=== PATIENT | female | born 1955 | race Two or more races ===

== ENCOUNTER 2022-09-23 06:45 | Day surgery (SDC) | payer MEDICARE, OTHER, SELFPAY ==
[2022-09-23 07:27] VITALS: BP 141/87; PULSE 72; RESP 14; TEMP 36.5; O2SAT 100
[2022-09-23] MEDS: 0.9 % SODIUM CHLORIDE 500 ML 50 ML IV (07:37)
--- NOTE | 2022-09-23 08:19 | W.PM.PROCNOT ---
Date of procedure: 09/23/22 Procedure: Right Lumbar 2,3 & 4,5 Radiofrequency ablation PreOp diagnosis: pain secondary to include lumbar spondylosis Postop diagnosis same Under fluoroscopic guidance Rhizotomy was created using radio frequency ablation at 80?C for 90 seconds 1 to 2 lesions created at each site. Post lesioning injection of 2 mL each of 0.25% Marcaine and 2% lidocaine with Depo-Medrol 40mg. 0.5 to 1 mL injected at each site IV in place yes If Intravenous fluids: NS at KVO Anesthesia local 2% lidocaine Anesthesia Other: MAC Timeout process compliant After informed consent obtained.Patient brought to the procedure room placed in the prone position skin overlying the area was prepped and draped in a sterile fashion using betadine. 25 gauge needle was used to create a skin wheal over each of the targeted areas utilizing 2% lidocaine. A rhizotomy needle with a 10 mm active tip was inserted over each of the anesthetized areas and directed towards each of the medial branches accomplished under fluoroscopic guidance. after encountering the same we had positive sensory stimulation, negative motor stimulation was noted. lesions were then created. Post lesioning, steroid solution was injected needles removed. Patient was transferred to recovery room in stable condition to be discharged home after meeting criteria. Surgeon: Fletcher Rodríguez Condition: stable
[2022-09-23] MEDS: METHYLPREDNISOLONE ACETATE 40 MG/ML VIAL INJ (08:44)
[2022-09-23] MEDS: BUPIVACAINE HCL 0.25% PF 25 MG/10 ML VIAL INJ (08:45)
[2022-09-23] MEDS: LIDOCAINE HCL 2% 400 MG/20 ML MDV 15 ML INJ (08:45)
[2022-09-23 08:59] VITALS: BP 91/52; PULSE 66; RESP 16; TEMP 36.2; O2SAT 98
[2022-09-23 09:04] VITALS: BP 88/54; PULSE 64; RESP 16; TEMP 36.2; O2SAT 97
[2022-09-23 09:55] VITALS: BP 128/75
[2022-09-23 10:05] VITALS: BMI 28.4
--- NOTE | 2022-09-23 10:07 | PC.NURSE ---
0955 right leg remains weak will continue to monitor
--- NOTE | 2022-09-23 11:16 | PC.NURSE ---
1045 numbness continues in right leg Pt unable to bear full weight 1100 Dr. Linares spoke with pt Strength coming back 1118 Pt standing on right leg without difficulty discharged per w/c
== END 2022-09-23 11:18 | disposition home or self-care (01) ==
PROVIDERS: PCP Family Medicine; Visit Provider Anesthesiology Pain Medicine
DX: M47.816 Spondylosis without myelopathy or radiculopathy, lumbar region (principal)
CPT/HCPCS: 64635; 64636; J1030; J2704

== ENCOUNTER 2022-10-22 09:32 | Outpatient (OUT) | payer MEDICARE, OTHER, SELFPAY ==
[2022-10-22 10:15] LABS: Basophils Percent Auto 0.6 % (0.2-2.0); Eosinophils Absolute Auto 0.2 10^3/uL (0.0-0.7); Eosinophils Percent Auto 4.7 % (0.9-7.0); Hematocrit 31.9 % (36.0-48.0); Hemoglobin 9.3 g/dL (12.0-16.0); Immature Granulocytes Abs Auto 0.01 10^3/uL (0.00-0.03); Immature Granulocytes Pct Auto 0.2 % (0.0-0.5); Lymphocytes Percent Auto 19.6 % (20.5-60.0); Mean Corpuscular HGB Conc 29.2 g/dL (29.9-35.2); Mean Corpuscular Volume 75.6 fL (81.0-99.0); Monocytes Absolute Auto 0.5 10^3/uL (0.3-0.8); Monocytes Percent Auto 10.4 % (1.7-12.0); Neutrophils Absolute Auto 3.3 10^3/uL (1.4-6.5); Neutrophils Percent Auto 64.5 % (43.0-75.0); Platelet Count 277 10^3/uL (150-450); Red Blood Count 4.22 10^6/uL (4.20-5.40); Red Cell Distribution Width 17.6 % (11.0-15.0); White Blood Count 5.1 10^3/uL (4.0-11.0)
[2022-10-22 11:55] LABS: Alanine Aminotransferase 25 U/L (14-59); Albumin Level 3.6 g/dL (3.4-5.0); Alkaline Phosphatase 103 U/L (46-116); Anion Gap 11.7; Aspartate Amino Transferase 19 U/L (15-37); BUN Creatinine Ratio 22.1; Bilirubin Total 0.2 mg/dL (0.2-1.0); Calcium 8.7 mg/dL (8.5-10.1); Carbon Dioxide 27.4 mmol/L (21.0-32.0); Chloride 108 mmol/L (98-107); Estimated GFR (African America >60 (>=60); Estimated GFR (Non-African Ame >60 (>=60); Globulin 3.7 g/dL; Glucose 87 mg/dL (74-106); Potassium 4.1 mmol/L (3.5-5.1); Sodium 143 mmol/L (136-145); Total Protein 7.3 g/dL (6.4-8.2)
[2022-10-22 12:52] LABS: Percent Iron Saturation 4.3 %
[2022-10-22 15:16] LABS: Vitamin B12 <80.0 pg/mL (193.0-986.0)
[2022-10-23 14:12] LABS: PTH, Intact 28 pg/mL (15-65)
[2022-10-24 20:08] LABS: Vitamin B1 (Thiamine), Blood 113.7 nmol/L (66.5-200.0)
[2022-10-26 12:07] LABS: Vitamin A, Serum 37.1 ug/dL (22.0-69.5)
[2022-10-26 21:06] LABS: Zinc Level 57 ug/dL (44-115)
== END 2022-10-22 09:33 | disposition home or self-care (01) ==
LOC: LAB 09:33
PROVIDERS: PCP Family Medicine; Visit Provider Family Medicine
DX: Z98.84 Bariatric surgery status (principal); K90.89 Other intestinal malabsorption
CPT/HCPCS: 36415; 80053; 82306; 82607; 82728; 82746; 83540; 83550; 83970; 84425; 84590; 84630; 85025

== ENCOUNTER 2022-10-30 09:26 | Outpatient (OUT) | payer MEDICARE, OTHER, SELFPAY ==
--- NOTE | 2022-10-30 09:59 | PM.CN ---
Consult Note: HPI Data of Consult Patient: known to practice within the last 3 years Consult date: 10/30/22 Requesting Physician: ANGEL KERR NP Primary Care Provider: Dilcia Ocasio MD Consult Narrative Narrative: Patient is here for f/u of right RFA lumbar L2,3 4,5 done 09/23/22. She received 50% relief of pain after procedure. Today she exhibits pain in bilat hips. We discussed getting hip XR and she is agreeable. No new sensorimotor sx or bowel or bladder issues. No adverse medication SE. Medications assist patient with better ability to perform ADLs. cc:: CC: ANGEL KERR NP Review of Systems ROS Status of ROS 10 or more systems reviewed and unremarkable except as noted in history and below Musculoskeletal Reports: back pain PFSH PFSH Medical History (Updated 10/30/22 @ 10:12 by ANGEL KERR NP) Surgical History Meds Home Medications and Allergies Home Medications Medication Instructions Recorded Confirmed Type baclofen 10 mg tablet 10 mg PO .HS 09/17/22 09/23/22 History calcium carbonate 600 mg-vitamin cap PO .QD 09/17/22 History D3 5 mcg (200 unit) capsule (Calcium 600 + D(3)) copper gluconate 2 mg tablet 2 mg PO DAILY 09/17/22 09/23/22 History diclofenac potassium 50 mg tablet 50 mg PO BID 09/17/22 09/23/22 History levothyroxine 88 mcg tablet 88 mcg PO .QD 09/17/22 09/23/22 History multivitamin 1 tab PO DAILY 09/17/22 09/23/22 History tramadol 50 mg tablet 50 mg PO DAILY PRN pain 09/17/22 09/23/22 History vitamin A .QD 09/17/22 History vitamin B complex (Complex B-100 1 tab PO DAILY 09/17/22 09/23/22 History tablet,extended release) zinc 25 mg tablet 25 mg PO .QD 09/17/22 09/23/22 History Allergies Allergy/AdvReac Type Severity Reaction Status Date / Time morphine AdvReac Mild Hypotension Verified 09/23/22 07:23 Exam Constitutional Documenting provider has reviewed patient's vital signs: yes Common normals: no apparent distress, average body habitus, oriented x3, no limitations, healthy appearing, alert and well nourished General appearance: cooperative, comfortable and well developed Orientation/consciousness: Yes awake, Yes oriented to person, Yes oriented to place and Yes oriented to time HENMT Common normals: normocephalic and moist oral mucous membranes Respiratory Common normals: normal respiratory effort, no retractions and no use of accessory muscles Effort & inspection: able to speak in complete sentences and symmetric chest movement Back & Pelvis Lumbar spine/lower back: normal to inspection, lumbar ROM normal, pain with ROM, paraspinal muscle tenderness and paraspinal muscle spasm Other: positive facet load bilat shane positive bilat in hip area muscle strength 5/5 bilat with intact sensation Assessment and Plan Assessment and Plan (1) Lumbar spondylosis: (2) Hip pain, bilateral: Plan bilat hip XR refills given
== END 2022-10-30 09:27 | disposition home or self-care (01) ==
LOC: PM 09:27
PROVIDERS: PCP Family Medicine; Visit Provider Nurse Practitioner
DX: M25.552 Pain in left hip (principal); M25.551 Pain in right hip; M47.816 Spondylosis without myelopathy or radiculopathy, lumbar region
CPT/HCPCS: 73522; G0463

== ENCOUNTER 2022-10-30 10:18 | Outpatient (OUT) | payer MEDICARE, OTHER, SELFPAY ==
--- NOTE | 2022-10-30 10:27 | XR_ITS ---
The [address] [address] Patient Name: KEVIN PEREA MRN: [id number] date: 1955 Sex: F Assigned Patient Location: [facility] Current Patient Location: [facility] Accession/Order Number: [id number] Exam Date: 10/30/2022 10:40 Report Date: 10/30/2022 11:30 At the request of: ANGEL KERR Procedure: XR hip HÉCTOR EXAMINATION: XR hip HÉCTOR HISTORY: Bilateral hip pain COMPARISON: No relevant comparison available. FINDINGS: RIGHT FINDINGS: BONES: Normal. No significant arthropathy or acute abnormality. SOFT TISSUES: Negative. No visible soft tissue swelling. OTHER: Negative. LEFT FINDINGS: BONES: Normal. No significant arthropathy or acute abnormality. SOFT TISSUES: Negative. No visible soft tissue swelling. OTHER: Negative. XR/XR hip HÉCTOR IMPRESSION: RIGHT CONCLUSION: No acute abnormality LEFT CONCLUSION: No acute abnormality Electronically authenticated by: MAUREEN BLANTON Date: 10/30/2022 11:30
== END 2022-10-30 10:19 | disposition home or self-care (01) ==
LOC: RAD 10:20
PROVIDERS: PCP Family Medicine; Visit Provider Nurse Practitioner
DX: M25.552 Pain in left hip (principal); M25.551 Pain in right hip
CPT/HCPCS: 73522

== ENCOUNTER 2022-12-09 08:14 | Day surgery (SDC) | payer MEDICARE, OTHER, SELFPAY ==
[2022-12-09 08:32] VITALS: BP 137/77; PULSE 71; RESP 14; TEMP 36.4; O2SAT 96
[2022-12-09 09:32] VITALS: BP 149/72; PULSE 63; RESP 18; O2SAT 100
[2022-12-09] MEDS: BUPIVACAINE HCL 0.25% PF 25 MG/10 ML VIAL INJ (09:34)
[2022-12-09] MEDS: METHYLPREDNISOLONE ACETATE 40 MG/ML VIAL IM (09:35)
[2022-12-09 09:37] VITALS: BP 145/75; PULSE 62; RESP 18; O2SAT 99
--- NOTE | 2022-12-09 10:20 | W.PM.PROCNOT ---
Date of procedure: 12/09/22 Pre-op diagnosis: Bilateral sacroiliitis Post-op diagnosis: same as pre-op Procedure: Bilateral sacroiliac joint injection - therapeautic Performed under fluoroscopic guidance Immediate complications none Anesthesia:none Solution used for injection: In each syringe, 2 milliliters 0.25% Marcaine, 20mg Depo 2.5 mL is used for injection for each side Time out process compliant After informed consent obtained patient was brought to the procedure room placed in the prone position skin overlying the area was prepped and draped in a sterile fashion using betadine. 25 gauge spinal needle Insert over each of the target areas identified in fluoroscopy corresponding needles were advanced Under fluoroscopic guidance until the target/targets encountered , no indication of intravascular or Intraneuronal needle tip placement. Solution injected .needles removed post procedurally. patient transferred to recovery room in stable condition to be discharged home after meeting criteria Anesthesia: MAC Surgeon: Fletcher Rodríguez Condition: stable
== END 2022-12-09 09:41 | disposition home or self-care (01) ==
PROVIDERS: PCP Family Medicine; Visit Provider Anesthesiology Pain Medicine
DX: M46.1 Sacroiliitis, not elsewhere classified (principal)
CPT/HCPCS: 27096; J1030

== ENCOUNTER 2022-12-18 10:14 | Outpatient (OUT) | payer MEDICARE, OTHER, SELFPAY ==
--- NOTE | 2022-12-18 10:38 | P.CN_ITS ---
Consult Note: HPI Data of Consult Patient: known to practice within the last 3 years Requesting Physician: Fletcher Rodríguez MD Primary Care Provider: Dilcia Ocasio MD Consult Narrative Reason for consult: f/u Narrative: Sylvia crain pleasant 67 year old female presents to office for evaluation of chronic low back and bilateral hip pain. Recently underwent bilateral therapeutic SIJ injections. today rating pain 0/10, has noticed improvement in functional ability and pain since these injections and thermal RFA. cc:: CC: Fletcher Rodríguez MD Review of Systems ROS Status of ROS 10 or more systems reviewed and unremarkable except as noted in history and below [facility] Medical History (Updated 12/18/22 @ 10:48 by Maria G Toussaint NP) Surgical History Meds Home Medications and Allergies Home Medications Medication Instructions Recorded Confirmed Type baclofen 10 mg tablet 10 mg PO .HS 09/17/22 12/09/22 History calcium carbonate 600 mg-vitamin cap PO .QD 09/17/22 History D3 5 mcg (200 unit) capsule (Calcium 600 + D(3)) copper gluconate 2 mg tablet 2 mg PO DAILY 09/17/22 12/09/22 History diclofenac potassium 50 mg tablet 50 mg PO BID 09/17/22 12/09/22 History levothyroxine 88 mcg tablet 88 mcg PO .QD 09/17/22 12/09/22 History multivitamin 1 tab PO DAILY 09/17/22 12/09/22 History tramadol 50 mg tablet 50 mg PO DAILY PRN pain 09/17/22 12/09/22 History vitamin A .QD 09/17/22 History vitamin B complex (Complex B-100 1 tab PO DAILY 09/17/22 12/09/22 History tablet,extended release) zinc 25 mg tablet 25 mg PO .QD 09/17/22 12/09/22 History Allergies Allergy/AdvReac Type Severity Reaction Status Date / Time morphine AdvReac Mild Hypotension Verified 12/09/22 08:36 Exam Constitutional Documenting provider has reviewed patient's vital signs: yes Common normals: no apparent distress, oriented x3, healthy appearing, alert and well nourished General appearance: cooperative HENMT Common normals: normocephalic, hearing grossly normal bilaterally and moist oral mucous membranes Head and scalp: normocephalic Eye Common normals: PERRL Pupil: PERRL Neck & C-Spine Common normals: full ROM General: normal visual inspection Chest Common normals: inspection of chest normal Respiratory Common normals: normal respiratory effort, no retractions and no use of accessory muscles Back & Pelvis Lumbar spine/lower back: pain with ROM and straight leg raise negative bilaterally Other: bilateral low back pain, improved as a result of RFA. Continues to have >50% pain relief and functional improvement intermittent muscle tightness and spasms Extremity Common normals: normal to inspection and full ROM Neuro Common normals: oriented x3, CN's II-XII intact bilaterally, moves all extremities, no focal motor deficits, no sensory deficits noted and deep tendon reflexes 2+ bilaterally Sensorium/orientation: alert Motor exam: strength 5/5 throughout and no movement abnormalities noted Psych Common normals: mental status grossly normal, thought process normal, cooperative, affect normal, speech normal and activity/motor behavior normal Speech: normal speech Thought process: normal thought process Results Additional Findings Additional findings: As part of providing excellent, safe, comprehensive care, the following was completed at our patient's visit: 1. A medication reconciliation and review to ensure accurate knowledge of current/active medications, including asking our patients to inform us about any [id number] medications or herbal remedies/nutritional supplements/alternative remedies. 2. A review to specifically ensure our patients have had annual screening for: elevated body mass index (BMI), tobacco use, screening for depression, and screening for unhealthy alcohol use. When screening is concerning, patients are provided with education and the specific recommendation to discuss the concerning health issue and treatment options with their primary care provider. Assessment and Plan Assessment and Plan (1) Bilateral sacroiliitis: (2) Muscle spasm: Plan Discussed continued pain relief from bilateral SIJ injections and tolerating current medication regimen well. No additional injections or procedures needed at this time continue current medication regimen f/u 2 months
== END 2022-12-18 10:15 | disposition home or self-care (01) ==
PROVIDERS: PCP Family Medicine; Visit Provider Anesthesiology Pain Medicine
DX: M46.1 Sacroiliitis, not elsewhere classified (principal); M62.838 Other muscle spasm
CPT/HCPCS: G0463

== ENCOUNTER 2023-01-21 13:43 | Outpatient (OUT) | payer MEDICARE, OTHER, SELFPAY ==
--- NOTE | 2023-01-21 14:48 | P.CN_ITS ---
Consult Note: HPI Data of Consult Patient: known to practice within the last 3 years Requesting Physician: Maria G Toussaint NP Primary Care Provider: Dilcia Ocasio MD Consult Narrative Reason for consult: F/u Narrative: Sylvia Aragon a pleasant 67 year old female presents for evaluation and management of chronic pain, in the last few weeks has noticed increase in low back bilateral SIJ and hips. Patient rating pain 7/10 throbbing. SIJ injections have worn off and are no longer beneficial. Patient would like to discuss medication management. cc:: CC: Maria G Toussaint NP Review of Systems ROS Status of ROS 10 or more systems reviewed and unremarkable except as noted in history and below Musculoskeletal Reports: back pain and joint pain PFSH PFS Medical History (Updated 12/18/22 @ 10:48 by Maria G Toussaint NP) Back pain ?M54.9 - Dorsalgia, unspecified (ICD-10) Neck pain ?M54.2 - Cervicalgia (ICD-10) Rheumatoid arthritis ?M06.9 - Rheumatoid arthritis, unspecified (ICD-10) Surgical History H/O abdominoplasty ?Z98.890 - Other specified postprocedural states (ICD-10) H/O bariatric surgery ?Z98.84 - Bariatric surgery status (ICD-10) H/O breast implant ?Z98.82 - Breast implant status (ICD-10) H/O eye surgery ?Z98.890 - Other specified postprocedural states (ICD-10) History of gastric surgery ?Z98.890 - Other specified postprocedural states (ICD-10) Hx of cholecystectomy ?Z90.49 - Acquired absence of other specified parts of digestive tract (ICD- 10) Meds Home Medications and Allergies Home Medications Medication Instructions Recorded Confirmed Type baclofen 10 mg tablet 10 mg PO .HS 09/17/22 12/09/22 History calcium carbonate 600 mg-vitamin cap PO .QD 09/17/22 History D3 5 mcg (200 unit) capsule (Calcium 600 + D(3)) copper gluconate 2 mg tablet 2 mg PO DAILY 09/17/22 12/09/22 History diclofenac potassium 50 mg tablet 50 mg PO BID 09/17/22 12/09/22 History levothyroxine 88 mcg tablet 88 mcg PO .QD 09/17/22 12/09/22 History multivitamin 1 tab PO DAILY 09/17/22 12/09/22 History tramadol 50 mg tablet 50 mg PO DAILY PRN pain 09/17/22 12/09/22 History vitamin A .QD 09/17/22 History vitamin B complex (Complex B-100 1 tab PO DAILY 09/17/22 12/09/22 History tablet,extended release) zinc 25 mg tablet 25 mg PO .QD 09/17/22 12/09/22 History Allergies Allergy/AdvReac Type Severity Reaction Status Date / Time morphine AdvReac Mild Hypotension Verified 12/09/22 08:36 Exam Constitutional Documenting provider has reviewed patient's vital signs: yes Common normals: no apparent distress, oriented x3, healthy appearing, alert and well nourished General appearance: cooperative HENMT Common normals: normocephalic, hearing grossly normal bilaterally and moist oral mucous membranes Head and scalp: normocephalic Eye Common normals: PERRL Pupil: PERRL Neck & C-Spine Common normals: full ROM General: normal visual inspection Chest Common normals: inspection of chest normal Respiratory Common normals: normal respiratory effort, no retractions and no use of accessory muscles Back & Pelvis Lumbar spine/lower back: ROM limited and pain with ROM Sacroiliac joints: SI joint(s) abnormal (bilateral thigh thrust, gaenslens, ASAD) Extremity Common normals: normal to inspection Neuro Common normals: oriented x3, CN's II-XII intact bilaterally, moves all extremities, no focal motor deficits, no sensory deficits noted and deep tendon reflexes 2+ bilaterally Sensorium/orientation: alert Motor exam: strength 5/5 throughout and no movement abnormalities noted Psych Common normals: mental status grossly normal, thought process normal, cooperative, affect normal, speech normal and activity/motor behavior normal Speech: normal speech Thought process: normal thought process Results Additional Findings Additional findings: I have checked an [place]AR[place] report on this patient today and there are no aberrancies noted in the prescribing history.?? A drug screen was completed and reviewed within the last year, and if there has not been a drug screen completed we ordered one today to monitor higher risk, state monitored pain medication use. As part of providing excellent, safe, comprehensive care, the following was completed at our patient's visit: 1. A medication reconciliation and review to ensure accurate knowledge of current/active medications, including asking our patients to inform us about any [id number] medications or herbal remedies/nutritional supplements/alternative remedies. 2. A review to specifically ensure our patients have had annual screening for: elevated body mass index (BMI), tobacco use, screening for depression, and screening for unhealthy alcohol use. When screening is concerning, patients are provided with education and the specific recommendation to discuss the concerning health issue and treatment options with their primary care provider. Assessment and Plan Assessment and Plan (1) Rheumatoid arthritis: (2) Bilateral sacroiliitis: (3) Hip pain, bilateral: (4) Lumbar spondylosis: (5) Muscle spasm: Plan start duloxetine 30mg Q HS for 2 weeks then increase to 60mg HS change diclofenac to 100mg ER continue PRN baclofen 10mg muscle spasms f/u 6 weeks
== END 2023-01-21 13:44 | disposition home or self-care (01) ==
PROVIDERS: PCP Family Medicine; Visit Provider Nurse Practitioner
DX: M06.9 Rheumatoid arthritis, unspecified (principal); M46.1 Sacroiliitis, not elsewhere classified; M25.552 Pain in left hip; M25.551 Pain in right hip; M47.816 Spondylosis without myelopathy or radiculopathy, lumbar region; M62.838 Other muscle spasm
CPT/HCPCS: G0463

== ENCOUNTER 2023-03-05 11:39 | Outpatient (OUT) | payer MEDICARE, SELFPAY ==
--- NOTE | 2023-03-05 11:56 | P.CN_ITS ---
Consult Note: HPI Data of Consult Patient: known to practice within the last 3 years Requesting Physician: Maria G Toussaint NP Primary Care Provider: Dilcia Ocasio MD Consult Narrative Reason for consult: f/u Narrative: Sylvia crain pleasant 67 year old female presents for evaluation and management of chronic low back pain. Today pain 3/10. Patient has not utilized diclofenac, not taking duloxetine. pain today 3/10 in low back without radiculopathy. cc:: CC: Maria G Toussaint NP Review of Systems ROS Status of ROS 10 or more systems reviewed and unremarkable except as noted in history and below Musculoskeletal Reports: back pain PFSH PFSH Medical History (Updated 12/18/22 @ 10:48 by Maria G Toussaint NP) Back pain ?M54.9 - Dorsalgia, unspecified (ICD-10) Neck pain ?M54.2 - Cervicalgia (ICD-10) Rheumatoid arthritis ?M06.9 - Rheumatoid arthritis, unspecified (ICD-10) Surgical History H/O abdominoplasty ?Z98.890 - Other specified postprocedural states (ICD-10) H/O bariatric surgery ?Z98.84 - Bariatric surgery status (ICD-10) H/O breast implant ?Z98.82 - Breast implant status (ICD-10) H/O eye surgery ?Z98.890 - Other specified postprocedural states (ICD-10) History of gastric surgery ?Z98.890 - Other specified postprocedural states (ICD-10) Hx of cholecystectomy ?Z90.49 - Acquired absence of other specified parts of digestive tract (ICD- 10) Meds Home Medications and Allergies Home Medications Medication Instructions Recorded Confirmed Type baclofen 10 mg tablet 10 mg PO .HS 09/17/22 12/09/22 History calcium carbonate 600 mg-vitamin cap PO .QD 09/17/22 History D3 5 mcg (200 unit) capsule (Calcium 600 + D(3)) copper gluconate 2 mg tablet 2 mg PO DAILY 09/17/22 12/09/22 History diclofenac potassium 50 mg tablet 50 mg PO BID 09/17/22 12/09/22 History levothyroxine 88 mcg tablet 88 mcg PO .QD 09/17/22 12/09/22 History multivitamin 1 tab PO DAILY 09/17/22 12/09/22 History tramadol 50 mg tablet 50 mg PO DAILY PRN pain 09/17/22 12/09/22 History vitamin A .QD 09/17/22 History vitamin B complex (Complex B-100 1 tab PO DAILY 09/17/22 12/09/22 History tablet,extended release) zinc 25 mg tablet 25 mg PO .QD 09/17/22 12/09/22 History diclofenac sodium 100 mg 100 mg PO DAILY #30 tabs 01/21/23 Rx tablet,extended release 24 hr duloxetine 30 mg capsule,delayed 60 mg PO DAILY #75 caps 01/21/23 Rx release Allergies Allergy/AdvReac Type Severity Reaction Status Date / Time morphine AdvReac Mild Hypotension Verified 12/09/22 08:36 Exam Constitutional Documenting provider has reviewed patient's vital signs: yes Common normals: no apparent distress, oriented x3, healthy appearing, alert and well nourished General appearance: cooperative HENMT Common normals: normocephalic, hearing grossly normal bilaterally and moist oral mucous membranes Head and scalp: normocephalic Eye Common normals: PERRL Pupil: PERRL Neck & C-Spine Common normals: full ROM General: normal visual inspection Chest Common normals: inspection of chest normal Respiratory Common normals: normal respiratory effort, no retractions and no use of accessory muscles Back & Pelvis Lumbar spine/lower back: ROM limited and pain with ROM Extremity Common normals: normal to inspection Neuro Common normals: oriented x3, CN's II-XII intact bilaterally, moves all extremities, no focal motor deficits, no sensory deficits noted and deep tendon reflexes 2+ bilaterally Sensorium/orientation: alert Motor exam: strength 5/5 throughout and no movement abnormalities noted Psych Common normals: mental status grossly normal, thought process normal, cooperative, affect normal, speech normal and activity/motor behavior normal Speech: normal speech Thought process: normal thought process Results Additional Findings Additional findings: I have checked an [place]AR[place] report on this patient today and there are no aberrancies noted in the prescribing history.?? A drug screen was completed and reviewed within the last year, and if there has not been a drug screen completed we ordered one today to monitor higher risk, state monitored pain medication use. As part of providing excellent, safe, comprehensive care, the following was completed at our patient's visit: 1. A medication reconciliation and review to ensure accurate knowledge of current/active medications, including asking our patients to inform us about any [id number] medications or herbal remedies/nutritional supplements/alternat ke remedies. 2. A review to specifically ensure our patients have had annual screening for: elevated body mass index (BMI), tobacco use, screening for depression, and screening for unhealthy alcohol use. When screening is concerning, patients are provided with education and the specific recommendation to discuss the concerning health issue and treatment options with their primary care provider. Assessment and Plan Assessment and Plan (1) Lumbar spondylosis: (2) Muscle spasm: Plan continue current medications, can start diclofenac and/or duloxetine as previously discussed transdermal therapeutics to low back and affected areas TID-QID f/u 2 months
== END 2023-03-05 11:40 | disposition home or self-care (01) ==
LOC: PM 11:40
PROVIDERS: PCP Family Medicine; Visit Provider Nurse Practitioner
DX: M47.816 Spondylosis without myelopathy or radiculopathy, lumbar region (principal); M62.838 Other muscle spasm
CPT/HCPCS: G0463

== ENCOUNTER 2023-05-28 08:57 | Outpatient (OUT) | payer MEDICARE, OTHER, SELFPAY ==
--- NOTE | 2023-05-28 09:18 | P.CN_ITS ---
Consult Note: HPI Data of Consult Patient: known to practice within the last 3 years Requesting Physician: Maria G Toussaint NP Primary Care Provider: Dilcia Ocasio MD Consult Narrative Reason for consult: f/u Narrative: Sylvia Aragon a pleasant 67 year old female presents for evaluation and management of chronic low back pain. Today pain 3/10, increasing to 8/10. Patient has found benefit to diclofenac, duloxetine, and baclofen without side effects. Patient has noticed an increase in low back pain over the last 3 weeks with increase in sharp shooting pain radiating down right leg, hx of stress incontinence and has noticed this getting worse. Pain increased with activity and when lying flat, finds benefit to lying on her abdomen. cc:: CC: Maria G Toussaint NP Review of Systems ROS Status of ROS 10 or more systems reviewed and unremark able except as noted in history and below Musculoskeletal Reports: back pain PFSH PFSH Medical History Rheumatoid arthritis ?M06.9 - Rheumatoid arthritis, unspecified (ICD-10) Neck pain ?M54.2 - Cervicalgia (ICD-10) Back pain ?M54.9 - Dorsalgia, unspecified (ICD-10) Surgical History History of gastric surgery ?Z98.890 - Other specified postprocedural states (ICD-10) H/O abdominoplasty ?Z98.890 - Other specified postprocedural states (ICD-10) H/O bariatric surgery ?Z98.84 - Bariatric surgery status (ICD-10) H/O eye surgery ?Z98.890 - Other specified postprocedural states (ICD-10) H/O breast implant ?Z98.82 - Breast implant status (ICD-10) Hx of cholecystectomy ?Z90.49 - Acquired absence of other specified parts of digestive tract (ICD- 10) Meds Home Medications and Allergies Home Medications Medication Instructions Recorded Confirmed Type baclofen 10 mg tablet 10 mg PO .HS 09/17/22 12/09/22 History calcium carbonate 600 mg-vitamin cap PO .QD 09/17/22 History D3 5 mcg (200 unit) capsule (Calcium 600 + D(3)) copper gluconate 2 mg tablet 2 mg PO DAILY 09/17/22 12/09/22 History diclofenac potassium 50 mg tablet 50 mg PO BID 09/17/22 12/09/22 History levothyroxine 88 mcg tablet 88 mcg PO .QD 09/17/22 12/09/22 History multivitamin 1 tab PO DAILY 09/17/22 12/09/22 History tramadol 50 mg tablet 50 mg PO DAILY PRN pain 09/17/22 12/09/22 History vitamin A .QD 09/17/22 History vitamin B complex (Complex B-100 1 tab PO DAILY 09/17/22 12/09/22 History tablet,extended release) zinc 25 mg tablet 25 mg PO .QD 09/17/22 12/09/22 History diclofenac sodium 100 mg 100 mg PO DAILY #30 tabs 01/21/23 Rx tablet,extended release 24 hr duloxetine 30 mg capsule,delayed 60 mg (2 x 30 mg) PO DAILY #75 caps 01/21/23 Rx release Allergies Allergy/AdvReac Type Severity Reaction Status Date / Time morphine AdvReac Mild Hypotension Verified 12/09/22 08:36 Exam Constitutional Documenting provider has reviewed patient's vital signs: yes Common normals: no apparent distress, oriented x3, healthy appearing, alert and well nourished General appearance: cooperative HENME Common normals: normocephalic, hearing grossly normal bilaterally and moist oral mucous membranes Head and scalp: normocephalic Eye Common normals: PERRL Pupil: PERRL Neck & C-Spine Common normals: full ROM General: normal visual inspection Chest Common normals: inspection of chest normal Respiratory Common normals: normal respiratory effort, no retractions and no use of accessory muscles Back & Pelvis Lumbar spine/lower back: ROM limited, pain with ROM and straight leg raise positive right Sacroiliac joints: SI joints normal Extremity Common normals: normal to inspection Neuro Common normals: oriented x3, CN's II-XII intact bilaterally, moves all extremities, no focal motor deficits, no sensory deficits noted and deep tendon reflexes 2+ bilaterally Sensorium/orientation: alert Gait (neuro): antalgic Motor exam: strength 5/5 throughout and no movement abnormalities noted Psych Common normals: mental status grossly normal, thought process normal, cooperative, affect normal, speech normal and activity/motor behavior normal Speech: normal speech Thought process: normal thought process Results Additional Findings Additional findings: I have checked an [facility] report on this patient today and there are no aberrancies noted in the prescribing history.?? A drug screen was completed and reviewed within the last year, and if there has not been a drug screen completed we ordered one today to monitor higher risk, state monitored pain medication use. As part of providing excellent, safe, comprehensive care, the following was completed at our patient's visit: 1. A medication reconciliation and review to ensure accurate knowledge of current/active medications, including asking our patients to inform us about any [id number]-czjonhd medications or herbal remedies/nutritional supplements/alternative remedies. 2. A review to specifically ensure our patients have had annual screening for: elevated body mass index (BMI), tobacco use, screening for depression, and screening for unhealthy alcohol use. When screening is concerning, patients are provided with education and the specific recommendation to discuss the concerning health issue and treatment options with their primary care provider. Assessment and Plan Assessment and Plan (1) Lumbar spondylosis: (2) Muscle spasm: (3) Lumbar radiculopathy: (4) Bilateral sacroiliitis: (5) Hip pain, bilateral: Plan lumbar MRI without contrast to evaluate lumbar radiculopathy, chronic low back pain greater than 3 months unresponsive to medications and pt/HEP. Essential to evaluate for injection therapy vs surgical referral continue current medications, tolerating well without side effects transdermal therapeutics to low back and affected areas TID-QID f/u after MRI, likely L5-S1 KEYONA
== END 2023-05-28 08:58 | disposition home or self-care (01) ==
PROVIDERS: PCP Family Medicine; Visit Provider Nurse Practitioner
DX: M47.816 Spondylosis without myelopathy or radiculopathy, lumbar region (principal); M62.838 Other muscle spasm; M54.16 Radiculopathy, lumbar region; M46.1 Sacroiliitis, not elsewhere classified; M25.552 Pain in left hip; M25.551 Pain in right hip
CPT/HCPCS: G0463

== ENCOUNTER 2023-06-04 09:15 | Outpatient (OUT) | payer MEDICARE, OTHER, SELFPAY ==
--- NOTE | 2023-06-04 09:19 | MR_ITS ---
The [address] [address] Patient Name: KEVIN PEREA MRN: [id number] date: 1955 Sex: F Assigned Patient Location: MRI Current Patient Location: MRI Accession/Order Number: [id number] Exam Date: 06/04/2023 09:40 Report Date: 06/04/2023 10:32 At the request of: CHERY DICKINSON Procedure: MR lumbar spine wo con MR lumbar spine wo con, 06/04/2023 9:40 AM EST INDICATION: radiculopathy, chronic low back pain COMPARISON: Prior x-ray of lumbar spine dated 12/13/2018 TECHNIQUE: Multiplanar, multisequential MRI images of lumbar spine were obtained without contrast. FINDINGS: For dictation purposes, the lowest complete disc space in the lumbar spine considered as S1-S2. There is dextroscoliosis centered on L2-L3 with normal physiologic lumbar lordosis. The vertebral height is preserved. There is signal abnormality on T1 and T2-weighted images in the vertebral bodies of visualized spine that may suggest bone marrow reconversion in appropriate clinical setting. The conus medullaris is at the level of L1. No signal abnormality within the visualized spinal cord is noted. A hemangioma within the body of L1 is noted. Level of T12-L1, there is a left lateral disc protrusion with mild bilateral neuroforaminal narrowing. At the level of L1-L2, there are disc bulge with moderate bilateral neuroforaminal narrowing and no canal stenosis. At the level of L2-L3, there are disc bulge with severe left neuroforaminal narrowing and no canal stenosis. At the level of L3-4, there are disc bulge with moderate bilateral neuroforaminal narrowing and mild canal stenosis. At the level of L4-5, there are disc bulge with moderate right and mild left neuroforaminal narrowing and moderate canal stenosis. At the level of L5-S1, there are disc bulge with moderate right neuroforaminal narrowing and mild canal stenosis. Level of S1-S2 is unremarkable. The paraspinal muscles are unremarkable. MR/MR lumbar spine wo con IMPRESSION: Moderate degenerative changes of lumbar spine in particular at L2-L3 and L4-L5. Electronically authenticated by: ROSI STEPHENSON Date: 06/04/2023 10:32
== END 2023-06-04 09:16 | disposition home or self-care (01) ==
LOC: MRI 09:15
PROVIDERS: PCP Family Medicine; Visit Provider Nurse Practitioner
DX: M54.16 Radiculopathy, lumbar region (principal); M54.50 Low back pain, unspecified; M51.36 Other intervertebral disc degeneration, lumbar region
CPT/HCPCS: 72148

== ENCOUNTER 2023-06-10 08:40 | Outpatient (OUT) | payer MEDICARE, OTHER, SELFPAY ==
--- OUTSIDE RECORDS SUMMARY | 2023-06-10 08:49 | XMS_ITS | CCD ---
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 Name Role Phone Amee Mancilla MD Primary Care Provider FESTUS ., DR KELLI Llamas Admitting Unavailable LAURENT, DR AMEE Morales Primary Care Unavailable HENRIQUEZ ., DR KELLI Llamas Attending Unavailable HENRIQUEZ ., DR KELLI Llamas Consulting Unavailable HENRIQUEZ ., DR KELLI Llamas Attending Unavailable LAURENT, DR AMEE Morales Primary Care Unavailable HENRIQUEZ ., DR KELLI Llamas Consulting Unavailable HENRIQUEZ ., DR KELLI Llamas Admitting Unavailable LAURENT, DR AMEE Morales Primary Care Unavailable LAKSHMIPATHY ., MELO Attending Joselin vailable LAKSHMIPATHY ., MELO Admitting Joselin vailable HENRIQUEZ ., DR KELLI Llamas Admitting Unavailable LAURENT, DR AMEE Morales Primary Care Unavailable LAURENT, DR AMEE Morales Consulting Unavailable HENRIQUEZ ., DR KELLI Llamas Attending Unavailable CHRISTIANO .LATRELL Consulting Unavailable LAURENT, DR AMEE Morales Primary Care Unavailable LAKSHMIPATHY ., NARENDDARÍOATH Admitting Joselin vailable LAKSHMIPATHY ., NATALIAATH Attending Joselin vailable LAKSHMIPATHY ., NARENDPANCHITO Consulting Joselin vailable LUIS F HAIR Admitting Unavailable WALESKA .LEWIS Consulting UnavailLUIS F Loyola Attending Unavailable LAURENT, DR AMEE Morales Primary Care Unavailable SATISH MANDUJANO Consulting Unavailable JUAN SALDIVAR Consulting Unavailable LAURENT, DR AMEE Morales Primary Care Unavailable USHA .ANGEL Admitting Unavailable HALCHANTEL ., ANGEL Attending Unavailable USHA .ANGEL Consulting Unavailable HENRIQUEZ ., DR KELLI Llamas Admitting Unavailable HENRIQUEZ ., DR KELLI Llamas Attending Unavailable LAURENT, DR AMEE Morales Primary Care Unavailable CHRISTIANO .LATRELL Consulting Unavailable DOMENICA KNIGHT Consulting Unavailable DOMENICA KNIGHT Attending Unavailable MANCILLA, AMEE Primary Care Unavailable DOMENICA KNIGHT Admitting Unavailable Clay Mancillaia Unavailable AYOUBI, MOHAMED Referring Unavailable MANCILLA, AMEE Primary Care Unavailable MANCILLA, AMEE Primary Care Unavailable AYOUBI, MOHAMED Referring Unavailable MANCILLA, AMEE Primary Care Unavailable AYOUBI, MOHAMED Referring Unavailable MANCILLA, AMEE Primary Care Unavailable AYOUBI, MOHAMED Referring Unavailable MANCILLA, AMEE Primary Care Unavailable AYOUBI, MOHAMED Referring Unavailable AYOUBI, MOHAMED Referring Unavailable MANCILLA, AMEE Primary Care Unavailable AYOUBI, MOHAMED Referring Unavailable MANCILLA, AMEE Primary Care Unavailable AYOUBI, MOHAMED Referring Unavailable MANCILLA, AMEE Primary Care Unavailable AYOUBI, MOHAMED Referring Unavailable MANCILLA, AMEE Primary Care Unavailable AYOUBI, MOHAMED Referring Unavailable MANCILLA, AMEE Primary Care Unavailable AYOUBI, MOHAMED Referring Unavailable MANCILLA, AMEE Primary Care Unavailable AYOUBI, MOHAMED Referring Unavailable MANCILLA, AMEE Primary Care Unavailable Allergies Allergy Classification Reported Allergen(s) Allergy Type Date of Onset Reaction(s) Facility (1 source) Penicillins Propensity to adverse reactions [facility] (1 source) Morphine And Related Propensity to adverse reactions to drug 7 [facility] (2 sources) Morphine Drug Allergy [facility] (1 source) Morphine Drug Allergy 9 Unknown [facility] Other Medications Current Medications Medication Drug Class(es) Dates Sig (Normalized) Sig (Original) acetaminophen 325 mg / oxyCODONE hydrochloride 5 mg oral tablet (3 sources) Opioid Agonist Start: 06-10-2022 oxyCODONE-acetamin ophen (PERCOCET) 5-325 MG per tablet 1 tablet Start: 09-01-2016 End: 06-16-2022 oxyCODONE-acetaminophen (PER COCET) 5-325 MG per tablet Indications: Acute postoperative pain Take 1 tablet by mouth every 6 hours as needed for Pain for up to 3 days. Intended supply: 7 days. Take lowest dose possible to manage pain Max Daily Amount: 4 tablets 12 tablet 0 06/13/2022 06/16/2022 Active albuterol 0.833 mg/ml / ipratropium bromide 0.167 mg/ml inhalation solution (1 source) Anticholinergic, beta2-Adrenergic Agonist Start: 06-12-2022 ipratropium-albuterol (DUONEB) nebulizer solution 1 ampule baclofen 10 mg oral tablet (2 sources) gamma-Aminobutyric Acid-ergic Agonist Start: 04-17-2021 End: 06-13-2022 Baclofen 10MG Baclofen( 10MG Oral ) Active -Hx Entry Oral for 0 *Pick strength-form from [employer] for eRX* 12 Apr, 2021 Active bisacodyl 10 mg rectal suppository (1 source) Stimulant Laxative Start: 06-12-2022 bisacodyl (DULCOLAX) suppository 10 mg cyclobenzaprine hydrochloride 10 mg oral tablet (2 sources) Muscle Relaxant Start: 06-10-2022 End: 06-16-2022 take 1 tablet by mouth three times daily as needed for muscle spasms cyclobenzaprine (FLEXERIL) 10 MG tablet Take 1 tablet by mouth 3 times daily as needed for Muscle spasms 9 tablet 0 06/13/2022 06/16/2022 Active diclofenac potassium 50 mg oral tablet (1 source) Nonsteroidal Anti-inflammatory Drug take 1 tablet by mouth twice daily diclofenac (CATAFLAM) 50 MG tablet Take 50 mg by mouth 2 times daily 0 Active 1 ml diphenhydrAMINE hydrochloride 50 mg/ml cartridge (2 sources) Histamine-1 Receptor Antagonist Start: 06-11-2022 diphenhydrAMINE (BENADRYL) injection 25 mg Start: 06-10-2022 End: 06-10-2022 diphenhydrAMINE (BENADRYL) i njection 25 mg 1 ml heparin sodium, porcine 5000 unt/ml prefilled syringe (1 source) Unfractionated Heparin, Anti-coagulant Start: 06-10-2022 End: 09-20-2023 5,000 Units, SubCUTAneous, EVERY 8 HOURS SCHEDULED (3 times per day), 1400 doses, First dose on Thu06/10/22 at 1400, Last dose on Thu09/19/23 at 2200 1 ml hydrALAZINE hydrochloride 20 mg/ml injection (2 sources) Arteriolar Vasodilator Start: 06-12-2022 hydrALA ZINE (APRESOLINE) injection 10 mg Start: 06-10-2022 End: 06-10-2022 hydrALAZINE (APRESOLINE) inj ection 10 mg levothyroxine (2 sources) l-Thyroxine Start: 02-11-2022 take 1 tablet by mouth once daily Levothyroxine 88mcg levothyroxine 88mcg, 1 (one) Tablet daily # 90, 02/11/2022, Ref. x1. Active oral daily for 0 *Reorder from [facility] for eRx and Interaction Alerts* Feb, Active Levothyroxine So dium 88 MCG CAPS Take by mouth Daily 0 Active magnesium hydroxide 80 mg/ml oral suspension (1 source) Start: 06-12-2022 magnesium hydr oxide (MILK OF MAGNESIA) 400 MG/5ML suspension 30 mL 2 ml metoclopramide 5 mg/ml prefilled syringe (1 source) Dopamine-2 Receptor Antagonist Start: 06-11-2022 metoclopramide (REGL AN) injection 10 mg 2 ml ondansetron 2 mg/ml injection (2 sources) Serotonin-3 Receptor Antagonist Start: 06-10-2022 ondansetron (ZOFRAN) injection 4 mg Start: 09-01-2016 End: 06-13-2022 take 1 tablet by mouth every eight hours as needed for nausea ondansetron (ZOFRAN) 4 MG tablet Take 1 tablet by mouth every 8 hours as needed for Nausea or Vomiting 30 tablet 0 09/01/2016 06/13/2022 Discontinued (Stop Taking at Discharge) pantoprazole (PROTONIX) 40 m g in sodium chloride (PF) 0.9 % 10 mL injection (1 source) Start: 06-10-2022 pantoprazole ( PROTONIX) 40 mg in sodium chloride (PF) 0.9 % 10 mL injection 1000 ml sodium chloride 9 mg /ml injection (4 sources) Start: 06-10-2022 0.9 % sodium c hloride infusion Start: 06-10-2022 IntraVENous, a t 5-250 mL/hr, PRN, if patient receiving piggyback infusions and maintenance fluids are not ordered OR KVO fluids to protect IV site / prevent frequent line interruptions/ long duration, Starting on Thu06/10/22 at 0933 For piggyback infusion, administer at same rate as piggyback for a total of 25 mL. Enter 25 mL into dose field and piggyback rate into rate field of order. If piggyback is infusing at a rate less than 100 mL/hr, enter 25 mL into dose field and 100 mL/hr into rate field of order. For KVO fluids, enter rate of 20 mL/hr or less into rate field of order. Start: 06-10-2022 take 1 dose intraven ously twice daily 5-40 mL, IntraVENous, EVERY 12 HOURS SCHEDULED (2 times per day), First dose on Thu06/10/22 at 1000, Until Discontinued For Line Patency: Peripheral IV = 5 mL; Midline or Central Line = 10 mL/lumen. If following IV push medication, administer flush at same rate as the IV push. Flush volume is determined by type of infusion therapy being given. For non-viscous solutions use: Peripheral IV = 5 mL Midline or Central Line = 10 mL/lumen For viscous solutions (i.e. blood components, parenteral nutrition, contrast media, or after obtaining blood sample) use: Peripheral IV = 10 mL Midline or Central Line = 20 mL/lumen Start: 06-10-2022 take 5-40 mL intrave nously once as needed 5-40 mL, IntraVENous, PRN, Starting on Thu06/10/22 at 0933, Until Discontinued, Line Care, After every IV line use For Line Patency: Peripheral IV = 5 mL; Midline or Central Line = 10 mL/lumen. If following IV push medication, administer flush at same rate as the IV push. Flush volume is determined by type of infusion therapy being given. For non-viscous solutions use: Peripheral IV = 5 mL Midline or Central Line = 10 mL/lumen For viscous solutions (i.e. blood components, parenteral nutrition, contrast media, or after obtaining blood sample) use: Peripheral IV = 10 mL Midline or Central Line = 20 mL/lumen Completed/Discontinued Medications Medication Drug Class(es) Dates Sig (Normalized) Sig (Original) atorvastatin 80 mg oral tablet (2 sources) HMG-CoA Reductase Inhibitor Start: 06-11-2022 take 80 mg by mouth once daily 80 mg, Oral, DAILY, First dose on Thu06/11/22 at 0900, Until Discontinued calcium chloride 0.0014 meq/ml / potassium chloride 0.004 meq/ml / sodium chloride 0.103 meq/ml / sodium lactate 0.028 meq/ml injectable solution (2 sources) Start: 06-10-2022 End: 06-10-2022 IntraVENous, at 125 mL/hr, CONTINUOUS, Starting on Thu06/10/22 at 1000 Start: 06-10-2022 End: 06-10-2022 lactated ringers IV soln inf usion DULoxetine 30 mg delayed release oral capsule (3 sources) Serotonin and Norepinephrine Reuptake Inhibitor Start: 06-12-2022 take 1 capsule by mouth once daily 60 mg, Oral, DAILY, First dose on Thu06/12/22 at 0900, Until Discontinued Do not crush or break. May add contents of capsule to apple juice or apple sauce, but not chocolate. take 1 capsule by mouth once etelvina ly DULoxetine HCl 60 MG take 1 capsule by mouth once daily for 30 Active 2 ml fentaNYL 0.05 mg/ml injection (1 source) Opioid Agonist Start: 06-11-2022 End: 06-12-2022 fentaNYL (SUBLIMAZE) injection 50 mcg gabapentin 300 mg oral capsule (2 sources) Anti-epileptic Agent Start: 06-12-2022 End: 06-13-2022 take 300 mg by mouth three times daily 300 mg, Oral, 3 TIMES DAILY, First dose on Thu06/12/22 at 0900, Until Discontinued 1 ml HYDROmorphone hydrochloride 1 mg/ml cartridge (2 sources) Opioid Agonist Start: 06-10-2022 End: 06-11-2022 take 1 mg by mouth every four hours as needed for pain 1 mg, IntraVENous, EVERY 4 HOURS PRN, Starting on Thu06/10/22 at 0933, Until Thu06/11/22 at 1818, Pain Severe (7-10) If oral and IV narcotics ordered, use oral first and only use IV if oral is ineffective or cannot take oral. Do Not give oral and IV within 1 hour of each other unless specifically ordered. Start: 06-10-2022 End: 06-10-2022 HYDROmorphone (DILAUDID) inj ection 0.5 mg Iohexol (1 source) Radiographic Contrast Agent Start: 06-11-2022 End: 06-11-2022 iohexol (OMNIPAQUE 350) Oral 300 mL 1 ml ketorolac tromethamine 30 mg/ml cartridge (1 source) Nonsteroidal Anti-inflammatory Drug, Cyclooxygenase Inhibitor Start: 06-12-2022 End: 06-12-2022 ketorolac (TORADOL) injection 30 mg 50 ml magnesium sulfate 40 mg/ml injection (1 source) Start: 06-12-2022 End: 06-12-2022 magnesium sulfate 2000 mg in 50 mL IVPB premix magnesium sulfate 3,000 mg in sodium chloride 0.9 % 100 mL IVPB (1 source) Start: 06-10-2022 End: 06-10-2022 magnesium sulfate 3,000 mg in sodium chloride 0.9 % 100 mL IVPB melatonin 1 mg oral tablet (1 source) Start: 06-12-2022 End: 06-12-2022 melatonin tablet 3 mg Start: 06-12-2022 End: 06-12-2022 melatonin tablet 3 mg methocarbamol 500 mg oral tablet (1 source) Muscle Relaxant End: 06-13-2022 take 1 tablet by mouth four times daily methocarbamol (ROBAXIN) 500 MG tablet Take 500 mg by mouth 4 times daily 0 06/13/2022 Discontinued (Stop Taking at Discharge) metoprolol tartrate 25 mg oral tablet (2 sources) beta-Adrenergic Juan Carlos Start: 06-12-2022 take 25 mg by mouth twice daily 25 mg, Oral, 2 TIMES DAILY, First dose on Kathleen 06/12/22 at 0900, Until Discontinued pantoprazole 40 mg delayed release oral tablet (1 source) Proton Pump Inhibitor Start: 09-05-2016 End: 06-13-2022 take 1 tablet by mouth once daily pantoprazole (PROTONIX) 40 MG tablet Take 1 tablet by mouth daily 60 tablet 2 09/05/2016 06/13/2022 Discontinued (Stop Taking at Discharge) microencapsulated potassium chloride 20 meq extended release oral tablet (2 sources) Start: 06-10-2022 End: 06-10-2022 potassium chloride (KLOR-CON M) extended release tablet 20 mEq Start: 06-10-2022 End: 06-10-2022 potassium chloride (KLOR-CON M) extended release tablet 40 mEq tiZANidine 4 mg oral tablet (1 source) Central alpha-2 Adrenergic Agonist End: 06-13-2022 take 1 tablet by mouth every eight hours as needed tiZANidine (ZANAFLEX) 4 MG tablet Take 4 mg by mouth every 8 hours as needed 0 06/13/2022 Discontinued (Stop Taking at Discharge) Problems Active Problems Problem Classification Problem Date Documented Da te Episodic/Chronic Abdominal pain (6 sources) Unspecified abdominal pain; Translations: [Abdominal pain] Onset: 3 Episodic Deficiency and other anemia (1 source) Iron deficiency anemia secondary to blood loss (chronic); Translations: [Iron deficiency anemia secondary to blood loss (chronic)] Onset: 3 Chronic Diseases of mouth; excluding dental (1 source) Disease of tongue, unspecified Episodic Intestinal obstruction without hernia (5 sources) Small bowel obstruction; Translations: [Unspecified intestinal obstruction, unspecified as to partial versus complete obstruction] Onset: 7 Episodic Malaise and fatigue (1 source) Fatigue; Translations: [Other fatigue] Episodic Noninfectious gastroenteritis (1 source) Non-infective enteritis and colitis; Translations: [Noninfective gastroenteritis and colitis, unspecified] Episodic Osteoarthritis (1 source) Osteoarthritis; Translations: [Unspecified osteoarthritis, unspecified site] Onset: 9 Chronic Other gastrointestinal disorders (1 source) Intestinal malabsorption, unspecified; Translations: [Intestinal malabsorption, unspecified] Onset: 3 Chronic Other gastrointestinal disorders (1 source) Gastrointestinal tract problem; Translations: [Other specified symptoms and signs involving the digestive system and abdomen] Episodic Other gastrointestinal disorders (1 source) Flatulence, eructation and gas pain; Translations: [Abdominal distension (gaseous)] Episodic Other gastrointestinal disorders (1 source) History of bariatric surgical procedure; Translations: [Bariatric surgery status] Episodic Other nervous system disorders (1 source) Acute postoperative pain; Translations: [Other acute postprocedural pain] Episodic Spondylosis; intervertebral disc disorders; other back problems (4 sources) Spondylosis without myelopathy or radiculopathy, lumbar region; Translations: [SPONDYLS W/O MYELO-/RADICULOP LUMB] Onset: 3 Chronic Spondylosis; intervertebral disc disorders; other back problems (11 sources) Occipital neuralgia; Translations: [Cervicalgia] Onset: 2 Episodic Thyroid disorders (2 sources) Hypothyroidism; Translations: [Hypothyroidism, unspecified] Chronic Unclassified (1 source) CONTACT W/AND (SUSP) EXPOS COVID-19; Translations: [CONTACT W/AND (SUSP) EXPOS COVID-19] Onset: 3 Past or Other Problems Problem Classification Problem Date Documented Da te Episodic/Chronic Abdominal hernia (4 sources) Intra-abdominal hernia; Translations: [Other specified abdominal hernia without obstruction or gangrene] Onset: 06-10-2022 Episodic Headache; including migraine (1 source) Other headache syndrome; Translations: [OTHER HEADACHE SYNDROME] Onset: 12-22-2021 Episodic Menopausal disorders (1 source) Hormone replacement therapy; Translations: [HORMONE REPLACEMENT THERAPY] Onset: 06-11-2022 Episodic Nutritional deficiencies (1 source) Deficiency of other specified B group vitamins; Translations: [Deficiency of other specified B group vitamins] Onset: 12-18-2022 Episodic Other aftercare (1 source) Other civil preparedness coordinator (current) drug therapy; Translations: [OTH KILN HAND CURRENT DRUG THERAPY] Onset: 06-11-2022 Episodic Other connective tissue disease (5 sources) Other muscle spasm; Translations: [OTHER MUSCLE SPASM] Onset: 09-24-2021 Episodic Other gastrointestinal disorders (1 source) H/O: GIT by-pass; Translations: [Bariatric surgery status] Onset: 08-27-2016 08-27-2016 Episodic Other gastrointestinal disorders (1 source) Bariatric surgery status; Translations: [BARIATRIC SURGERY STATUS] Onset: 06-11-2022 Episodic Other gastrointestinal disorders (1 source) Other specified symptoms and signs involving the digestive system and abdomen; Translations: [Other specified symptoms and signs involving the digestive system and abdomen] Onset: 06-10-2022 Episodic Other nervous system disorders (1 source) Other acute postprocedural pain; Translations: [Other acute postprocedural pain] Onset: 06-10-2022 Episodic Urinary tract infections (1 source) Urinary tract infection, site not specified; Translations: [UTI SITE NOT SPECIFIED] Onset: 06-11-2022 Episodic Results Test Name Value Interpretation Reference Range Facility Basic Metabolic Panelon 06-04 Anion gap [Moles/Vol] 10 mmol/L 9 - 17 mmol/L [facility] Calcium [Mass/Vol] 7.9 mg/dL Low 8.6 - 10. 4 mg/dL [facility] Chloride [Moles/Vol] 103 mmol/L 98 - 10 7 mmol/L [facility] CO2 [Moles/Vol] 22 mmol/L 20 - 31 mmol/L [facility] Creatinine [Mass/Vol] 0.61 mg/dL 0.50 - 0.90 mg/dL [facility] GFR/1.73 sq M.predicted MDRD (S/P/Bld) [Vol rate/Area] - PINF [facility] Comment on above: These results are not intended for use in patients <18 years of age. eGFR results are calculated without a race factor using the 2020 CKD-EPI equation. Careful clinical correlation is recommended, particularly when comparing to results calculated using previous equations. The CKD-EPI equation is less accurate in patients with extremes of muscle mass, extra-renal metabolism of creatine, excessive creatine ingestion, or following therapy that affects renal tubular secretion. Glucose [Mass/Vol] 81 mg/dL 70 - 99 mg/dL [facility] Interpretation and review of laboratory results Abnormal [facility] Potassium [Moles/Vol] 3.6 mmol/L Low 3.7 - 5.3 mmol/L [facility] Sodium [Moles/Vol] 135 mmol/L 135 - 144 mmol/L [facility] Urea nitrogen [Mass/Vol] 12 mg/dL 8 - 23 mg/dL [facility] Basic Metabolic Profon 06-14 Anion gap [Moles/Vol] 10 mmol/L Normal 9-17 [facility] Comment on above: Performed By: #### C MAGGI [facility] #### [employer] [facility] [place] [address] House Coordinator: Mariusz Estrada MD Calcium [Mass/Vol] 7.9 mg/dL Low 8.6-10.4 [facility] Comment on above: Performed By: #### C MAGGI, BMP #### [facility] [employer] [facility] [place] [address] House Coordinator: Mariusz Estrada MD Chloride [Moles/Vol] 103 mmol/L Normal 98-107 [facility] Comment on above: Performed By: #### C DP, BMP #### [address] [address] House Coordinator: Mariusz Estrada MD CO2 [Moles/Vol] 22 mmol/L Normal 20-31 [facility] Comment on above: Performed By: #### C DP, BMP #### [facility] [employer] [address] [place] [address] House Coordinator: Mariusz Estrada MD Creatinine [Mass/Vol] 0.61 mg/dL Normal 0.50-0.90 [facility] Comment on above: Performed By: #### C DP, BMP #### [address] [address] House Coordinator: Mariusz Estrada MD GFR/1.73 sq M.predicted among non-blacks MDRD (S/P/Bld) [Vol rate/Area] mL/min/{1.73_m2} Normal >60 [facility] Comment on above: Result Comment: These results are not intended for use in patients <18 years of age. eGFR results are calculated without a race factor using the 2020 CKD-EPI equation. Careful clinical correlation is recommended, particularly when comparing to results calculated using previous equations. The CKD-EPI equation is less accurate in patients with extremes of muscle mass, extra-renal metabolism of creatine, excessive creatine ingestion, or following therapy that affects renal tubular secretion. Performed By: #### C DP, BMP #### [address] [address] House Coordinator: Mariusz Estrada MD Glucose [Mass/Vol] 81 mg/dL Normal 70-99 [facility] Comment on above: Performed By: #### C DP, BMP #### [facility] [address] [place] [address] House Coordinator: Mariusz Estrada MD Potassium [Moles/Vol] 3.6 mmol/L Low 3.7-5.3 [facility] Comment on above: Performed By: #### C DP, BMP #### [facility] [address] [place] [address] House Coordinator: Mariusz Estrada MD Sodium [Moles/Vol] 135 mmol/L Normal 135-144 [facility] Comment on above: Performed By: #### C DP, BMP #### [employer] [facility] [address] [place] [address] House Coordinator: Mariusz Estrada MD Urea nitrogen [Mass/Vol] 12 mg/dL Normal 8-23 [facility] Comment on above: Performed By: #### C DP, BMP #### [employer] [address] [place] [address] House Coordinator: Mariusz Estrada MD CBC with Auto Differentialon 06-14-2022 Absolute Eos # 0.33 [facility] Absolute Immature Granulocyte [facility] Absolute Lymph # 0.96 Low [facility] Absolute [place] # 0.35 [facility] Basophils Absolute [facility] Basophils/100 WBC (Bld) 1 % 0 - 2 % [facility] Eosinophils/100 WBC (Bld) 9 % High 1 - 4 % [facility] Hematocrit (Bld) [Volume fraction] 28.8 % Low 36.3 - 47.1 % [facility] Hemoglobin (Bld) [Mass/Vol] 8.6 g/dL Low 11.9 - 15.1 g/dL [facility] Immature granulocytes/100 WBC (Bld) 0 % 0 [facility] Interpretation and review of laboratory results Abnormal [facility] Lymphocytes/100 WBC (Bld) 26 % 24 - 43 % [facility] MCH (RBC) [Entitic mass] 24.2 pg Low 25.2 - 33.5 pg [facility] MCHC (RBC) [Mass/Vol] 29.9 g/dL 28.4 - 34.8 g/dL [facility] MCV (RBC) [Entitic vol] 80.9 fL Low 82.6 - 102.9 fL [facility] Monocytes/100 WBC (Bld) 10 % 3 - 12 % [facility] NRBC Automated 0.0 0.0 per 100 WBC [facility] Platelet distribution width (Bld) [Ratio] 18.5 % High 11.8 - 14.4 % [facility] Platelet mean volume (Bld) [Entitic vol] 10.7 fL 8.1 - 13.5 fL [facility] Platelets (Bld) [#/Vol] 239 10*3/uL [facility] RBC (Bld) [#/Vol] 3.56 10*6/uL Low 3.95 - 5.1 1 m/uL [facility] RBC (Bld) [#/Vol] ANISOCYTOSIS PRESENT [facility] Comment on above: MICROCYTOSIS PRESENT Segmented neutrophils/100 WBC (Bld) 54 % 36 - 65 % [facility] Segs Absolute 1.98 [facility] WBC (Bld) [#/Vol] 3.7 10*3/uL [facility] CBC with Diffon 06-14-2022 Abs. Basophil <0.03 Normal 0.00-0.20 [facility] Comment on above: Performed By: #### C DP, BMP #### [facility] [place], [place] [id number] House Coordinator: Mariusz Estrada MD Abs.Imm.Granulocyte <0.03 Normal 0.00-0.30 [facility] Comment on above: Performed By: #### C DP, BMP #### [facility] [place], [place] [id number] House Coordinator: Mariusz Estrada MD Abs.Neutrophil (Seg) 1.98 k/uL Normal 1.50-8.10 [facility] Comment on above: Performed By: #### C DP, BMP #### [address] [address] House Coordinator: Mariusz Estrada MD Basophils/100 WBC (Bld) 1 % Normal 0-2 [facility] Comment on above: Performed By: #### C DP, BMP #### [place] [address] House Coordinator: Mariusz Estrada MD Eosinophils (Bld) [#/Vol] 0.33 10*3/uL Normal 0.00-0.44 [facility] Comment on above: Performed By: #### C DP, BMP #### [place] [address] House Coordinator: Mariusz Estrada MD Eosinophils/100 WBC (Bld) 9 % High 1-4 [facility] Comment on above: Performed By: #### C DP, BMP #### [place] [address] House Coordinator: Mariusz Estrada MD Erythrocyte distribution width (RBC) [Ratio] 18.5 % High 11.8-14.4 [facility] Comment on above: Performed By: #### C DP, BMP #### [place] [address] House Coordinator: Mariusz Estrada MD Hematocrit (Bld) [Volume fraction] 28.8 % Low 36.3-47.1 [facility] Comment on above: Performed By: #### C DP, BMP #### [facility] [employer] [address] [place] [address] House Coordinator: Mariusz Estrada MD Hemoglobin (Bld) [Mass/Vol] 8.6 g/dL Low 11.9-15.1 [facility] Comment on above: Performed By: #### C DP, BMP #### [address] [address] House Coordinator: Mariusz Estrada MD Immature granulocytes/100 WBC (Bld) 0 % Normal 0 [facility] Comment on above: Performed By: #### C DP, BMP #### [address] [address] House Coordinator: Mariusz Estrada MD Lymphocytes (Bld) [#/Vol] 0.96 10*3/uL Low 1.10-3.70 [facility] Comment on above: Performed By: #### C DP, BMP #### [address] [address] House Coordinator: Mariusz Estrada MD Lymphocytes/100 WBC (Bld) 26 % Normal 24-43 [facility] Comment on above: Performed By: #### C DP, BMP #### [address] [address] House Coordinator: Mariusz Estrada MD MCH (RBC) [Entitic mass] 24.2 pg Low 25.2-33.5 [facility] Comment on above: Performed By: #### C DP, BMP #### [address] [address] House Coordinator: Mariusz Estrada MD MCHC (RBC) [Mass/Vol] 29.9 g/dL Normal 28.4-34.8 [facility] Comment on above: Performed By: #### C DP, BMP #### [address] [address] House Coordinator: Mariusz Estraad MD MCV (RBC) [Entitic vol] 80.9 fL Low 82.6-102.9 [facility] Comment on above: Performed By: #### C DP, BMP #### [address] [address] House Coordinator: Mariusz Estrada MD Monocytes (Bld) [#/Vol] 0.35 10*3/uL Normal 0.10-1.20 [facility] Comment on above: Performed By: #### C DP, BMP #### [address] [address] House Coordinator: Mariusz Estrada MD Monocytes/100 WBC (Bld) 10 % Normal 3-12 [facility] Comment on above: Performed By: #### C DP, BMP #### [address] [address] House Coordinator: Mariusz Estrada MD Neutrophil (Seg) 54 % Normal 36-65 [facility] Comment on above: Performed By: #### C DP, BMP #### [address] [address] House Coordinator: Mariusz Estrada MD NRBC Automated 0.0 per 100 WBC Normal 0.0 [facility] Comment on above: Performed By: #### C DP, BMP #### [address] [address] House Coordinator: Mariusz Estrada MD Platelet mean volume (Bld) [Entitic vol] 10.7 fL Normal 8.1-13.5 [facility] Comment on above: Performed By: #### C DP, BMP #### [address] [address] House Coordinator: Mariusz Estrada MD Platelets (Bld) [#/Vol] 239 10*3/uL Normal 138-453 [facility] Comment on above: Performed By: #### C DP, BMP #### [address] [address] House Coordinator: Mariusz Estrada MD RBC (Bld) [#/Vol] 3.56 10*6/uL Low 3.95-5.11 [facility] Comment on above: Performed By: #### C DP, BMP #### [facility] [address] [place] [address] House Coordinator: Mariusz Estrada MD RBC morphology finding Nom (Bld) ANISOCYTOSIS PRESENT Normal [facility] Comment on above: Result Comment: MICR OCYTOSIS PRESENT Performed By: #### C DP, BMP #### [facility] [address] [place] [address] House Coordinator: Mariusz Estrada MD WBC (Bld) [#/Vol] 3.7 10*3/uL Normal 3.5-11.3 [facility] Comment on above: Performed By: #### C DP, BMP #### [facility] [address] [place] [address] House Coordinator: Mariusz Estrada MD Basic Metabolic Panelon - Anion gap [Moles/Vol] 20 mmol/L High 9 - 17 mmol/L [facility] Calcium [Mass/Vol] 7.8 mg/dL Low 8.6 - 10. 4 mg/dL [facility] Chloride [Moles/Vol] 100 mmol/L 98 - 10 7 mmol/L [facility] CO2 [Moles/Vol] 13 mmol/L Low 20 - 31 mmol/L [facility] Creatinine [Mass/Vol] 0.81 mg/dL 0.50 - 0.90 mg/dL [facility] GFR/1.73 sq M.predicted MDRD (S/P/Bld) [Vol rate/Area] - [facility] Comment on above: These results are not intended for use in patients <18 years of age. eGFR results are calculated without a race factor using the 2020 CKD-EPI equation. Careful clinical correlation is recommended, particularly when comparing to results calculated using previous equations. The CKD-EPI equation is less accurate in patients with extremes of muscle mass, extra-renal metabolism of creatine, excessive creatine ingestion, or following therapy that affects renal tubular secretion. Glucose [Mass/Vol] 61 mg/dL Low 70 - 99 mg/dL [facility] Potassium [Moles/Vol] 3.8 mmol/L 3.7 - 5.3 mmol/L [facility] Sodium [Moles/Vol] 133 mmol/L Low 135 - 144 mmol/L [facility] Urea nitrogen [Mass/Vol] 21 mg/dL 8 - 23 mg/dL [facility] Basic Metabolic Profon 06-13 Anion gap [Moles/Vol] 20 mmol/L High 9-17 [facility] Comment on above: Performed By: #### C DP, BMP #### [facility] [address] [place] [address] House Coordinator: Mariusz Estrada MD Calcium [Mass/Vol] 7.8 mg/dL Low 8.6-10.4 [facility] Comment on above: Performed By: #### C DP, BMP #### [facility] [address] [place] [address] House Coordinator: Mariusz Estrada MD Chloride [Moles/Vol] 100 mmol/L Normal 98-107 [facility] Comment on above: Performed By: #### C DP, BMP #### [employer] [address] [place] [address] House Coordinator: Mariusz Estrada MD CO2 [Moles/Vol] 13 mmol/L Low 20-31 [facility] Comment on above: Performed By: #### C DP, BMP #### [facility] [address] [place] [address] House Coordinator: Mariusz Estrada MD Creatinine [Mass/Vol] 0.81 mg/dL Normal 0.50-0.90 [facility] Comment on above: Performed By: #### C DP, BMP #### [employer] [address] [place] [address] House Coordinator: Mariusz Estrada MD GFR/1.73 sq M.predicted among non-blacks MDRD (S/P/Bld) [Vol rate/Area] mL/min/{1.73_m2} Normal >60 [facility] Comment on above: Result Comment: These results are not intended for use in patients <18 years of age. eGFR results are calculated without a race factor using the 2020 CKD-EPI equation. Careful clinical correlation is recommended, particularly when comparing to results calculated using previous equations. The CKD-EPI equation is less accurate in patients with extremes of muscle mass, extra-renal metabolism of creatine, excessive creatine ingestion, or following therapy that affects renal tubular secretion. Performed By: #### C DP, BMP #### [facility] [address] [place] [address] House Coordinator: Mariusz Estrada MD Glucose [Mass/Vol] 61 mg/dL Low 70-99 [facility] Comment on above: Performed By: #### C DP, BMP #### [facility] [address] [place] [address] House Coordinator: Mariusz Estrada MD Potassium [Moles/Vol] 3.8 mmol/L Normal 3.7-5.3 [facility] Comment on above: Performed By: #### C DP, BMP #### [facility] [employer] [address] [place] [address] House Coordinator: Mariusz Estrada MD Sodium [Moles/Vol] 133 mmol/L Low 135-144 [facility] Comment on above: Performed By: #### C DP, BMP #### [facility] [address] [place] [address] House Coordinator: Mariusz Estrada MD Urea nitrogen [Mass/Vol] 21 mg/dL Normal 8-23 [facility] Comment on above: Performed By: #### C DP, BMP #### [facility] [address] [place] [address] House Coordinator: Mariusz Estrada MD CBC with Auto Differentialon 06-13-2022 Absolute Eos # 0.33 [facility] [facility] Immature Granulocyte [facility] Lymph # 1.14 [facility] [place] # 0.39 [facility] Basophils (Bld) [#/Vol] 0.03 10*3/uL [facility] Basophils/100 WBC (Bld) 1 % 0 - 2 % [facility] Eosinophils/100 WBC (Bld) 6 % High 1 - 4 % [facility] Hematocrit (Bld) [Volume fraction] 28.4 % Low 36.3 - 47.1 % [facility] Hemoglobin (Bld) [Mass/Vol] 8.3 g/dL Low 11.9 - 15.1 g/dL [facility] Immature granulocytes/100 WBC (Bld) 0 % 0 [facility] Interpretation and review of laboratory results Abnormal [facility] Lymphocytes/100 WBC (Bld) 20 % Low 24 - 43 % [facility] MCH (RBC) [Entitic mass] 24.1 pg Low 25.2 - 33.5 pg [facility] MCHC (RBC) [Mass/Vol] 29.2 g/dL 28.4 - 34.8 g/dL [facility] MCV (RBC) [Entitic vol] 82.3 fL Low 82.6 - 102.9 fL [facility] Monocytes/100 WBC (Bld) 7 % 3 - 12 % [facility] NRBC Automated 0.0 0.0 per 100 WBC [facility] Platelet distribution width (Bld) [Ratio] 18.0 % High 11.8 - 14.4 % [facility] Platelet mean volume (Bld) [Entitic vol] 11.1 fL 8.1 - 13.5 fL [facility] Platelets (Bld) [#/Vol] 220 10*3/uL [facility] RBC (Bld) [#/Vol] 3.45 10*6/uL Low 3.95 - 5.1 1 m/uL [facility] RBC (Bld) [#/Vol] ANISOCYTOSIS PRESENT [facility] Comment on above: MICROCYTOSIS PRESENT Segmented neutrophils/100 WBC (Bld) 66 % High 36 - 65 % [facility] Segs Absolute 3.83 [facility] WBC (Bld) [#/Vol] 5.7 10*3/uL [facility] CBC with Diffon 06-13-2022 Abs. Basophil 0.03 k/uL Normal 0.00-0.20 [facility] Comment on above: Performed By: #### C DP, BMP #### [address] [address] House Coordinator: Mariusz Estrada MD Abs.Imm.Granulocyte <0.03 Normal 0.00-0.30 [facility] Comment on above: Performed By: #### C DP, BMP #### [address] [address] House Coordinator: Mariusz Estrada MD Abs.Neutrophil (Seg) 3.83 k/uL Normal 1.50-8.10 [facility] Comment on above: Performed By: #### C DP, BMP #### [address] [address] House Coordinator: Mariusz Estrada MD Basophils/100 WBC (Bld) 1 % Normal 0-2 [facility] Comment on above: Performed By: #### C DP, BMP #### [address] [address] House Coordinator: Mariusz Estrada MD Eosinophils (Bld) [#/Vol] 0.33 10*3/uL Normal 0.00-0.44 [facility] Comment on above: Performed By: #### C DP, BMP #### [address] [address] House Coordinator: Mariusz Estrada MD Eosinophils/100 WBC (Bld) 6 % High 1-4 [facility] Comment on above: Performed By: #### C DP, BMP #### [address] [address] House Coordinator: Mariusz Estrada MD Erythrocyte distribution width (RBC) [Ratio] 18.0 % High 11.8-14.4 [facility] Comment on above: Performed By: #### C DP, BMP #### [address] [address] House Coordinator: Mariusz Estrada MD Hematocrit (Bld) [Volume fraction] 28.4 % Low 36.3-47.1 [facility] Comment on above: Performed By: #### C DP, BMP #### [address] [address] House Coordinator: Mariusz Estrada MD Hemoglobin (Bld) [Mass/Vol] 8.3 g/dL Low 11.9-15.1 [facility] Comment on above: Performed By: #### C DP, BMP #### [place] [address] House Coordinator: Mariusz Estrada MD Immature granulocytes/100 WBC (Bld) 0 % Normal 0 [facility] Comment on above: Performed By: #### C DP, BMP #### [place] [address] House Coordinator: Mariusz Estrada MD Lymphocytes (Bld) [#/Vol] 1.14 10*3/uL Normal 1.10-3.70 [facility] Comment on above: Performed By: #### C DP, BMP #### [place] [address] House Coordinator: Mariusz Estrada MD Lymphocytes/100 WBC (Bld) 20 % Low 24-43 [facility] Comment on above: Performed By: #### C DP, BMP #### [place] [address] House Coordinator: Mariusz Estrada MD MCH (RBC) [Entitic mass] 24.1 pg Low 25.2-33.5 [facility] Comment on above: Performed By: #### C DP, BMP #### [address] [address] House Coordinator: Mariusz Estrada MD MCHC (RBC) [Mass/Vol] 29.2 g/dL Normal 28.4-34.8 [facility] Comment on above: Performed By: #### C DP, BMP #### [address] [address] House Coordinator: Mariusz Estrada MD MCV (RBC) [Entitic vol] 82.3 fL Low 82.6-102.9 [facility] Comment on above: Performed By: #### C DP, BMP #### [place] [address] House Coordinator: Mariusz Estrada MD Monocytes (Bld) [#/Vol] 0.39 10*3/uL Normal 0.10-1.20 [facility] Comment on above: Performed By: #### C DP, BMP #### [address] [address] House Coordinator: Mariusz Estrada MD Monocytes/100 WBC (Bld) 7 % Normal 3-12 [facility] Comment on above: Performed By: #### C DP, BMP #### [address] [address] House Coordinator: Mariusz Estrada MD Neutrophil (Seg) 66 % High 36-65 [facility] Comment on above: Performed By: #### C DP, BMP #### [address] [address] House Coordinator: Mariusz Estrada MD NRBC Automated 0.0 per 100 WBC Normal 0.0 [facility] Comment on above: Performed By: #### C DP, BMP #### [address] [address] House Coordinator: Mariusz Estrada MD Platelet mean volume (Bld) [Entitic vol] 11.1 fL Normal 8.1-13.5 [facility] Comment on above: Performed By: #### C DP, BMP #### [address] [address] House Coordinator: Mariusz Estrada MD Platelets (Bld) [#/Vol] 220 10*3/uL Normal 138-453 [facility] Comment on above: Performed By: #### C DP, BMP #### [address] [address] House Coordinator: Mariusz Estrada MD RBC (Bld) [#/Vol] 3.45 10*6/uL Low 3.95-5.11 [facility] Comment on above: Performed By: #### C DP, BMP #### [address] [address] House Coordinator: Mariusz Estrada MD RBC morphology finding Nom (Bld) ANISOCYTOSIS PRESENT Normal [facility] Comment on above: Result Comment: MICR OCYTOSIS PRESENT Performed By: #### C DP, BMP #### [address] [address] House Coordinator: Mariusz Estrada MD WBC (Bld) [#/Vol] 5.7 10*3/uL Normal 3.5-11.3 [facility] Comment on above: Performed By: #### C DP, BMP #### [address] [address] House Coordinator: Mariusz Estrada MD Magnesiumon 06-13-2022 Magnesium [Mass/Vol] 2.8 mg/dL High 1.6-2.6 [facility] Comment on above: Performed By: #### C DP, BMP #### [address] [address] House Coordinator: Mariusz Estrada MD Magnesium [Mass/Vol] 2.8 mg/dL High 1.6 - 2 .6 mg/dL [facility] No Panel Informationon 06-13 Interpretation and review of laboratory results Abnormal [facility] XR ABDOMEN (KUB) (SINGLE AP VIEW)on 06-13-2022 XR ABDOMEN (KUB) (SINGLE AP VIEW) EXAMINATION: ONE SUPINE XRAY VIEW(S) OF THE ABDOMEN 06/13/2022 6:48 am COMPARISON: 06/12/2022 HISTORY: ORDERING SYSTEM PROVIDED HISTORY: pSBO TECHNOLOGIST PROVIDED HISTORY: pSBO FINDINGS: Multiple dilated small bowel loops, ileus versus small-bowel obstruction. Ascending colon is mildly dilated. Contrast is visualized throughout the colon. Bony structures are unremarkable. Lower lung harper are clear. No free air. IMPRESSION: Multiple dilated small bowel loops, ileus versus small-bowel obstruction. Ascending colon is mildly dilated. Contrast is visualized throughout the colon. Interpreted by: Marvin Crowe MD Signed by: Marvin Crowe MD 06/13/22 Final result Normal [facility] Multiple dilated small bowel loops, ileus versus small-bowel obstruction. Ascending colon is mildly dilated. Contrast is visualized throughout the colon. [facility] RIS CONSOLIDATED EXAMINATION: ONE SUPINE XRAY VIEW(S) OF THE ABDOMEN 06/13/2022 6:48 am COMPARISON: 06/12/2022 HISTORY: ORDERING SYSTEM PROVIDED HISTORY: pSBO TECHNOLOGIST PROVIDED HISTORY: pSBO FINDINGS: Multiple dilated small bowel loops, ileus versus small-bowel obstruction. Ascending colon is mildly dilated. Contrast is visualized throughout the colon. Bony structures are unremarkable. Lower lung harper are clear. No free air. [facility] RIS CONSOLIDATED Marvin Crowe MD - 06/13/2022 EXAMINATION: ONE SUPINE XRAY VIEW(S) OF THE ABDOMEN 06/13/2022 6:48 am COMPARISON: 06/12/2022 HISTORY: ORDERING SYSTEM PROVIDED HISTORY: pSBO TECHNOLOGIST PROVIDED HISTORY: pSBO FINDINGS: Multiple dilated small bowel loops, ileus versus small-bowel obstruction. Ascending colon is mildly dilated. Contrast is visualized throughout the colon. Bony structures are unremarkable. Lower lung harper are clear. No free air. IMPRESSION: Multiple dilated small bowel loops, ileus versus small-bowel obstruction. Ascending colon is mildly dilated. Contrast is visualized throughout the colon. [facility] Work Phone: Radiology Study observation (narrative) [facility] Work Phone: XR ABDOMEN (KUB) (SINGLE AP VIEW)Ordered By: Marvin Crowe on 06-13-2022 [facility] Work Phone: Basic Metabolic Panelon - Anion gap [Moles/Vol] 13 mmol/L 9 - 17 mmol/L [facility] Calcium [Mass/Vol] 8.5 mg/dL Low 8.6 - 10. 4 mg/dL [facility] Chloride [Moles/Vol] 96 mmol/L Low 98 - 10 7 mmol/L [facility] CO2 [Moles/Vol] 21 mmol/L 20 - 31 mmol/L [facility] Creatinine [Mass/Vol] 0.55 mg/dL 0.50 - 0.90 mg/dL [facility] GFR/1.73 sq M.predicted MDRD (S/P/Bld) [Vol rate/Area] - [facility] Comment on above: These results are not intended for use in patients <18 years of age. eGFR results are calculated without a race factor using the 2020 CKD-EPI equation. Careful clinical correlation is recommended, particularly when comparing to results calculated using previous equations. The CKD-EPI equation is less accurate in patients with extremes of muscle mass, extra-renal metabolism of creatine, excessive creatine ingestion, or following therapy that affects renal tubular secretion. Glucose [Mass/Vol] 96 mg/dL 70 - 99 mg/dL [facility] Interpretation and review of laboratory results Abnormal [facility] Potassium [Moles/Vol] 3.5 mmol/L Low 3.7 - 5.3 mmol/L [facility] Sodium [Moles/Vol] 130 mmol/L Low 135 - 144 mmol/L [facility] Urea nitrogen [Mass/Vol] 8 mg/dL 8 - 23 mg/dL [facility] Basic Metabolic Profon 06-12 Anion gap [Moles/Vol] 13 mmol/L Normal 9-17 [facility] Comment on above: Performed By: #### MICKY Pimentel, CDP #### [facility] [employer] [address] [place] [address] House Coordinator: Mariusz Estrada MD Calcium [Mass/Vol] 8.5 mg/dL Low 8.6-10.4 [facility] Comment on above: Performed By: #### MICKY Pimentel, CDP #### [facility] [address] [place] [address] House Coordinator: Mariusz Estrada MD Chloride [Moles/Vol] 96 mmol/L Low 98-107 [facility] Comment on above: Performed By: #### MICKY Pimentel, CDP #### [facility] [employer] [address] [place] [address] House Coordinator: Mariusz Estrada MD CO2 [Moles/Vol] 21 mmol/L Normal 20-31 [facility] Comment on above: Performed By: #### MICKY Pimentel, CDP #### [facility] [employer] [address] [place] [address] House Coordinator: Mariusz Estrada MD Creatinine [Mass/Vol] 0.55 mg/dL Normal 0.50-0.90 [facility] Comment on above: Performed By: #### MICKY Pimentel, CDP #### [facility] [employer] [address] [place] [address] House Coordinator: Mariusz Estrada MD GFR/1.73 sq M.predicted among non-blacks MDRD (S/P/Bld) [Vol rate/Area] mL/min/{1.73_m2} Normal >60 [facility] Comment on above: Result Comment: These results are not intended for use in patients <18 years of age. eGFR results are calculated without a race factor using the 2020 CKD-EPI equation. Careful clinical correlation is recommended, particularly when comparing to results calculated using previous equations. The CKD-EPI equation is less accurate in patients with extremes of muscle mass, extra-renal metabolism of creatine, excessive creatine ingestion, or following therapy that affects renal tubular secretion. Performed By: #### MICKY Pimentel, CDP #### [employer] [address] [place] [address] House Coordinator: Mariusz Estrada MD Glucose [Mass/Vol] 96 mg/dL Normal 70-99 [facility] Comment on above: Performed By: #### MICKY Pimentel, CDP #### [employer] [facility] [address] [place] [address] House Coordinator: Mariusz Estrada MD Potassium [Moles/Vol] 3.5 mmol/L Low 3.7-5.3 [facility] Comment on above: Performed By: #### MICKY Pimentel, CDP #### [facility] [address] [place] [address] House Coordinator: Mariusz Estrada MD Sodium [Moles/Vol] 130 mmol/L Low 135-144 [facility] Comment on above: Performed By: #### MICKY Pimentel, CDP #### [employer] [address] [place] [address] House Coordinator: Mairusz Estrada MD Urea nitrogen [Mass/Vol] 8 mg/dL Normal 8-23 [facility] Comment on above: Performed By: #### MICKY Pimentel, CDP #### [employer] [address] [place] [address] House Coordinator: Mariusz Estrada MD CBC with Auto Differentialon 06-12-2022 Absolute Eos # 0.09 [facility] [employer] [facility] Absolute Immature Granulocyte 0.[address] [facility] Absolute Lymph # 0.87 Low [facility] Absolute [place] # 0.66 [facility] Basophils (Bld) [#/Vol] 0.04 10*3/uL [facility]ALTH Basophils/100 WBC (Bld) 1 % 0 - 2 % [facility] Eosinophils/100 WBC (Bld) 1 % 1 - 4 % [facility] Hematocrit (Bld) [Volume fraction] 34.0 % Low 36.3 - 47.1 % [facility] Hemoglobin (Bld) [Mass/Vol] 10.0 g/dL Low 11.9 - 15.1 g/dL [facility] Immature granulocytes/100 WBC (Bld) 0 % 0 [facility] Interpretation and review of laboratory results Abnormal [facility] Lymphocytes/100 WBC (Bld) 11 % Low 24 - 43 % [facility] MCH (RBC) [Entitic mass] 23.8 pg Low 25.2 - 33.5 pg [facility] MCHC (RBC) [Mass/Vol] 29.4 g/dL 28.4 - 34.8 g/dL [facility] MCV (RBC) [Entitic vol] 80.8 fL Low 82.6 - 102.9 fL [facility] Monocytes/100 WBC (Bld) 8 % 3 - 12 % [facility] NRBC Automated 0.0 0.0 per 100 WBC [facility] Platelet distribution width (Bld) [Ratio] 18.0 % High 11.8 - 14.4 % [facility] Platelet mean volume (Bld) [Entitic vol] 11.1 fL 8.1 - 13.5 fL [facility] Platelets (Bld) [#/Vol] 245 10*3/uL [facility] RBC (Bld) [#/Vol] 4.21 10*6/uL 3.95 - 5.1 1 m/uL [facility] RBC (Bld) [#/Vol] ANISOCYTOSIS PRESENT [facility] Comment on above: MICROCYTOSIS PRESENT Segmented neutrophils/100 WBC (Bld) 79 % High 36 - 65 % [facility] Segs Absolute 6.27 [facility] WBC (Bld) [#/Vol] 8.0 10*3/uL [facility] CBC with Diffon 06-12-2022 Abs. Basophil 0.04 k/uL Normal 0.00-0.20 [facility] Comment on above: Performed By: #### M G, BMP, CDP #### [facility] [employer] [address] [place] [address] House Coordinator: Mariusz Estrada MD Abs.Imm.Granulocyte 0.03 k/uL Normal 0.00-0.30 [facility] Comment on above: Performed By: #### MICKY Pimentel, CDP #### [facility] [employer] [address] [place] [address] House Coordinator: Mariusz Estrada MD Abs.Neutrophil (Seg) 6.27 k/uL Normal 1.50-8.10 [facility] Comment on above: Performed By: #### MICKY Pimentel, CDP #### [facility] [employer] [address] [place] [address] House Coordinator: Mariusz Estrada MD Basophils/100 WBC (Bld) 1 % Normal 0-2 [facility] Comment on above: Performed By: #### MICKY Pimentel, CDP #### [facility] [employer] [address] [place] [address] House Coordinator: Mariusz Estrada MD Eosinophils (Bld) [#/Vol] 0.09 10*3/uL Normal 0.00-0.44 [facility] Comment on above: Performed By: #### MICKY Pimentel, CDP #### [facility] [employer] [address] [place] [address] House Coordinator: Mariusz Estrada MD Eosinophils/100 WBC (Bld) 1 % Normal 1-4 [facility] Comment on above: Performed By: #### MICKY Pimentel, CDP #### [facility] [employer] [address] [place] [address] House Coordinator: Mariusz Estrada MD Erythrocyte distribution width (RBC) [Ratio] 18.0 % High 11.8-14.4 [facility] Comment on above: Performed By: #### MICKY Pimentel, CDP #### [facility] [address] [place] [address] House Coordinator: Mariusz Estrada MD Hematocrit (Bld) [Volume fraction] 34.0 % Low 36.3-47.1 [facility] Comment on above: Performed By: #### MICKY Pimentel, CDP #### [facility] [employer] [address] [place] [address] House Coordinator: Mariusz Estrada MD Hemoglobin (Bld) [Mass/Vol] 10.0 g/dL Low 11.9-15.1 [facility] Comment on above: Performed By: #### MICKY Pimentel, CDP #### [facility] [employer] [address] [place] [address] House Coordinator: Mariusz Estrada MD Immature granulocytes/100 WBC (Bld) 0 % Normal 0 [facility] Comment on above: Performed By: #### MICKY Pimentel, CDP #### [facility] [employer] [address] [place] [address] House Coordinator: Mariusz Estrada MD Lymphocytes (Bld) [#/Vol] 0.87 10*3/uL Low 1.10-3.70 [facility] Comment on above: Performed By: #### MICKY Pimentel, CDP #### [facility] [employer] [address] [place] [address] House Coordinator: Mariusz Estrada MD Lymphocytes/100 WBC (Bld) 11 % Low 24-43 [facility] Comment on above: Performed By: #### MICKY Pimentel, CDP #### [facility] [employer] [address] [place] [address] House Coordinator: Mariusz Estrada MD MCH (RBC) [Entitic mass] 23.8 pg Low 25.2-33.5 [facility] Comment on above: Performed By: #### MICKY Pimentel, CDP #### [facility] [employer] [address] [place] [address] House Coordinator: Mariusz Estrada MD MCHC (RBC) [Mass/Vol] 29.4 g/dL Normal 28.4-34.8 [facility] Comment on above: Performed By: #### MICKY Pimentel, CDP #### [address] [address] House Coordinator: Mariusz Estrada MD MCV (RBC) [Entitic vol] 80.8 fL Low 82.6-102.9 [facility] Comment on above: Performed By: #### MICKY Pimentel, CDP #### [address] [address] House Coordinator: Mariusz Estrada MD Monocytes (Bld) [#/Vol] 0.66 10*3/uL Normal 0.10-1.20 [facility] Comment on above: Performed By: #### MICKY Pimentel, CDP #### [address] [address] House Coordinator: Mariusz Estrada MD Monocytes/100 WBC (Bld) 8 % Normal 3-12 [facility] Comment on above: Performed By: #### MICKY Pimentel, CDP #### [address] [address] House Coordinator: Mariusz Estrada MD Neutrophil (Seg) 79 % High 36-65 [facility] Comment on above: Performed By: #### MICKY Pimentel, CDP #### [address] [address] House Coordinator: Mariusz Estrada MD NRBC Automated 0.0 per 100 WBC Normal 0.0 [facility] Comment on above: Performed By: #### MICKY Pimentel, CDP #### [address] [address] House Coordinator: Mariusz Estrada MD Platelet mean volume (Bld) [Entitic vol] 11.1 fL Normal 8.1-13.5 [facility] Comment on above: Performed By: #### MICKY Pimentel, CDP #### [facility] [employer] [address] [place] [address] House Coordinator: Mariusz Estrada MD Platelets (Bld) [#/Vol] 245 10*3/uL Normal 138-453 [facility] Comment on above: Performed By: #### MICKY Pimentel, CDP #### [facility] [employer] [address] [place] [address] House Coordinator: Mariusz Estrada MD RBC (Bld) [#/Vol] 4.21 10*6/uL Normal 3.95-5.11 [facility] Comment on above: Performed By: #### MICKY Pimentel, CDP #### [facility] [employer] [address] [place] [address] House Coordinator: Mariusz Estrada MD RBC morphology finding Nom (Bld) ANISOCYTOSIS PRESENT Normal [facility] Comment on above: Result Comment: MICR OCYTOSIS PRESENT Performed By: #### MICKY Pimentel, CDP #### [facility] [employer] [address] [place] [address] House Coordinator: Mariusz Estrada MD WBC (Bld) [#/Vol] 8.0 10*3/uL Normal 3.5-11.3 [facility] Comment on above: Performed By: #### MICKY Pimentel, CDP #### [facility] [employer] [address] [place] [address] House Coordinator: Mariusz Estrada MD Lactate, Sepsison 06-12-2022 Lactic Acid,Sep Wbld 1.0 mmol/L Normal 0.5-1.9 [facility] Comment on above: Performed By: #### MICKY Pimentel, CDP #### [facility] [employer] [address] [place] [address] House Coordinator: Mariusz Estrada MD Lactic Acid,Sep Wbld 1.2 mmol/L Normal 0.5-1.9 [facility] Comment on above: Performed By: #### MICKY Pimentel, CDP #### [facility] [address] [place] [address] House Coordinator: Mariusz Estrada MD Lactic Acid, Sepsis, Whole Blood 1.0 mmol/L 0.5 - 1.9 mmol/L [facility] Lactic Acid, Sepsis, Whole Blood 1.2 mmol/L 0.5 - 1.9 mmol/L [facility] Magnesiumon 06-12-2022 Magnesium [Mass/Vol] 1.9 mg/dL Normal 1.6-2.6 [facility] Comment on above: Performed By: #### MICKY Pimentel, CDP #### [facility] [address] [place] [address] House Coordinator: Mariusz Estrada MD Magnesium [Mass/Vol] 1.9 mg/dL 1.6 - 2 .6 mg/dL [facility] No Panel Informationon 06-12 [facility] POC Glucose Fingerstickon Glucose [Mass/Vol] 118 mg/dL High 65 - 105 mg/dL [facility] Interpretation and review of laboratory results Abnormal [facility] XR ABDOMEN (KUB) (SINGLE AP VIEW)on 06-12-2022 XR ABDOMEN (KUB) (SINGLE AP VIEW) EXAMINATION: ONE SUPINE XRAY VIEW(S) OF THE ABDOMEN 06/12/2022 6:43 am COMPARISON: 06/11/2022 HISTORY: ORDERING SYSTEM PROVIDED HISTORY: monitoring progression of contrast from SBFT TECHNOLOGIST PROVIDED HISTORY: monitoring progression of contrast from SBFT FINDINGS: Compared to the 6 hour image from the previous exam, similar distribution of contrast within multiple dilated small bowel loops with residual contrast in decompressed distal small bowel loops. There are skin maxx over the lower abdomen. Gas is shown in the colon. Again findings are suggestive of probably distal high-grade partial small bowel obstruction. IMPRESSION: Similar appearance of a high-grade distal partial small-bowel obstruction. Interpreted by: Jax Carbajal MD Signed by: Jax Carbajal MD 06/12/22 Final result Normal [facility] XR ABDOMEN (KUB) (SINGLE AP VIEW) EXAMINATION: ONE SUPINE XRAY VIEW(S) OF THE ABDOMEN 06/12/2022 3:10 pm COMPARISON: Radiograph performed earlier the same day HISTORY: ORDERING SYSTEM PROVIDED HISTORY: confirmation of ngt placement. Monitor progression of contrast TECHNOLOGIST PROVIDED HISTORY: confirmation of ngt placement. Monitor progression of contrast FINDINGS: There is contrast throughout multiple dilated small bowel loops. There is some increased contrast opacification within the right colon. No definite radiopaque nephrolithiasis. Prior cholecystectomy. Surgical maxx are noted in the abdominal wall. Enteric tube is coiled in the distal thoracic esophagus. IMPRESSION: 1. Enteric tube coiled in the distal thoracic esophagus. Recommend repositioning prior to use. 2. Dilated loops of small bowel are again noted, suggestive with high-grade partial obstruction. There is some increased opacification of the colon. Interpreted by: Seun Serna MD Signed by: Seun Serna MD 06/12/22 Final result Normal [facility] Similar appearance o f a high-grade distal partial small-bowel obstruction. [facility] EXAMINATION: ONE SUPINE XRAY VIEW(S) OF THE ABDOMEN 06/12/2022 6:43 am COMPARISON: 06/11/2022 HISTORY: ORDERING SYSTEM PROVIDED HISTORY: monitoring progression of contrast from SBFT TECHNOLOGIST PROVIDED HISTORY: monitoring progression of contrast from SBFT FINDINGS: Compared to the 6 hour image from the previous exam, similar distribution of contrast within multiple dilated small bowel loops with residual contrast in decompressed distal small bowel loops. There are skin maxx over the lower abdomen. Gas is shown in the colon. Again findings are suggestive of probably distal high-grade partial small bowel obstruction. [facility] Jax Carbajal MD - 06/12/2022 EXAMINATION: ONE SUPINE XRAY VIEW(S) OF THE ABDOMEN 06/12/2022 6:43 am COMPARISON: 06/11/2022 HISTORY: ORDERING SYSTEM PROVIDED HISTORY: monitoring progression of contrast from SBFT TECHNOLOGIST PROVIDED HISTORY: monitoring progression of contrast from SBFT FINDINGS: Compared to the 6 hour image from the previous exam, similar distribution of contrast within multiple dilated small bowel loops with residual contrast in decompressed distal small bowel loops. There are skin maxx over the lower abdomen. Gas is shown in the colon. Again findings are suggestive of probably distal high-grade partial small bowel obstruction. IMPRESSION: Similar appearance of a high-grade distal partial small-bowel obstruction. [employer]: 1. Enteric tube coiled in the distal thoracic esophagus. Recommend repositioning prior to use. 2. Dilated loops of small bowel are again noted, suggestive with high-grade partial obstruction. There is some increased opacification of the colon. [facility] EXAMINATION: ONE SUPINE XRAY VIEW(S) OF THE ABDOMEN 06/12/2022 3:10 pm COMPARISON: Radiograph performed earlier the same day HISTORY: ORDERING SYSTEM PROVIDED HISTORY: confirmation of ngt placement. Monitor progression of contrast TECHNOLOGIST PROVIDED HISTORY: confirmation of ngt placement. Monitor progression of contrast FINDINGS: There is contrast throughout multiple dilated small bowel loops. There is some increased contrast opacification within the right colon. No definite radiopaque nephrolithiasis. Prior cholecystectomy. Surgical maxx are noted in the abdominal wall. Enteric tube is coiled in the distal thoracic esophagus. [facility] Seun Serna MD - 06/12/2022 EXAMINATION: ONE SUPINE XRAY VIEW(S) OF THE ABDOMEN 06/12/2022 3:10 pm COMPARISON: Radiograph performed earlier the same day HISTORY: ORDERING SYSTEM PROVIDED HISTORY: confirmation of ngt placement. Monitor progression of contrast TECHNOLOGIST PROVIDED HISTORY: confirmation of ngt placement. Monitor progression of contrast FINDINGS: There is contrast throughout multiple dilated small bowel loops. There is some increased contrast opacification within the right colon. No definite radiopaque nephrolithiasis. Prior cholecystectomy. Surgical maxx are noted in the abdominal wall. Enteric tube is coiled in the distal thoracic esophagus. IMPRESSION: 1. Enteric tube coiled in the distal thoracic esophagus. Recommend repositioning prior to use. 2. Dilated loops of small bowel are again noted, suggestive with high-grade partial obstruction. There is some increased opacification of the colon. [employer]: Radiology Study observation (narrative) [employer] Phone: Radiology Study observation (narrative) [employer] Phone: XR ABDOMEN (KUB) (SINGLE AP VIEW)Ordered By: Jax Carbajal on 06-12-2022 [employer] Work Phone: XR ABDOMEN (KUB) (SINGLE AP VIEW)Ordered By: Seun Serna on 06-12-2022 [employer] Work Phone: Basic Metabolic Panelon Anion gap [Moles/Vol] 9 mmol/L 9 - 17 mmol/L [facility] Calcium [Mass/Vol] 8.6 mg/dL 8.6 - 10. 4 mg/dL [facility] Chloride [Moles/Vol] 102 mmol/L 98 - 10 7 mmol/L [facility] CO2 [Moles/Vol] 22 mmol/L 20 - 31 mmol/L [facility] Creatinine [Mass/Vol] 0.64 mg/dL 0.50 - 0.90 mg/dL [facility] GFR/1.73 sq M.predicted MDRD (S/P/Bld) [Vol rate/Area] - PINF [facility] Comment on above: These results are not intended for use in patients <18 years of age. eGFR results are calculated without a race factor using the 2020 CKD-EPI equation. Careful clinical correlation is recommended, particularly when comparing to results calculated using previous equations. The CKD-EPI equation is less accurate in patients with extremes of muscle mass, extra-renal metabolism of creatine, excessive creatine ingestion, or following therapy that affects renal tubular secretion. Glucose [Mass/Vol] 119 mg/dL High 70 - 99 mg/dL [facility] Interpretation and review of laboratory results Abnormal [facility] Potassium [Moles/Vol] 4.8 mmol/L 3.7 - 5.3 mmol/L [facility] Sodium [Moles/Vol] 133 mmol/L Low 135 - 144 mmol/L [facility] Urea nitrogen [Mass/Vol] 8 mg/dL 8 - 23 mg/dL [facility] Basic Metabolic Profon 06-11 Anion gap [Moles/Vol] 9 mmol/L Normal 9-17 [facility] Comment on above: Performed By: #### C DP, BMP #### [address] [address] House Coordinator: Mariusz Estrada MD Calcium [Mass/Vol] 8.6 mg/dL Normal 8.6-10.4 [facility] Comment on above: Performed By: #### C DP, BMP #### [address] [address] House Coordinator: Mariusz Estrada MD Chloride [Moles/Vol] 102 mmol/L Normal 98-107 [facility] Comment on above: Performed By: #### C DP, BMP #### [facility] [employer] [address] [place] [address] House Coordinator: Mariusz Estrada MD CO2 [Moles/Vol] 22 mmol/L Normal 20-31 [facility] Comment on above: Performed By: #### C DP, BMP #### [facility] [employer] [address] [place] [address] House Coordinator: aMriusz Estrada MD Creatinine [Mass/Vol] 0.64 mg/dL Normal 0.50-0.90 [facility] Comment on above: Performed By: #### C DP, BMP #### [address] [address] House Coordinator: Mariusz Estrada MD GFR/1.73 sq M.predicted among non-blacks MDRD (S/P/Bld) [Vol rate/Area] mL/min/{1.73_m2} Normal >60 [facility] Comment on above: Result Comment: These results are not intended for use in patients <18 years of age. eGFR results are calculated without a race factor using the 2020 CKD-EPI equation. Careful clinical correlation is recommended, particularly when comparing to results calculated using previous equations. The CKD-EPI equation is less accurate in patients with extremes of muscle mass, extra-renal metabolism of creatine, excessive creatine ingestion, or following therapy that affects renal tubular secretion. Performed By: #### C DP, BMP #### [facility] [place] [address] House Coordinator: Mariusz Estrada MD Glucose [Mass/Vol] 119 mg/dL High 70-99 [facility] Comment on above: Performed By: #### C DP, BMP #### [facility] [employer] [address] [place] [address] House Coordinator: Mariusz Estrada MD Potassium [Moles/Vol] 4.8 mmol/L Normal 3.7-5.3 [facility] Comment on above: Performed By: #### C DP, BMP #### [facility] [employer] [address] [place] [address] House Coordinator: Mariusz Estrada MD Sodium [Moles/Vol] 133 mmol/L Low 135-144 [facility] Comment on above: Performed By: #### C DP, BMP #### [facility] [address] [place] [address] House Coordinator: Mariusz Estrada MD Urea nitrogen [Mass/Vol] 8 mg/dL Normal 8-23 [facility] Comment on above: Performed By: #### C DP, BMP #### [facility] [employer] [address] [place] [address] House Coordinator: Mariusz Estrada MD CBC with Auto Differentialon 06-11-2022 Absolute Eos # 0.[address] [facility] Absolute Immature Granulocyte 0.00 [facility] Absolute Lymph # 0.45 Low [facility] Absolute [place] # 0.71 [facility] Basophils (Bld) [#/Vol] 0.00 10*3/uL [facility] Basophils/100 WBC (Bld) 0 % 0 - 2 % [facility] Eosinophils/100 WBC (Bld) 0 % Low 1 - 4 % [facility] Hematocrit (Bld) [Volume fraction] 30.5 % Low 36.3 - 47.1 % [facility] Hemoglobin (Bld) [Mass/Vol] 9.5 g/dL Low 11.9 - 15.1 g/dL [facility] Immature granulocytes/100 WBC (Bld) 0 % 0 [facility] Interpretation and review of laboratory results Abnormal [facility] Lymphocytes/100 WBC (Bld) 5 % Low 24 - 43 % [facility] MCH (RBC) [Entitic mass] 23.9 pg Low 25.2 - 33.5 pg [facility] MCHC (RBC) [Mass/Vol] 31.1 g/dL 28.4 - 34.8 g/dL [facility] MCV (RBC) [Entitic vol] 76.8 fL Low 82.6 - 102.9 fL [facility] Monocytes/100 WBC (Bld) 8 % 3 - 12 % [facility] Morphology Jamie (Bld) [Interp] ANISOCYTOSIS PRESENT [facility] Morphology Jamie (Bld) [Interp] MICROCYTOSIS PRESENT [facility] NRBC Automated 0.0 0.0 per 100 WBC [facility] Platelet distribution width (Bld) [Ratio] 17.3 % High 11.8 - 14.4 % [facility] Platelet mean volume (Bld) [Entitic vol] 11.0 fL 8.1 - 13.5 fL [facility] Platelets (Bld) [#/Vol] 237 10*3/uL [facility] RBC (Bld) [#/Vol] 3.97 10*6/uL 3.95 - 5.1 1 m/uL [facility] Segmented neutrophils/100 WBC (Bld) 87 % High 36 - 65 % [facility] Segs Absolute 7.74 [facility] WBC (Bld) [#/Vol] 8.9 10*3/uL [facility] CBC with Diffon 06-11-2022 Abs. Basophil 0.00 k/uL Normal 0.00-0.20 [facility] Comment on above: Performed By: #### C DP, BMP #### [address] [address] House Coordinator: Mariusz Estrada MD Abs.Imm.Granulocyte 0.00 k/uL Normal 0.00-0.30 [facility] Comment on above: Performed By: #### C DP, BMP #### [address] [address] House Coordinator: Mariusz Estrada MD Abs.Neutrophil (Seg) 7.74 k/uL Normal 1.50-8.10 [facility] Comment on above: Performed By: #### C DP, BMP #### [address] [address] House Coordinator: Mariusz Estrada MD Basophils/100 WBC (Bld) 0 % Normal 0-2 [facility] Comment on above: Performed By: #### C DP, BMP #### [address] [address] House Coordinator: Mariusz Estrada MD Eosinophils (Bld) [#/Vol] 0.00 10*3/uL Normal 0.00-0.44 [facility] Comment on above: Performed By: #### C DP, BMP #### [address] [address] House Coordinator: Mariusz Estrada MD Eosinophils/100 WBC (Bld) 0 % Low 1-4 [facility] Comment on above: Performed By: #### C DP, BMP #### [address] [address] House Coordinator: Mariusz Estrada MD Immature granulocytes/100 WBC (Bld) 0 % Normal 0 [facility] Comment on above: Performed By: #### C DP, BMP #### [address] [address] House Coordinator: Mariusz Estrada MD Lymphocytes (Bld) [#/Vol] 0.45 10*3/uL Low 1.10-3.70 [facility] Comment on above: Performed By: #### C DP, BMP #### [place] [address] House Coordinator: Mariusz Estrada MD Lymphocytes/100 WBC (Bld) 5 % Low 24-43 [facility] Comment on above: Performed By: #### C DP, BMP #### [place] [address] House Coordinator: Mariusz Estrada MD Monocytes (Bld) [#/Vol] 0.71 10*3/uL Normal 0.10-1.20 [facility] Comment on above: Performed By: #### C DP, BMP #### [place] [address] House Coordinator: Mariusz Estrada MD Monocytes/100 WBC (Bld) 8 % Normal 3-12 [facility] Comment on above: Performed By: #### C DP, BMP #### [place] [address] House Coordinator: Mariusz Estrada MD Morphology Jamie (Bld) [Interp] ANISOCYTOSIS PRESENT Normal [facility] Comment on above: Result Comment: MICR OCYTOSIS PRESENT Performed By: #### C DP, BMP #### [place] [address] House Coordinator: Mariusz Estrada MD Neutrophil (Seg) 87 % High 36-65 [facility] Comment on above: Performed By: #### C DP, BMP #### [place] [address] House Coordinator: Mariusz Estrada MD Erythrocyte distribution width (RBC) [Ratio] 17.3 % High 11.8-14.4 [facility] Comment on above: Performed By: #### C DP, BMP #### [address] [address] House Coordinator: Mariusz Estrada MD Hematocrit (Bld) [Volume fraction] 30.5 % Low 36.3-47.1 [facility] Comment on above: Performed By: #### C DP, BMP #### [address] [address] House Coordinator: Mariusz Estrada MD Hemoglobin (Bld) [Mass/Vol] 9.5 g/dL Low 11.9-15.1 [facility] Comment on above: Performed By: #### C DP, BMP #### [address] [address] House Coordinator: Mariusz Estrada MD MCH (RBC) [Entitic mass] 23.9 pg Low 25.2-33.5 [facility] Comment on above: Performed By: #### C DP, BMP #### [address] [address] House Coordinator: Mariusz Estrada MD MCHC (RBC) [Mass/Vol] 31.1 g/dL Normal 28.4-34.8 [facility] Comment on above: Performed By: #### C DP, BMP #### [address] [address] House Coordinator: Mariusz Estrada MD MCV (RBC) [Entitic vol] 76.8 fL Low 82.6-102.9 [facility] Comment on above: Performed By: #### C DP, BMP #### [address] [address] House Coordinator: Mariusz Estrada MD NRBC Automated 0.0 per 100 WBC Normal 0.0 [facility] Comment on above: Performed By: #### C DP, BMP #### [address] [address] House Coordinator: Mariusz Estrada MD Platelet mean volume (Bld) [Entitic vol] 11.0 fL Normal 8.1-13.5 [facility] Comment on above: Performed By: #### C DP, BMP #### [facility] [address] [place] [address] House Coordinator: Mariusz Estrada MD Platelets (Bld) [#/Vol] 237 10*3/uL Normal 138-453 [facility] Comment on above: Performed By: #### C DP, BMP #### [facility] [employer] [address] [place] [address] House Coordinator: Mariusz Estrada MD RBC (Bld) [#/Vol] 3.97 10*6/uL Normal 3.95-5.11 [facility] Comment on above: Performed By: #### C DP, BMP #### [facility] [employer] [address] [place] [address] House Coordinator: Mariusz Estrada MD WBC (Bld) [#/Vol] 8.9 10*3/uL Normal 3.5-11.3 [facility] Comment on above: Performed By: #### C DP, BMP #### [facility] [employer] [address] [place] [address] House Coordinator: Mariusz Estrada MD Cult,Urineon 06-11-2022 Cult,Urine Specimen Description .CATHETER NEWLY INSERTED Culture NO GROWTH Report Status FINAL 06/11/2022 Normal [facility] Comment on above: Performed By: #### M G, BMP, CDP #### [facility] [employer] [address] [place] [address] House Coordinator: Mariusz Estrada MD Culture, Urineon 06-11-2022 Microorganism identified Cx Nom (Unsp spec) NO GROWTH [facility] [employer] [facility] Specimen Description .CATHETER NEWLY INSERTED [facility] SMALL BOWEL FOLLOW THROUG H ONLYon 03-08-2023 FL SMALL BOWEL FOLLOW THROUGH ONLY EXAMINATION: SMALL BOWEL FOLLOW THROUGH SERIES 06/11/2022 TECHNIQUE: Small bowel follow through series was performed with overhead images. No spot images were acquired as the last few images where acquired in patient's room and not in the fluoroscopy suite.. FLUOROSCOPY DOSE AND TYPE: Radiation Exposure Index: None, COMPARISON: Outside CT abdomen pelvis from [facility] 06/09/2022 HISTORY: ORDERING SYSTEM PROVIDED HISTORY: Gatrograffin contrast only. Small bowel obstruction s/p release of adhesions TECHNOLOGIST PROVIDED HISTORY: Gatrograffin contrast only. Small bowel obstruction s/p release of adhesions FINDINGS: Multiple dilated gas-filled mid abdominal small bowel loops. Residual contrast from prior CT noted in nondilated terminal ileum and a few distal ileal loops and also in cecum/proximal ascending colon. Laparotomy skin maxx. Bladder catheter. Following administration of oral contrast images were acquired at 0, 15, 60 and 90 minute post contrast administration. There is slow gradual progression of contrast throughout multiple mildly dilated small bowel loops. After the 90 minute image additional images are acquired at 2.5 hours, 4 hours and 6 hours from time of original contrast administration. Between the 90 minute and 6 hour image only a minimal amount of contrast progression through the small bowel is noted. This is manifested by small amount of new contrast noted in the cecum on the 4 hour image which did not change between 4 hours and 6 hours. Findings consistent with distal partial small bowel obstruction. IMPRESSION: Findings consistent with partial distal small bowel obstruction probably of a moderate to high-grade severity in noting that between 2.5 hours and 6 hours after administration of contrast only minimal contrast progression is noted as seen in the cecum. Interpreted by: Alexander Baird MD Signed by: Alexander Baird MD 06/11/22 Final result Normal [facility] Findings consistent with partial distal small bowel obstruction probably of a moderate to high-grade severity in noting that between 2.5 hours and 6 hours after administration of contrast only minimal contrast progression is noted as seen in the cecum. [facility] RIS CONSOLIDATED EXAMINATION: SMALL BOWEL FOLLOW THROUGH SERIES 06/11/2022 TECHNIQUE: Small bowel follow through series was performed with overhead images. No spot images were acquired as the last few images where acquired in patient's room and not in the fluoroscopy suite.. FLUOROSCOPY DOSE AND TYPE: Radiation Exposure Index: None, COMPARISON: Outside CT abdomen pelvis from [facility] 06/09/2022 HISTORY: ORDERING SYSTEM PROVIDED HISTORY: Gatrograffin contrast only. Small bowel obstruction s/p release of adhesions TECHNOLOGIST PROVIDED HISTORY: Gatrograffin contrast only. Small bowel obstruction s/p release of adhesions FINDINGS: Multiple dilated gas-filled mid abdominal small bowel loops. Residual contrast from prior CT noted in nondilated terminal ileum and a few distal ileal loops and also in cecum/proximal ascending colon. Laparotomy skin maxx. Bladder catheter. Following administration of oral contrast images were acquired at 0, 15, 60 and 90 minute post contrast administration. There is slow gradual progression of contrast throughout multiple mildly dilated small bowel loops. After the 90 minute image additional images are acquired at 2.5 hours, 4 hours and 6 hours from time of original contrast administration. Between the 90 minute and 6 hour image only a minimal amount of contrast progression through the small bowel is noted. This is manifested by small amount of new contrast noted in the cecum on the 4 hour image which did not change between 4 hours and 6 hours. Findings consistent with distal partial small bowel obstruction. [facility] Alexander Wallis MD - 06/11/2022 EXAMINATION: SMALL BOWEL FOLLOW THROUGH SERIES 06/11/2022 TECHNIQUE: Small bowel follow through series was performed with overhead images. No spot images were acquired as the last few images where acquired in patient's room and not in the fluoroscopy suite.. FLUOROSCOPY DOSE AND TYPE: Radiation Exposure Index: None, COMPARISON: Outside CT abdomen pelvis from [facility] 06/09/2022 HISTORY: ORDERING SYSTEM PROVIDED HISTORY: Gatrograffin contrast only. Small bowel obstruction s/p release of adhesions TECHNOLOGIST PROVIDED HISTORY: Gatrograffin contrast only. Small bowel obstruction s/p release of adhesions FINDINGS: Multiple dilated gas-filled mid abdominal small bowel loops. Residual contrast from prior CT noted in nondilated terminal ileum and a few distal ileal loops and also in cecum/proximal ascending colon. Laparotomy skin maxx. Bladder catheter. Following administration of oral contrast images were acquired at 0, 15, 60 and 90 minute post contrast administration. There is slow gradual progression of contrast throughout multiple mildly dilated small bowel loops. After the 90 minute image additional images are acquired at 2.5 hours, 4 hours and 6 hours from time of original contrast administration. Between the 90 minute and 6 hour image only a minimal amount of contrast progression through the small bowel is noted. This is manifested by small amount of new contrast noted in the cecum on the 4 hour image which did not change between 4 hours and 6 hours. Findings consistent with distal partial small bowel obstruction. IMPRESSION: Findings consistent with partial distal small bowel obstruction probably of a moderate to high-grade severity in noting that between 2.5 hours and 6 hours after administration of contrast only minimal contrast progression is noted as seen in the cecum. [facility] Work Phone: Radiology Study observation (narrative) [facility] [employer] Phone: Laboratory - Blood bankon Blood product type Nom (BPU) Leukocyte Reduced Red Cell [facility] Magnesiumon 06-11-2022 Magnesium [Mass/Vol] 2.4 mg/dL Normal 1.6-2.6 [facility] Comment on above: Performed By: #### C DP, BMP #### [facility] [employer] [address] [place] [address] House Coordinator: Mariusz Estrada MD Magnesium [Mass/Vol] 2.4 mg/dL 1.6 - 2 .6 mg/dL [facility] No Panel InformationOrdered By: Etienne Rivers on 06-11-2022 [facility] Work Phone: No Panel Informationon 06-11 Crossmatch Result [facility] Dispense Status [facility] Transfusion Status OK TO TRANSFUSE B ON [facility] Unit Divison 0 [facility] SURGICAL PATHOLOGY REPORTon 06-11-2022 Surgical Pathology Report -- Diagnosis -- APPENDIX, LAPAROSCOPIC APPENDECTOMY:-BENIGN APPENDIX WITH SEROSAL CONGESTION, CONSISTENT WITH ADHESIONS. Kandice Ni Electronically Signed Out /06/11/2022 Clinical Information Pre-op Diagnosis: GASTROINTESTINAL PROBLEM Operative Findings: APPENDIX Operation Performed: LAPAROSCOPIC APPENDECTOMY tm Source of Specimen A: APPENDIX Gross Description KEVIN PEREA, APPENDIX 8.2 cm long x 0.6 cm in diameter vermiform appendix with a small amount of attached mesoappendix. The serosa is pink-anne. Sectioning reveals a grossly unremarkable lumen with no fecalith or transmural defect. Tip and cross sections with margin inked black 1cs. cd Microscopic Description Microscopic examination performed. SURGICAL PATHOLOGY CONSULTATION Patient Name: KEVIN PEREA [facility] Rec: [id number] Path Number: [id number] [facility] [employer] [facility] ANATOMIC PATHOLOGY [address] [place] [id number] [facility] TYPE AND SCREENon 06-11-2022 ABO/Rh Positive [facility] Arm Band Number BE [id number] [facility] Blood product unit ID (Dose) [#] [id number] [facility] Blood product unit ID (Dose) [#] [id number] [facility] Cuil Expiration Date 06/13/2022,2359 [facility] Kiddy [facility] Kiddy XR CHEST (SINGLE VIEW FRONTA L)on 06-11-2022 XR CHEST (SINGLE VIEW FRONTAL) EXAMINATION: ONE XRAY VIEW OF THE CHEST 06/11/2022 3:31 pm COMPARISON: 08/26/2016 HISTORY: ORDERING SYSTEM PROVIDED HISTORY: SOB TECHNOLOGIST PROVIDED HISTORY: SOB Reason for Exam: SOB port upr at 335pm FINDINGS: Cardiomediastinal silhouette stable. Right basilar opacity. No pneumothorax. No pleural effusion. No pulmonary vascular congestion or edema. IMPRESSION: Right basilar bandlike opacity could represent subsegmental atelectasis or infection Interpreted by: Etienne Rivers MD Signed by: Etienne Rivers MD 06/11/22 Final result Normal [facility] Right basilar bandlike opacity could represent subsegmental atelectasis or infection [facility] RIS CONSOLIDATED EXAMINATION: ONE XRAY VIEW OF THE CHEST 06/11/2022 3:31 pm COMPARISON: 08/26/2016 HISTORY: ORDERING SYSTEM PROVIDED HISTORY: SOB TECHNOLOGIST PROVIDED HISTORY: SOB Reason for Exam: SOB port upr at 335pm FINDINGS: Cardiomediastinal silhouette stable. Right basilar opacity. No pneumothorax. No pleural effusion. No pulmonary vascular congestion or edema. [facility] RIS CONSOLIDATED Etienne Rivers MD - 06/11/2022 EXAMINATION: ONE XRAY VIEW OF THE CHEST 06/11/2022 3:31 pm COMPARISON: 08/26/2016 HISTORY: ORDERING SYSTEM PROVIDED HISTORY: SOB TECHNOLOGIST PROVIDED HISTORY: SOB Reason for Exam: SOB port upr at 335pm FINDINGS: Cardiomediastinal silhouette stable. Right basilar opacity. No pneumothorax. No pleural effusion. No pulmonary vascular congestion or edema. IMPRESSION: Right basilar bandlike opacity could represent subsegmental atelectasis or infection [employer] Phone: Radiology Study observation (narrative) [employer] Phone: APTTon 06-10-2022 aPTT Coag (Bld) [Time] 24.0 s Normal 20.5-30.5 [facility] Comment on above: Result Comment: IV Heparin Therapy Range: 48.6-77.8 Performed By: #### M MICKY Herrera, CDP #### [employer] [address] [place] [address] House Coordinator: Mariusz Estrada MD aPTT Coag (Bld) [Time] 24.0 s [facility] Comment on above: IV Heparin Therapy Range: 48.6-77.8 Basic Metab w/rfx MGon 06-10 Anion gap [Moles/Vol] 11 mmol/L Normal 9-17 [facility] Comment on above: Performed By: #### B MPX, CDP #### [employer] [address] [place] [address] House Coordinator: Mariusz Estrada MD Calcium [Mass/Vol] 8.6 mg/dL Normal 8.6-10.4 [facility] Comment on above: Performed By: #### B MPX, CDP #### [employer] [address] [place] [phone] House Coordinator: Mariusz Estrada MD Chloride [Moles/Vol] 99 mmol/L Normal 98-107 [facility] Comment on above: Performed By: #### B MPX, CDP #### [facility] [address] [place] [address] House Coordinator: Mariusz Estrada MD CO2 [Moles/Vol] 22 mmol/L Normal 20-31 [facility] Comment on above: Performed By: #### B MPX, CDP #### [facility] [address] [place] [address] House Coordinator: Mariusz Estrada MD Creatinine [Mass/Vol] 0.64 mg/dL Normal 0.50-0.90 [facility] Comment on above: Performed By: #### B MPX, CDP #### [address] [address] House Coordinator: Mariusz Estrada MD GFR/1.73 sq M.predicted among non-blacks MDRD (S/P/Bld) [Vol rate/Area] mL/min/{1.73_m2} Normal >60 [facility] Comment on above: Result Comment: These results are not intended for use in patients <18 years of age. eGFR results are calculated without a race factor using the 2020 CKD-EPI equation. Careful clinical correlation is recommended, particularly when comparing to results calculated using previous equations. The CKD-EPI equation is less accurate in patients with extremes of muscle mass, extra-renal metabolism of creatine, excessive creatine ingestion, or following therapy that affects renal tubular secretion. Performed By: #### B MPX, CDP #### [facility] [address] [place] [address] House Coordinator: Mariusz Estrada MD Glucose [Mass/Vol] 94 mg/dL Normal 70-99 [facility] Comment on above: Performed By: #### B MPX, CDP #### [facility] [address] [place] [address] House Coordinator: Mariusz Estrada MD Potassium [Moles/Vol] 3.8 mmol/L Normal 3.7-5.3 [facility] Comment on above: Performed By: #### B MPX, CDP #### [facility] [address] [place], [place] [phone] House Coordinator: Mariusz Estrada MD Sodium [Moles/Vol] 132 mmol/L Low 135-144 [facility] Comment on above: Performed By: #### B MPX, CDP #### [facility] [address] [place], [place] [phone] House Coordinator: Mariusz Estrada MD Urea nitrogen [Mass/Vol] 12 mg/dL Normal 8-23 [facility] Comment on above: Performed By: #### B MPX, CDP #### [facility] [address] [place], [place] [phone] House Coordinator: Mariusz Estrada MD Basic Metabolic Panelon 03-0 Anion gap [Moles/Vol] 15 mmol/L 9 - 17 mmol/L [facility] Calcium [Mass/Vol] 8.1 mg/dL Low 8.6 - 10. 4 mg/dL [facility] Chloride [Moles/Vol] 95 mmol/L Low 98 - 10 7 mmol/L [facility] CO2 [Moles/Vol] 20 mmol/L 20 - 31 mmol/L [facility] Creatinine [Mass/Vol] 0.5 mg/dL 0.50 - 0.90 mg/dL [facility] GFR/1.73 sq M.predicted MDRD (S/P/Bld) [Vol rate/Area] - PINF [facility] Comment on above: These results are not intended for use in patients <18 years of age. eGFR results are calculated without a race factor using the 2020 CKD-EPI equation. Careful clinical correlation is recommended, particularly when comparing to results calculated using previous equations. The CKD-EPI equation is less accurate in patients with extremes of muscle mass, extra-renal metabolism of creatine, excessive creatine ingestion, or following therapy that affects renal tubular secretion. Glucose [Mass/Vol] 159 mg/dL High 70 - 99 mg/dL [facility] [employer] Potassium [Moles/Vol] 3.3 mmol/L Low 3.7 - 5.3 mmol/L [facility] Sodium [Moles/Vol] 130 mmol/L Low 135 - 144 mmol/L [facility] Urea nitrogen [Mass/Vol] 10 mg/dL 8 - 23 mg/dL [facility] Basic Metabolic Panel w/ Ref isaías to MGon 06-10-2022 Anion gap [Moles/Vol] 11 mmol/L 9 - 17 mmol/L [facility] Calcium [Mass/Vol] 8.6 mg/dL 8.6 - 10. 4 mg/dL [facility] Chloride [Moles/Vol] 99 mmol/L 98 - 10 7 mmol/L [facility] CO2 [Moles/Vol] 22 mmol/L 20 - 31 mmol/L [facility] Creatinine [Mass/Vol] 0.64 mg/dL 0.50 - 0.90 mg/dL [facility] GFR/1.73 sq M.predicted MDRD (S/P/Bld) [Vol rate/Area] - PINF [facility] Comment on above: These results are not intended for use in patients <18 years of age. eGFR results are calculated without a race factor using the 2020 CKD-EPI equation. Careful clinical correlation is recommended, particularly when comparing to results calculated using previous equations. The CKD-EPI equation is less accurate in patients with extremes of muscle mass, extra-renal metabolism of creatine, excessive creatine ingestion, or following therapy that affects renal tubular secretion. Glucose [Mass/Vol] 94 mg/dL 70 - 99 mg/dL [facility] Interpretation and review of laboratory results Abnormal [facility] Potassium [Moles/Vol] 3.8 mmol/L 3.7 - 5.3 mmol/L [facility] Sodium [Moles/Vol] 132 mmol/L Low 135 - 144 mmol/L [facility] Urea nitrogen [Mass/Vol] 12 mg/dL 8 - 23 mg/dL [facility] Basic Metabolic Profon 06-10 Anion gap [Moles/Vol] 15 mmol/L Normal 9-17 [facility] Comment on above: Performed By: #### M G, CDP, BMP #### [employer] [address] [place] [address] House Coordinator: Mariusz Estrada MD Calcium [Mass/Vol] 8.1 mg/dL Low 8.6-10.4 [facility] Comment on above: Performed By: #### JULEE Pimentel, BMP #### [facility] [employer] [address] [place] [address] House Coordinator: Mariusz Estrada MD Chloride [Moles/Vol] 95 mmol/L Low 98-107 [facility] Comment on above: Performed By: #### JULEE Pimentel, BMP #### [facility] [employer] [address] [place] [address] House Coordinator: Mariusz Estrada MD CO2 [Moles/Vol] 20 mmol/L Normal 20-31 [facility] Comment on above: Performed By: #### JULEE Pimentel, BMP #### [facility] [employer] [address] [place] [address] House Coordinator: Mariusz Estrada MD Creatinine [Mass/Vol] 0.50 mg/dL Normal 0.50-0.90 [facility] Comment on above: Performed By: #### JULEE Pimentel, BMP #### [facility] [employer] [address] [place] [address] House Coordinator: Mariusz Estrada MD GFR/1.73 sq M.predicted among non-blacks MDRD (S/P/Bld) [Vol rate/Area] mL/min/{1.73_m2} Normal >60 [facility] Comment on above: Result Comment: These results are not intended for use in patients <18 years of age. eGFR results are calculated without a race factor using the 2020 CKD-EPI equation. Careful clinical correlation is recommended, particularly when comparing to results calculated using previous equations. The CKD-EPI equation is less accurate in patients with extremes of muscle mass, extra-renal metabolism of creatine, excessive creatine ingestion, or following therapy that affects renal tubular secretion. Performed By: #### JULEE Pimentel, BMP #### [facility] [address] [place] [address] House Coordinator: Mariusz Estrada MD Glucose [Mass/Vol] 159 mg/dL High 70-99 [facility] Comment on above: Performed By: #### JULEE Pimentel, BMP #### [facility] [address] [place] [address] House Coordinator: Mariusz Estrada MD Potassium [Moles/Vol] 3.3 mmol/L Low 3.7-5.3 [facility] Comment on above: Performed By: #### JULEE Pimentel, BMP #### [facility] [address] [place] [address] House Coordinator: Mariusz Estrada MD Sodium [Moles/Vol] 130 mmol/L Low 135-144 [facility] Comment on above: Performed By: #### JULEE Pimentel, BMP #### [facility] [address] [place] [address] House Coordinator: Mariusz Estrada MD Urea nitrogen [Mass/Vol] 10 mg/dL Normal 8-23 [facility] Comment on above: Performed By: #### JULEE Pimentel, BMP #### [facility] [address] [place] [address] House Coordinator: Mariusz Estrada MD CBC with Auto Differentialon 06-10-2022 Absolute Eos # 0.00 [facility] Absolute Immature Granulocyte 0.00 [facility] Absolute Lymph # 0.29 Low [facility] Absolute [place] # 0.37 [facility] Basophils (Bld) [#/Vol] 0.00 10*3/uL [facility] Basophils/100 WBC (Bld) 0 % 0 - 2 % [facility] Eosinophils/100 WBC (Bld) 0 % Low 1 - 4 % [facility] Hematocrit (Bld) [Volume fraction] 34.0 % Low 36.3 - 47.1 % [facility] Hemoglobin (Bld) [Mass/Vol] 10.3 g/dL Low 11.9 - 15.1 g/dL [facility] Immature granulocytes/100 WBC (Bld) 0 % 0 [facility] Interpretation and review of laboratory results Abnormal [facility] Lymphocytes/100 WBC (Bld) 4 % Low 24 - 44 % [facility] MCH (RBC) [Entitic mass] 24.1 pg Low 25.2 - 33.5 pg [facility] MCHC (RBC) [Mass/Vol] 30.3 g/dL 28.4 - 34.8 g/dL [facility] MCV (RBC) [Entitic vol] 79.4 fL Low 82.6 - 102.9 fL [facility] Monocytes/100 WBC (Bld) 5 % 1 - 7 % [facility] Morphology Jamie (Bld) [Interp] ANISOCYTOSIS PRESENT [facility] Morphology Jamie (Bld) [Interp] MICROCYTOSIS PRESENT [facility] NRBC Automated 0.0 0.0 per 100 WBC [facility] Platelet distribution width (Bld) [Ratio] 17.3 % High 11.8 - 14.4 % [facility] Platelet mean volume (Bld) [Entitic vol] 11.1 fL 8.1 - 13.5 fL [facility] Platelets (Bld) [#/Vol] 200 10*3/uL [facility] RBC (Bld) [#/Vol] 4.28 10*6/uL 3.95 - 5.1 1 m/uL [facility] Segmented neutrophils/100 WBC (Bld) 91 % High 36 - 66 % [facility] Segs Absolute 6.64 [facility] WBC (Bld) [#/Vol] 7.3 10*3/uL [facility] Absolute Eos # 0.08 [facility] Absolute Immature Granulocyte [facility] Absolute Lymph # 1.38 [facility] Absolute [place] # 0.58 [facility] Basophils (Bld) [#/Vol] 0.04 10*3/uL [facility] Basophils/100 WBC (Bld) 1 % 0 - 2 % [facility] Eosinophils/100 WBC (Bld) 1 % 1 - 4 % [facility] Hematocrit (Bld) [Volume fraction] 34.3 % Low 36.3 - 47.1 % [facility] Hemoglobin (Bld) [Mass/Vol] 10.5 g/dL Low 11.9 - 15.1 g/dL [facility] Immature granulocytes/100 WBC (Bld) 0 % 0 [facility] Interpretation and review of laboratory results Abnormal [facility] Lymphocytes/100 WBC (Bld) 24 % 24 - 43 % [facility] MCH (RBC) [Entitic mass] 24.0 pg Low 25.2 - 33.5 pg [facility] MCHC (RBC) [Mass/Vol] 30.6 g/dL 28.4 - 34.8 g/dL [facility] MCV (RBC) [Entitic vol] 78.3 fL Low 82.6 - 102.9 fL [facility] Monocytes/100 WBC (Bld) 10 % 3 - 12 % [facility] NRBC Automated 0.0 0.0 per 100 WBC [facility] Platelet distribution width (Bld) [Ratio] 17.4 % High 11.8 - 14.4 % [facility] Platelet mean volume (Bld) [Entitic vol] 11.4 fL 8.1 - 13.5 fL [facility] Platelets (Bld) [#/Vol] 245 10*3/uL [facility] RBC (Bld) [#/Vol] 4.38 10*6/uL 3.95 - 5.1 1 m/uL [facility] RBC (Bld) [#/Vol] ANISOCYTOSIS PRESENT [facility] Comment on above: MICROCYTOSIS PRESENT Segmented neutrophils/100 WBC (Bld) 64 % 36 - 65 % [facility] Segs Absolute 3.55 [facility] WBC (Bld) [#/Vol] 5.7 10*3/uL [facility] CBC with Diffon 06-10-2022 Abs. Basophil 0.00 k/uL Normal 0.0-0.2 [facility] Comment on above: Performed By: #### C DP, BMP #### [address] [address] House Coordinator: Mariusz Estrada MD Abs.Imm.Granulocyte 0.00 k/uL Normal 0.00-0.30 [facility] Comment on above: Performed By: #### C DP, BMP #### [place] [address] House Coordinator: Mariusz Estrada MD Abs.Neutrophil (Seg) 6.64 k/uL Normal 1.8-7.7 [facility] Comment on above: Performed By: #### C DP, BMP #### [place] [address] House Coordinator: Mariusz Estrada MD Basophils/100 WBC (Bld) 0 % Normal 0-2 [facility] Comment on above: Performed By: #### C DP, BMP #### [place] [address] House Coordinator: Mariusz Estrada MD Eosinophils (Bld) [#/Vol] 0.00 10*3/uL Normal 0.0-0.4 [facility] Comment on above: Performed By: #### C DP, BMP #### [place] [address] House Coordinator: Mariusz Estrada MD Eosinophils/100 WBC (Bld) 0 % Low 1-4 [facility] Comment on above: Performed By: #### C DP, BMP #### [facility] [employer] [address] [place] [address] House Coordinator: Marisuz Estrada MD Immature granulocytes/100 WBC (Bld) 0 % Normal 0 [facility] Comment on above: Performed By: #### C DP, BMP #### [facility] [employer] [address] [place] [address] House Coordinator: Mariusz Estrada MD Lymphocytes (Bld) [#/Vol] 0.29 10*3/uL Low 1.0-4.8 [facility] Comment on above: Performed By: #### C DP, BMP #### [address] [address] House Coordinator: Mariusz Estrada MD Lymphocytes/100 WBC (Bld) 4 % Low 24-44 [facility] Comment on above: Performed By: #### C DP, BMP #### [address] [address] House Coordinator: Mariusz Estrada MD Monocytes (Bld) [#/Vol] 0.37 10*3/uL Normal 0.1-0.8 [facility] Comment on above: Performed By: #### C DP, BMP #### [address] [address] House Coordinator: Mariusz Estrada MD Monocytes/100 WBC (Bld) 5 % Normal 1-7 [facility] Comment on above: Performed By: #### C DP, BMP #### [address] [address] House Coordinator: Mariusz Estrada MD Morphology Jamie (Bld) [Interp] ANISOCYTOSIS PRESENT Normal [facility] Comment on above: Result Comment: MICR OCYTOSIS PRESENT Performed By: #### C DP, BMP #### [address] [address] House Coordinator: Mariusz Estrada MD Neutrophil (Seg) 91 % High 36-66 [facility] Comment on above: Performed By: #### C DP, BMP #### [facility] [employer] [address] [place] [address] House Coordinator: Mariusz Estrada MD Erythrocyte distribution width (RBC) [Ratio] 17.3 % High 11.8-14.4 [facility] Comment on above: Performed By: #### C DP, BMP #### [address] [address] House Coordinator: Mariusz Estrada MD Hematocrit (Bld) [Volume fraction] 34.0 % Low 36.3-47.1 [facility] Comment on above: Performed By: #### C DP, BMP #### [address] [address] House Coordinator: Mariusz Estrada MD Hemoglobin (Bld) [Mass/Vol] 10.3 g/dL Low 11.9-15.1 [facility] Comment on above: Performed By: #### C DP, BMP #### [address] [address] House Coordinator: Mariusz Estrada MD MCH (RBC) [Entitic mass] 24.1 pg Low 25.2-33.5 [facility] Comment on above: Performed By: #### C DP, BMP #### [address] [address] House Coordinator: Mariusz Estrada MD MCHC (RBC) [Mass/Vol] 30.3 g/dL Normal 28.4-34.8 [facility] Comment on above: Performed By: #### C DP, BMP #### [address] [address] House Coordinator: Mariusz Estrada MD MCV (RBC) [Entitic vol] 79.4 fL Low 82.6-102.9 [facility] Comment on above: Performed By: #### C DP, BMP #### [address] [address] House Coordinator: Mariusz Estrada MD NRBC Automated 0.0 per 100 WBC Normal 0.0 [facility] Comment on above: Performed By: #### C DP, BMP #### [address] [address] House Coordinator: Mariusz Estrada MD Platelet mean volume (Bld) [Entitic vol] 11.1 fL Normal 8.1-13.5 [facility] Comment on above: Performed By: #### C DP, BMP #### [place] [address] House Coordinator: Mariusz Estrada MD Platelets (Bld) [#/Vol] 200 10*3/uL Normal 138-453 [facility] Comment on above: Performed By: #### C DP, BMP #### [place] [address] House Coordinator: Mariusz Estrada MD RBC (Bld) [#/Vol] 4.28 10*6/uL Normal 3.95-5.11 [facility] Comment on above: Performed By: #### C DP, BMP #### [place] [address] House Coordinator: Mariusz Estrada MD WBC (Bld) [#/Vol] 7.3 10*3/uL Normal 3.5-11.3 [facility] Comment on above: Performed By: #### C DP, BMP #### [place] [address] House Coordinator: Mariusz Estrada MD Abs. Basophil 0.04 k/uL Normal 0.00-0.20 [facility] Comment on above: Performed By: #### B MPX, CDP #### [place] [address] House Coordinator: Mariusz Estrada MD Abs.Imm.Granulocyte <0.03 Normal 0.00-0.30 [facility] Comment on above: Performed By: #### B MPX, CDP #### [address] [address] House Coordinator: Mariusz Estrada MD Abs.Neutrophil (Seg) 3.55 k/uL Normal 1.50-8.10 [facility] Comment on above: Performed By: #### B MPX, CDP #### [facility] [employer] [address] [place] [address] House Coordinator: Mariusz Estrada MD Basophils/100 WBC (Bld) 1 % Normal 0-2 [facility] Comment on above: Performed By: #### B MPX, CDP #### [address] [address] House Coordinator: Mariusz Estrada MD Eosinophils (Bld) [#/Vol] 0.08 10*3/uL Normal 0.00-0.44 [facility] Comment on above: Performed By: #### B MPX, CDP #### [address] [address] House Coordinator: Mariusz Estrada MD Eosinophils/100 WBC (Bld) 1 % Normal 1-4 [facility] Comment on above: Performed By: #### B MPX, CDP #### [address] [address] House Coordinator: Mariusz Estrada MD Erythrocyte distribution width (RBC) [Ratio] 17.4 % High 11.8-14.4 [facility] Comment on above: Performed By: #### B MPX, CDP #### [facility] [employer] [address] [place] [address] House Coordinator: Mariusz Estrada MD Hematocrit (Bld) [Volume fraction] 34.3 % Low 36.3-47.1 [facility] Comment on above: Performed By: #### B MPX, CDP #### [facility] [employer] [address] [place] [address] House Coordinator: Mariuzs Estrada MD Hemoglobin (Bld) [Mass/Vol] 10.5 g/dL Low 11.9-15.1 [facility] Comment on above: Performed By: #### B MPX, CDP #### [address] [address] House Coordinator: Mariusz Estrada MD Immature granulocytes/100 WBC (Bld) 0 % Normal 0 [facility] Comment on above: Performed By: #### B MPX, CDP #### [address] [address] House Coordinator: Mariusz Estrada MD Lymphocytes (Bld) [#/Vol] 1.38 10*3/uL Normal 1.10-3.70 [facility] Comment on above: Performed By: #### B MPX, CDP #### [address] [address] House Coordinator: Mariusz Estrada MD Lymphocytes/100 WBC (Bld) 24 % Normal 24-43 [facility] Comment on above: Performed By: #### B MPX, CDP #### [facility] [address] [place] [address] House Coordinator: Mariusz Estrada MD MCH (RBC) [Entitic mass] 24.0 pg Low 25.2-33.5 [facility] Comment on above: Performed By: #### B MPX, CDP #### [facility] [address] [place] [address] House Coordinator: Mariusz Estrada MD MCHC (RBC) [Mass/Vol] 30.6 g/dL Normal 28.4-34.8 [facility] Comment on above: Performed By: #### B MPX, CDP #### [facility] [address] [place] [address] House Coordinator: Mariusz Estrada MD MCV (RBC) [Entitic vol] 78.3 fL Low 82.6-102.9 [facility] Comment on above: Performed By: #### B MPX, CDP #### [address] [address] House Coordinator: Mariusz Estrada MD Monocytes (Bld) [#/Vol] 0.58 10*3/uL Normal 0.10-1.20 [facility] Comment on above: Performed By: #### B MPX, CDP #### [address] [address] House Coordinator: Mariusz Estrada MD Monocytes/100 WBC (Bld) 10 % Normal 3-12 [facility] Comment on above: Performed By: #### B MPX, CDP #### [address] [address] House Coordinator: Mariusz Estrada MD Neutrophil (Seg) 64 % Normal 36-65 [facility] Comment on above: Performed By: #### B MPX, CDP #### [address] [address] House Coordinator: Mariusz Estrada MD NRBC Automated 0.0 per 100 WBC Normal 0.0 [facility] Comment on above: Performed By: #### B MPX, CDP #### [place] [address] House Coordinator: Mariusz Estrada MD Platelet mean volume (Bld) [Entitic vol] 11.4 fL Normal 8.1-13.5 [facility] Comment on above: Performed By: #### B MPX, CDP #### [address] [address] House Coordinator: Mariusz Estrada MD Platelets (Bld) [#/Vol] 245 10*3/uL Normal 138-453 [facility] Comment on above: Performed By: #### B MPX, CDP #### [facility] [address] [place] [address] House Coordinator: Mariusz Estrada MD RBC (Bld) [#/Vol] 4.38 10*6/uL Normal 3.95-5.11 [facility] Comment on above: Performed By: #### B MPX, CDP #### [facility] [address] [place] [address] House Coordinator: Mariusz Estrada MD RBC morphology finding Nom (Bld) ANISOCYTOSIS PRESENT Normal [facility] Comment on above: Result Comment: MICR OCYTOSIS PRESENT Performed By: #### B MPX, CDP #### [facility] [address] [place] [address] House Coordinator: Mariusz Estrada MD WBC (Bld) [#/Vol] 5.7 10*3/uL Normal 3.5-11.3 [facility] Comment on above: Performed By: #### B MPX, CDP #### [facility] [address] [place] [address] House Coordinator: Mariusz Estrada MD CT ABD/PELV W CONon 06-11-[address] ABD/PELV W CON CT ABD/PELV W CON: 06/09/2022 6:53 PM EST CLINICAL HISTORY: 66 years old Female with GENERALIZED ABDOMINAL PAIN. Vomiting TECHNIQUE: Axial CT images through the abdomen and pelvis are obtained after the intravenous administration of contrast. Coronal and sagittal reformations are also obtained. Dose reduction techniques were achieved by using automated exposure control and/or adjustment of mA and/or kV according to patient size and/or use of iterative reconstruction technique. COMPARISON: CT abdomen pelvis 04/12/2021. FINDINGS: The lung bases are clear with no dependent infiltrate or effusion. Nonspecific interstitial thickenings likely atelectasis. The spleen, pancreas and bilateral adrenal glands are unremarkable. Subcentimeter simple hepatic cysts are present. Cholecystectomy clips are present with the gallbladder surgically absent. No intrahepatic or extrahepatic biliary ductal dilatation. The bilateral kidneys demonstrate normal enhancement without hydronephrosis. The bilateral ureters demonstrate no gross abnormality or obstruction. Gastric bypass postsurgical changes present with nondistention of the proximal loops of small bowel. There is interval swirling of the upper central mesentery with malpositioning of loops of jejunum to the right new from the prior study with abnormal central mesenteric edema. Multiple small bowel anastomosis at the left abdomen are present with multiple tapering suggesting transition points of the small bowel at the upper abdomen. Additionally there is abrupt tapering of the superior mesenteric vein (series 3 image 53) with apparent thrombus seen more distally within the anterior mesentery (series 3 image 59 and 62) this may be secondary to slow flow from stricture secondary to internal herniation is volvulus. Abnormal central mesenteric edema is present as well as small free fluid within the pelvis. No free air or pneumatosis. Abnormally dilated loops of small bowel are present with air-fluid leveling measuring up to 2.7 cm at the right lower abdomen as well as intraluminal fecal content within loops of small bowel at the right abdomen. Additional nondistended loops of small bowel are present. Appendix is visualized without inflammatory change. The colon is unremarkable. The bladder appears unremarkable. There is no evidence of aortic aneurysm present. No enlarged lymph nodes are seen. The uterus and adnexa are within normal limits. Dextroscoliosis of the lumbar spine with multilevel discogenic degenerative change with vacuum disc phenomena. Transitional lumbosacral vertebral body segment is present with pseudoarticulation of the transverse processes. Sacroiliac sclerosis greater on the left is present. No acute compression fracture deformity or suspicious osseous abnormality identified. Bilateral saline breast implants are incidental note. IMPRESSION: Interval development of proximal small bowel volvulus or internal hernia with swirling of the mesentery with central mesenteric edema, free fluid within the pelvis as well as abnormally dilated loops of small bowel with intraluminal fecal content with at least partial obstruction. Additional abrupt tapering of the superior mesenteric vein is present with concern for internal thrombus distally versus slow flow. Surgical consultation is recommended. No free air. Electronically authenticated by: JUAN SALDIVAR Date: 2022-06-09 22:39 Normal [facility] Covid-19 PCR (CVDTB)on SARS-CoV-2 (COVID-19) RNA AMPARO+probe Ql (Unsp spec) Not detected Normal NOT DETECTED [facility] Comment on above: Result Comment: When diagnostic testing is negative, the possibility of a false negative should be considered in the context of a patient's recent exposures and the presence of clinical signs and symptoms consistent with SARS-CoV-2. This test is not yet approved or cleared by the [place] FDA. When there are no FDA-approved or cleared tests available, and other criteria are met, FDA can make tests available under an emergency access mechanism called an Emergency Use Authorization (EUA). The EUA for this test is supported by the Computer Operations Specialist of Health and Human Service's declaration that circumstances exist to justify the emergency use of in vitro diagnostics for the detection and/or diagnosis of the virus that causes COVID-19. This EUA will remain in effect for the duration of the COVID-19 declaration justifying emergency of IVDs, unless it is terminated or revoked by the FDA (after which the test may no longer be used). Performed By: #### C BC #### [facility] [address] [address] [address] Joann Atkins Lactate, Sepsison 06-10-2022 Lactic Acid,Sep Wbld 1.1 mmol/L Normal 0.5-1.9 [facility] Comment on above: Performed By: #### MICKY Pimentel CDP #### [employer] [address] [place] [address] House Coordinator: Mariusz Estrada MD Lactic Acid, Sepsis, Whole Blood 1.1 mmol/L 0.5 - 1.9 mmol/L [facility] Magnesiumon 06-10-2022 Magnesium [Mass/Vol] 1.5 mg/dL Low 1.6-2.6 [facility] Comment on above: Performed By: #### JULEE Pimentel, BMP #### [employer] [address] [place] [address] House Coordinator: Mariusz Estrada MD Magnesium [Mass/Vol] 1.5 mg/dL Low 1.6 - 2 .6 mg/dL [facility] No Panel Informationon 06-10 Interpretation and review of laboratory results Abnormal [facility] PTon 06-10-2022 INR Coag (PPP) [Relative time] 0.9 {INR} Normal [facility] Comment on above: Result Comment: Therapeutic Range: Moderate Anticoagulant Intensity: INR = 2.0-3.0 High Anticoagulant Intensity: INR = 2.5-3.5 Performed By: #### MICKY Pimentel, CDP #### [employer] [address] [place] [address] House Coordinator: Mariusz Estrada MD PT Coag (PPP) [Time] 9.7 s Normal 9.1-12.3 [facility] Comment on above: Performed By: #### MICKY Pimentel, CDP #### [employer] [address] [place] [address] House Coordinator: Mariusz Estrada MD Protime-INRon 06-10-2022 INR Coag (PPP) [Relative time] 0.9 {INR} [facility] Comment on above: Therapeutic Range: Moderate Anticoagulant Intensity: INR = 2.0-3.0 High Anticoagulant Intensity: INR = 2.5-3.5 PT Coag (PPP) [Time] 9.7 s [facility] Surgical Pathologyon 023 Surgical Pathology (NOTE) -- Diagnosis -- APPENDIX, LAPAROSCOPIC APPENDECTOMY:-BENIGN APPENDIX WITH SEROSAL CONGESTION, CONSISTENT WITH ADHESIONS. Kandice Ni Electronically Signed Out /06/11/2022 Clinical Information Pre-op Diagnosis: GASTROINTESTINAL PROBLEM Operative Findings: APPENDIX Operation Performed: LAPAROSCOPIC APPENDECTOMY tm Source of Specimen A: APPENDIX Gross Description KEVIN PEREA, APPENDIX 8.2 cm long x 0.6 cm in diameter vermiform appendix with a small amount of attached mesoappendix. The serosa is pink-anne. Sectioning reveals a grossly unremarkable lumen with no fecalith or transmural defect. Tip and cross sections with margin inked black 1cs. cd Microscopic Description Microscopic examination performed. SURGICAL PATHOLOGY CONSULTATION Patient Name: KEVIN PEREA [facility] Rec: [id number] Path Number: [id number] [place] [address] [place] [phone] Normal [facility] Comment on above: Performed By: #### C DP, BMP #### [address] [id number] House Coordinator: Mariusz Estrada MD Type + Screenon 06-10-2022 Type + Screen Sample Expiration 06/13/2022,2359 Arm Band Number [id number] ABO/Rh(D) O POSITIVE Antibody Screen NEGATIVE Unit Number [id number] Blood Component Type Leukocyte Reduced Red Cell Unit Division 00 Status of Unit REL FROM ALLOC Transfusion Status OK TO TRANSFUSE Crossmatch Result COMPATIBLE Unit Number [id number] Blood Component Type Leukocyte Reduced Red Cell Unit Division 00 Status of Unit REL FROM ALLOC Transfusion Status OK TO TRANSFUSE Crossmatch Result COMPATIBLE Normal [facility] Comment on above: Performed By: #### T YS #### [address] [id number] House Coordinator: Mariusz Estrada MD CBC AUTO DIFFon 06-09-2022 BASO # 0.0 103/ul Normal 0.0-0.[address] [facility] Comment on above: Performed By: #### C BC #### [facility] [address] [place] [address] Dr. Joann Atkins Basophils/100 WBC (Bld) 0.6 % Normal 0.2-2.[address] [facility] Comment on above: Performed By: #### C BC #### [facility] [address] [place] [address] Dr. Joann Atkins EO # 0.2 103/ul Normal 0.0-0.7 [facility] Comment on above: Performed By: #### C BC #### [facility] [address] [place] [address] Dr. Joann Atkins Eosinophils/100 WBC (Bld) 3.7 % Normal 0.9-7.[address] [facility] Comment on above: Performed By: #### C BC #### [facility] [address] [place] [address] Dr. Joann Atkins Erythrocyte distribution width (RBC) [Ratio] 17.6 % Critically high 11.0-15.[address] [facility] Comment on above: Performed By: #### C BC #### [facility] [address] [place] [address] Dr. Joann Atkins Hematocrit (Bld) [Volume fraction] 36.8 % Normal 36.0-48.[address] [facility] Comment on above: Performed By: #### C BC #### [facility] [address] [place] [address] Dr. Joann Atkins Hemoglobin (Bld) [Mass/Vol] 11.5 g/dL Critically low 12.0-16.[address] [facility] Comment on above: Performed By: #### C BC #### [facility] [address] [place] [address] Dr. Joann Atkins IG # 0.01 10e3/ul Normal 0.00-0.[address] [facility] Comment on above: Performed By: #### C BC #### [facility] [address] [place] [address] Dr. Joann Atkins IG % 0.2 % Normal 0.0-0.[address] [facility] Comment on above: Performed By: #### C BC #### [facility] [address] [place] [address] Dr. Joann Atkins LYMPH # 1.9 103/ul Normal 1.2-3.[address] [facility] Comment on above: Performed By: #### C BC #### [facility] [address] [place] [address] Dr. Joann Atkins Lymphocytes/100 WBC (Bld) 39.2 % Normal 20.5-60.0 [facility] Comment on above: Performed By: #### C BC #### [facility] [address] [place] [address] Dr. Joann Atkins MANUAL DIFF REQ NO Normal [facility] Comment on above: Performed By: #### C BC #### [facility] [address] [place] [address] Dr. Joann Atkins MCH (RBC) [Entitic mass] 24.2 pg Critically low 26.7-34.[address] [facility] Comment on above: Performed By: #### C BC #### [facility] [address] [place] [address] Dr. Joann Atkins MCHC (RBC) [Mass/Vol] 31.3 g/dL Normal 29.9-35.[address] [facility] Comment on above: Performed By: #### C BC #### [facility] [address] [place] [address] Dr. Joann Atkins MCV (RBC) [Entitic vol] 77.5 fL Critically low 81.0-99.[address] [facility] Comment on above: Performed By: #### C BC #### [facility] [address] [place] [address] Dr. Joann Atkins MONO # 0.5 103/ul Normal 0.3-0.[address] [facility] Comment on above: Performed By: #### C BC #### [facility] [address] [place] [address] Dr. Joann Atkins Monocytes/100 WBC (Bld) 9.9 % Normal 1.7-12.[address] [facility] Comment on above: Performed By: #### C BC #### [facility] [address] [place] [address] Dr. Joann Atkins NEUT # 2.3 103/ul Normal 1.4-6.[address] [facility] Comment on above: Performed By: #### C BC #### [facility] [address] [place] [address] Dr. Joann Atkins Neutrophils/100 WBC (Bld) 46.4 % Normal 43.0-75.0 [facility] Comment on above: Performed By: #### C BC #### [facility] [address] [place] [address] Dr. Joann Atkins Platelet mean volume (Bld) [Entitic vol] 10.6 fL Normal 9.5-13.[address] [facility] Comment on above: Performed By: #### C BC #### [facility] [address] [place] [address] Dr. Joann Atkins PLT 269 103/ul Normal 150-[address] [facility] Comment on above: Performed By: #### C BC #### [facility] [address] [place] [address] Dr. Joann Atkins RBC 4.75 106/ul Normal 4.20-5.[address] [facility] Comment on above: Performed By: #### C BC #### [facility] [address] [place] [address] Dr. Joann Atkins WBC 4.9 103/ul Normal 4.0-11.[address] [facility] Comment on above: Performed By: #### C BC #### [facility] [address] [place] [address] Dr. Joann Atkins CULTURE URINEon 06-09-2022 CULTURE URINE Culture Observations : MODERATE GROWTH OF MIXED GENITAL RONNI. NO POTENTIAL PATHOGENS SEEN. Normal [facility] Comment on above: Performed By: #### U RCX #### [facility] [address] [place] [address] Dr. Joann Atkins ER URINE PROFILEon 3 Bilirubin Ql (U) Negative Normal NEGATIVE [facility] Comment on above: Performed By: #### Carmen MOLINA UMICRO #### [facility] [address] [place] [address] Dr. Joann Atkins Clarity (U) CLEAR Normal CLEAR [facility] Comment on above: Performed By: #### Carmen MOLINA UMICRO #### [facility] [address] [place] [address] Dr. Joann Atkins Color (U) LT. YELLOW Normal YELLOW [facility] Comment on above: Performed By: #### Carmen MOLINA UMICRO #### [facility] [address] [place] [address] Dr. Joann LARSON A micrscopic examination will be performed if indicated. Normal [facility] Comment on above: Performed By: #### Carmen MOLINA UMICRO #### [facility] [address] [place] [address] Dr. Joann Atkins Glucose Ql (U) Negative Normal NEGATIVE [facility] Comment on above: Performed By: #### E RUR, UMICRO #### [facility] [address] [place] [address] Dr. Joann Atkins Hemoglobin Ql (U) TRACE-INTACT Abnormal NEGATIVE [facility] Comment on above: Performed By: #### Carmen MOLINA UMICRO #### [facility] [address] [place] [address] Dr. Joann Atkins Ketones Ql (U) Negative Normal NEGATIVE [facility] Comment on above: Performed By: #### Carmen MOLINA UMICRO #### [facility] [address] [place] [address] Dr. Joann Atkins LEUKOCYTES SMALL Abnormal NEGATIVE [facility] Comment on above: Performed By: #### Carmen MOLINA UMICRO #### [facility] [address] [place] [address] Dr. Joann Atkins Nitrite Ql (U) Negative Normal NEGATIVE [facility] Comment on above: Performed By: #### CHRISTOPH CAMPOSRO #### [facility] [address] [place] [address] Dr. Joann Atkins pH (U) 5.5 [pH] Normal 5-[address] [facility] Comment on above: Performed By: #### AJ CAMPOSICRO #### [facility] [address] [place] [address] Dr. Joann Atkins SPEC GRAVITY >=1.030 Abnormal 1.005-<=1.[address] [facility] Comment on above: Performed By: #### AJ CAMPOSICRO #### [facility] [address] [place] [address] Dr. Joann Atkins UA PROTEIN Negative Normal NEGATIVE/ TRACE [facility] Comment on above: Performed By: #### AJ CAMPOSICRO #### [facility] [address] [place] [address] Dr. Joann Atkins UR MICRO IND INDICATED Normal [facility] Comment on above: Performed By: #### Carmen MOLINA UMICRO #### [facility] [address] [place] [address] Dr. Joann Atkins Urobilinogen Qn (U) 0.2 {Abilio'U}/dL Normal 0.2 - 1. [address] [facility] Comment on above: Performed By: #### E CHRIS MOLINA #### [facility] [address] [place] [address] Dr. Joann Atkins LACTATE/LACTIC ACIDon 2022 Lactate [Moles/Vol] 1.3 mmol/L Normal 0.4-1.9 [facility] Comment on above: Performed By: #### L ACT #### [facility] [address] [place] [address] Dr. Joann Atkins LIPASEon 06-09-2022 Lipase [Catalytic activity/Vol] 235.0 U/L Normal 73.0-393.[address] [facility] Comment on above: Performed By: #### C MP, HSTROPN, LIPA #### [facility] [address] [place] [address] Dr. Joann Atkins PROF 14(COMP METB)on 023 Albumin [Mass/Vol] 4.1 g/dL Normal 3.4-5.0 [facility] Comment on above: Performed By: #### C MP, HSTROPN, LIPA #### [facility] [address] [place] [address] Dr. Joann Atkins Albumin/Globulin [Mass ratio] 1.0 {ratio} Normal [facility] Comment on above: Performed By: #### C MP, HSTROPN, LIPA #### [facility] [address] [place] [address] Dr. Joann Atkins ALP [Catalytic activity/Vol] 124 U/L Critically high 46-116 [facility] Comment on above: Performed By: #### C MP, HSTROPN, LIPA #### [facility] [address] [place] [address] Dr. Joann Atkins ALT [Catalytic activity/Vol] 15 U/L Normal 14-59 [facility] Comment on above: Performed By: #### C MP, HSTROPN, LIPA #### [facility] [address] [address] [address] Joann Atkins Anion gap [Moles/Vol] 14.0 mmol/L Normal [facility] Comment on above: Performed By: #### C MP, HSTROPN, LIPA #### [facility] [address] [place] [address] Dr. Joann Atkins AST [Catalytic activity/Vol] 14 U/L Critically low 15-[address] [facility] Comment on above: Performed By: #### C MP, HSTROPN, LIPA #### [facility] [address] [place] [address] Dr. Joann Atkins Bilirubin [Mass/Vol] 0.2 mg/dL Normal 0.2-1.[address] [facility] Comment on above: Performed By: #### C MP, HSTROPN, LIPA #### [facility] [address] [place] [address] Dr. Joann Atkins Calcium [Mass/Vol] 8.8 mg/dL Normal 8.5-10.1 [facility] Comment on above: Performed By: #### C MP, HSTROPN, LIPA #### [facility] [address] [place] [address] Dr. Joann Atkins Chloride [Moles/Vol] 103 mmol/L Normal 98-[address] [facility] Comment on above: Performed By: #### C MP, HSTROPN, LIPA #### [facility] [address] [place] [address] Dr. Joann Atkins CO2 [Moles/Vol] 25.6 mmol/L Normal 21.0-32.0 [facility] Comment on above: Performed By: #### C MP, HSTROPN, LIPA #### [facility] [address] [place] [address] Dr. Joann Atkins Creatinine [Mass/Vol] 0.89 mg/dL Normal 0.55-1.[address] [facility] Comment on above: Performed By: #### C MP, HSTROPN, LIPA #### [facility] [address] [place] [address] Dr. Joann Atkins EGFR-AF INDONESIAN >60 Normal >=60 [facility] Comment on above: Performed By: #### C MP, HSTROPN, LIPA #### [facility] [address] [place] [address] Dr. Joann Atkins EGFR-NON AF INDONESIAN >60 Normal >=[address] [facility] Comment on above: Performed By: #### C MP, HSTROPN, LIPA #### [facility] [address] [place] [address] Dr. Joann Atkins Globulin (S) [Mass/Vol] 4.0 g/dL Normal [facility] Comment on above: Performed By: #### C MP, HSTROPN, LIPA #### [facility] [address] [place] [address] Dr. Joann Atkins Glucose [Mass/Vol] 115 mg/dL Critically high 74-106 [facility] Comment on above: Performed By: #### C MP, HSTROPN, LIPA #### [facility] [address] [place] [address] Dr. Joann Atkins Potassium [Moles/Vol] 3.6 mmol/L Normal 3.5-5.[address] [facility] Comment on above: Performed By: #### C MP, HSTROPN, LIPA #### [facility] [address] [place] [address] Dr. Joann Atkins Protein [Mass/Vol] 8.1 g/dL Normal 6.4-8.2 [facility] Comment on above: Performed By: #### C MP, HSTROPN, LIPA #### [facility] [address] [place] [address] Dr. Joann Atkins Sodium [Moles/Vol] 139 mmol/L Normal 136-145 [facility] Comment on above: Performed By: #### C MP, HSTROPN, LIPA #### [facility] [address] [place] [address] Dr. Joann Atkins Urea nitrogen [Mass/Vol] 17.0 mg/dL Normal 7.0-18.[address] [facility] Comment on above: Performed By: #### C MP, HSTROPN, LIPA #### [facility] [address] [place] [address] Dr. Joann Atkins Urea nitrogen/Creatinine [Mass ratio] 19.1 mg/mg Normal [facility] Comment on above: Performed By: #### C MP, HSTROPN, LIPA #### [facility] [address] [place] [address] Dr. Joann Atkins TROPONIN, HIGH SENSITIVITYon 06-09-2022 HSTROP 20.5 pg/mL Normal 4.0-51.3 [facility] Comment on above: Result Comment: CUT- OFF POINTS HAVE BEEN ESTABLISHED BASED ON THE FOURTH UNIVERSAL DEFINITIONS OF MYOCARDIAL INFARCTION. THE UPPER REFERENCE LIMIT (URL) OF TROPONIN, DEFINED THE 99TH PERCENTILE OF cTnI DISTRIBUTION IN A REFERENCE POPULATION, HAS BEEN CONFIRMED THE DECISION THRESHOLD FOR MS DIAGNOSIS. Performed By: #### C MP, HSTROPN, LIPA #### [facility] [address] [place] [address] Dr. Joann Atkins URINE MICROSCOPIC ONLYon BACTERIA NONE SEEN Normal NONE SEEN [facility] Comment on above: Performed By: #### C BC #### [facility] [address] [place] [address] Dr. Joann Atkins Bacteria identified Cx Nom (U) INDICATED Normal [facility] Comment on above: Performed By: #### C BC #### [facility] [address] [place] [address] Dr. Joann Atkins CAST NONE SEEN Normal NONE SEEN [facility] Comment on above: Performed By: #### C BC #### [facility] [address] [place] [address] Dr. Joann Atkins Crystals LM Nom (Urine sed) NONE SEEN Normal NONE SEEN [facility] Comment on above: Performed By: #### C BC #### [facility] [address] [place] [address] Dr. Joann Atkins Epithelial cells LM Ql (Urine sed) RARE Normal NONE SEEN /RARE [facility] Comment on above: Performed By: #### C BC #### [facility] [address] [address] [address] Joann Atkins MUCOUS NONE SEEN Normal NONE SEEN [facility] Comment on above: Performed By: #### C BC #### [facility] [address] [place] [address] Dr. Joann Atkins RBC 0-2 Normal 0-2 [facility] Comment on above: Performed By: #### C BC #### [facility] [address] [place] [address] Dr. Joann Atkins WBC 10-20 Abnormal NONE SEEN [facility] Comment on above: Performed By: #### C BC #### [facility] [address] [place] [address] Dr. Joann Atkins Vital Signs Date Time Vital Sign Value Performing Clinician Facility 11-18-2022 15:30-0400 Body height 144.78 cm Amee Mancilla Other [facility] Other 11-18-2022 15:30-0400 Body mass index (BMI) [Ratio] 26.83 kg/m2 Amee Mancilla Other [facility] Other 11-18-2022 15:30-0400 Body weight 56.25 kg Amee Mancilla Other [facility] Other 11-18-2022 15:30-0400 Diastolic blood pressure 77 mm[Hg] Amee Mancilla Other [facility] Other 11-18-2022 15:30-0400 Systolic blood pressure 118 mm[Hg] Amee Mancilla Other [facility] Other 06-15-2022 09:19-0400 Body temperature 98.01 [degF] Roxana Lopez MD Work Phone: [facility] 06-15-2022 09:19-0400 Diastolic blood pressure 70 mm[Hg] Roxana Lopez MD Work Phone: [facility] 06-15-2022 09:19-0400 Heart rate 61 /min Roxana Lopez MD Work Phone: [facility] 06-15-2022 09:19-0400 Respiratory rate 16 /min Roxana Lopez MD Work Phone: [facility] 06-15-2022 09:19-0400 SaO2% (BldA) [Mass fraction] 91 % Roxana Lopez MD Work Phone: [facility] 06-15-2022 09:19-0400 Systolic blood pressure 136 mm[Hg] Roxana Lopez MD Work Phone: [facility] 06-14-2022 06:00-0500 Body mass index (BMI) [Ratio] 28.23 kg/m2 Roxana Lopez MD Work Phone: [facility] 06-14-2022 06:00-0500 Body weight 63.4 kg Roxana Lopez MD Work Phone: [facility] 06-10-2022 12:45-0500 Body height 149.9 cm Roxana Lopez MD Work Phone: [facility] Encounters Encounter Date Encounter Type Care Provider Facility Start: 05-12-2023 End: 05-13-2023 ambulatory ASTRID Moralesy [facility] Start: 04-14-2023 End: 04-15-2023 ambulatory ASTRID Moralesy [facility] Start: 03-03-2023 End: 03-04-2023 ambulatory MOHAMED ANITA [facility] Start: 02-03-2023 End: 02-04-2023 ambulatory MOHAMED ANITA [facility] Start: 01-27-2023 End: 01-28-2023 ambulatory [facility]AMED ANITA [facility] Start: 01-20-2023 End: 01-21-2023 ambulatory MOHAMED ANITA [facility] Start: 01-13-2023 End: 01-14-2023 ambulatory MOHAMED ANITA [facility] Start: 01-07-2023 End: 01-08-2023 [facility] Start: 01-06-2023 End: 01-07-2023 ambulatory AMEE LAURENT [facility] Start: 01-01-2023 End: 01-02-2023 [facility] Start: 12-31-2022 End: 01-01-2023 ambulatory AMEE LAURENT [facility] Start: 12-30-2022 End: 12-31-2022 ambulatory AMEE MANCILLA [facility] Start: 11-18-2022 End: 11-18-2022 ambulatory Amee Mancilla Other [facility] Other Start: 11-18-2022 Patient encounter procedure Amee Mancilla [facility] Start: 09-03-2022 Encounter for preprocedural cardiovascular examination MELO BELLA . [facility] Start: 09-02-2022 End: 09-03-[address] AMEE MANCILLA Facility:[facility] Start: 09-02-2022 End: 09-03-2022 Encounter for preprocedural cardiovascular examination DR AMEE MANCILLA Facility:[facility] Start: 08-21-2022 End: 08-22-[address] AMEE MANCILLA Facility:[facility] Start: 06-10-[address] AMEE MANCILLA [facility] ity:[facility] Start: 06-10-2022 End: 06-15-2022 Evaluation and management of inpatient DOMENICA Alex [facility] Start: 06-10-2022 End: 06-15-2022 Evaluation and management of inpatient Roxana Lopez MD Work Phone: [address] Ortho/Med Surg Comment on above: Internal hernia (Rebeca seun Dx); Gastrointestinal problem; Acute postoperative pain Start: 06-09-2022 End: 06-10-2022 ambulatory LUIS F HAIR Facility:[facility] Start: 02-06-[address] KELLI HENRIQUEZ . Faci lity:[facility] Start: 12-17-2021 End: 12-18-[address] KELLI HENRIQUEZ . Facility:[facility] Start: 12-05-2021 End: 12-06-[address] KELLI HENRIQUEZ . Facility: Start: 09-24-2021 End: 09-25-[address] KELLI HENRIQUEZ . Facility: Procedures Date Procedure Procedure Detail Performing Clinician Start: 06-14-2022 Basic metabolic pane l calcium total Ernestina Bond DO Work Phone: Start: 06-13-2022 Radiologic exam abdo men 1 view Ernestina Bond DO Work Phone: Start: 06-13-2022 Basic metabolic pane l calcium total Ernestina Bond DO Work Phone: Start: 06-12-2022 LACTATE, SEPSIS Domenica Knight DO Work Phone: Start: 06-12-2022 LACTATE, SEPSIS Domenica Knight DO Work Phone: Start: 06-12-2022 Radiologic exam abdo men 1 view Ernestina Deonte DO Work Phone: Start: 06-12-2022 Glucose blood reagen t strip Domenica Knight DO Work Phone: Start: 06-12-2022 Radiologic exam abdo men 1 view Ernestina Deonte DO Work Phone: Start: 06-12-2022 Basic metabolic pane l calcium total Ernestina Bond DO Work Phone: Start: 06-11-2022 Radiologic exam ches t single view Ernestina Bond DO Work Phone: Start: 06-11-2022 Radiologic exam smal l int single contrast study Ernestina Bond DO Work Phone: Start: 06-11-2022 Antibody screen Heather Lopez MD Work Phone: Start: 06-11-2022 Basic metabolic pane l calcium total Ernestina Bond DO Work Phone: Start: 06-10-2022 SURGICAL PATHOLOGY REPORT Domenica Knight DO Work Phone: Start: 06-10-2022 Basic metabolic pane l calcium total Ernestina Bond DO Work Phone: Start: 06-10-2022 Culture bacterial quanttative colony count urine Domenica Knight DO Work Phone: Start: 06-10-2022 End: 06-10-2022 LAPAROTOMY EXPLORATORY Domenica Garciaselin n DO Work Phone: Start: 06-10-2022 BASIC METABOLIC PANE L W/ REFLEX TO MG FOR LOW K Ernestina Deonte DO Work Phone: Start: 06-10-2022 Blood count complete auto&auto difrntl wbc Ernestina Bond DO Work Phone: Start: 06-10-2022 Speech and language therapy regime Ka Hin Baeza DO Work Phone: Start: 06-10-2022 Blood typing serologic abo Leighann Saleem DO Work Phone: Start: 06-10-2022 LACTATE, SEPSIS Leighann Llamas Fujita DO Work Phone: Start: 06-10-2022 Prothrombin time Leighann Saleem DO Work Phone: Plan of Treatment Date Care Activity Detail Author Start: 2021 Pneumococcal 65+ yea rs Vaccine (1 - PCV) Pneumococcal 65+ years Vaccine (1 - PCV) [facility] Start: 11-16-2020 COVID-19 Vaccine (3 - Booster for Pfizer series) COVID-19 Vaccine (3 - Booster for Pfizer series) [facility] Start: 11-13-2011 Screening for osteoporosis DEXA (modify frequency per FRAX score) [facility] Start: 2006 Screening for malign ant neoplasm of breast Breast cancer screen [facility] Start: 2006 Shingles vaccine (1 of 2) Shingles vaccine (1 of 2) [facility] Start: 2001 Screening for malign ant neoplasm of colon [facility] Start: 1986 Screening for malign ant neoplasm of cervix [facility] Start: 1977 Screening for malign ant neoplasm of cervix Pap smear [facility] Start: 11-13-1975 DTaP/Tdap/Td vaccine (1 - Tdap) DTaP/Tdap/Td vaccine (1 - Tdap) [facility] Start: 1974 Hepatitis C screening Hepatitis C sc reen [facility] Start: 11-13-1971 HIV screening HIV screen [facility] Start: 1968 Depression Screen Depression Screen [facility] Start: 1966 Lipid panel Lipids [facility] Oxygen therapy [[facility] mum Data Set] Initiate Oxygen Therapy Protocol Respiratory Care Routine As Needed until discontinued starting 06/10/2022 [facility] Phone: Comment on above: As Needed until disc ontinued starting 06/10/2022 Oxygen therapy [[facility] Data Set] Initiate Oxygen Therapy Protocol Respiratory Care Routine As Needed until discontinued starting 06/10/2022 [facility] Phone: Comment on above: As Needed until disc ontinued starting 06/10/2022 End: 06-10-2022 PREPARE RBC (CROSSMATCH), 2 Units PREPARE RBC (CROSSMATCH), 2 Units Blood Bank Routine Once for 1 Occurrences starting 06/10/2022 until 06/10/2022 [facility] Phone: Comment on above: Once for 1 Occurrenc es starting 06/10/2022 until 06/10/2022 Surgical Pathology Surgical Path ology Lab Routine Gastrointestinal problem Release Upon Ordering for 1 Occurrences starting 06/10/2022 [facility] Phone: Comment on above: Release Upon Orderin g for 1 Occurrences starting 06/10/2022 Immunizations Immunization Date Immunization Notes Care Provider Shari naik 09-21-2020 COVID-19 Vaccine Pfi zer - Documentation Purposes Only Amee Mancilla Other [facility] Other 12-21-2019 influenza virus vaccine, split virus (incl. purified surface antigen) Amee Mancilla Other [place] [facility] Other Payers Date Payer Category Payer [employer] ( and others) [id number] 1959 [employer] ( and others) [id number] 1958 Medicare [id number] 1959 Medicare [id number] 1955 Unknown [id number] [id number] 1956 Unknown [id number] 2.16.840.1.769222.3.579.2.593 1956 Unknown [id number] 2.16.840.1.991170.3.579.2.593 1956 Unknown [id number] 2.16.840.1.297268.3.579.2.593 1956 Unknown [id number] 2.16.840.1.447323.3.579.2.593 1956 Unknown [id number] 2.16.840.1.203757.3.579.2.593 1956 Unknown [id number] 2.16.840.1.682368.3.579.2.593 1956 Unknown [id number] 2.16.840.1.045861.3.579.2.593 1956 Unknown [id number] 2.16.840.1.469127.3.579.2.175 1956 Unknown [id number] 2.16.840.1.924920.3.579.2.173 1956 Unknown [id number] 2.16.840.1.423527.3.579.2.173 1956 Unknown [id number] 2.16.840.1.613155.3.579.2.173 1956 Unknown [id number] 2.16.840.1.038081.3.579.2.173 1956 Unknown [id number] 2.16.840.1.481019.3.579.2.173 1956 Unknown [id number] 2.16.840.1.908748.3.579.2.173 1956 Unknown [id number] 2.16.840.1.588548.3.579.2.173 1956 Unknown [id number] 2.16.840.1.474015.3.579.2.173 1956 Unknown [id number] 2.16.840.1.751500.3.579.2.173 1956 Unknown [id number] 2.16.840.1.100255.3.579.2.173 1956 Unknown [id number] 2.16.840.1.339412.3.579.2.173 1956 Unknown [id number] [id number]3 Social History Date Type Detail Facility Start: 05-23-2021 Tobacco smoking status MNIS Never smoked tobacco [facility] Start: 05-23-2021 Tobacco use and exposure Smokeless tobacco non-user [facility] Phone: Start: 06-11-2022 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 intake 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) [facility] Phone: Start: 1955 Sex Assigned At Not on file B ON [employer] Phone: Start: 05-31-2022 End: 06-10-2022 Exposure to SARS-CoV-2 (event) Not sure [facility] Sex Assigned At Sex Assigned At Bir th [facility] Other Medical Equipment Procedure Code Equipment Code Equipment Origin al Text Equipment Identifier Dates Barrier Adh Sht 6x5 In Sodium Hyaluronate [facility] - [id number] Start: 06-10-2022 Evaluation note 11-18-2022 Note Date & Type Note Facility 11-18-2022 Evaluation note Encounter Date Diagnosis Assessment Notes Nov, Medicare annual wellness visit, subsequent (ICD-10 - Z00.00) Personalized health advice was given to the beneficiary including a written plan for screenings discussed and provided. Advanced care planning reviewed and/or information given as requested. Additional counseling was provided here today in regards to, [ ]. The above visit was performed by [ ], under direct supervision of [ ]. Document reviewed and amended by provider signed below. Nov, Hypothyroidism , unspecified (ICD-10 - E03.9) Due for labs for chronic problem. 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 Copies printed and given to pt. She will call their office and followup on those indications. [facility] Other History of Present illness Narrative 06-15-2022 Jennifer Lake, PT - 06/15/2022 10:37 AM EDTAustkeely Morocho, DO - 06/15/2022 9:42 AM [facility]in Samreen Morocho, DO - 06/14/2022 12:48 PM ESTErnestina Clemons, DO - 06/13/2022 9:05 AM EST Note Date & Type Note Facility 06-15-2022 History of Present illness Narrative Physical Therapy Facility/Department: [address] ORTHO/MED SURG Physical Therapy Initial Assessment Name: Kevin Perea : 1955 Date of Service: 06/15/2022 Discharge Recommendations: No therapy recommended at discharge. Chief Complaint Patient presents with GI Problem SBO, transfer from [place] 66 y.o. F s/p ex lap with lysis of adhesion, release of SBO History of Long en Y gastric bypass PT Equipment Recommendations Equipment Needed: No Patient Diagnosis(es): The primary encounter diagnosis was Internal hernia. Diagnoses of Gastrointestinal problem and Acute postoperative pain were also pertinent to this visit. Past Medical History: has a past medical history of Arthritis, Headache, Hypertension, and Spasm of back muscles. Past Surgical History: has a past surgical history that includes Refractive surgery; Gastric bypass surgery; Cholecystectomy; LAPAROTOMY EXPLORATORY (N/A, 08/27/2016); laparotomy (06/10/2022); and laparotomy (N/A, 06/10/2022). Assessment Assessment: Pt ambulates 300 ft with no AD independently. pt should be safe to return to prior living situation with intermittent support as needed. pt educated on d/c PT, agreeable. Therapy Prognosis: Good Decision Making: Low Complexity Barriers to Learning: [place] Requires PT Follow-Up: No Activity Tolerance Activity Tolerance: Patient tolerated treatment well Plan Physcial Therapy Plan General Plan: (d/c PT) Safety Devices Type of Devices: All fall risk precautions in place, Call light within reach, Gait belt, Nurse notified, Left in chair Restrictions Restrictions/Precautions Restrictions/Precautions: Up as Tolerated Required Braces or Orthoses?: No Position Activity Restriction Other position/activity restrictions: amb pt, ex lap 06/10 Subjective General Patient assessed for rehabilitation services?: Yes Response To Previous Treatment: Not applicable Family / Caregiver Present: No Follows Commands: Within Functional Limits Subjective Subjective: RN and pt agreeable to PT. pt agreeable and pleasant. pt supine in bed at start of session, c/o no pain. Social/Functional History Social/Functional History Lives With: Spouse, Son Type of Home: House Home Layout: One level Home Access: Stairs to enter with rails Entrance Stairs - Number of Steps: 4 Entrance Stairs - Rails: Both Bathroom Shower/Tub: Walk-in shower Bathroom Toilet: Standard Home Equipment: (no DME at baseline) Receives Help From: Family ADL Assistance: Independent Homemaking Assistance: Independent Homemaking Responsibilities: Yes Ambulation Assistance: Independent Transfer Assistance: Independent Active Director Of Physical Security: No Patient's Director Of Physical Security Info: drives Occupation: On disability Leisure & Hobbies: watch kids sporting events Additional Comments: Pt reports she lives with her , and two sons. She reports that she has 24 hr A available at d/c. Vision/Hearing Vision Vision: Within Functional Limits Hearing Hearing: Exceptions to WFL Hearing Exceptions: Hard of hearing/hearing concerns;No hearing aid Cognition Orientation Overall Orientation Status: Within Functional Limits Cognition Overall Cognitive Status: Exceptions Cognition Comment: Pt with some [place]. Requires repeated cues for tasks. Pt does impulsively walk to bathroom when PT left room. Gross Assessment Sensation: Intact (pt denies n/t) AROM RLE (degrees) RLE AROM: WFL AROM LLE (degrees) LLE AROM : WFL AROM RUE (degrees) RUE AROM : WFL AROM LUE (degrees) LUE AROM : WFL Strength RLE Strength RLE: WFL Strength LLE Strength LLE: WFL Strength RUE Strength RUE: WFL Strength LUE Strength LUE: WFL Bed mobility Supine to Sit: Modified independent Sit to Supine: (pt retires to bedside chair) Scooting: Independent Bed Mobility Comments: HOB elevated Transfers Sit to Stand: Independent Stand to Sit: Independent Comment: no AD used Ambulation Surface: Level tile Device: No Device Assistance: Independent Gait Deviations: Slow Chasity Distance: 300 ft Comments: Pt reports ambulation feels to be about normal. No LOB noted. More Ambulation?: No Stairs/Curb Stairs?: No Balance Posture: Good Sitting - Static: Good Sitting - Dynamic: Good Standing - Static: Good Standing - Dynamic: Good Comments: no AD used AM-PAC Score AM-PAC Inpatient Mobility Raw Score : 24 (06/15/221035) AM-PAC Inpatient T-Scale Score : 61.14 (06/15/221035) Mobility Inpatient CMS 0-100% Score: 0 (06/15/221035) Mobility Inpatient CMS G-Code Modifier : CH (06/15/221035) Goals Short Term Goals Time Frame for Short Term Goals: d/c PT Education Patient Education Education Given To: Patient Education Provided: Role of Therapy;Plan of Care Education Method: Demonstration;Verbal Barriers to Learning: None Education Outcome: Verbalized understanding;Demonstrated understanding Therapy Time Individual Concurrent Group Co-treatment Time In 804 Time Out 08 Minutes 17 Timed Code Treatment Minutes: 13 Minutes Jennifer Lake PT Bariatric Surgery Progress Note PATIENT NAME: Kevin Perea TODAY'S DATE: 06/15/2022 SUBJECTIVE: Pt seen and examined at bedside. Afebrile, vitals within normal limits. Abdominal pain resolved. Denies nausea, vomiting. Tolerating full liquid diet. Having bowel function. Advancing to regular diet. Possible discharge afternoon OBJECTIVE: VITALS: BP 136/70 Pulse 61 Temp 98 F (36.7 C) (Oral) Resp 16 Ht 4' 11 (1.499 m) Wt 139 lb 12.4 oz (63.4 kg) SpO2 91% BMI 28.23 kg/m INTAKE/OUTPUT: Intake/Output Summary (Last 24 hours) at 06/15/2022 0942 Last data filed at 06/15/2022 0619 Gross per 24 hour Intake 100 ml Output -- Net 100 ml CONSTITUTIONAL: NAD, A&O x 3 HEENT: EOMI, moist mucous membranes LUNGS: normal effort with symmetric rise and fall of chest wall CARDIOVASCULAR: regular rate and rhythm ABDOMEN: Soft, nondistended, nontender, prevena wound vac in place with adequate seal EXTREMITIES: no rashes, lesions, edema. Data: CBC: Lab Results Component Value Date/Time WBC 3.7 06/14/2022 06:57 AM RBC 3.56 06/14/2022 06:57 AM HGB 8.6 06/14/2022 06:57 AM HCT 28.8 06/14/2022 06:57 AM MCV 80.9 06/14/2022 06:57 AM MCH 24.2 06/14/2022 06:57 AM MCHC 29.9 06/14/2022 06:57 AM RDW 18.5 06/14/2022 06:57 AM PLT 239 06/14/2022 06:57 AM MPV 10.7 06/14/2022 06:57 AM BMP: Lab Results Component Value Date/Time NA 135 06/14/2022 06:57 AM K 3.6 06/14/2022 06:57 AM CL 103 06/14/2022 06:57 AM CO2 22 06/14/2022 06:57 AM BUN 12 06/14/2022 06:57 AM LABALBU 3.3 08/27/2016 12:11 AM CREATININE 0.61 06/14/2022 06:57 AM CALCIUM 7.9 06/14/2022 06:57 AM GFRAA >60 09/02/2016 05:52 AM LABGLOM >60 06/14/2022 06:57 AM GLUCOSE 81 06/14/2022 06:57 AM ASSESSMENT Patient Active Problem List Diagnosis Small bowel obstruction (HCC) History of Long-en-Y gastric bypass Internal hernia SBO (small bowel obstruction) (HCC) 66 y.o. F POD#3 s/p ex lap with lysis of adhesion, release of SBO History of Long en Y gastric bypass Plan Advance to regular diet. IVF at 50 ml/hr with NS Pain control. Limit opioids as able Nausea control with Zofran Encourage ambulation and IS usages. Ambulate and OOB and onto chair DVT prophylaxis with Heparin TID. GI prophylaxis with Protonix Possible discharge later this afternoon vs Thursday after toleration of diet. Burt Morocho D.O. General Surgery Resident, PGY-1 06/15/22 9:42 AM Associated attestation - Deanna Suero MD - 06/15/2022 11:17 AM EDT I personally evaluated the patient and directed the medical decision making with Resident/JEFFREY after the physical/radiologic exam and laboratory values were reviewed and confirmed. Regular diet today. Possible dc today. Deanna Suero MD Bariatric Surgery Progress Note PATIENT NAME: Kevin Perea TODAY'S DATE: 06/14/2022 SUBJECTIVE: Pt seen and examined at bedside. Afebrile, vitals within normal limits. Reports mild abdominal pain, denies nausea or vomiting. Tolerating clear liquid diet. Having bowel function. Advancing diet as tolerated. OBJECTIVE: VITALS: BP 131/74 Pulse 68 Temp 98.3 F (36.8 C) (Oral) Resp 16 Ht 4' 11 (1.499 m) Wt 139 lb 12.4 oz (63.4 kg) SpO2 96% BMI 28.23 kg/m INTAKE/OUTPUT: Intake/Output Summary (Last 24 hours) at 06/14/2022 1248 Last data filed at 06/13/2022 2245 Gross per 24 hour Intake 100 ml Output -- Net 100 ml CONSTITUTIONAL: NAD, A&O x 3 HEENT: EOMI, moist mucous membranes LUNGS: normal effort with symmetric rise and fall of chest wall CARDIOVASCULAR: regular rate and rhythm ABDOMEN: Soft, nondistended, appropriate minimalTTP, prevena wound vac in place with adequate seal EXTREMITIES: no rashes, lesions, edema. Data: CBC: Lab Results Component Value Date/Time WBC 3.7 06/14/2022 06:57 AM RBC 3.56 06/14/2022 06:57 AM HGB 8.6 06/14/2022 06:57 AM HCT 28.8 06/14/2022 06:57 AM MCV 80.9 06/14/2022 06:57 AM MCH 24.2 06/14/2022 06:57 AM MCHC 29.9 06/14/2022 06:57 AM RDW 18.5 06/14/2022 06:57 AM PLT 239 06/14/2022 06:57 AM MPV 10.7 06/14/2022 06:57 AM BMP: Lab Results Component Value Date/Time NA 135 06/14/2022 06:57 AM K 3.6 06/14/2022 06:57 AM CL 103 06/14/2022 06:57 AM CO2 22 06/14/2022 06:57 AM BUN 12 06/14/2022 06:57 AM LABALBU 3.3 08/27/2016 12:11 AM CREATININE 0.61 06/14/2022 06:57 AM CALCIUM 7.9 06/14/2022 06:57 AM GFRAA >60 09/02/2016 05:52 AM LABGLOM >60 06/14/2022 06:57 AM GLUCOSE 81 06/14/2022 06:57 AM ASSESSMENT Patient Active Problem List Diagnosis Small bowel obstruction (HCC) History of Long-en-Y gastric bypass Internal hernia SBO (small bowel obstruction) (HCC) 66 y.o. F POD#3 s/p ex lap with lysis of adhesion, release of SBO History of Long en Y gastric bypass Plan Advance to CLD. Will plan to advance diet as tolerated IVF at 50 ml/hr with NS Pain control. Limit opioids as able Nausea control with Zofran Encourage ambulation and IS usages. Ambulate and OOB and onto chair DVT prophylaxis with Heparin TID. GI prophylaxis with Protonix Burt Morocho, D.O. General Surgery Resident, PGY-1 06/14/22 12:50 PM Associated attestation - Deanna Suero MD - 06/14/2022 4:34 PM EST I personally evaluated the patient and directed the medical decision making with Resident/JEFFREY after the physical/radiologic exam and laboratory values were reviewed and confirmed. Deanna Suero MD Bariatric Surgery Progress Note PATIENT NAME: Kevin Perea TODAY'S DATE: 06/13/2022 SUBJECTIVE: Pt seen and examined at bedside. Afebrile, vitals within normal. Feeling better today. Abdominal pain is controlled. No nausea or emesis. +Bm last night. OBJECTIVE: VITALS: BP 115/75 Pulse 74 Temp 97.8 F (36.6 C) (Temporal) Resp 16 Ht 4' 11 (1.499 m) Wt 142 lb 6.7 oz (64.6 kg) SpO2 96% BMI 28.76 kg/m INTAKE/OUTPUT: Intake/Output Summary (Last 24 hours) at 06/13/2022 09 Last data filed at 06/12/2022 1457 Gross per 24 hour Intake -- Output 400 ml Net -400 ml CONSTITUTIONAL: NAD, A&O x 3 HEENT: EOMI, moist mucous membranes LUNGS: normal effort with symmetric rise and fall of chest wall CARDIOVASCULAR: regular rate and rhythm ABDOMEN: Soft, nondistended, appropriate minimalTTP, prevena wound vac in place with adequate seal EXTREMITIES: no rashes, lesions, edema. Data: CBC: Lab Results Component Value Date/Time WBC 5.7 06/13/2022 06:35 AM RBC 3.45 06/13/2022 06:35 AM HGB 8.3 06/13/2022 06:35 AM HCT 28.4 06/13/2022 06:35 AM MCV 82.3 06/13/2022 06:35 AM MCH 24.1 06/13/2022 06:35 AM MCHC 29.2 06/13/2022 06:35 AM RDW 18.0 06/13/2022 06:35 AM PLT 220 06/13/2022 06:35 AM MPV 11.1 06/13/2022 06:35 AM BMP: Lab Results Component Value Date/Time NA 133 06/13/2022 06:35 AM K 3.8 06/13/2022 06:35 AM CL 100 06/13/2022 06:35 AM CO2 13 06/13/2022 06:35 AM BUN 21 06/13/2022 06:35 AM LABALBU 3.3 08/27/2016 12:11 AM CREATININE 0.81 06/13/2022 06:35 AM CALCIUM 7.8 06/13/2022 06:35 AM GFRAA >60 09/02/2016 05:52 AM LABGLOM >60 06/13/2022 06:35 AM GLUCOSE 61 06/13/2022 06:35 AM ASSESSMENT Patient Active Problem List Diagnosis Small bowel obstruction (HCC) History of Long-en-Y gastric bypass Internal hernia SBO (small bowel obstruction) (HCC) 66 y.o. F POD#3 s/p ex lap with lysis of adhesion, release of SBO History of Long en Y gastric bypass KUB with contrast now in the colon from SBFT, +Bowel movement Plan Advance to CLD. Will plan to advance diet as tolerated IVF at 50 ml/hr with NS Morning labs reviewed KUB with contrast now filling the colon Pain control. Limit opioids as able Nausea control with Zofran Encourage ambulation and IS usages. Ambulate and OOB and onto chair DVT prophylaxis with Heparin TID. GI prophylaxis with Protonix Ernestina Clemons DO General Surgery PGY-4 Associated attestation - Domenica Knight DO - 06/13/2022 9:39 AM EST I have discussed the care of the patient, including pertinent history and exam findings, with the resident. I have seen and examined the patient and the saul elements of all parts of the encounter have been performed by me. I agree with the assessment, plan and orders as documented by the resident. KUB with contrast in colon Trial clears Hopeful for DC by brenda Bariatric Surgery Progress Note PATIENT NAME: Kevin Perea TODAY'S DATE: 06/12/2022 SUBJECTIVE: Pt seen and examined at bedside. HR 80's overnight, htn. Endorses some abdominal discomfort but improves with pain medicine. No nausea or emesis. Denies any SOB. UOP adequate, urinating spontaneously. +flatus yesterday but none today, no BM. OBJECTIVE: VITALS: BP (!) 170/96 Pulse 88 Temp 98.6 F (37 C) (Oral) Resp 16 Ht 4' 11 (1.499 m) Wt 129 lb 6.6 oz (58.7 kg) SpO2 99% BMI 26.14 kg/m INTAKE/OUTPUT: Intake/Output Summary (Last 24 hours) at 06/12/2022 0706 Last data filed at 06/12/2022 0300 Gross per 24 hour Intake -- Output 1900 ml Net -1900 ml CONSTITUTIONAL: NAD, A&O x 3 HEENT: EOMI, moist mucous membranes LUNGS: normal effort with symmetric rise and fall of chest wall CARDIOVASCULAR: regular rate and rhythm ABDOMEN: Soft, nondistended, appropriately TTP, prevena wound vac in place with adequate seal EXTREMITIES: no rashes, lesions, edema. Data: CBC: Lab Results Component Value Date/Time WBC 8.9 06/11/2022 05:04 AM RBC 3.97 06/11/2022 05:04 AM HGB 9.5 06/11/2022 05:04 AM HCT 30.5 06/11/2022 05:04 AM MCV 76.8 06/11/2022 05:04 AM MCH 23.9 06/11/2022 05:04 AM MCHC 31.1 06/11/2022 05:04 AM RDW 17.3 06/11/2022 05:04 AM PLT 237 06/11/2022 05:04 AM MPV 11.0 06/11/2022 05:04 AM BMP: Lab Results Component Value Date/Time NA 133 06/11/2022 05:04 AM K 4.8 06/11/2022 05:04 AM CL 102 06/11/2022 05:04 AM CO2 22 06/11/2022 05:04 AM BUN 8 06/11/2022 05:04 AM LABALBU 3.3 08/27/2016 12:11 AM CREATININE 0.64 06/11/2022 05:04 AM CALCIUM 8.6 06/11/2022 05:04 AM GFRAA >60 09/02/2016 05:52 AM LABGLOM >60 06/11/2022 05:04 AM GLUCOSE 119 06/11/2022 05:04 AM ASSESSMENT Patient Active Problem List Diagnosis Small bowel obstruction (HCC) History of Long-en-Y gastric bypass Internal hernia SBO (small bowel obstruction) (HCC) 66 y.o. F POD#2 s/p ex lap with lysis of adhesion, release of SBO History of Long en Y gastric bypass Plan NPO, sips with meds IVF at 75 ml/hr with NS Follow up morning labs KUB this morning to monitor progression of contrast from SBFT started yesterday Resume home anti hypertensive + PRN hydralazine for HTN Pain control Nausea control with Zofran Encourage ambulation and IS usages. Ambulate and OOB and onto chair DVT prophylaxis with Heparin TID. GI prophylaxis with Protonix Associated attestation - Domenica Knight, - 06/13/2022 9:38 AM EST I have discussed the care of the patient, including pertinent history and exam findings, with the resident. I have seen and examined the patient and the saul elements of all parts of the encounter have been performed by me. I agree with the assessment, plan and orders as documented by the resident. KUB late today looks like some contrast in colon Feels improved Clears tomorrow if KUB shows further progression Bariatric Surgery Progress Note PATIENT NAME: Kevin Perea TODAY'S DATE: 06/11/2022 SUBJECTIVE: Pt seen and examined at bedside. Endorses some abdominal discomfort but improves with pain medicine. No nausea or emesis. Endorses sore throat. UOP adequate, urinating spontaneously. +flatus. OBJECTIVE: VITALS: BP (!) 140/86 Pulse 74 Temp 98.1 F (36.7 C) (Oral) Resp 16 Ht 4' 11 (1.499 m) Wt 130 lb (59 kg) SpO2 98% BMI 26.26 kg/m INTAKE/OUTPUT: Intake/Output Summary (Last 24 hours) at 06/11/2022 0648 Last data filed at 06/11/2022 0346 Gross per 24 hour Intake 2000 ml Output 2925 ml Net -925 ml CONSTITUTIONAL: NAD, A&O x 3 HEENT: EOMI, moist mucous membranes LUNGS: normal effort with symmetric rise and fall of chest wall CARDIOVASCULAR: regular rate and rhythm ABDOMEN: Soft, nondistended, appropriately TTP, prevena wound vac in place with adequate seal EXTREMITIES: no rashes, lesions, edema. Data: CBC: Lab Results Component Value Date/Time WBC 8.9 06/11/2022 05:04 AM RBC 3.97 06/11/2022 05:04 AM HGB 9.5 06/11/2022 05:04 AM HCT 30.5 06/11/2022 05:04 AM MCV 76.8 06/11/2022 05:04 AM MCH 23.9 06/11/2022 05:04 AM MCHC 31.1 06/11/2022 05:04 AM RDW 17.3 06/11/2022 05:04 AM PLT 237 06/11/2022 05:04 AM MPV 11.0 06/11/2022 05:04 AM BMP: Lab Results Component Value Date/Time NA 133 06/11/2022 05:04 AM K 4.8 06/11/2022 05:04 AM CL 102 06/11/2022 05:04 AM CO2 22 06/11/2022 05:04 AM BUN 8 06/11/2022 05:04 AM LABALBU 3.3 08/27/2016 12:11 AM CREATININE 0.64 06/11/2022 05:04 AM CALCIUM 8.6 06/11/2022 05:04 AM GFRAA >60 09/02/2016 05:52 AM LABGLOM >60 06/11/2022 05:04 AM GLUCOSE 119 06/11/2022 05:04 AM ASSESSMENT Patient Active Problem List Diagnosis Small bowel obstruction (HCC) History of Long-en-Y gastric bypass Internal hernia SBO (small bowel obstruction) (HCC) 66 y.o. F POD#1 s/p ex lap with lysis of adhesion, release of SBO History of Long en Y gastric bypass Plan NPO, sips with meds IVF at 125 ml/hr with NS Obtain SBFT today to monitor progression of contrast. Possible advancement of diet pending results AM labs reviewed Pain control Nausea control with Zofran Encourage ambulation and IS usages. Ambulate and OOB and onto chair DVT prophylaxis with Heparin TID. GI prophylaxis with Protonix Speech Language Pathology [facility] Speech Language Pathology SPEECH/COGNITIVE ASSESSMENT NO LOC,[facility]I OR CVA/TIA - ST TO DEFER AT THIS TIME Date: 06/10/2022 Patient Name: Kevin Perea Date of : 1955 AGE: 66 y.o. PT NOT SEEN FOR SPEECH OR COGNITIVE ASSESSMENT AT THIS TIME NO LOC, [facility]I OR CVA/TIA IS DOCUMENTED. ST TO DEFER AT THIS TIME. PLEASE RE-COSULT NEEDED. TANIA Arias 06/10/2022 7:05 AM documented in this encounter [facility] Work Phone: Hospital Discharge instructions 06-13-2022 Discharge Instructions Note Date & Type Note Facility 06-13-2022 Hospital Discharg e instructions Alecia Correa RN - 06/13/2022 10:05 PM EST Follow up with Dr. Knight in approximately 1 week. Please call the office at [phone]. Surgery Patient Discharge Instructions WOUND CARE: Do not remove top sponge dressing . This will be removed at your follow up visit. IF MACHINE IS BEEPING AND THE SPONGE IS NO LONGER SUCTIONING, ok to remove purple sponge over incision Leave maxx in place until office visit. BATHING: Ok to shower. Try to keep your sponge dressing dry. DRIVING: No driving for while on pain medication LIFTING: Avoid lifting objects heavier than 10 lbs for 4 weeks. Keep abdominal binder in place. DIET: Ok to resume regular diet as tolerated. SPECIAL INSTRUCTIONS: After you leave the hospital, call your doctor if any of the following occurs: Pain or symptoms that worsen Other new symptoms Signs of infection, including fever and chills Nausea and/or vomiting that you can't control with the medications you were given Pain that you can't control with the medications you've been given Excessive tenderness or swelling Changes in bowel or sexual function Dizziness or lightheadedness Rash or hives Watch for signs of infection: Excessive warmth or bright redness around your incisions Leakage of bloody or cloudy fluid from you incisions Fever over 100.5 documented in this encounter [facility] [employer] Phone: Consultation note 12-17-2021 Note Date & Type Note Facility 12-17-2021 Note CONSULTATION PROCEDURE DATE: 12/17/2021 PREOPERATIVE DIAGNOSIS: Occipital neuralgia with occipital headaches. POSTOPERATIVE DIAGNOSIS: Occipital neuralgia with occipital headaches. PROCEDURE: Left occipital nerve block. Subsequent to obtaining informed consent, the patient was placed in the sitting position. Alcohol prep was used to sterilize the site. A 25 gauge needle was advanced and it comes to rest along the occiput. Negative aspiration. Marcaine 0.125% along with Kenalog 10 mg are placed for the occipital nerve. Next, the greater occipital nerve block is performed and Marcaine 0.125% along with Kenalog 10 mg are injected. Negative heme. The patient tolerates the procedure well, without any overt complication. Will be followed up in the office. [facility] Consultation note 12-05-2021 Note Date & Type Note Facility 12-05-2021 Note CONSULTATION CONSULTATION DATE: 12/05/2021 HISTORY OF PRESENT ILLNESS: This is a 66-year-old female returning to the clinic for a two month follow up for cervical neck pain. She had cervical RFAs in July of this year to C3, C4 and C5, C6. She was last seen on 09/24/2021. During her last office visit, she received left cervical trigger point injections x4. Patient reports that since those trigger point injections, her pain in her neck has worsened. She reports the pain as 7-8/10 today, which she describes as needle pokes, sharp and stabbing. She has pain to her left ear that radiates down her left jaw as well as left lateral neck. She complains of muscle tightness and spasms. Her pain is aggravated by standing, transitioning, lifting, housework, stairs and bending. She reports that heat and/or ice have been of no help. Medications include baclofen 10 mg q.h.s, diclofenac 50 mg b.i.d., tramadol 50 mg daily p.r.n. She does use Voltaren gel occasionally which she reports as helpful. Patient's REVIEW OF SYSTEMS / PAST MEDICAL HISTORY / ALLERGIES and IMAGES have been reviewed and they are noted on the chart. PHYSICAL EXAM: VITAL SIGNS: Blood pressure 153/83, heart rate is 63. Temperature is 97.7. She is 4'8 and weighs 60 kg. GENERAL APPEARANCE: Pleasant, appropriate, appears uncomfortable in the chair. FOCUSED EXAM - NECK: Range of motion is guarded in left lateral rotation. Flexion and extension are intact. No reproduction of spinal axial pain to direct compression along the posterior elements of the cervical facets. Left splenius capitis and trapezius muscle are taut with two trigger points identified. Palpation reproduces the patient's pain pattern. Compression to the left ear radiates pain down the left lateral neck and left jaw consistent with left occipital neuralgia. MUSCULOSKELETAL: Bilateral upper extremity motor is 4/5 with slight muscle atrophy noted. NEUROLOGICAL: Patchy hypoesthesia noted along the left lateral C2, C3 that does not radiate below the shoulder. +1 bilateral brachioradialis and triceps reflexes. DIAGNOSIS: Left occipital neuralgia, cervicalgia, cervical neuritis and cervical spasms. PLAN: A refill for her Voltaren gel will be given to the patient today. We will preauthorize for a left occipital nerve block, and patient will return to the clinic to have an injection by Dr. Henriquez. Patient agrees to this plan and all questions answered. [facility] Consultation note 09-24-2021 Note Date & Type Note Facility 09-24-2021 Note CONSULTATION PROCEDURE DATE: 09/24/2021 PROCEDURE NOTE PREOPERATIVE DIAGNOSIS: Cervical spasm. POSTOPERATIVE DIAGNOSIS: Cervical spasm. PROCEDURE: Cervical trigger point injection on the left hand along the splenius capitis, splenius cervicis and trapezius muscle. Subsequent to obtaining informed consent, the patient was placed in the sitting position. Alcohol prep was used to sterilize the site. A 25 gauge needle was advanced and it comes to rest along the cervical splenius capitis, splenius cervicis and trapezius muscle on the left hand side. Negative aspiration. Marcaine 0.125% along with Kenalog 10 mg are injected to four separate sites. Negative heme. The patient tolerates the procedure well, without any overt complication and will be followed up in the office. [facility] Signed and Approved by: DR KELLI HENRIQUEZ . 10/01/2021 09:22:00 [facility] Evaluation note Note Date & Type Note Facility Evaluation note Diagnosis Internal hernia- Primary Hernia of other specified sites of abdominal cavity without mention of obstruction or gangrene Gastrointestinal problem Other symptoms involving digestive system Internal hernia Hernia of other specified sites of abdominal cavity without mention of obstruction or gangrene Acute postoperative pain Other acute postoperative pain SBO (small bowel obstruction) (HCC) Unspecified intestinal obstruction documented in this encounter [employer] Work Phone: History general Narrative - Reported Note Date & Type Note Facility History general Narrative - Reported Type Medical History Lumbar back pain Medical History Other fatigue Medical History Bariatric surgery status Surgical History BARIATRIC SURGERY 2014 Surgical History SKIN REMOVAL 2016 Surgical History GASTRIC ULCER REPAIR Surgical History Bowel surgery 07/2022 Hospitalization History SEE SURGICAL HX [employer] Other Advance Directives No Advanced Directives Records FoundDocuments on File Type Date 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 ACP-Advance Directive 09/03/2016 12:47 PM Latest Code Status on File Code Status Date Activated Date Inactivated Comments Full Code 06/10/2022 4:19 AM Full Code 08/27/2016 5:36 AM 09/02/2016 4:51 PM Summary Purpose Family History No Family History Records FoundNo Family History Records FoundNo Family History Records Found Additional Source Comments Reason for Visit (unrecogniz ed section and content) Reason Comments GI Problem SBO, transfer from [facility] Specialty Diagnoses / Procedures Referred By Armen t Referred To Contact Diagnoses SBO (small bowel obstruction) (HCC) Gastrointestinal [place] [id number] [place] [address] Referral ID Status Reason Start Date Expiration Date Visits Re quested Visits Authorized [id number] 1 1 Ordered Prescriptions (unrec ognized section and content) Prescription Sig Dispensed Refills Start Date End Da te oxyCODONE-acetaminophen (PERCOCET) 5-325 MG per tabletIndications:Acute postoperative pain Take 1 tablet by mouth every 6 hours as needed for Pain for up to 3 days. Intended supply: 7 days. Take lowest dose possible to manage pain Max Daily Amount: 4 tablets 12 tablet 0 06/13/2022 06/16/2022 cyclobenzaprine (FLEXERIL) 10 MG tablet Take 1 tablet by mouth 3 times daily as needed for Muscle spasms 9 tablet 0 06/13/2022 06/16/2022 Scheduled Active and Recently Administ ered Medications (unrecognized section and content) Medication Order 06/13/2022 06/14/2022 06/15/2022 atorvastatin (LIPITOR) tablet 80 mg 80 mg, Oral, DAILY, First dose on Thu06/11/22 at 0900, Until Discontinued 0853 (Given - Provider: Vj Schmidt RN) 1145 (Given - Provider: Alecia Correa, NICHO) 1001 (Given - Provider: Alecia Correa, NICHO) bisacodyl (DULCOLAX) suppository 10 mg 10 mg, Rectal, DAILY, First dose on Thu06/12/22 at 0900, Until Discontinued 0715 (Not Given - Provider: Vj Schmidt RN - Reason: Other - Comment: pt had loose stool for previous RN per report.) 1009 (Not Given - Provider: Alecia Correa RN - Reason: Contraindicated) 0745 (Not Given - Provider: Alecia Correa, NICHO - Reason: Patient/family refused) DULoxetine (CYMBALTA) extended release capsule 60 mg 60 mg, Oral, DAILY, First dose on Thu06/12/22 at 0900, Until Discontinued, Do not crush or break. May add contents of capsule to apple juice or apple sauce, but not chocolate. 0853 (Given - Provider: Vj Schmidt RN) 1143 (Given - Provider: Alecia Correa RN) 1001 (Given - Provider: Alecia Correa RN) gabapentin (NEURONTIN) capsule 300 mg 300 mg, Oral, 3 TIMES DAILY, First dose on Thu06/12/22 at 0900, Until Discontinued 0853 (Given - Provider: Vj Schmidt RN)1408 (Given - Provider: Vj Schmidt RN)2146 (Given - Provider: Kayleen Lantigua RN) 1145 (Given - Provider: Alecia Correa RN)1441 (Not Given - Provider: Alecia Correa RN - Reason: Contraindicated)202 (Given - Provider: Kayleen Lantigua RN) 1001 (Given - Provider: Alecia Correa RN)1400 (Due)2100 (Due) heparin (porcine) injection 5,000 Units 5,000 Units, SubCUTAneous, EVERY 8 HOURS SCHEDULED (3 times per day), 1400 doses, First dose on Thu06/10/22 at 1400, Last dose on Thu09/19/23 at 2200 0529 (Given - Provider: Burt Gant RN)1409 (Not Given - Provider: Vj Schmidt RN - Reason: Other - Comment: belly pain)2147 (Given - Provider: Kayleen Lantigua RN) 0531 (Given - Provider: Kayleen Lantigua RN)1723 (Not Given - Provider: Alecia Correa RN - Reason: Patient/family refused)2136 (Given - Provider: Kayleen Lantigua RN) 0537 (Given - Provider: Kayleen Lantigua RN)1400 (Due)2200 (Due) magnesium hydroxide (MILK OF MAGNESIA) 400 MG/5ML suspension 30 mL 30 mL, Oral, DAILY, First dose on Thu06/12/22 at 0900, Until Discontinued 0852 (Given - Provider: Vj Schmidt RN) 1009 (Not Given - Provider: Alecia Correa RN - Reason: Contraindicated) 0746 (Not Given - Provider: Alecia Correa RN - Reason: Patient/family refused) metoclopramide (REGLAN) injection 10 mg 10 mg, IntraVENous, EVERY 6 HOURS, First dose on Thu06/11/22 at 1830, Until Discontinued, IV Push: Max 10 mg over 1-2 minutes. 0529 (Given - Provider: Burt Gant RN)1155 (Given - Provider: Vj Schmidt RN)1812 (Given - Provider: Vj Schmidt RN)2332 (Given - Provider: Kayleen Lantigua RN) 0531 (Given - Provider: Kayleen Lantigua RN)1145 (Given - Provider: Alecia Correa RN)1830 (Due)2329 (Given - Provider: Kayleen Lantigua RN) 0537 (Given - Provider: Kayleen Lantigua RN)1230 (Due)1830 (Due) metoprolol tartrate (LOPRESSOR) tablet 25 mg 25 mg, Oral, 2 TIMES DAILY, First dose on Thu06/12/22 at 0900, Until Discontinued 0853 (Given - Provider: Vj Schmidt RN)2008 (Given - Provider: Kayleen Lantigua RN) 1144 (Given - Provider: Alecia Correa RN)2005 (Given - Provider: Kayleen Lantigua RN) 1001 (Given - Provider: Alecia Correa RN)2100 (Due) pantoprazole (PROTONIX) 40 mg in sodium chloride (PF) 0.9 % 10 mL injection 40 mg, IntraVENous, DAILY, First dose on Thu06/10/22 at 1515, Reconstitute with 10 mL 0.9 % sodium chloride and administer over at least 2 minutes. 0852 (Given - Provider: Vj Schmidt RN) 1145 (Given - Provider: Alecia Correa RN) 1002 (Given - Provider: Alecia Correa RN) sodium chloride flush 0.9 % injection 5-40 mL 5-40 mL, IntraVENous, EVERY 12 HOURS SCHEDULED (2 times per day), First dose on Thu06/10/22 at 1000, Until Discontinued, For Line Patency: Peripheral IV = 5 mL; Midline or Central Line = 10 mL/lumen. If following IV push medication, administer flush at same rate as the IV push. Flush volume is determined by type of infusion therapy being given. For non-viscous solutions use: Peripheral IV = 5 mL Midline or Central Line = 10 mL/lumen For viscous solutions (i.e. blood components, parenteral nutrition, contrast media, or after obtaining blood sample) use: Peripheral IV = 10 mL Midline or Central Line = 20 mL/lumen 0853 (Given - Provider: Vj Schmidt RN)2006 (Not Given - Provider: Kayleen Lantigua RN - Reason: IV Fluid Infusing) 1145 (Not Given - Provider: Alecia Correa RN - Reason: IV Fluid Infusing)2000 (Not Given - Provider: Kayleen Lantigua RN - Reason: IV Fluid Infusing) 1002 (Not Given - Provider: Alecia Correa RN - Reason: IV Fluid Infusing)2100 (Due) Continuous Medication Order 06/13/2022 06/14/2022 06/15/2022 0.9 % sodium chloride infusion IntraVENous, at 50 mL/hr, CONTINUOUS, Starting on Thu06/10/22 at 1215 0927 (Rate/Dose Change - Provider: Vj Schmidt RN) 0523 (New Bag - Provider: Kayleen Lantigua RN) 0538 (New Bag - Provider: Kayleen Lantigua RN) PRN Medication Order 06/13/2022 06/14/2022 06/15/2022 0.9 % sodium chloride infusion IntraVENous, at 5-250 mL/hr, PRN, if patient receiving piggyback infusions and maintenance fluids are not ordered OR KVO fluids to protect IV site / prevent frequent line interruptions/ long duration, Starting on Thu06/10/22 at 0933, For piggyback infusion, administer at same rate as piggyback for a total of 25 mL. Enter 25 mL into dose field and piggyback rate into rate field of order. If piggyback is infusing at a rate less than 100 mL/hr, enter 25 mL into dose field and 100 mL/hr into rate field of order. For KVO fluids, enter rate of 20 mL/hr or less into rate field of order. cyclobenzaprine (FLEXERIL) tablet 10 mg 10 mg, Oral, 3 TIMES DAILY PRN, Starting on Thu06/10/22 at 0933, Until Discontinued, Muscle spasms diphenhydrAMINE (BENADRYL) injection 25 mg 25 mg, IntraVENous, EVERY 6 HOURS PRN, Starting on Thu06/11/22 at 1818, Until Discontinued, Itching, IV Push at rate not to exceed 25 mg/min. hydrALAZINE (APRESOLINE) injection 10 mg 10 mg, IntraVENous, EVERY 6 HOURS PRN, Starting on Thu06/12/22 at 0604, Until Discontinued, High Blood Pressure, For systolic BP >160 ipratropium-albuterol (DUONEB) nebulizer solution 1 ampule 1 ampule, Inhalation, EVERY 4 HOURS PRN, Starting on Thu06/12/22 at 0930, Until Discontinued, Shortness of Breath, Initiate RT Bronchodilator Protocol: Yes - Inpatient Protocol ondansetron (ZOFRAN) injection 4 mg 4 mg, IntraVENous, EVERY 6 HOURS PRN, Starting on Thu06/10/22 at 1452, Until Discontinued, Nausea, Vomiting oxyCODONE-acetaminophen (PERCOCET) 5-325 MG per tablet 1 tablet(Linked Group 1) 1 tablet, Oral, EVERY 4 HOURS PRN, Starting on Thu06/10/22 at 0933, Until Discontinued, Pain Moderate (4-6), Maximum dose of acetaminophen is 4000 mg from all sources in 24 hours. oxyCODONE-acetaminophen (PERCOCET) 5-325 MG per tablet 2 tablet(Linked Group 1) 2 tablet, Oral, EVERY 4 HOURS PRN, Starting on Thu06/10/22 at 0933, Until Discontinued, Pain Severe (7-10), Maximum dose of acetaminophen is 4000 mg from all sources in 24 hours. sodium chloride flush 0.9 % injection 5-40 mL 5-40 mL, IntraVENous, PRN, Starting on Thu06/10/22 at 0933, Until Discontinued, Line Care, After every IV line use, For Line Patency: Peripheral IV = 5 mL; Midline or Central Line = 10 mL/lumen. If following IV push medication, administer flush at same rate as the IV push. Flush volume is determined by type of infusion therapy being given. For non-viscous solutions use: Peripheral IV = 5 mL Midline or Central Line = 10 mL/lumen For viscous solutions (i.e. blood components, parenteral nutrition, contrast media, or after obtaining blood sample) use: Peripheral IV = 10 mL Midline or Central Line = 20 mL/lumen Linked Groups Order Group 1: oxyCODONE-acetaminophen (PERCOCET) 5-325 MG per tablet 1 tabletJump to med 1 tablet, Oral, EVERY 4 HOURS PRN, Starting on Thu06/10/22 at 0933, Until Discontinued, Pain Moderate (4-6)
Maximum dose of acetaminophen is 4000 mg from all sources in 24 hours.
Or oxyCODONE-acetaminophen (PERCOCET) 5-325 MG per tablet 2 tabletJump to med 2 tablet, Oral, EVERY 4 HOURS PRN, Starting on Thu06/10/22 at 0933, Until Discontinued, Pain Severe (7-10)
Maximum dose of acetaminophen is 4000 mg from all sources in 24 hours.
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 FOR RECORDS PERTAINING TO PATIENTS WHO ARE OR HAVE BEEN ENROLLED IN A CHEMICAL DEPENDENCY/SUBSTANCEABUSE PROGRAM, SOME INFORMATION MAY BE OMITTED. This clinical summary was aggregated from multiple sources. Caution should be exercised in using it in the provision of clinical care. This summary normalizes information from multiple sources, and as a consequence, information in this document may materially change the coding, format and clinical context of patient data. In addition, data may be omitted in some cases. CLINICAL DECISIONS SHOULD BE BASED ON THE PRIMARY CLINICAL RECORDS. [employer] provides no warranty or guarantee of the accuracy or completeness of information in this document.
--- NOTE | 2023-06-10 09:04 | PM.CN ---
Consult Note: HPI Data of Consult Patient: known to practice within the last 3 years Requesting Physician: Maria G Toussaint NP Primary Care Provider: Dilcia Ocasio MD Consult Narrative Reason for consult: f/u Narrative: Sylvia Aragon a pleasant 67 year old female presents for evaluation and management of chronic low back pain. Today pain 3/10, increasing to 8/10. Patient has found benefit to diclofenac, duloxetine, and baclofen without side effects. Patient has noticed an increase in low back pain over the last 3 weeks with increase in sharp shooting pain radiating down right leg, hx of stress incontinence and has noticed this getting worse. Pain increased with activity and when lying flat, finds benefit to lying on her abdomen and with forward flexion. Denies loss of bowel or bladder. MRI reviewed, consistent with lumbar stenosis with NC and lx radiculopathy, as well as fact arthropathy. cc:: CC: Maria G Toussaint NP Review of Systems ROS Status of ROS 10 or more systems reviewed and unremarkable except as noted in history and below Musculoskeletal Reports: back pain PFSH PFSH Medical History Rheumatoid arthritis ?M06.9 - Rheumatoid arthritis, unspecified (ICD-10) Neck pain ?M54.2 - Cervicalgia (ICD-10) Back pain ?M54.9 - Dorsalgia, unspecified (ICD-10) Surgical History History of gastric surgery ?Z98.890 - Other specified postprocedural states (ICD-10) H/O abdominoplasty ?Z98.890 - Other specified postprocedural states (ICD-10) H/O bariatric surgery ?Z98.84 - Bariatric surgery status (ICD-10) H/O eye surgery ?Z98.890 - Other specified postprocedural states (ICD-10) H/O breast implant ?Z98.82 - Breast implant status (ICD-10) Hx of cholecystectomy ?Z90.49 - Acquired absence of other specified parts of digestive tract (ICD-10) Meds Home Medications and Allergies Home Medications Medication Instructions Recorded Confirmed Type baclofen 10 mg tablet 10 mg PO .HS 09/17/22 12/09/22 History calcium carbonate 600 mg-vitamin cap PO .QD 09/17/22 History D3 5 mcg (200 unit) capsule (Calcium 600 + D(3)) copper gluconate 2 mg tablet 2 mg PO DAILY 09/17/22 12/09/22 History diclofenac potassium 50 mg tablet 50 mg PO BID 09/17/22 12/09/22 History levothyroxine 88 mcg tablet 88 mcg PO .QD 09/17/22 12/09/22 History multivitamin 1 tab PO DAILY 09/17/22 12/09/22 History tramadol 50 mg tablet 50 mg PO DAILY PRN pain 09/17/22 12/09/22 History vitamin A .QD 09/17/22 History vitamin B complex (Complex B-100 1 tab PO DAILY 09/17/22 12/09/22 History tablet,extended release) zinc 25 mg tablet 25 mg PO .QD 09/17/22 12/09/22 History diclofenac sodium 100 mg 100 mg PO DAILY #30 tabs 01/21/23 Rx tablet,extended release 24 hr duloxetine 30 mg capsule,delayed 60 mg (2 x 30 mg) PO DAILY #75 caps 01/21/23 Rx release Allergies Allergy/AdvReac Type Severity Reaction Status Date / Time morphine AdvReac Mild Hypotension Verified 12/09/22 08:36 Exam Constitutional Documenting provider has reviewed patient's vital signs: yes Common normals: no apparent distress, oriented x3, healthy appearing, alert and well nourished General appearance: cooperative [facility] Common normals: normocephalic, hearing grossly normal bilaterally and moist oral mucous membranes Head and scalp: normocephalic Eye Common normals: PERRL Pupil: PERRL Neck & C-Spine Common normals: full ROM General: normal visual inspection Chest Common normals: inspection of chest normal Respiratory Common normals: normal respiratory effort, no retractions and no use of accessory muscles Back & Pelvis Lumbar spine/lower back: ROM limited, pain with ROM and straight leg raise positive right Sacroiliac joints: SI joints normal Other: sensation intact BLE Extremity Common normals: normal to inspection Neuro Common normals: oriented x3, CN's II-XII intact bilaterally, moves all extremities, no focal motor deficits, no sensory deficits noted, deep tendon reflexes 2+ bilaterally and gait normal Sensorium/orientation: alert Motor exam: strength 5/5 throughout and no movement abnormalities noted Psych Common normals: mental status grossly normal, thought process normal, cooperative, affect normal, speech normal and activity/motor behavior normal Speech: normal speech Thought process: normal thought process Results Additional Findings Additional findings: I have checked an [place] report on this patient today and there are no aberrancies noted in the prescribing history.?? A drug screen was completed and reviewed within the last year, and if there has not been a drug screen completed we ordered one today to monitor higher risk, state monitored pain medication use. As part of providing excellent, safe, comprehensive care, the following was completed at our patient's visit: 1. A medication reconciliation and review to ensure accurate knowledge of current/active medications, including asking our patients to inform us about any [id number]-vnywwel medications or herbal remedies/nutritional supplements/alternative remedies. 2. A review to specifically ensure our patients have had annual screening for: elevated body mass index (BMI), tobacco use, screening for depression, and screening for unhealthy alcohol use. When screening is concerning, patients are provided with education and the specific recommendation to discuss the concerning health issue and treatment options with their primary care provider. Assessment and Plan Assessment and Plan (1) Lumbar stenosis with neurogenic claudication: (2) Lumbar radiculopathy: (3) Muscle spasm: (4) Lumbar spondylosis: (5) Chronic pain syndrome: Plan right L4-5 L5-S1 TFESI with Dr Gillis under fluoroscopy continue HEP as tolerated continue current medications, tolerating well without side effect f/u 2 weeks after injcection not a vertiflex candidate based on osteoporosis hx
== END 2023-06-10 08:41 | disposition home or self-care (01) ==
LOC: PM 08:40
PROVIDERS: PCP Family Medicine; Visit Provider Nurse Practitioner
DX: M48.062 Spinal stenosis, lumbar region with neurogenic claudication (principal); M54.16 Radiculopathy, lumbar region; M62.838 Other muscle spasm; M47.816 Spondylosis without myelopathy or radiculopathy, lumbar region; G89.4 Chronic pain syndrome
CPT/HCPCS: G0463

== ENCOUNTER 2023-06-22 11:27 | Day surgery (SDC) | payer MEDICARE, OTHER, SELFPAY ==
[2023-06-22 11:39] VITALS: BP 163/97; PULSE 68; RESP 16; TEMP 36.4; O2SAT 100
--- OUTSIDE RECORDS SUMMARY | 2023-06-22 11:45 | XMS_ITS | CCD ---
Author Name Unknown Address [address] [place] [address] Organization [facility] Care Team Providers Care [employer] Name Role Phone Amee Mancilla MD Primary [...] Primary Care Unavailable DOMENICA KNIGHT Admitting Unavailable Amee Mancilla Unavailable AYOUBI, MOHAMED Referring Unavailable MANCILLA, AMEE [...] Primary Care Unavailable AYOUBI, MOHAMED Referring Unavailable MACNILLA, AMEE Primary Care Unavailable AYOUBI, MOHAMED Referring [...] Propensity to adverse reactions to drug 7 Hives [facility] (1 source) Morphine And Related Propensity to adverse reactions to drug 7 [facility] (2 sources) Morphine Drug Allergy [facility] Repository (1 source) Morphine Drug Allergy 9 Unknown [facility] Other Medications Current Medications Medication Drug Class(es) [...] Entry Oral for 0 *Pick strength-form from [facility] for eRX* 12 Apr, 2021 Active bisacodyl [...] Active oral daily for 0 *Reorder from [facility] for eRx and Interaction Alerts* Feb, Active [...] 12-18-2022 Episodic Other aftercare (1 source) Other fci (current) drug therapy; Translations: [OTH LONG-TERM CURRENT DRUG THERAPY] Onset: 06-11-2022 Episodic Other [...] [Moles/Vol] 10 mmol/L 9 - 17 mmol/L [facility] Calcium [Mass/Vol] 7.9 mg/dL Low 8.6 - 10. 4 mg/dL [facility] Chloride [Moles/Vol] 103 mmol/L 98 - 10 7 mmol/L [facility] CO2 [Moles/Vol] 22 mmol/L 20 - 31 mmol/L [facility] Creatinine [Mass/Vol] 0.61 mg/dL 0.50 - 0.90 mg/dL [facility] GFR/1.73 sq M.predicted MDRD (S/P/Bld) [Vol rate/Area] - PINF [facility] Comment on above: These results are not [...] [Mass/Vol] 81 mg/dL 70 - 99 mg/dL [facility] Interpretation and review of laboratory results Abnormal [facility] Potassium [Moles/Vol] 3.6 mmol/L Low 3.7 - 5.3 mmol/L [facility] Sodium [Moles/Vol] 135 mmol/L 135 - 144 mmol/L [facility] Urea nitrogen [Mass/Vol] 12 mg/dL 8 - 23 mg/dL [facility] Basic Metabolic Profon 06-14 Anion gap [Moles/Vol] 10 mmol/L Normal 9-17 [facility] Comment on above: Performed By: #### C DP, BMP #### [facility] [address] [place] [address] Roof Bolter Operator: Mariusz Estrada MD Calcium [Mass/Vol] 7.9 mg/dL Low 8.6-10.4 [facility] Comment on above: Performed By: #### C DP, BMP #### [address] [address] Roof Bolter Operator: Mariusz Estrada MD Chloride [Moles/Vol] 103 mmol/L Normal 98-[address] [facility] Comment on above: Performed By: #### C DP, BMP #### [address] [address] Roof Bolter Operator: Mariusz Estrada MD CO2 [Moles/Vol] 22 mmol/L Normal 20-31 [facility] Comment on above: Performed By: #### C DP, BMP #### [address] [address] Roof Bolter Operator: Mariusz Estrada MD Creatinine [Mass/Vol] 0.61 mg/dL Normal 0.50-0.90 [facility] Comment on above: Performed By: #### C DP, BMP #### [address] [address] Roof Bolter Operator: Mariusz Estrada MD GFR/1.73 sq M.predicted among non-blacks MDRD (S/P/Bld) [Vol rate/Area] mL/min/{1.73_m2} Normal >60 [facility] Comment on above: Result Comment: These [...] Performed By: #### C DP, BMP #### [address] [address] Roof Bolter Operator: Mariusz Estrada MD Glucose [Mass/Vol] 81 mg/dL Normal 70-99 [facility] Comment on above: Performed By: #### C DP, BMP #### [facility] [address] [place] [address] Roof Bolter Operator: Mariusz Estrada MD Potassium [Moles/Vol] 3.6 mmol/L Low 3.7-5.3 [facility] Comment on above: Performed By: #### C DP, BMP #### [facility] [address] [place] [address] Roof Bolter Operator: Mariusz Estrada MD Sodium [Moles/Vol] 135 mmol/L Normal 135-144 [facility] Comment on above: Performed By: #### C DP, BMP #### [facility] [address] [place] [address] Roof Bolter Operator: Mariusz Estrada MD Urea nitrogen [Mass/Vol] 12 mg/dL Normal 8-23 [facility] Comment on above: Performed By: #### C DP, BMP #### [facility] [address] [place] [address] Roof Bolter Operator: Mariusz Estrada MD CBC with Auto Differentialon 06-14-2022 Absolute Eos # 0.33 [facility] Absolute Immature Granulocyte [facility] Absolute Lymph # 0.96 Low [facility] Absolute Boyd # 0.35 [facility] Basophils Absolute [facility] Basophils/100 WBC (Bld) 1 % 0 - 2 % [facility] Eosinophils/100 WBC (Bld) 9 % High 1 - 4 % [facility] Hematocrit (Bld) [Volume fraction] 28.8 % Low 36.3 - 47.1 % [facility] Hemoglobin (Bld) [Mass/Vol] 8.6 g/dL Low 11.9 - 15.1 g/dL [facility] Immature granulocytes/100 WBC (Bld) 0 % 0 [facility] Interpretation and review of laboratory results Abnormal [facility] Lymphocytes/100 WBC (Bld) 26 % 24 - 43 % [facility] MCH (RBC) [Entitic mass] 24.2 pg Low 25.2 - 33.5 pg [facility] MCHC (RBC) [Mass/Vol] 29.9 g/dL 28.4 - 34.8 g/dL [facility] MCV (RBC) [Entitic vol] 80.9 fL Low 82.6 - 102.9 fL [facility] Monocytes/100 WBC (Bld) 10 % 3 - 12 % [facility] NRBC Automated 0.0 0.0 per 100 WBC [facility] Platelet distribution width (Bld) [Ratio] 18.5 % High 11.8 - 14.4 % [facility] Platelet mean volume (Bld) [Entitic vol] 10.7 fL 8.1 - 13.5 fL [facility] Platelets (Bld) [#/Vol] 239 10*3/uL [facility] RBC (Bld) [#/Vol] 3.56 10*6/uL Low 3.95 - 5.1 1 m/uL [facility] RBC (Bld) [#/Vol] ANISOCYTOSIS PRESENT [facility] Comment on above: MICROCYTOSIS PRESENT Segmented neutrophils/100 WBC (Bld) 54 % 36 - 65 % [facility] Segs Absolute 1.98 [facility] WBC (Bld) [#/Vol] 3.7 10*3/uL [facility] CBC with Diffon 06-14-2022 Abs. Basophil <0.03 Normal 0.00-0.20 [facility] Comment on above: Performed By: #### C DP, BMP #### [facility] [address] [place] [id number] Roof Bolter Operator: Mariusz Estrada MD Abs.Imm.Granulocyte <0.03 Normal 0.00-0.30 [facility] Comment on above: Performed By: #### C DP, BMP #### [facility] [place], [place] [id number] Roof Bolter Operator: Mariusz Estrada MD Abs.Neutrophil (Seg) 1.98 k/uL Normal 1.50-8.[address] [facility] Comment on above: Performed By: #### C DP, BMP #### [place] [address] Roof Bolter Operator: Mariusz Estrada MD Basophils/100 WBC (Bld) 1 % Normal 0-2 [facility] Comment on above: Performed By: #### C DP, BMP #### [place] [address] Roof Bolter Operator: Mariusz Estrada MD Eosinophils (Bld) [#/Vol] 0.33 10*3/uL Normal 0.00-0.44 [facility] Comment on above: Performed By: #### C DP, BMP #### [place] [address] Roof Bolter Operator: Marisuz Estrada MD Eosinophils/100 WBC (Bld) 9 % High 1-4 [facility] Comment on above: Performed By: #### C DP, BMP #### [place] [address] Roof Bolter Operator: Mariusz Estrada MD Erythrocyte distribution width (RBC) [Ratio] 18.5 % High 11.8-14.4 [facility] Comment on above: Performed By: #### C DP, BMP #### [place] [address] Roof Bolter Operator: Mariusz Estrada MD Hematocrit (Bld) [Volume fraction] 28.8 % Low 36.3-47.1 [facility] Comment on above: Performed By: #### C DP, BMP #### [place] [address] Roof Bolter Operator: Mariusz Estrada MD Hemoglobin (Bld) [Mass/Vol] 8.6 g/dL Low 11.9-15.1 [facility] Comment on above: Performed By: #### C DP, BMP #### [address] [address] Roof Bolter Operator: Mariusz Estrada MD Immature granulocytes/100 WBC (Bld) 0 % Normal 0 [facility] Comment on above: Performed By: #### C DP, BMP #### [address] [address] Roof Bolter Operator: Mariusz Estrada MD Lymphocytes (Bld) [#/Vol] 0.96 10*3/uL Low 1.10-3.70 [facility] Comment on above: Performed By: #### C DP, BMP #### [address] [address] Roof Bolter Operator: Mariusz Estrada MD Lymphocytes/100 WBC (Bld) 26 % Normal 24-43 [facility] Comment on above: Performed By: #### C DP, BMP #### [address] [address] Roof Bolter Operator: Mariusz Estrada MD MCH (RBC) [Entitic mass] 24.2 pg Low 25.2-33.5 [facility] Comment on above: Performed By: #### C DP, BMP #### [address] [address] Roof Bolter Operator: Mariusz Estrada MD MCHC (RBC) [Mass/Vol] 29.9 g/dL Normal 28.4-34.8 [facility] Comment on above: Performed By: #### C DP, BMP #### [address] [address] Roof Bolter Operator: Mariusz Estrada MD MCV (RBC) [Entitic vol] 80.9 fL Low 82.6-102.9 [facility] Comment on above: Performed By: #### C DP, BMP #### [address] [address] Roof Bolter Operator: Mariusz Estrada MD Monocytes (Bld) [#/Vol] 0.35 10*3/uL Normal 0.10-1.20 [facility] Comment on above: Performed By: #### C DP, BMP #### [address] [address] Roof Bolter Operator: Mariusz Estrada MD Monocytes/100 WBC (Bld) 10 % Normal 3-12 [facility] Comment on above: Performed By: #### C DP, BMP #### [address] [address] Roof Bolter Operator: Mariusz Estrada MD Neutrophil (Seg) 54 % Normal 36-65 [facility] Comment on above: Performed By: #### C DP, BMP #### [address] [address] Roof Bolter Operator: Mariusz Estrada MD NRBC Automated 0.0 per 100 WBC Normal 0.0 [facility] Comment on above: Performed By: #### C DP, BMP #### [address] [address] Roof Bolter Operator: Mariusz Estrada MD Platelet mean volume (Bld) [Entitic vol] 10.7 fL Normal 8.1-13.5 [facility] Comment on above: Performed By: #### C DP, BMP #### [address] [address] Roof Bolter Operator: Mariusz Estrada MD Platelets (Bld) [#/Vol] 239 10*3/uL Normal 138-453 [facility] Comment on above: Performed By: #### C DP, BMP #### [address] [address] Roof Bolter Operator: Mariusz Estrada MD RBC (Bld) [#/Vol] 3.56 10*6/uL Low 3.95-5.11 [facility] Comment on above: Performed By: #### C DP, BMP #### [facility] [address] [place] [address] Roof Bolter Operator: Mariusz Estrada MD RBC morphology finding Nom (Bld) ANISOCYTOSIS PRESENT Normal [facility] Comment on above: Result Comment: MICR OCYTOSIS PRESENT Performed By: #### C DP, BMP #### [facility] [address] [place] [address] Roof Bolter Operator: Mariusz Estrada MD WBC (Bld) [#/Vol] 3.7 10*3/uL Normal 3.5-11.3 [facility] Comment on above: Performed By: #### C DP, BMP #### [facility] [address] [place] [address] Roof Bolter Operator: Mariusz Estrada MD Basic Metabolic Panelon - Anion gap [Moles/Vol] 20 mmol/L High 9 - 17 mmol/L [facility] Calcium [Mass/Vol] 7.8 mg/dL Low 8.6 - 10. 4 mg/dL [facility] [employer] Chloride [Moles/Vol] 100 mmol/L 98 - 10 7 mmol/L [facility] [employer] CO2 [Moles/Vol] 13 mmol/L Low 20 - 31 mmol/L [facility] Creatinine [Mass/Vol] 0.81 mg/dL 0.50 - 0.90 mg/dL [facility] [employer] GFR/1.73 sq M.predicted MDRD (S/P/Bld) [Vol rate/Area] - [facility] Comment on above: These results are not [...] 61 mg/dL Low 70 - 99 mg/dL [facility] Potassium [Moles/Vol] 3.8 mmol/L 3.7 - 5.3 mmol/L [facility] Sodium [Moles/Vol] 133 mmol/L Low 135 - 144 mmol/L [facility] Urea nitrogen [Mass/Vol] 21 mg/dL 8 - 23 mg/dL [facility] Basic Metabolic Profon 06-13 Anion gap [Moles/Vol] 20 mmol/L High 9-17 [facility] Comment on above: Performed By: #### C DP, BMP #### [address] [address] Roof Bolter Operator: Mariusz Estrada MD Calcium [Mass/Vol] 7.8 mg/dL Low 8.6-10.4 [facility] Comment on above: Performed By: #### C DP, BMP #### [facility] [address] [place] [address] Roof Bolter Operator: Mariusz Estrada MD Chloride [Moles/Vol] 100 mmol/L Normal 98-[address] [facility] Comment on above: Performed By: #### C DP, BMP #### [facility] [address] [place] [address] Roof Bolter Operator: Mariusz Estrada MD CO2 [Moles/Vol] 13 mmol/L Low 20-31 [facility] Comment on above: Performed By: #### C DP, BMP #### [facility] [address] [place] [address] Roof Bolter Operator: Mariusz Estrada MD Creatinine [Mass/Vol] 0.81 mg/dL Normal 0.50-0.90 [facility] Comment on above: Performed By: #### C DP, BMP #### [facility] [address] [place] [address] Roof Bolter Operator: Mariusz Estrada MD GFR/1.73 sq M.predicted among non-blacks MDRD (S/P/Bld) [Vol rate/Area] mL/min/{1.73_m2} Normal >60 [facility] Comment on above: Result Comment: These [...] Performed By: #### C DP, BMP #### [facility] [address] [place] [address] Roof Bolter Operator: Mariusz Estrada MD Glucose [Mass/Vol] 61 mg/dL Low 70-99 [facility] Comment on above: Performed By: #### C DP, BMP #### [facility] [address] [place] [address] Roof Bolter Operator: Mariusz Estrada MD Potassium [Moles/Vol] 3.8 mmol/L Normal 3.7-5.3 [facility] Comment on above: Performed By: #### C DP, BMP #### [facility] [address] [place] [address] Roof Bolter Operator: Mariusz Estrada MD Sodium [Moles/Vol] 133 mmol/L Low 135-144 [facility] Comment on above: Performed By: #### C DP, BMP #### [facility] [address] [place] [address] Roof Bolter Operator: Mariusz Estrada MD Urea nitrogen [Mass/Vol] 21 mg/dL Normal 8-23 [facility] Comment on above: Performed By: #### C DP, BMP #### [facility] [address] [place] [address] Roof Bolter Operator: Mariusz Estrada MD CBC with Auto Differentialon 06-13-2022 Absolute Eos # 0.33 [facility] Absolute Immature Granulocyte [facility] Absolute Lymph # 1.14 [facility] Absolute Boyd # 0.39 [facility] Basophils (Bld) [#/Vol] 0.03 10*3/uL [facility] Basophils/100 WBC (Bld) 1 % 0 - 2 % [facility] Eosinophils/100 WBC (Bld) 6 % High 1 - 4 % [facility] Hematocrit (Bld) [Volume fraction] 28.4 % Low 36.3 - 47.1 % [facility] Hemoglobin (Bld) [Mass/Vol] 8.3 g/dL Low 11.9 - 15.1 g/dL [facility] Immature granulocytes/100 WBC (Bld) 0 % 0 [facility] Interpretation and review of laboratory results Abnormal [facility] Lymphocytes/100 WBC (Bld) 20 % Low 24 - 43 % [facility] MCH (RBC) [Entitic mass] 24.1 pg Low 25.2 - 33.5 pg [facility] MCHC (RBC) [Mass/Vol] 29.2 g/dL 28.4 - 34.8 g/dL [facility] MCV (RBC) [Entitic vol] 82.3 fL Low 82.6 - 102.9 fL [facility] Monocytes/100 WBC (Bld) 7 % 3 - 12 % [facility] NRBC Automated 0.0 0.0 per 100 WBC [facility] Platelet distribution width (Bld) [Ratio] 18.0 % High 11.8 - 14.4 % [facility] Platelet mean volume (Bld) [Entitic vol] 11.1 fL 8.1 - 13.5 fL [facility] Platelets (Bld) [#/Vol] 220 10*3/uL [facility] RBC (Bld) [#/Vol] 3.45 10*6/uL Low 3.95 - 5.1 1 m/uL [facility] RBC (Bld) [#/Vol] ANISOCYTOSIS PRESENT [facility] Comment on above: MICROCYTOSIS PRESENT Segmented neutrophils/100 WBC (Bld) 66 % High 36 - 65 % [facility] Segs Absolute 3.83 [facility] WBC (Bld) [#/Vol] 5.7 10*3/uL [facility] CBC with Diffon 06-13-2022 Abs. Basophil 0.03 k/uL Normal 0.00-0.20 [facility] Comment on above: Performed By: #### C DP, BMP #### [facility] [address] [place] [address] Roof Bolter Operator: Mariusz Estrada MD Abs.Imm.Granulocyte <0.03 Normal 0.00-0.30 [facility] Comment on above: Performed By: #### C DP, BMP #### [facility] [address] [place] [address] Roof Bolter Operator: Mariusz Estrada MD Abs.Neutrophil (Seg) 3.83 k/uL Normal 1.50-8.[address] [facility] Comment on above: Performed By: #### C DP, BMP #### [facility] [address] [place] [address] Roof Bolter Operator: Mariusz Estrada MD Basophils/100 WBC (Bld) 1 % Normal 0-2 [facility] Comment on above: Performed By: #### C DP, BMP #### [facility] [address] [place] [address] Roof Bolter Operator: Mariusz Estrada MD Eosinophils (Bld) [#/Vol] 0.33 10*3/uL Normal 0.00-0.44 [facility] Comment on above: Performed By: #### C DP, BMP #### [facility] [address] [place] [address] Roof Bolter Operator: Mariusz Estrada MD Eosinophils/100 WBC (Bld) 6 % High 1-4 [facility] Comment on above: Performed By: #### C DP, BMP #### [facility] [address] [place] [address] Roof Bolter Operator: Mariusz Estrada MD Erythrocyte distribution width (RBC) [Ratio] 18.0 % High 11.8-14.4 [facility] Comment on above: Performed By: #### C DP, BMP #### [address] [address] Roof Bolter Operator: Mariusz Estrada MD Hematocrit (Bld) [Volume fraction] 28.4 % Low 36.3-47.1 [facility] Comment on above: Performed By: #### C DP, BMP #### [address] [address] Roof Bolter Operator: Mariusz Estrada MD Hemoglobin (Bld) [Mass/Vol] 8.3 g/dL Low 11.9-15.1 [facility] Comment on above: Performed By: #### C DP, BMP #### [address] [address] Roof Bolter Operator: Mariusz Estrada MD Immature granulocytes/100 WBC (Bld) 0 % Normal 0 [facility] Comment on above: Performed By: #### C DP, BMP #### [address] [address] Roof Bolter Operator: Mariusz Estrada MD Lymphocytes (Bld) [#/Vol] 1.14 10*3/uL Normal 1.10-3.70 [facility] Comment on above: Performed By: #### C DP, BMP #### [address] [address] Roof Bolter Operator: Mariusz Estrada MD Lymphocytes/100 WBC (Bld) 20 % Low 24-43 [facility] Comment on above: Performed By: #### C DP, BMP #### [address] [address] Roof Bolter Operator: Mariusz Estrada MD MCH (RBC) [Entitic mass] 24.1 pg Low 25.2-33.5 [facility] Comment on above: Performed By: #### C DP, BMP #### [place] [address] Roof Bolter Operator: Mariusz Estrada MD MCHC (RBC) [Mass/Vol] 29.2 g/dL Normal 28.4-34.8 [facility] Comment on above: Performed By: #### C DP, BMP #### [place] [address] Roof Bolter Operator: Mariusz Estraad MD MCV (RBC) [Entitic vol] 82.3 fL Low 82.6-102.9 [facility] Comment on above: Performed By: #### C DP, BMP #### [place] [address] Roof Bolter Operator: Mariusz Estrada MD Monocytes (Bld) [#/Vol] 0.39 10*3/uL Normal 0.10-1.20 [facility] Comment on above: Performed By: #### C DP, BMP #### [place] [address] Roof Bolter Operator: Mariusz Estrada MD Monocytes/100 WBC (Bld) 7 % Normal 3-12 [facility] Comment on above: Performed By: #### C DP, BMP #### [place] [address] Roof Bolter Operator: Mariusz Estrada MD Neutrophil (Seg) 66 % High 36-65 [facility] Comment on above: Performed By: #### C DP, BMP #### [place] [address] Roof Bolter Operator: Mariusz Estrada MD NRBC Automated 0.0 per 100 WBC Normal 0.0 [facility] Comment on above: Performed By: #### C DP, BMP #### [address] [address] Roof Bolter Operator: Mariusz Estrada MD Platelet mean volume (Bld) [Entitic vol] 11.1 fL Normal 8.1-13.5 [facility] Comment on above: Performed By: #### C DP, BMP #### [address] [address] Roof Bolter Operator: Mariusz Estrada MD Platelets (Bld) [#/Vol] 220 10*3/uL Normal 138-453 [facility] Comment on above: Performed By: #### C DP, BMP #### [address] [address] Roof Bolter Operator: Mariusz Estrada MD RBC (Bld) [#/Vol] 3.45 10*6/uL Low 3.95-5.11 [facility] Comment on above: Performed By: #### C DP, BMP #### [address] [address] Roof Bolter Operator: Mariusz Estrada MD RBC morphology finding Nom (Bld) ANISOCYTOSIS PRESENT Normal [facility] Comment on above: Result Comment: MICR OCYTOSIS PRESENT Performed By: #### C DP, BMP #### [address] [address] Roof Bolter Operator: Mariusz Estrada MD WBC (Bld) [#/Vol] 5.7 10*3/uL Normal 3.5-11.3 [facility] Comment on above: Performed By: #### C DP, BMP #### [address] [address] Roof Bolter Operator: Mariusz Estrada MD Magnesiumon 06-13-2022 Magnesium [Mass/Vol] 2.8 mg/dL High 1.6-2.[address] [facility] Comment on above: Performed By: #### C DP, BMP #### [address] [place] [address] Roof Bolter Operator: Mariusz Estrada MD Magnesium [Mass/Vol] 2.8 mg/dL High 1.6 - 2 .6 mg/dL [facility] No Panel Informationon 06-13 Interpretation and review of laboratory results Abnormal [facility] XR ABDOMEN (KUB) (SINGLE AP VIEW)on 06-13-2022 [...] Marvin Crowe MD 06/13/22 Final result Normal [facility] Multiple dilated small bowel loops, ileus versus small-bowel obstruction. Ascending colon is mildly dilated. Contrast is visualized throughout the colon. RUST RIS CONSOLIDATED EXAMINATION: ONE SUPINE XRAY VIEW(S) OF THE ABDOMEN 06/13/2022 6:48 am COMPARISON: 06/12/2022 HISTORY: ORDERING SYSTEM PROVIDED HISTORY: pSBO TECHNOLOGIST PROVIDED HISTORY: pSBO FINDINGS: Multiple dilated small bowel loops, ileus versus small-bowel obstruction. Ascending colon is mildly dilated. Contrast is visualized throughout the colon. Bony structures are unremarkable. Lower lung harper are clear. No free air. RUST RIS CONSOLIDATED Marvin Crowe MD - 06/13/2022 [...] dilated. Contrast is visualized throughout the colon. [facility] Work Phone: Radiology Study observation (narrative) [facility] Work Phone: XR ABDOMEN (KUB) (SINGLE AP VIEW)Ordered By: Marvin Crowe on 06-13-2022 [facility] Work Phone: Basic Metabolic Panelon Anion gap [Moles/Vol] 13 mmol/L 9 - 17 mmol/L [facility] Calcium [Mass/Vol] 8.5 mg/dL Low 8.6 - 10. 4 mg/dL [facility] Chloride [Moles/Vol] 96 mmol/L Low 98 - 10 7 mmol/L [facility] CO2 [Moles/Vol] 21 mmol/L 20 - 31 mmol/L [facility] Creatinine [Mass/Vol] 0.55 mg/dL 0.50 - 0.90 mg/dL [facility] GFR/1.73 sq M.predicted MDRD (S/P/Bld) [Vol rate/Area] - PINF [facility] Comment on above: These results are not [...] [Mass/Vol] 96 mg/dL 70 - 99 mg/dL [facility] Interpretation and review of laboratory results Abnormal [facility] Potassium [Moles/Vol] 3.5 mmol/L Low 3.7 - 5.3 mmol/L [facility] Sodium [Moles/Vol] 130 mmol/L Low 135 - 144 mmol/L [facility] Urea nitrogen [Mass/Vol] 8 mg/dL 8 - 23 mg/dL [facility] Basic Metabolic Profon 06-12 Anion gap [Moles/Vol] 13 mmol/L Normal 9-17 [facility] Comment on above: Performed By: #### MICKY Pimentel, CDP #### [address] [address] Roof Bolter Operator: Mariusz Estrada MD Calcium [Mass/Vol] 8.5 mg/dL Low 8.6-10.4 [facility] Comment on above: Performed By: #### MICKY Pimentel, CDP #### [facility] [address] [place] [address] Roof Bolter Operator: Mariusz Estrada MD Chloride [Moles/Vol] 96 mmol/L Low 98-[address] [facility] Comment on above: Performed By: #### MICKY Pimentel, CDP #### [facility] [address] [place] [address] Roof Bolter Operator: Mariusz Estrada MD CO2 [Moles/Vol] 21 mmol/L Normal 20-31 [facility] Comment on above: Performed By: #### MICKY Pimentel, CDP #### [facility] [address] [place] [address] Roof Bolter Operator: Mariusz Estrada MD Creatinine [Mass/Vol] 0.55 mg/dL Normal 0.50-0.90 [facility] Comment on above: Performed By: #### MICKY Pimentel, CDP #### [facility] [address] [place] [address] Roof Bolter Operator: Mariusz Estrada MD GFR/1.73 sq M.predicted among non-blacks MDRD (S/P/Bld) [Vol rate/Area] mL/min/{1.73_m2} Normal >60 [facility] Comment on above: Result Comment: These [...] Performed By: #### MICKY Pimentel, CDP #### [facility] [address] [place] [address] Roof Bolter Operator: Mariusz Estrada MD Glucose [Mass/Vol] 96 mg/dL Normal 70-99 [facility] Comment on above: Performed By: #### MICKY Pimentel, CDP #### [facility] [address] [place] [address] Roof Bolter Operator: Mariusz Estrada MD Potassium [Moles/Vol] 3.5 mmol/L Low 3.7-5.3 [facility] Comment on above: Performed By: #### MICKY Pimentel, CDP #### [facility] [address] [place] [address] Roof Bolter Operator: Mariusz Estrada MD Sodium [Moles/Vol] 130 mmol/L Low 135-144 [facility] Comment on above: Performed By: #### MICKY Pimentel, CDP #### [facility] [address] [place] [address] Roof Bolter Operator: Mariusz Estrada MD Urea nitrogen [Mass/Vol] 8 mg/dL Normal 8-23 [facility] Comment on above: Performed By: #### MICKY Pimentel, CDP #### [facility] [address] [place] [address] Roof Bolter Operator: Mariusz Estrada MD CBC with Auto Differentialon 06-12-2022 Absolute Eos # 0.09 [facility] Immature Granulocyte 0.03 [facility] Lymph # 0.87 Low [facility] Boyd # 0.66 [facility] Basophils (Bld) [#/Vol] 0.04 10*3/uL [facility] Basophils/100 WBC (Bld) 1 % 0 - 2 % [facility] Eosinophils/100 WBC (Bld) 1 % 1 - 4 % [facility] Hematocrit (Bld) [Volume fraction] 34.0 % Low 36.3 - 47.1 % [facility] Hemoglobin (Bld) [Mass/Vol] 10.0 g/dL Low 11.9 - 15.1 g/dL [facility] Immature granulocytes/100 WBC (Bld) 0 % 0 [facility] Interpretation and review of laboratory results Abnormal [facility] Lymphocytes/100 WBC (Bld) 11 % Low 24 - 43 % [facility] MCH (RBC) [Entitic mass] 23.8 pg Low 25.2 - 33.5 pg [facility] MCHC (RBC) [Mass/Vol] 29.4 g/dL 28.4 - 34.8 g/dL [facility] MCV (RBC) [Entitic vol] 80.8 fL Low 82.6 - 102.9 fL [facility] Monocytes/100 WBC (Bld) 8 % 3 - 12 % [facility] NRBC Automated 0.0 0.0 per 100 WBC [facility] Platelet distribution width (Bld) [Ratio] 18.0 % High 11.8 - 14.4 % [facility] Platelet mean volume (Bld) [Entitic vol] 11.1 fL 8.1 - 13.5 fL [facility] Platelets (Bld) [#/Vol] 245 10*3/uL [facility] RBC (Bld) [#/Vol] 4.21 10*6/uL 3.95 - 5.1 1 m/uL [facility] RBC (Bld) [#/Vol] ANISOCYTOSIS PRESENT [facility] Comment on above: MICROCYTOSIS PRESENT Segmented neutrophils/100 WBC (Bld) 79 % High 36 - 65 % [facility] Segs Absolute 6.27 [facility] WBC (Bld) [#/Vol] 8.0 10*3/uL [facility] CBC with Diffon 06-12-2022 Abs. Basophil 0.04 k/uL Normal 0.00-0.20 [facility] Comment on above: Performed By: #### MICKY Pimentel, CDP #### [address] [address] Roof Bolter Operator: Mariusz Estrada MD Abs.Imm.Granulocyte 0.03 k/uL Normal 0.00-0.30 [facility] Comment on above: Performed By: #### MICKY Pimentel, CDP #### [place] [address] Roof Bolter Operator: Mariusz Estrada MD Abs.Neutrophil (Seg) 6.27 k/uL Normal 1.50-8.[address] [facility] Comment on above: Performed By: #### MICKY Pimentel, CDP #### [facility] [address] [place] [address] Roof Bolter Operator: Mariusz Estrada MD Basophils/100 WBC (Bld) 1 % Normal 0-2 [facility] Comment on above: Performed By: #### MICKY Pimentel, CDP #### [place] [address] Roof Bolter Operator: Mariusz Estrada MD Eosinophils (Bld) [#/Vol] 0.09 10*3/uL Normal 0.00-0.44 [facility] Comment on above: Performed By: #### MICKY Pimentel, CDP #### [address] [address] Roof Bolter Operator: Mariusz Estrada MD Eosinophils/100 WBC (Bld) 1 % Normal 1-4 [facility] Comment on above: Performed By: #### MICKY Pimentel, CDP #### [facility] [address] [place] [address] Roof Bolter Operator: Mariusz Estrada MD Erythrocyte distribution width (RBC) [Ratio] 18.0 % High 11.8-14.4 [facility] Comment on above: Performed By: #### MICKY Pimentel, CDP #### [facility] [address] [place] [address] Roof Bolter Operator: Mariusz Estrada MD Hematocrit (Bld) [Volume fraction] 34.0 % Low 36.3-47.1 [facility] Comment on above: Performed By: #### MICKY Pimentel, CDP #### [facility] [address] [place] [address] Roof Bolter Operator: Mariusz Estrada MD Hemoglobin (Bld) [Mass/Vol] 10.0 g/dL Low 11.9-15.1 [facility] Comment on above: Performed By: #### MICKY Pimentel, CDP #### [facility] [address] [place] [address] Roof Bolter Operator: Mariusz Estrada MD Immature granulocytes/100 WBC (Bld) 0 % Normal 0 [facility] Comment on above: Performed By: #### MICKY Pimentel, CDP #### [facility] [address] [place] [address] Roof Bolter Operator: Mariusz Estrada MD Lymphocytes (Bld) [#/Vol] 0.87 10*3/uL Low 1.10-3.70 [facility] Comment on above: Performed By: #### MICKY Pimentel, CDP #### [facility] [address] [place] [address] Roof Bolter Operator: Mariusz Estrada MD Lymphocytes/100 WBC (Bld) 11 % Low 24-43 [facility] Comment on above: Performed By: #### MICKY Pimentel, CDP #### [facility] [address] [place] [address] Roof Bolter Operator: Mariusz Estrada MD MCH (RBC) [Entitic mass] 23.8 pg Low 25.2-33.5 [facility] Comment on above: Performed By: #### MICKY Pimentel, CDP #### [facility] [address] [place] [address] Roof Bolter Operator: Mariusz Estrada MD MCHC (RBC) [Mass/Vol] 29.4 g/dL Normal 28.4-34.8 [facility] Comment on above: Performed By: #### MICKY Pimentel, CDP #### [facility] [address] [place] [address] Roof Bolter Operator: Mariusz Estrada MD MCV (RBC) [Entitic vol] 80.8 fL Low 82.6-102.9 [facility] Comment on above: Performed By: #### MICKY Pimentel, CDP #### [address] [address] Roof Bolter Operator: Mariusz Estrada MD Monocytes (Bld) [#/Vol] 0.66 10*3/uL Normal 0.10-1.20 [facility] Comment on above: Performed By: #### MICKY Pimentel, CDP #### [facility] [address] [place] [address] Roof Bolter Operator: Mariusz Estrada MD Monocytes/100 WBC (Bld) 8 % Normal 3-12 [facility] Comment on above: Performed By: #### MICKY Pimentel, CDP #### [facility] [address] [place] [address] Roof Bolter Operator: Mariusz Estrada MD Neutrophil (Seg) 79 % High 36-65 [facility] Comment on above: Performed By: #### MICKY Pimentel, CDP #### [address] [address] Roof Bolter Operator: Mariusz Estrada MD NRBC Automated 0.0 per 100 WBC Normal 0.0 [facility] Comment on above: Performed By: #### MICKY Pimentel, CDP #### [facility] [address] [place] [address] Roof Bolter Operator: Mariusz Estrada MD Platelet mean volume (Bld) [Entitic vol] 11.1 fL Normal 8.1-13.5 [facility] Comment on above: Performed By: #### MICKY Pimentel, CDP #### [address] [address] Roof Bolter Operator: Mariusz Estrada MD Platelets (Bld) [#/Vol] 245 10*3/uL Normal 138-453 [facility] Comment on above: Performed By: #### MICKY Pimentel, CDP #### [facility] [address] [place] [address] Roof Bolter Operator: Mariusz Estrada MD RBC (Bld) [#/Vol] 4.21 10*6/uL Normal 3.95-5.11 [facility] Comment on above: Performed By: #### MICKY Pimentel, CDP #### [address] [address] Roof Bolter Operator: Mariusz Estrada MD RBC morphology finding Nom (Bld) ANISOCYTOSIS PRESENT Normal [facility] Comment on above: Result Comment: MICR OCYTOSIS PRESENT Performed By: #### MICKY Pimentel, CDP #### [address] [address] Roof Bolter Operator: Mariusz Estrada MD WBC (Bld) [#/Vol] 8.0 10*3/uL Normal 3.5-11.3 [facility] Comment on above: Performed By: #### MICKY Pimentel, CDP #### [facility] [address] [place] [address] Roof Bolter Operator: Mariusz Estrada MD Lactate, Sepsison 06-12-2022 Lactic Acid,Sep Wbld 1.0 mmol/L Normal 0.5-1.[address] [facility] Comment on above: Performed By: #### MICKY Pimentel, CDP #### [facility] [address] [place] [address] Roof Bolter Operator: Mariusz Estrada MD Lactic Acid,Sep Wbld 1.2 mmol/L Normal 0.5-1.[address] [facility] Comment on above: Performed By: #### MICKY Pimentel, CDP #### [facility] [address] [place] [address] Roof Bolter Operator: Mariusz Estrada MD Lactic Acid, Sepsis, Whole Blood 1.0 mmol/L 0.5 - 1.9 mmol/L [facility] Lactic Acid, Sepsis, Whole Blood 1.2 mmol/L 0.5 - 1.9 mmol/L [facility] Magnesiumon 06-12-2022 Magnesium [Mass/Vol] 1.9 mg/dL Normal 1.6-2.[address] [facility] Comment on above: Performed By: #### MICKY Pimentel, CDP #### [facility] [address] [place] [address] Roof Bolter Operator: Mariusz Estrada MD Magnesium [Mass/Vol] 1.9 mg/dL 1.6 - 2 .6 mg/dL [facility] No Panel Informationon 06-12 [facility] POC Glucose Fingerstickon Glucose [Mass/Vol] 118 mg/dL High 65 - 105 mg/dL [facility] Interpretation and review of laboratory results Abnormal [facility] XR ABDOMEN (KUB) (SINGLE AP VIEW)on 06-12-2022 [...] Jax Carbajal MD 06/12/22 Final result Normal [facility] XR ABDOMEN (KUB) (SINGLE AP VIEW) [...] Seun Serna MD 06/12/22 Final result Normal [facility] Similar appearance o f a high-grade distal partial small-bowel obstruction. [facility] EXAMINATION: ONE SUPINE XRAY [...] probably distal high-grade partial small bowel obstruction. [facility] Jax Carbajal MD - [...] of a high-grade distal partial small-bowel obstruction. [facility] Phone: 1. Enteric tube coiled in the distal thoracic esophagus. Recommend repositioning prior to use. 2. Dilated loops of small bowel are again noted, suggestive with high-grade partial obstruction. There is some increased opacification of the colon. [facility] EXAMINATION: ONE SUPINE XRAY [...] is coiled in the distal thoracic esophagus. [facility] Seun Serna MD - [...] is some increased opacification of the colon. [facility] Phone: Radiology Study observation (narrative) [facility] Phone: Radiology Study observation (narrative) [facility] Work Phone: XR ABDOMEN (KUB) (SINGLE AP VIEW)Ordered By: Jax Carbajal on 06-12-2022 [facility] Work Phone: XR ABDOMEN (KUB) (SINGLE AP VIEW)Ordered By: Seun Serna on 06-12-2022 [facility] Work Phone: Basic Metabolic Panelon Anion gap [Moles/Vol] 9 mmol/L 9 - 17 mmol/L [facility] Calcium [Mass/Vol] 8.6 mg/dL 8.6 - 10. 4 mg/dL [facility] Chloride [Moles/Vol] 102 mmol/L 98 - 10 7 mmol/L [facility] CO2 [Moles/Vol] 22 mmol/L 20 - 31 mmol/L [facility] Creatinine [Mass/Vol] 0.64 mg/dL 0.50 - 0.90 mg/dL [facility] GFR/1.73 sq M.predicted MDRD (S/P/Bld) [Vol rate/Area] - PINF [facility] Comment on above: These results are not [...] 119 mg/dL High 70 - 99 mg/dL [facility] Interpretation and review of laboratory results Abnormal [facility] Potassium [Moles/Vol] 4.8 mmol/L 3.7 - 5.3 mmol/L [facility] Sodium [Moles/Vol] 133 mmol/L Low 135 - 144 mmol/L [facility] Urea nitrogen [Mass/Vol] 8 mg/dL 8 - 23 mg/dL [facility] Basic Metabolic Profon 06-11 Anion gap [Moles/Vol] 9 mmol/L Normal 9-17 [facility] Comment on above: Performed By: #### C DP, BMP #### [address] [address] Roof Bolter Operator: Mariusz Estrada MD Calcium [Mass/Vol] 8.6 mg/dL Normal 8.6-10.4 [facility] Comment on above: Performed By: #### C DP, BMP #### [address] [address] Roof Bolter Operator: Mariusz Estrada MD Chloride [Moles/Vol] 102 mmol/L Normal 98-[address] [facility] Comment on above: Performed By: #### C DP, BMP #### [address] [address] Roof Bolter Operator: Mariusz Estrada MD CO2 [Moles/Vol] 22 mmol/L Normal 20-31 [facility] Comment on above: Performed By: #### C DP, BMP #### [facility] [address] [place] [address] Roof Bolter Operator: Mariusz Estrada MD Creatinine [Mass/Vol] 0.64 mg/dL Normal 0.50-0.90 [facility] Comment on above: Performed By: #### C DP, BMP #### [address] [address] Roof Bolter Operator: Mariusz Estrada MD GFR/1.73 sq M.predicted among non-blacks MDRD (S/P/Bld) [Vol rate/Area] mL/min/{1.73_m2} Normal >60 [facility] Comment on above: Result Comment: These [...] Performed By: #### C DP, BMP #### [facility] [address] [place] [address] Roof Bolter Operator: Mariusz Estrada MD Glucose [Mass/Vol] 119 mg/dL High 70-99 [facility] Comment on above: Performed By: #### C DP, BMP #### [facility] [address] [place] [address] Roof Bolter Operator: Mariusz Estrada MD Potassium [Moles/Vol] 4.8 mmol/L Normal 3.7-5.3 [facility] Comment on above: Performed By: #### C DP, BMP #### [facility] [address] [place] [address] Roof Bolter Operator: Mariusz Estrada MD Sodium [Moles/Vol] 133 mmol/L Low 135-144 [facility] Comment on above: Performed By: #### C DP, BMP #### [facility] [address] [place] [address] Roof Bolter Operator: Mariusz Estrada MD Urea nitrogen [Mass/Vol] 8 mg/dL Normal 8-23 [facility] Comment on above: Performed By: #### C DP, BMP #### [facility] [address] [place] [address] Roof Bolter Operator: Mariusz Estrada MD CBC with Auto Differentialon 06-11-2022 Absolute Eos # 0.00 [facility] Immature Granulocyte 0.00 [facility] Absolute Lymph # 0.45 Low [facility] Absolute Boyd # 0.71 [facility] Basophils (Bld) [#/Vol] 0.00 10*3/uL [facility] Basophils/100 WBC (Bld) 0 % 0 - 2 % [facility] Eosinophils/100 WBC (Bld) 0 % Low 1 - 4 % [facility] Hematocrit (Bld) [Volume fraction] 30.5 % Low 36.3 - 47.1 % [facility] Hemoglobin (Bld) [Mass/Vol] 9.5 g/dL Low 11.9 - 15.1 g/dL [facility] Immature granulocytes/100 WBC (Bld) 0 % 0 [facility] Interpretation and review of laboratory results Abnormal [facility] Lymphocytes/100 WBC (Bld) 5 % Low 24 - 43 % [facility] MCH (RBC) [Entitic mass] 23.9 pg Low 25.2 - 33.5 pg [facility] MCHC (RBC) [Mass/Vol] 31.1 g/dL 28.4 - 34.8 g/dL [facility] MCV (RBC) [Entitic vol] 76.8 fL Low 82.6 - 102.9 fL [facility] Monocytes/100 WBC (Bld) 8 % 3 - 12 % [facility] Morphology Jamie (Bld) [Interp] ANISOCYTOSIS PRESENT [facility] Morphology Jamie (Bld) [Interp] MICROCYTOSIS PRESENT [facility] NRBC Automated 0.0 0.0 per 100 WBC [facility] Platelet distribution width (Bld) [Ratio] 17.3 % High 11.8 - 14.4 % [facility] Platelet mean volume (Bld) [Entitic vol] 11.0 fL 8.1 - 13.5 fL [facility] Platelets (Bld) [#/Vol] 237 10*3/uL [facility] RBC (Bld) [#/Vol] 3.97 10*6/uL 3.95 - 5.1 1 m/uL [facility] Segmented neutrophils/100 WBC (Bld) 87 % High 36 - 65 % [facility] Segs Absolute 7.74 [facility] WBC (Bld) [#/Vol] 8.9 10*3/uL [facility] CBC with Diffon 06-11-2022 Abs. Basophil 0.00 k/uL Normal 0.00-0.20 [facility] Comment on above: Performed By: #### C DP, BMP #### [address] [address] Roof Bolter Operator: Mariusz Estrada MD Abs.Imm.Granulocyte 0.00 k/uL Normal 0.00-0.30 [facility] Comment on above: Performed By: #### C DP, BMP #### [address] [address] Roof Bolter Operator: Mariusz Estrada MD Abs.Neutrophil (Seg) 7.74 k/uL Normal 1.50-8.[address] [facility] Comment on above: Performed By: #### C DP, BMP #### [address] [address] Roof Bolter Operator: Mariusz Estrada MD Basophils/100 WBC (Bld) 0 % Normal 0-2 [facility] Comment on above: Performed By: #### C DP, BMP #### [address] [address] Roof Bolter Operator: Mariusz Estrada MD Eosinophils (Bld) [#/Vol] 0.00 10*3/uL Normal 0.00-0.44 [facility] Comment on above: Performed By: #### C DP, BMP #### [address] [address] Roof Bolter Operator: Mariusz Estrada MD Eosinophils/100 WBC (Bld) 0 % Low 1-4 [facility] Comment on above: Performed By: #### C DP, BMP #### [address] [address] Roof Bolter Operator: Mariusz Estrada MD Immature granulocytes/100 WBC (Bld) 0 % Normal 0 [facility] Comment on above: Performed By: #### C DP, BMP #### [address] [address] Roof Bolter Operator: Mariusz Estrada MD Lymphocytes (Bld) [#/Vol] 0.45 10*3/uL Low 1.10-3.70 [facility] Comment on above: Performed By: #### C DP, BMP #### [address] [address] Roof Bolter Operator: Mariusz Estrada MD Lymphocytes/100 WBC (Bld) 5 % Low 24-43 [facility] Comment on above: Performed By: #### C DP, BMP #### [address] [address] Roof Bolter Operator: Mariusz Estrada MD Monocytes (Bld) [#/Vol] 0.71 10*3/uL Normal 0.10-1.20 [facility] Comment on above: Performed By: #### C DP, BMP #### [address] [address] Roof Bolter Operator: Mariusz Estrada MD Monocytes/100 WBC (Bld) 8 % Normal 3-12 [facility] Comment on above: Performed By: #### C DP, BMP #### [address] [address] Roof Bolter Operator: Mariusz Estrada MD Morphology Jamie (Bld) [Interp] ANISOCYTOSIS PRESENT Normal [facility] Comment on above: Result Comment: MICR OCYTOSIS PRESENT Performed By: #### C DP, BMP #### [address] [address] Roof Bolter Operator: Mariusz Estrada MD Neutrophil (Seg) 87 % High 36-65 [facility] Comment on above: Performed By: #### C DP, BMP #### [address] [address] Roof Bolter Operator: Mariusz Estrada MD Erythrocyte distribution width (RBC) [Ratio] 17.3 % High 11.8-14.4 [facility] Comment on above: Performed By: #### C DP, BMP #### [address] [address] Roof Bolter Operator: Mariusz Estrada MD Hematocrit (Bld) [Volume fraction] 30.5 % Low 36.3-47.1 [facility] Comment on above: Performed By: #### C DP, BMP #### [place] [address] Roof Bolter Operator: Mariusz Estrada MD Hemoglobin (Bld) [Mass/Vol] 9.5 g/dL Low 11.9-15.1 [facility] Comment on above: Performed By: #### C DP, BMP #### [address] [address] Roof [employer]ter Operator: Mariusz Estrada MD MCH (RBC) [Entitic mass] 23.9 pg Low 25.2-33.5 [facility] Comment on above: Performed By: #### C DP, BMP #### [address] [address] Roof Bolter Operator: Mariusz Estrada MD MCHC (RBC) [Mass/Vol] 31.1 g/dL Normal 28.4-34.8 [facility] Comment on above: Performed By: #### C DP, BMP #### [place] [address] Roof Bolter Operator: Mariusz Estrada MD MCV (RBC) [Entitic vol] 76.8 fL Low 82.6-102.9 [facility] Comment on above: Performed By: #### C DP, BMP #### [address] [address] Roof Bolter Operator: Mariusz Estrada MD NRBC Automated 0.0 per 100 WBC Normal 0.0 [facility] Comment on above: Performed By: #### C DP, BMP #### [address] [place] [address] Roof Bolter Operator: Mariusz Estrada MD Platelet mean volume (Bld) [Entitic vol] 11.0 fL Normal 8.1-13.5 [facility] Comment on above: Performed By: #### C DP, BMP #### [facility] [address] [place] [address] Roof Bolter Operator: Mariusz Estrada MD Platelets (Bld) [#/Vol] 237 10*3/uL Normal 138-453 [facility] Comment on above: Performed By: #### C DP, BMP #### [facility] [address] [place] [address] Roof Bolter Operator: Mariusz Estrada MD RBC (Bld) [#/Vol] 3.97 10*6/uL Normal 3.95-5.11 [facility] Comment on above: Performed By: #### C DP, BMP #### [facility] [address] [place] [address] Roof Bolter Operator: Mariusz Estrada MD WBC (Bld) [#/Vol] 8.9 10*3/uL Normal 3.5-11.3 [facility] Comment on above: Performed By: #### C DP, BMP #### [facility] [address] [place] [address] Roof Bolter Operator: Mariusz Estrada MD Cult,Urineon 06-11-2022 Cult,Urine Specimen Description .CATHETER NEWLY INSERTED Culture NO GROWTH Report Status FINAL 06/11/2022 Normal [facility] Comment on above: Performed By: #### M MICKY Herrera, CDP #### [facility] [address] [place] [address] Roof Bolter Operator: Mariusz Estrada MD Culture, Urineon 06-11-2022 Microorganism identified Cx Nom (Unsp spec) NO GROWTH [facility] [place] [facility] Specimen Description .CATHETER NEWLY INSERTED [facility]Verified Identity Pass [facility] [place] SMALL BOWEL FOLLOW THROUG H ONLYon 06-11-2022 [place] SMALL BOWEL FOLLOW THROUGH ONLY EXAMINATION: SMALL BOWEL FOLLOW THROUGH SERIES 06/11/2022 TECHNIQUE: Small bowel follow through series was performed with overhead images. No spot images were acquired as the last few images where acquired in patient's room and not in the fluoroscopy suite.. FLUOROSCOPY DOSE AND TYPE: Radiation Exposure Index: None, COMPARISON: Outside CT abdomen pelvis from [facility] 06/09/2022 HISTORY: ORDERING SYSTEM PROVIDED HISTORY: [...] Alexander Baird MD 06/11/22 Final result Normal [facility] Findings consistent with partial distal small [...] None, COMPARISON: Outside CT abdomen pelvis from [facility] 06/09/2022 HISTORY: ORDERING SYSTEM PROVIDED HISTORY: [...] consistent with distal partial small bowel obstruction. RUST RIS Alexander Nevarez MD - 06/11/2022 EXAMINATION: SMALL BOWEL FOLLOW THROUGH SERIES 06/11/2022 TECHNIQUE: Small bowel follow through series was performed with overhead images. No spot images were acquired as the last few images where acquired in patient's room and not in the fluoroscopy suite.. FLUOROSCOPY DOSE AND TYPE: Radiation Exposure Index: None, COMPARISON: Outside CT abdomen pelvis from [facility] 06/09/2022 HISTORY: ORDERING SYSTEM PROVIDED HISTORY: [...] is noted as seen in the cecum. [facility] [employer] Work Phone: Radiology Study observation (narrative) [facility] [employer] Phone: Laboratory - Blood bankon Blood product type Nom (BPU) Leukocyte Reduced Red Cell [facility] Magnesiumon 06-11-2022 Magnesium [Mass/Vol] 2.4 mg/dL Normal 1.6-2.[address] [facility] Comment on above: Performed By: #### C DP, BMP #### [facility] [address] [place] [address] Roof Bolter Operator: Mariusz Estrada MD Magnesium [Mass/Vol] 2.4 mg/dL 1.6 - 2 .6 mg/dL [facility] [employer] No Panel InformationOrdered By: Etienne Rivers on 06-11-2022 [facility] [employer] Work Phone: No Panel Informationon 06-11 Crossmatch Result COMPATIBLE [facility] Dispense Status REL FROM [facility] Transfusion Status OK TO TRANSFUSE B ON [facility] Unit Divison [address] [facility] SURGICAL PATHOLOGY REPORTon 06-11-2022 Surgical Pathology Report [...] SURGICAL PATHOLOGY CONSULTATION Patient Name: KEVIN PEREA [facility] Rec: [id number] Path Number: [id number] [facility] [employer] [facility] [facility] ANATOMIC PATHOLOGY [address] [place] [id number] [facility] TYPE AND SCREENon 06-11-2022 ABO/Rh Positive [facility] MiRTLE Medical Arm Band Number BE [id number] [facility] Blood product unit ID (Dose) [#] [id number] [facility] Blood product unit ID (Dose) [#] [id number] [facility] [employer] Expiration Date 06/13/2022,2359 [facility] XR CHEST (SINGLE VIEW FRONTA L)on 06-11-2022 [...] Etienne Rivers MD 06/11/22 Final result Normal [facility] Right basilar bandlike opacity could represent [...] opacity could represent subsegmental atelectasis or infection [employer] Phone: Radiology Study observation (narrative) [employer] Phone: APTTon 06-10-2022 aPTT Coag (Bld) [Time] 24.0 s Normal 20.5-30.5 [facility] Comment on above: Result Comment: IV Heparin Therapy Range: 48.6-77.8 Performed By: #### M G, BMP, CDP #### [employer] [address] [place] [address] Roof Bolter Operator: Mariusz Estrada MD aPTT Coag (Bld) [Time] 24.0 s [facility] Comment on above: IV Heparin Therapy Range: 48.6-77.8 Basic Metab w/rfx MGon 06-10 Anion gap [Moles/Vol] 11 mmol/L Normal 9-17 [facility] Comment on above: Performed By: #### B MPX, CDP #### [employer] [address] [place] [address] [phone] Roof Bolter Operator: Mariusz Estrada MD Calcium [Mass/Vol] 8.6 mg/dL Normal 8.6-10.4 [facility] Comment on above: Performed By: #### B MPX, CDP #### [employer] [address] [place] [address] [phone] Roof Bolter Operator: Mariusz Estrada MD Chloride [Moles/Vol] 99 mmol/L Normal 98-[address] [facility] Comment on above: Performed By: #### B MPX, CDP #### [facility] [address] [place] [address] Roof Bolter Operator: Mariusz Estrada MD CO2 [Moles/Vol] 22 mmol/L Normal 20-31 [facility] Comment on above: Performed By: #### B MPX, CDP #### [facility] [address] [place] [address] Roof Bolter Operator: Mariusz Estrada MD Creatinine [Mass/Vol] 0.64 mg/dL Normal 0.50-0.90 [facility] Comment on above: Performed By: #### B MPX, CDP #### [address] [address] Roof Bolter Operator: Mariusz Estrada MD GFR/1.73 sq M.predicted among non-blacks MDRD (S/P/Bld) [Vol rate/Area] mL/min/{1.73_m2} Normal >60 [facility] Comment on above: Result Comment: These [...] Performed By: #### B MPX, CDP #### [address] [address] Roof Bolter Operator: Mariusz Estrada MD Glucose [Mass/Vol] 94 mg/dL Normal 70-99 [facility] Comment on above: Performed By: #### B MPX, CDP #### [facility] [address] [place] [address] Roof Bolter Operator: Mariusz Estrada MD Potassium [Moles/Vol] 3.8 mmol/L Normal 3.7-5.3 [facility] Comment on above: Performed By: #### B MPX, CDP #### [facility] [address] [place] [address] Roof Bolter Operator: Mariusz Estrada MD Sodium [Moles/Vol] 132 mmol/L Low 135-144 [facility] Comment on above: Performed By: #### B MPX, CDP #### [facility] [address] [place], [place] [phone] Roof Bolter Operator: Mariusz Estrada MD Urea nitrogen [Mass/Vol] 12 mg/dL Normal 8-23 [facility] Comment on above: Performed By: #### B MPX, CDP #### [facility] [address] [place] [address] [phone] Roof Bolter Operator: Mariusz Estrada MD Basic Metabolic Panelon 03-0 Anion gap [Moles/Vol] 15 mmol/L 9 - 17 mmol/L [facility] Calcium [Mass/Vol] 8.1 mg/dL Low 8.6 - 10. 4 mg/dL [facility] Chloride [Moles/Vol] 95 mmol/L Low 98 - 10 7 mmol/L [facility] CO2 [Moles/Vol] 20 mmol/L 20 - 31 mmol/L [facility] Creatinine [Mass/Vol] 0.5 mg/dL 0.50 - 0.90 mg/dL [facility] GFR/1.73 sq M.predicted MDRD (S/P/Bld) [Vol rate/Area] - PINF [facility] [employer] Comment on above: These results are not [...] 159 mg/dL High 70 - 99 mg/dL [facility] Potassium [Moles/Vol] 3.3 mmol/L Low 3.7 - 5.3 mmol/L [facility] Sodium [Moles/Vol] 130 mmol/L Low 135 - 144 mmol/L [facility] Urea nitrogen [Mass/Vol] 10 mg/dL 8 - 23 mg/dL [facility] Basic Metabolic Panel w/ Ref isaías to MGon 06-10-2022 Anion gap [Moles/Vol] 11 mmol/L 9 - 17 mmol/L [facility] Calcium [Mass/Vol] 8.6 mg/dL 8.6 - 10. 4 mg/dL [facility] Chloride [Moles/Vol] 99 mmol/L 98 - 10 7 mmol/L [facility] CO2 [Moles/Vol] 22 mmol/L 20 - 31 mmol/L [facility] Creatinine [Mass/Vol] 0.64 mg/dL 0.50 - 0.90 mg/dL [facility] GFR/1.73 sq M.predicted MDRD (S/P/Bld) [Vol rate/Area] - PINF [facility] Comment on above: These results are not [...] [Mass/Vol] 94 mg/dL 70 - 99 mg/dL [facility] Interpretation and review of laboratory results Abnormal [facility] Potassium [Moles/Vol] 3.8 mmol/L 3.7 - 5.3 mmol/L [facility] Sodium [Moles/Vol] 132 mmol/L Low 135 - 144 mmol/L [facility] Urea nitrogen [Mass/Vol] 12 mg/dL 8 - 23 mg/dL [facility] Basic Metabolic Profon 06-10 Anion gap [Moles/Vol] 15 mmol/L Normal 9-17 [facility] Comment on above: Performed By: #### JULEE Pimentel, BMP #### [facility] [address] [place] [address] Roof Bolter Operator: Mariusz Estrada MD Calcium [Mass/Vol] 8.1 mg/dL Low 8.6-10.4 [facility] Comment on above: Performed By: #### JULEE Pimentel, BMP #### [address] [address] Roof Bolter Operator: Mariusz Estrada MD Chloride [Moles/Vol] 95 mmol/L Low 98-[address] [facility] Comment on above: Performed By: #### JULEE Pimentel, BMP #### [facility] [address] [place] [address] Roof Bolter Operator: Mariusz Estrada MD CO2 [Moles/Vol] 20 mmol/L Normal 20-31 [facility] Comment on above: Performed By: #### JULEE Pimentel, BMP #### [facility] [address] [place] [address] Roof Bolter Operator: Mariusz Estrada MD Creatinine [Mass/Vol] 0.50 mg/dL Normal 0.50-0.90 [facility] Comment on above: Performed By: #### JULEE Pimentel, BMP #### [address] [address] Roof Bolter Operator: Mariusz Estrada MD GFR/1.73 sq M.predicted among non-blacks MDRD (S/P/Bld) [Vol rate/Area] mL/min/{1.73_m2} Normal >60 [facility] Comment on above: Result Comment: These [...] affects renal tubular secretion. Performed By: #### M JULEE Herrera, BMP #### [facility] [address] [place] [address] Roof Bolter Operator: Mariusz Estrada MD Glucose [Mass/Vol] 159 mg/dL High 70-99 [facility] Comment on above: Performed By: #### JULEE Pimentel, BMP #### [facility] [address] [place] [address] Roof Bolter Operator: Mariusz Estrada MD Potassium [Moles/Vol] 3.3 mmol/L Low 3.7-5.3 [facility] Comment on above: Performed By: #### JULEE Pimentel, BMP #### [facility] [address] [place] [address] Roof Bolter Operator: Mariusz Estrada MD Sodium [Moles/Vol] 130 mmol/L Low 135-144 [facility] Comment on above: Performed By: #### JULEE Pimentel, BMP #### [facility] [address] [place] [address] Roof Bolter Operator: Mariusz Estrada MD Urea nitrogen [Mass/Vol] 10 mg/dL Normal 8-23 [facility] Comment on above: Performed By: #### JULEE Pimentel, BMP #### [facility] [address] [place] [address] Roof Bolter Operator: Mariusz Estrada MD CBC with Auto Differentialon 06-10-2022 Absolute Eos # 0.00 [facility] Absolute Immature Granulocyte 0.00 [facility] Absolute Lymph # 0.29 Low [facility] Absolute Boyd # 0.37 [facility] Basophils (Bld) [#/Vol] 0.00 10*3/uL [facility] Basophils/100 WBC (Bld) 0 % 0 - 2 % [facility] Eosinophils/100 WBC (Bld) 0 % Low 1 - 4 % [facility] Hematocrit (Bld) [Volume fraction] 34.0 % Low 36.3 - 47.1 % [facility] Hemoglobin (Bld) [Mass/Vol] 10.3 g/dL Low 11.9 - 15.1 g/dL [facility] Immature granulocytes/100 WBC (Bld) 0 % 0 [facility] Interpretation and review of laboratory results Abnormal [facility] Lymphocytes/100 WBC (Bld) 4 % Low 24 - 44 % [facility] MCH (RBC) [Entitic mass] 24.1 pg Low 25.2 - 33.5 pg [facility] MCHC (RBC) [Mass/Vol] 30.3 g/dL 28.4 - 34.8 g/dL [facility] MCV (RBC) [Entitic vol] 79.4 fL Low 82.6 - 102.9 fL [facility] Monocytes/100 WBC (Bld) 5 % 1 - 7 % [facility] Morphology Jamie (Bld) [Interp] ANISOCYTOSIS PRESENT [facility] Morphology Jamie (Bld) [Interp] MICROCYTOSIS PRESENT [facility] NRBC Automated 0.0 0.0 per 100 WBC [facility] Platelet distribution width (Bld) [Ratio] 17.3 % High 11.8 - 14.4 % [facility] Platelet mean volume (Bld) [Entitic vol] 11.1 fL 8.1 - 13.5 fL [facility] Platelets (Bld) [#/Vol] 200 10*3/uL [facility] RBC (Bld) [#/Vol] 4.28 10*6/uL 3.95 - 5.1 1 m/uL [facility] Segmented neutrophils/100 WBC (Bld) 91 % High 36 - 66 % [facility] Segs Absolute 6.64 [facility] WBC (Bld) [#/Vol] 7.3 10*3/uL [facility] Absolute Eos # 0.08 [facility] Absolute Immature Granulocyte [facility] Absolute Lymph # 1.38 [facility] Absolute Boyd # 0.58 [facility] Basophils (Bld) [#/Vol] 0.04 10*3/uL [facility] Basophils/100 WBC (Bld) 1 % 0 - 2 % [facility] Eosinophils/100 WBC (Bld) 1 % 1 - 4 % [facility] Hematocrit (Bld) [Volume fraction] 34.3 % Low 36.3 - 47.1 % [facility] Hemoglobin (Bld) [Mass/Vol] 10.5 g/dL Low 11.9 - 15.1 g/dL [facility] Immature granulocytes/100 WBC (Bld) 0 % 0 [facility] Interpretation and review of laboratory results Abnormal [facility] Lymphocytes/100 WBC (Bld) 24 % 24 - 43 % [facility] MCH (RBC) [Entitic mass] 24.0 pg Low 25.2 - 33.5 pg [facility] MCHC (RBC) [Mass/Vol] 30.6 g/dL 28.4 - 34.8 g/dL [facility] MCV (RBC) [Entitic vol] 78.3 fL Low 82.6 - 102.9 fL [facility] Monocytes/100 WBC (Bld) 10 % 3 - 12 % [facility] NRBC Automated 0.0 0.0 per 100 WBC [facility] Platelet distribution width (Bld) [Ratio] 17.4 % High 11.8 - 14.4 % [facility] Platelet mean volume (Bld) [Entitic vol] 11.4 fL 8.1 - 13.5 fL [facility] Platelets (Bld) [#/Vol] 245 10*3/uL [facility] RBC (Bld) [#/Vol] 4.38 10*6/uL 3.95 - 5.1 1 m/uL [facility] RBC (Bld) [#/Vol] ANISOCYTOSIS PRESENT [facility] Comment on above: MICROCYTOSIS PRESENT Segmented neutrophils/100 WBC (Bld) 64 % 36 - 65 % [facility] Segs Absolute 3.55 [facility] WBC (Bld) [#/Vol] 5.7 10*3/uL [facility] CBC with Diffon 06-10-2022 Abs. Basophil 0.00 k/uL Normal 0.0-0.2 [facility] Comment on above: Performed By: #### C DP, BMP #### [address] [address] Roof Bolter Operator: Mariusz Estrada MD Abs.Imm.Granulocyte 0.00 k/uL Normal 0.00-0.30 [facility] Comment on above: Performed By: #### C DP, BMP #### [address] [address] Roof Bolter Operator: Mariusz Estrada MD Abs.Neutrophil (Seg) 6.64 k/uL Normal 1.8-7.[address] [facility] Comment on above: Performed By: #### C DP, BMP #### [address] [address] Roof Bolter Operator: Mariusz Estrada MD Basophils/100 WBC (Bld) 0 % Normal 0-2 [facility] Comment on above: Performed By: #### C DP, BMP #### [address] [address] Roof [employer]ter Operator: Mariusz Estrada MD Eosinophils (Bld) [#/Vol] 0.00 10*3/uL Normal 0.0-0.4 [facility] Comment on above: Performed By: #### C DP, BMP #### [address] [address] Roof [employer]ter Operator: Mariusz Estrada MD Eosinophils/100 WBC (Bld) 0 % Low 1-4 [facility] Comment on above: Performed By: #### C DP, BMP #### [address] [address] Roof [employer]ter Operator: Mariusz Estrada MD Immature granulocytes/100 WBC (Bld) 0 % Normal 0 [facility] Comment on above: Performed By: #### C DP, BMP #### [address] [address] Roof [employer]ter Operator: Mariusz Estrada MD Lymphocytes (Bld) [#/Vol] 0.29 10*3/uL Low 1.0-4.8 [facility] Comment on above: Performed By: #### C DP, BMP #### [address] [address] Roof Bolter Operator: Mariusz Estrada MD Lymphocytes/100 WBC (Bld) 4 % Low 24-44 [facility] Comment on above: Performed By: #### C DP, BMP #### [address] [address] Roof Bolter Operator: Mariusz Estrada MD Monocytes (Bld) [#/Vol] 0.37 10*3/uL Normal 0.1-0.8 [facility] Comment on above: Performed By: #### C DP, BMP #### [address] [address] Roof Bolter Operator: Mariusz Estrada MD Monocytes/100 WBC (Bld) 5 % Normal 1-7 [facility] Comment on above: Performed By: #### C DP, BMP #### [address] [address] Roof [employer]ter Operator: Mariusz Estrada MD Morphology Jamie (Bld) [Interp] ANISOCYTOSIS PRESENT Normal [facility] Comment on above: Result Comment: MICR OCYTOSIS PRESENT Performed By: #### C DP, BMP #### [address] [address] Roof [employer]ter Operator: Mariusz Estrada MD Neutrophil (Seg) 91 % High 36-66 [facility] Comment on above: Performed By: #### C DP, BMP #### [facility] [address] [place] [address] Roof Bolter Operator: Mariusz Estrada MD Erythrocyte distribution width (RBC) [Ratio] 17.3 % High 11.8-14.4 [facility] Comment on above: Performed By: #### C DP, BMP #### [address] [address] Roof [employer]ter Operator: Mariusz Estrada MD Hematocrit (Bld) [Volume fraction] 34.0 % Low 36.3-47.1 [facility] Comment on above: Performed By: #### C DP, BMP #### [address] [address] [employer] Operator: Mariusz Estrada MD Hemoglobin (Bld) [Mass/Vol] 10.3 g/dL Low 11.9-15.1 [facility] Comment on above: Performed By: #### C DP, BMP #### [address] [address] [employer] Operator: Mariusz Estrada MD MCH (RBC) [Entitic mass] 24.1 pg Low 25.2-33.5 [facility] Comment on above: Performed By: #### C DP, BMP #### [address] [address] Ro[employer]ter Operator: Mariusz Estrada MD MCHC (RBC) [Mass/Vol] 30.3 g/dL Normal 28.4-34.8 [facility] Comment on above: Performed By: #### C DP, BMP #### [facility] [address] [place] [address] Roof [employer]ter Operator: Mariusz Estrada MD MCV (RBC) [Entitic vol] 79.4 fL Low 82.6-102.9 [facility] Comment on above: Performed By: #### C DP, BMP #### [address] [address] [employer] Operator: Mariusz Estrada MD NRBC Automated 0.0 per 100 WBC Normal 0.0 [facility] Comment on above: Performed By: #### C DP, BMP #### [address] [address] Roof [employer]ter Operator: Mariusz Estrada MD Platelet mean volume (Bld) [Entitic vol] 11.1 fL Normal 8.1-13.5 [facility] Comment on above: Performed By: #### C DP, BMP #### [address] [address] [employer] Operator: Mariusz Estrada MD Platelets (Bld) [#/Vol] 200 10*3/uL Normal 138-453 [facility] Comment on above: Performed By: #### C DP, BMP #### [address] [address] [employer] Operator: Mariusz Estrada MD RBC (Bld) [#/Vol] 4.28 10*6/uL Normal 3.95-5.11 [facility] Comment on above: Performed By: #### C DP, BMP #### [address] [address] [employer]ter Operator: Mariusz Estrada MD WBC (Bld) [#/Vol] 7.3 10*3/uL Normal 3.5-11.3 [facility] Comment on above: Performed By: #### C DP, BMP #### [address] [address] [employer] Operator: Mariusz Estrada MD Abs. Basophil 0.04 k/uL Normal 0.00-0.20 [facility] Comment on above: Performed By: #### B MPX, CDP #### [address] [address] [employer]ter Operator: Mariusz Estrada MD Abs.Imm.Granulocyte <0.03 Normal 0.00-0.30 [facility] Comment on above: Performed By: #### B MPX, CDP #### [place] [address] [employer]ter Operator: Mariusz Estrada MD Abs.Neutrophil (Seg) 3.55 k/uL Normal 1.50-8.[address] [facility] Comment on above: Performed By: #### B MPX, CDP #### [place] [address] Roof Bolter Operator: Mariusz Estrada MD Basophils/100 WBC (Bld) 1 % Normal 0-2 [facility] Comment on above: Performed By: #### B MPX, CDP #### [place] [address] [employer]ter Operator: Mariusz Estrada MD Eosinophils (Bld) [#/Vol] 0.08 10*3/uL Normal 0.00-0.44 [facility] Comment on above: Performed By: #### B MPX, CDP #### [place] [address] [employer]ter Operator: Mariusz Estrada MD Eosinophils/100 WBC (Bld) 1 % Normal 1-4 [facility] Comment on above: Performed By: #### B MPX, CDP #### [place] [address] [employer]ter Operator: Mariusz Estrada MD Erythrocyte distribution width (RBC) [Ratio] 17.4 % High 11.8-14.4 [facility] Comment on above: Performed By: #### B MPX, CDP #### [facility] [address] [place] [address] Roof Bolter Operator: Mariusz Estrada MD Hematocrit (Bld) [Volume fraction] 34.3 % Low 36.3-47.1 [facility] Comment on above: Performed By: #### B MPX, CDP #### [facility] [address] [place] [address] Roof Bolter Operator: Mariusz Estrada MD Hemoglobin (Bld) [Mass/Vol] 10.5 g/dL Low 11.9-15.1 [facility] Comment on above: Performed By: #### B MPX, CDP #### [facility] [address] [place] [address] Roof Bolter Operator: Mariusz Estrada MD Immature granulocytes/100 WBC (Bld) 0 % Normal 0 [facility] Comment on above: Performed By: #### B MPX, CDP #### [facility] [address] [place] [address] Roof Bolter Operator: Mariusz Estrada MD Lymphocytes (Bld) [#/Vol] 1.38 10*3/uL Normal 1.10-3.70 [facility] Comment on above: Performed By: #### B MPX, CDP #### [address] [address] Roof Bolter Operator: Mariusz Esrtada MD Lymphocytes/100 WBC (Bld) 24 % Normal 24-43 [facility] Comment on above: Performed By: #### B MPX, CDP #### [facility] [address] [place] [address] Roof Bolter Operator: Mariusz Estrada MD MCH (RBC) [Entitic mass] 24.0 pg Low 25.2-33.5 [facility] Comment on above: Performed By: #### B MPX, CDP #### [facility] [address] [place] [address] Roof Bolter Operator: Mariusz Estrada MD MCHC (RBC) [Mass/Vol] 30.6 g/dL Normal 28.4-34.8 [facility] Comment on above: Performed By: #### B MPX, CDP #### [facility] [address] [place] [address] Roof Bolter Operator: Mariusz Estrada MD MCV (RBC) [Entitic vol] 78.3 fL Low 82.6-102.9 [facility] Comment on above: Performed By: #### B MPX, CDP #### [address] [address] Roof Bolter Operator: Mariusz Estrada MD Monocytes (Bld) [#/Vol] 0.58 10*3/uL Normal 0.10-1.20 [facility] Comment on above: Performed By: #### B MPX, CDP #### [address] [address] Roof Bolter Operator: Mariusz Estrada MD Monocytes/100 WBC (Bld) 10 % Normal 3-12 [facility] Comment on above: Performed By: #### B MPX, CDP #### [address] [address] Roof Bolter Operator: Mariusz Estrada MD Neutrophil (Seg) 64 % Normal 36-65 [facility] Comment on above: Performed By: #### B MPX, CDP #### [address] [address] Roof Bolter Operator: Mariusz Estrada MD NRBC Automated 0.0 per 100 WBC Normal 0.0 [facility] Comment on above: Performed By: #### B MPX, CDP #### [address] [address] Roof Bolter Operator: Mariusz Estrada MD Platelet mean volume (Bld) [Entitic vol] 11.4 fL Normal 8.1-13.5 [facility] Comment on above: Performed By: #### B MPX, CDP #### [address] [address] Roof Bolter Operator: Mariusz Estrada MD Platelets (Bld) [#/Vol] 245 10*3/uL Normal 138-453 [facility] Comment on above: Performed By: #### B MPX, CDP #### [facility] [place] [address] Roof Bolter Operator: Mariusz Estrada MD RBC (Bld) [#/Vol] 4.38 10*6/uL Normal 3.95-5.11 [facility] Comment on above: Performed By: #### B MPX, CDP #### [facility] [place] [address] Roof Bolter Operator: Mariusz Estrada MD RBC morphology finding Nom (Bld) ANISOCYTOSIS PRESENT Normal [facility] Comment on above: Result Comment: MICR OCYTOSIS PRESENT Performed By: #### B MPX, CDP #### [facility] [address] [place] [address] Roof Bolter Operator: Mariusz Estrada MD WBC (Bld) [#/Vol] 5.7 10*3/uL Normal 3.5-11.3 [facility] Comment on above: Performed By: #### B MPX, CDP #### [facility] [address] [place] [address] Roof Bolter Operator: Mariusz Estrada MD CT ABD/PELV W CONon [...] JUAN SALDIVAR Date: 2022-06-09 22:39 Normal [facility] Covid-19 PCR (CVDTB)on SARS-CoV-2 (COVID-19) RNA AMPARO+probe Ql (Unsp spec) Not detected Normal NOT DETECTED [facility] Comment on above: Result Comment: When diagnostic [...] for this test is supported by the [place] of Health and Human Service's declaration that [...] used). Performed By: #### C BC #### [facility] [address] [place] [address] Dr. Joann Atkins Lactate, Sepsison 06-10-2022 Lactic Acid,Sep Wbld 1.1 mmol/L Normal 0.5-1.[address] [facility] Comment on above: Performed By: #### MICKY Pimentel CDP #### [facility] [address] [place] [address] Roof Bolter Operator: Mariusz Estrada MD Lactic Acid, Sepsis, Whole Blood 1.1 mmol/L 0.5 - 1.9 mmol/L [facility] Magnesiumon 06-10-2022 Magnesium [Mass/Vol] 1.5 mg/dL Low 1.6-2.[address] [facility] Comment on above: Performed By: #### JULEE Pimentel, BMP #### [facility] [address] [place] [address] Roof Bolter Operator: Mariusz Estrada MD Magnesium [Mass/Vol] 1.5 mg/dL Low 1.6 - 2 .6 mg/dL [facility] No Panel Informationon 06-10 Interpretation and review of laboratory results Abnormal [facility] PTon 06-10-2022 INR Coag (PPP) [Relative time] 0.9 {INR} Normal [facility] Comment on above: Result Comment: Therapeutic Range: Moderate Anticoagulant Intensity: INR = 2.0-3.0 High Anticoagulant Intensity: INR = 2.5-3.5 Performed By: #### MICKY Pimentel, CDP #### [facility] [address] [place], [place] [id number] Roof Bolter Operator: Mariusz Estrada MD PT Coag (PPP) [Time] 9.7 s Normal 9.1-12.[address] [facility] Comment on above: Performed By: #### MICKY Pimentel, CDP #### [facility] [address] [place] [address] Roof Bolter Operator: Mariusz Estrada MD Protime-INRon 06-10-2022 INR Coag (PPP) [Relative time] 0.9 {INR} [facility] Comment on above: Therapeutic Range: Moderate Anticoagulant Intensity: INR = 2.0-3.0 High Anticoagulant Intensity: INR = 2.5-3.5 PT Coag (PPP) [Time] 9.7 s [facility] Surgical Pathologyon 023 Surgical Pathology (NOTE) -- Diagnosis -- APPENDIX, LAPAROSCOPIC APPENDECTOMY:-BENIGN APPENDIX WITH SEROSAL CONGESTION, CONSISTENT WITH ADHESIONS. Kandice Ni Electronically Signed Out ag/06/11/2022 Clinical Information Pre-op Diagnosis: GASTROINTESTINAL PROBLEM Operative [...] SURGICAL PATHOLOGY CONSULTATION Patient Name: KEVIN PEREA [facility] Rec: [id number] Path Number: [id number] [facility] [address] [place] [phone] Normal [facility] Comment on above: Performed By: #### C DP, BMP #### [address] [id number] Roof Bolter Operator: Mariusz Estrada MD Type + Screenon 06-10-2022 Type + Screen Sample Expiration 06/13/2022,2359 Arm Band Number [id number] ABO/Rh(D) O POSITIVE Antibody Screen NEGATIVE Unit Number [id number] Blood Component Type Leukocyte Reduced Red Cell Unit Division 00 Status of Unit REL FROM ALLOC Transfusion Status OK TO TRANSFUSE Crossmatch Result COMPATIBLE Unit Number [id number] Blood Component Type Leukocyte Reduced Red Cell Unit Division 00 Status of Unit REL FROM ALLOC Transfusion Status OK TO TRANSFUSE Crossmatch Result COMPATIBLE Normal [facility] Comment on above: Performed By: #### T YS #### [address] [id number] Roof Bolter Operator: Mariusz Estrada MD CBC AUTO DIFFon 06-09-2022 BASO # 0.0 103/ul Normal 0.0-0.1 [facility] Comment on above: Performed By: #### C BC #### [facility] [address] [address] [address] Joann Atkins Basophils/100 WBC (Bld) 0.6 % Normal 0.2-2.0 [facility] Comment on above: Performed By: #### C BC #### [facility] [address] [address] [address] Joann Atkins EO # 0.2 103/ul Normal 0.0-0.7 [facility] Comment on above: Performed By: #### C BC #### [facility] [address] [place] [address] Dr. Joann Atkins Eosinophils/100 WBC (Bld) 3.7 % Normal 0.9-7.0 [facility] Comment on above: Performed By: #### C BC #### [facility] [address] [place] [address] Dr. Joann Atkins Erythrocyte distribution width (RBC) [Ratio] 17.6 % Critically high 11.0-15.0 [facility] Comment on above: Performed By: #### C BC #### [facility] [address] [place] [address] Dr. Joann Atkins Hematocrit (Bld) [Volume fraction] 36.8 % Normal 36.0-48.0 [facility] Comment on above: Performed By: #### C BC #### [facility] [address] [place] [address] Dr. Joann Atkins Hemoglobin (Bld) [Mass/Vol] 11.5 g/dL Critically low 12.0-16.0 [facility] Comment on above: Performed By: #### C BC #### [facility] [address] [place] [address] Dr. Joann Atkins IG # 0.01 10e3/ul Normal 0.00-0.03 [facility] Comment on above: Performed By: #### C BC #### [facility] [address] [place] [address] Dr. Joann Atkins IG % 0.2 % Normal 0.0-0.5 [facility] Comment on above: Performed By: #### C BC #### [facility] [address] [place] [address] Dr. Joann Atkins LYMPH # 1.9 103/ul Normal 1.2-3.8 [facility] Comment on above: Performed By: #### C BC #### [facility] [address] [place] [address] Dr. Joann Atkins Lymphocytes/100 WBC (Bld) 39.2 % Normal 20.5-60.0 [facility] Comment on above: Performed By: #### C BC #### [facility] [address] [place] [address] Dr. Joann Atkins MANUAL DIFF REQ NO Normal [facility] Comment on above: Performed By: #### C BC #### [facility] [address] [place] [address] Dr. Joann Atkins MCH (RBC) [Entitic mass] 24.2 pg Critically low 26.7-34.0 [facility] Comment on above: Performed By: #### C BC #### [facility] [address] [place] [address] Dr. Joann Atkins MCHC (RBC) [Mass/Vol] 31.3 g/dL Normal 29.9-35.2 [facility] Comment on above: Performed By: #### C BC #### [facility] [address] [place] [address] Dr. Joann Atkins MCV (RBC) [Entitic vol] 77.5 fL Critically low 81.0-99.0 [facility] Comment on above: Performed By: #### C BC #### [facility] [address] [place] [address] Dr. Joann Atkins MONO # 0.5 103/ul Normal 0.3-0.8 [facility] Comment on above: Performed By: #### C BC #### [facility] [address] [place] [address] Dr. Joann Atkins Monocytes/100 WBC (Bld) 9.9 % Normal 1.7-12.0 [facility] Comment on above: Performed By: #### C BC #### [facility] [address] [place] [address] Dr. Joann Atkins NEUT # 2.3 103/ul Normal 1.4-6.5 [facility] Comment on above: Performed By: #### C BC #### [facility] [address] [place] [address] Dr. Joann Atkins Neutrophils/100 WBC (Bld) 46.4 % Normal 43.0-75.0 [facility] Comment on above: Performed By: #### C BC #### [facility] [address] [place] [address] Dr. Joann Atkins Platelet mean volume (Bld) [Entitic vol] 10.6 fL Normal 9.5-13.5 [facility] Comment on above: Performed By: #### C BC #### [facility] [address] [place] [address] Dr. Joann Atkins PLT 269 103/ul Normal 150-450 [facility] Comment on above: Performed By: #### C BC #### [facility] [address] [place] [address] Dr. Joann Atkins RBC 4.75 106/ul Normal 4.20-5.40 [facility] Comment on above: Performed By: #### C BC #### [facility] [address] [place] [address] Dr. Joann Atkins WBC 4.9 103/ul Normal 4.0-11.0 [facility] Comment on above: Performed By: #### C BC #### [facility] [address] [place] [address] Dr. Joann Atkins CULTURE URINEon 06-09-2022 CULTURE URINE Culture Observations : MODERATE GROWTH OF MIXED GENITAL RONNI. NO POTENTIAL PATHOGENS SEEN. Normal [facility] Comment on above: Performed By: #### U RCX #### [facility] [address] [place] [address] Dr. Joann Atkins ER URINE PROFILEon 3 Bilirubin Ql (U) Negative Normal NEGATIVE [facility] Comment on above: Performed By: #### CHRISTOPH CAMPOSRO #### [facility] [address] [place] [address] Dr. Joann Atkins Clarity (U) CLEAR Normal CLEAR [facility] Comment on above: Performed By: #### CHRISTOPH CAMPOSRO #### [facility] [address] [place] [address] Dr. Joann Atkins Color (U) LT. YELLOW Normal YELLOW [facility] Comment on above: Performed By: #### CHRISTOPH CAMPOSRO #### [facility] [address] [place] [address] Dr. Joann LARSON A micrscopic examination will be performed if indicated. Normal [facility] Comment on above: Performed By: #### Carmen MOLINA UMICRO #### [facility] [address] [place] [address] Dr. Joann Atkins Glucose Ql (U) Negative Normal NEGATIVE [facility] Comment on above: Performed By: #### Carmen MOLINA, UMICRO #### [facility] [address] [place] [address] Dr. Joann Atkins Hemoglobin Ql (U) TRACE-INTACT Abnormal NEGATIVE [facility] Comment on above: Performed By: #### E TRACY, UMICRO #### [facility] [address] [place] [address] Dr. Joann Atkins Ketones Ql (U) Negative Normal NEGATIVE [facility] Comment on above: Performed By: #### Carmen MOLINA, UMICRO #### [facility] [address] [place] [address] Dr. Joann Atkins LEUKOCYTES SMALL Abnormal NEGATIVE [facility] Comment on above: Performed By: #### Carmen MOLINA UMICRO #### [facility] [address] [place] [address] Dr. Joann Atkins Nitrite Ql (U) Negative Normal NEGATIVE [facility] Comment on above: Performed By: #### Carmen MOLINA UMICRO #### [facility] [address] [place] [address] Dr. Joann Atkins pH (U) 5.5 [pH] Normal 5-9 [facility] Comment on above: Performed By: #### Carmen MOLINA UMICRO #### [facility] [address] [place] [address] Dr. Joann Atkins SPEC GRAVITY >=1.030 Abnormal 1.005-<=1.02 5 [facility] Comment on above: Performed By: #### Carmen MOLINA UMICRO #### [facility] [address] [place] [address] Dr. Joann Atkins UA PROTEIN Negative Normal NEGATIVE/ TRACE [facility] Comment on above: Performed By: #### Carmen MOLINA UMICRO #### [facility] [address] [place] [address] Dr. Joann Atkins UR MICRO IND INDICATED Normal [facility] Comment on above: Performed By: #### Carmen MOLINA UMICRO #### [facility] [address] [place] [address] Dr. Joann Atkins Urobilinogen Qn (U) 0.2 {Abilio'U}/dL Normal 0.2 - 1. 0 [facility] Comment on above: Performed By: #### E CHRIS MOLINA #### [facility] [address] [place] [address] Dr. Joann Atkins LACTATE/LACTIC ACIDon 2022 Lactate [Moles/Vol] 1.3 mmol/L Normal 0.4-1.9 [facility] Comment on above: Performed By: #### L ACT #### [facility] [address] [place] [address] Dr. Joann Atkins LIPASEon 06-09-2022 Lipase [Catalytic activity/Vol] 235.0 U/L Normal 73.0-393.0 [facility] Comment on above: Performed By: #### C MP, HSTROPN, LIPA #### [facility] [address] [place] [address] Dr. Joann Atkins PROF 14(COMP METB)on 023 Albumin [Mass/Vol] 4.1 g/dL Normal 3.4-5.0 [facility] Comment on above: Performed By: #### C MP, HSTROPN, LIPA #### [facility] [address] [place] [address] Dr. Joann Atkins Albumin/Globulin [Mass ratio] 1.0 {ratio} Normal [facility] Comment on above: Performed By: #### C MP, HSTROPN, LIPA #### [facility] [address] [place] [address] Dr. Joann Atkins ALP [Catalytic activity/Vol] 124 U/L Critically high 46-116 [facility] Comment on above: Performed By: #### C MP, HSTROPN, LIPA #### [facility] [address] [place] [address] Dr. Joann Atkins ALT [Catalytic activity/Vol] 15 U/L Normal 14-59 [facility] Comment on above: Performed By: #### C MP, HSTROPN, LIPA #### [facility] [address] [address] [address] Joann Atkins Anion gap [Moles/Vol] 14.0 mmol/L Normal [facility] Comment on above: Performed By: #### C MP, HSTROPN, LIPA #### [facility] [address] [place] [address] Dr. Joann Atkins AST [Catalytic activity/Vol] 14 U/L Critically low 15-37 [facility] Comment on above: Performed By: #### C MP, HSTROPN, LIPA #### [facility] [address] [place] [address] Dr. Joann Atkins Bilirubin [Mass/Vol] 0.2 mg/dL Normal 0.2-1.0 [facility] Comment on above: Performed By: #### C MP, HSTROPN, LIPA #### [facility] [address] [place] [address] Dr. Joann Atkins Calcium [Mass/Vol] 8.8 mg/dL Normal 8.5-10.1 [facility] Comment on above: Performed By: #### C MP, HSTROPN, LIPA #### [facility] [address] [place] [address] Dr. Joann Atkins Chloride [Moles/Vol] 103 mmol/L Normal 98-107 [facility] Comment on above: Performed By: #### C MP, HSTROPN, LIPA #### [facility] [address] [address] [address] Joann Atkins CO2 [Moles/Vol] 25.6 mmol/L Normal 21.0-32.0 [facility] Comment on above: Performed By: #### C MP, HSTROPN, LIPA #### [facility] [address] [place] [address] Dr. Joann Atkins Creatinine [Mass/Vol] 0.89 mg/dL Normal 0.55-1.02 [facility] Comment on above: Performed By: #### C MP, HSTROPN, LIPA #### [facility] [address] [address] [address] Joann Atkins EGFR-AF SWAZI >60 Normal >=60 [facility] Comment on above: Performed By: #### C MP, HSTROPN, LIPA #### [facility] [address] [address] [address] Joann Atkins EGFR-NON AF SWAZI >60 Normal >=60 [facility] Comment on above: Performed By: #### C MP, HSTROPN, LIPA #### [facility] [address] [address] [address] Joann Atkins Globulin (S) [Mass/Vol] 4.0 g/dL Normal [facility] Comment on above: Performed By: #### C MP, HSTROPN, LIPA #### [facility] [address] [place] [address] Dr. Joann Atkins Glucose [Mass/Vol] 115 mg/dL Critically high 74-106 [facility] Comment on above: Performed By: #### C MP, HSTROPN, LIPA #### [facility] [address] [address] [address] Joann Atkins Potassium [Moles/Vol] 3.6 mmol/L Normal 3.5-5.1 [facility] Comment on above: Performed By: #### C MP, HSTROPN, LIPA #### [facility] [address] [place] [address] Dr. Joann Atkins Protein [Mass/Vol] 8.1 g/dL Normal 6.4-8.2 [facility] Comment on above: Performed By: #### C MP, HSTROPN, LIPA #### [facility] [address] [address] [address] Joann Atkins Sodium [Moles/Vol] 139 mmol/L Normal 136-145 [facility] Comment on above: Performed By: #### C MP, HSTROPN, LIPA #### [facility] [address] [address] [address] Joann Atkins Urea nitrogen [Mass/Vol] 17.0 mg/dL Normal 7.0-18.0 [facility] Comment on above: Performed By: #### C MP, HSTROPN, LIPA #### [facility] [address] [place] [address] Dr. Joann Atkins Urea nitrogen/Creatinine [Mass ratio] 19.1 mg/mg Normal [facility] Comment on above: Performed By: #### C MP, HSTROPN, LIPA #### [facility] [address] [place] [address] Dr. Joann Atkins TROPONIN, HIGH SENSITIVITYon 06-09-2022 HSTROP 20.5 pg/mL Normal 4.0-51.3 [facility] Comment on above: Result Comment: CUT- OFF POINTS HAVE BEEN ESTABLISHED BASED ON THE FOURTH UNIVERSAL DEFINITIONS OF MYOCARDIAL INFARCTION. THE UPPER REFERENCE LIMIT (URL) OF TROPONIN, DEFINED THE 99TH PERCENTILE OF cTnI DISTRIBUTION IN A REFERENCE POPULATION, HAS BEEN CONFIRMED THE DECISION THRESHOLD FOR DC DIAGNOSIS. Performed By: #### C CLIFFORD HSTROPN, LIPA #### [facility] [address] [place] [address] Dr. Joann Atkins URINE MICROSCOPIC ONLYon BACTERIA NONE SEEN Normal NONE SEEN [facility] Comment on above: Performed By: #### C BC #### [facility] [address] [place] [address] Dr. Joann Atkins Bacteria identified Cx Nom (U) INDICATED Normal [facility] Comment on above: Performed By: #### C BC #### [facility] [address] [place] [address] Dr. Joann Atkins CAST NONE SEEN Normal NONE SEEN [facility] Comment on above: Performed By: #### C BC #### [facility] [address] [place] [address] Dr. Joann Atkins Crystals LM Nom (Urine sed) NONE SEEN Normal NONE SEEN [facility] Comment on above: Performed By: #### C BC #### [facility] [address] [place] [address] Dr. Joann Atkins Epithelial cells LM Ql (Urine sed) RARE Normal NONE SEEN /RARE [facility] Comment on above: Performed By: #### C BC #### [facility] [address] [address] [address] Joann Atkins MUCOUS NONE SEEN Normal NONE SEEN [facility] Comment on above: Performed By: #### C BC #### [facility] [address] [address] [address] Joann Atkins RBC 0-2 Normal 0-2 [facility] Comment on above: Performed By: #### C BC #### [facility] [address] [address] [address] Joann Atkins WBC 10-20 Abnormal NONE SEEN [facility] Comment on above: Performed By: #### C BC #### [facility] [address] [place] [address] Dr. Joann Atkins Vital Signs Date Time Vital Sign Value Performing Clinician Facility 11-18-2022 15:30-0400 Body height 144.78 cm Amee Mancilla Other [facility] Other 11-18-2022 15:30-0400 Body mass index (BMI) [Ratio] 26.83 kg/m2 Amee Mancilla Other [facility] Other 11-18-2022 15:30-0400 Body weight 56.25 kg Amee Mancilla Other [facility] Other 11-18-2022 15:30-0400 Diastolic blood pressure 77 mm[Hg] Amee Mancilla Other [facility] Other 11-18-2022 15:30-0400 Systolic blood pressure 118 mm[Hg] Amee Mancilla Other [facility] Other 06-15-2022 09:19-0400 Body temperature 98.01 [degF] Roxana Lopez MD Work Phone: [facility] 06-15-2022 09:19-0400 Diastolic blood pressure 70 mm[Hg] Roxana Lopez MD Work Phone: [facility] [employer] 06-15-2022 09:19-0400 Heart rate 61 /min Roxana Lopez MD Work Phone: [facility] [employer] 06-15-2022 09:19-0400 Respiratory rate 16 /min Roxana Lopez MD Work Phone: [facility] [employer] 06-15-2022 09:19-0400 SaO2% (BldA) [Mass fraction] 91 % Roxana Lopez MD Work Phone: [facility] [employer] [facility] 06-15-2022 09:19-0400 Systolic blood pressure 136 mm[Hg] Roxana Lopez MD Work Phone: [facility] 06-14-2022 06:00-0500 Body mass index (BMI) [Ratio] 28.23 kg/m2 Rxoana Lopez MD Work Phone: [facility] [employer] 06-14-2022 06:00-0500 Body weight 63.4 kg Roxana Lopez MD Work Phone: [facility] [employer] [facility] 06-10-2022 12:45-0500 Body height 149.9 cm Roxana Lopez MD Work Phone: [facility] [employer] Encounters Encounter Date Encounter Type Care Provider Facility Start: 06-09-2023 End: 06-10-2023 ambulatory AMEE LAURENT [facility] Start: 05-12-2023 End: 05-13-2023 ambulatory ASTRID Moralesy [facility] Start: 04-14-2023 End: 04-15-2023 ambulatory ASTRID Moralesy [facility] Start: 03-03-2023 End: 03-04-2023 ambulatory ASTRID Moralesy [facility] Start: 02-03-2023 End: 02-04-2023 ambulatory ASTRID Moralesy [facility] Start: 01-27-2023 End: 01-28-2023 ambulatory ASTRID Moralesy [facility] Start: 01-20-2023 End: 01-21-2023 ambulatory ASTRID Cabrera [facility] Start: 01-13-2023 End: 01-14-2023 ambulatory ASTRID Cabrera [facility] Start: 01-07-2023 End: 01-08-2023 ambulatory ASTRID Cabrera [facility] Start: 01-06-2023 End: 01-07-2023 ambulatory ASTRID Cabrera [facility] Start: 01-01-2023 End: 01-02-2023 ambulatory ASTRID Cabrera [facility] Start: 12-31-2022 End: 01-01-2023 ambulatory AMEE MANCILLA [facility] Start: 12-30-2022 End: 12-31-2022 ambulatory AMEE MANCILLA [facility] Start: 11-18-2022 End: 11-18-2022 ambulatory Amee Mancilla Other [employer] Other Start: 11-18-2022 Patient encounter procedure Amee Mancilla [facility] Start: 09-03-2022 Encounter for preprocedural cardiovascular examination MELO ZAVALAMILUIS MIGUEL . [facility] Start: 09-02-2022 End: 09-03-[address] AMEE MANCILLA Facility:[facility] Start: 09-02-2022 End: 09-03-2022 Encounter for preprocedural cardiovascular examination DR AMEE MANCILLA Facility:[facility] Start: 08-21-2022 End: 08-22-[address] AMEE MANCILLA Facility:[facility] Start: 06-10-[address] AMEE MANCILLA Facil ity:[facility] Start: 06-10-2022 End: 06-15-2022 Evaluation and management of inpatient DOMENICA Johnson [facility] Start: 06-10-2022 End: 06-15-2022 Evaluation and management of inpatient Roxana Lopez MD Work Phone: [address] Ortho/Med Surg Comment on above: Internal [...] Basic metabolic pane l calcium total Ernestina Chadwick DO Work Phone: Start: 06-13-2022 Radiologic exam abdo men 1 view Ernestina Chadwick DO Work Phone: Start: 06-13-2022 Basic metabolic pane l calcium total Ernestina Chadwick DO Work Phone: Start: 06-12-2022 LACTATE, SEPSIS Domenica R wali DO Work Phone: Start: 06-12-2022 LACTATE, SEPSIS Domenica R wali DO Work Phone: Start: 06-12-2022 Radiologic exam abdo men 1 view Ernestina Deonte DO Work Phone: Start: 06-12-2022 Glucose blood reagen t strip [employer] DO Work Phone: Start: 06-12-2022 Radiologic exam abdo men 1 view Ernestina Deonte DO Work Phone: Start: 06-12-2022 Basic metabolic pane l calcium total Ernestina Deonte DO Work Phone: Start: 06-11-2022 Radiologic exam ches t single view Ernestina Deonte DO Work Phone: Start: 06-11-2022 Radiologic exam smal l int single contrast study Ernestina Deonte DO Work Phone: Start: 06-11-2022 Antibody screen Heather Lopez MD Work Phone: Start: 06-11-2022 Basic metabolic pane l calcium total Ernestina Deonte DO Work Phone: Start: 06-10-2022 SURGICAL PATHOLOGY REPORT Domenica Knight DO Work Phone: Start: 06-10-2022 Basic metabolic pane l calcium total Ernestina Chadwick DO Work Phone: Start: 06-10-2022 Culture bacterial quanttative colony count urine Domenica Knight DO Work Phone: Start: 06-10-2022 End: 06-10-2022 LAPAROTOMY EXPLORATORY Domenica Johnson Sharron johnson DO Work Phone: Start: 06-10-2022 BASIC METABOLIC PANE L W/ REFLEX TO MG FOR LOW K Ernestina Chadwick DO Work Phone: Start: 06-10-2022 Blood count complete auto&auto difrntl wbc Ernestina Chadwick DO Work Phone: Start: 06-10-2022 Speech and language therapy regime Ka Jenni Baeza DO Work Phone: Start: 06-10-2022 Blood typing serologic abo Leighann S Fujita DO Work Phone: Start: 06-10-2022 LACTATE, SEPSIS Leighann S Fujita DO Work Phone: Start: 06-10-2022 Prothrombin time Leighann S Fujita DO Work Phone: Plan of Treatment Date Care Activity Detail Author Start: 2021 Pneumococcal 65+ yea rs Vaccine (1 - PCV) Pneumococcal 65+ years Vaccine (1 - PCV) [facility] Start: 11-16-2020 COVID-19 Vaccine (3 - Booster for Pfizer series) COVID-19 Vaccine (3 - Booster for Pfizer series) [facility] Start: 11-13-2011 Screening for osteoporosis DEXA (modify frequency per FRAX score) [facility] Start: 2006 Screening for malign ant neoplasm of breast Breast cancer screen [facility] Start: 2006 Shingles vaccine (1 of 2) Shingles vaccine (1 of 2) [facility] Start: 2001 Screening for malign ant neoplasm of colon [facility] [employer] Start: 1986 Screening for malign ant neoplasm of cervix [facility] Start: 1977 Screening for malign ant neoplasm of cervix Pap smear [facility] Start: 11-13-1975 DTaP/Tdap/Td vaccine (1 - Tdap) DTaP/Tdap/Td vaccine (1 - Tdap) [facility] Start: 1974 Hepatitis C screening Hepatitis C sc reen [facility] Start: 11-13-1971 HIV screening HIV screen [facility] [employer] Start: 1968 Depression Screen Depression Screen [facility] Start: 1966 Lipid panel Lipids [facility] Oxygen therapy [[facility] Data Set] Initiate Oxygen Therapy Protocol Respiratory Care Routine As Needed until discontinued starting 06/10/2022 [facility] [employer] Phone: Comment on above: As Needed until disc ontinued starting 06/10/2022 Oxygen therapy [[facility] Data Set] Initiate Oxygen Therapy Protocol Respiratory Care Routine As Needed until discontinued starting 06/10/2022 [facility] [employer] Phone: Comment on above: As Needed until disc ontinued starting 06/10/2022 End: 06-10-2022 PREPARE RBC (CROSSMATCH), 2 Units PREPARE RBC (CROSSMATCH), 2 Units Blood Bank Routine Once for 1 Occurrences starting 06/10/2022 until 06/10/2022 [facility] [employer] Phone: Comment on above: Once for 1 Occurrenc es starting 06/10/2022 until 06/10/2022 Surgical Pathology Surgical Path ology Lab Routine Gastrointestinal problem Release Upon Ordering for 1 Occurrences starting 06/10/2022 [facility] [employer] Phone: Comment on above: Release Upon Orderin g for 1 Occurrences starting 06/10/2022 Immunizations Immunization Date Immunization Notes Care Provider Shari naik 09-21-2020 COVID-19 Vaccine Pfi zer - Documentation Purposes Only Amee Mancilla Other [employer] Other 12-21-2019 influenza virus vaccine, split virus (incl. purified surface antigen) Amee Laurent Other [employer] Other Payers Date Payer Category Payer [facility] ( and others) [id number] 1959 [facility] e ( and others) [id number] 1958 Medicare [id number] 1959 Medicare [id number] 1955 Unknown [id number] 2.16.840.1.125036.3.579.2.593 1956 Unknown [id number] 2.16.840.1.847144.3.579.2.593 1956 Unknown [id number] 2.16.840.1.600086.3.579.2.593 1956 Unknown [id number] 2.16.840.1.743315.3.579.2.593 1956 Unknown [id number] 2.16.840.1.090343.3.579.2.593 1956 Unknown [id number] 2.16.840.1.975485.3.579.2.593 1956 Unknown [id number] 2.16.840.1.853857.3.579.2.593 1956 Unknown [id number] 2.16.840.1.226551.3.579.2.593 1956 Unknown [id number] 2.16.840.1.560026.3.579.2.175 1956 Unknown [id number] 2.16.840.1.371769.3.579.2.173 1956 Unknown [id number] 2.16.840.1.491938.3.579.2.173 1956 Unknown [id number] 2.16.840.1.331094.3.579.2.173 1956 Unknown [id number] 2.16.840.1.650997.3.579.2.173 1956 Unknown [id number] 2.16.840.1.734845.3.579.2.173 1956 Unknown [id number] 2.16.840.1.212997.3.579.2.173 1956 Unknown [id number] 2.16.840.1.130786.3.579.2.173 1956 Unknown [id number] 2.16.840.1.118862.3.579.2.173 1956 Unknown [id number] 2.16.840.1.724750.3.579.2.173 1956 Unknown [id number] 2.16.840.1.599817.3.579.2.173 1956 Unknown [id number] 2.16.840.1.838972.3.579.2.173 1956 Unknown [id number] 2.16.840.1.354803.3.579.2.173 1956 Unknown [id number] 2.16.840.1.285262.3.579.2.173 Social History Date Type Detail Facility Start: 05-23-2021 Tobacco smoking status WVIS Never smoked tobacco [facility] Start: 05-23-2021 Tobacco use and exposure Smokeless tobacco non-user [employer] Phone: Start: 06-11-2022 Alcohol intake 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 [employer] Other History of Present illness Narrative 06-15-2022 Jennifer Lake, PT - 06/15/2022 10:37 AM EDTAustin Samreen Morocho, DO - 06/15/2022 9:42 AM EDTAustin Samreen Morocho, DO - 06/14/2022 12:48 PM Traci Clemons, DO - 06/13/2022 9:05 AM EST Note Date & Type Note Facility 06-15-2022 History of Present illness Narrative Physical Therapy Facility/Department: [address] ORTHO/MED SURG Physical Therapy Initial Assessment Name: Kevin Perea : 1955 Date of Service: 06/15/2022 Discharge Recommendations: No therapy recommended at discharge. Chief Complaint Patient presents with GI Problem SBO, transfer from [place] 66 y.o. F s/p ex lap with [...] Decision Making: Low Complexity Barriers to Learning: [place] Requires PT Follow-Up: No Activity Tolerance Activity [...] Ambulation Assistance: Independent Transfer Assistance: Independent Active Vaccine Customer Representative: No Patient's Vaccine Customer Representative Info: drives Occupation: On disability Leisure & [...] Status: Exceptions Cognition Comment: Pt with some [place]. Requires repeated cues for tasks. Pt does [...] Group Co-treatment Time In 804 Time Out 0822 Minutes 17 Timed Code Treatment Minutes: 13 [...] Heparin TID. GI prophylaxis with Protonix Burt Morocho D.O. General Surgery Resident, PGY-1 06/14/22 12:50 [...] Intake/Output Summary (Last 24 hours) at 06/13/2022 0905 Last data filed at 06/12/2022 1457 Gross [...] colon Trial clears Hopeful for DC by thursday Bariatric Surgery Progress Note PATIENT NAME: Kevin [...] prophylaxis with Protonix Associated attestation - Domenica Knight DO - 06/13/2022 9:38 AM EST I have [...] GI prophylaxis with Protonix Speech Language Pathology [facility] Speech Language Pathology SPEECH/COGNITIVE ASSESSMENT NO LOC,CHI [...] 7:05 AM documented in this encounter [facility] [employer] Work Phone: Hospital Discharge instructions 06-13-2022 Discharge Instructions Note Date & Type Note Facility 06-13-2022 Hospital Discharg e instructions Alecia Correa RN - 06/13/2022 10:05 PM EST Follow up with Dr. Knight in approximately 1 week. Please call the office at [phone]. Surgery Patient Discharge Instructions WOUND CARE: Do [...] over 100.5 documented in this encounter [facility] [employer] Phone: Consultation note 12-17-2021 Note Date & [...] be followed up in the office. [facility] Consultation note 12-05-2021 Note Date & Type Note Facility 12-05-2021 Note CONSULTATION CONSULTATION DATE: 12/05/2021 HISTORY OF PRESENT ILLNESS: This is a 66-year-old female returning to the clinic for a two month follow up for cervical neck pain. She had cervical RFAs in Brandy of this year to C3, C4 and [...] this plan and all questions answered. [facility] Consultation note 09-24-2021 Note Date & Type [...] will be followed up in the office. [facility] Signed and Approved by: DR KELLI HENRIQUEZ . 10/01/2021 09:22:00 [facility] Evaluation note Note Date & Type Note [...] Unspecified intestinal obstruction documented in this encounter [employer] Phone: History general Narrative - Reported Note Date & Type Note Facility History general Narrative - Reported Type Medical History Lumbar back pain Medical History Other fatigue Medical History Bariatric surgery status Surgical History BARIATRIC SURGERY 2014 Surgical History SKIN REMOVAL 2016 Surgical History GASTRIC ULCER REPAIR Surgical History Bowel surgery 07/2022 Hospitalization History SEE SURGICAL HX [facility] Other Advance Directives No Advanced Directives Records FoundDocuments on File Type Date Recorded 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 ACP-Advance Directive 09/03/2016 12:47 PM [...] Reason Comments GI Problem SBO, transfer from [facility] Specialty Diagnoses / Procedures Referred By Armen t Referred To Contact Diagnoses SBO (small bowel obstruction) ([facility]) Gastrointestinal problem Internal hernia Domenica Knight, [address] [place] [address] [facility] [address] [place] [address] Referral ID Status Reason Start Date Expiration Date Visits Re quested Visits Authorized [id number] 1 1 Ordered Prescriptions (unrec ognized section [...] 1145 (Given - Provider: Alecia Correa RN) 1001 (Given - Provider: Alecia Correa, NICHO) bisacodyl (DULCOLAX) suppository 10 mg 10 mg, Rectal, DAILY, First dose on Thu06/12/22 at 0900, Until Discontinued 0715 (Not Given - Provider: Vj Schmidt RN - Reason: Other - Comment: pt had loose stool for previous RN per report.) 1009 (Not Given - Provider: Alecia Correa, NICHO - Reason: Contraindicated) 0745 (Not Given - Provider: Alecia Correa, NIHCO - Reason: Patient/family refused) DULoxetine (CYMBALTA) extended release capsule 60 mg 60 mg, Oral, DAILY, First dose on Kathleen 06/12/22 at 0900, Until Discontinued, Do not crush or break. May add contents of capsule to apple juice or apple sauce, but not chocolate. 0853 (Given - Provider: Vj Schmidt RN) 1143 (Given - Provider: Alecia Correa RN) 1001 (Given - Provider: Alecia Correa, NICHO) gabapentin (NEURONTIN) capsule 300 mg 300 mg, Oral, 3 TIMES DAILY, First dose on Thu06/12/22 at 0900, Until Discontinued 0853 (Given - Provider: Vj Schmidt RN)1408 (Given - Provider: Vj Schmidt RN)2146 (Given - Provider: Kayleen Lantigua RN) 1145 (Given - Provider: Alecia Correa RN)1441 (Not Given - Provider: Alecia Correa RN - Reason: Contraindicated)2021 (Given - Provider: Kayleen Lantigua RN) 1001 [...] RN - Reason: Other - Comment: belly pain)214 (Given - Provider: Kayleen Lantigua RN) 0531 [...] Lantigua RN) 1144 (Given - Provider: Alecia Correa, NICHO)2005 (Given - Provider: Kayleen Lantigua RN) 1001 [...] 1145 (Given - Provider: Alecia Correa, NICHO) 1002 (Given - Provider: Alecia Correa RN) [...]
Care Teams (unrecognized sec tion and content) [employer] Relationship Specialty Start Date End Date Amee Mancilla MD [address] [place] [address] PCP - General Family Medicine 06/11/22 INFORMATION SOURCE (unrecogn ized section and content) DATE CREATED AUTHOR 09/12/2022 [facility] DATE CREATED AUTHOR AUTHOR'S ORGANIZ ATION 10/03/2022 [facility] DATE CREATED AUTHOR AUTHOR'S ORGANIZ ATION 06/10/2023 [facility] FOR RECORDS PERTAINING TO PATIENTS WHO ARE [...] BE BASED ON THE PRIMARY CLINICAL RECORDS. [employer]. provides no warranty or guarantee of the accuracy or completeness of information in this document.
[2023-06-22 11:49] VITALS: BP 159/86; PULSE 66; RESP 18; O2SAT 96
[2023-06-22 11:51] VITALS: BP 169/85; PULSE 65; RESP 18; O2SAT 91
--- NOTE | 2023-06-22 11:52 | P.ON_ITS ---
Date of procedure: 06/22/23 Pre-op diagnosis: Lumbar stenosis with neurogenic claudication Post-op diagnosis: same as pre-op Procedure: Procedure: Right L4-5, L5-S1 transforaminal epidural steroid injection Medications: Bupivacaine 0.25% 2cc, lidocaine 2% 1cc, kenalog 80mg The patient was seen and examined in the preoperative holding area.? Informed consent was obtained and placed on the chart.? Patient was brought to the medical procedure unit and placed in the prone position where a timeout was completed verifying the correct patient, procedure site, position, and planned special equipment using sterile aseptic technique.? Under direct fluoroscopic visualization a 25-gauge Quincke tipped spinal needle was advanced to the designated neural foramen where contrast dye was injected to show adequate spread.? The needle was inserted at level right L4-5. There was no evidence of vascular or adverse uptake.? Epidural spread was appreciated.? The above- mentioned injectate was then placed in a 1.5 mL aliquot preceded by negative aspiration.? The needle was removed. The needle was inserted and the procedure repeated at level right L5-S1.? The surgery site was covered.? Patient was taken to the postprocedural recovery area and monitored for an appropriate length of time before found suitable for discharge in the accompaniment of a responsible adult. Anesthesia: Local Surgeon: Gladis Gillis Pathology: none sent Condition: stable Disposition: no change
[2023-06-22] MEDS: 0.9 % SODIUM CHLORIDE 10 ML INJ (11:54)
[2023-06-22] MEDS: BUPIVACAINE HCL 0.25% PF 25 MG/10 ML VIAL INJ (11:55)
[2023-06-22] MEDS: IOHEXOL 240 MG/ML - 10 ML VIAL 12 MG INJ (11:55)
[2023-06-22] MEDS: LIDOCAINE HCL 2% PF 100 MG/5 ML VIAL 3 ML INJ (11:55)
[2023-06-22] MEDS: TRIAMCINOLONE ACETONIDE 40 MG/ML VIAL 80 MG INJ (11:55)
== END 2023-06-22 11:57 | disposition home or self-care (01) ==
PROVIDERS: PCP Family Medicine; Visit Provider Anesthesiology
DX: M48.062 Spinal stenosis, lumbar region with neurogenic claudication (principal)
CPT/HCPCS: 64483; 64484; Q9966

== ENCOUNTER 2023-07-16 12:45 | Outpatient (OUT) | payer MEDICARE, OTHER, SELFPAY ==
--- NOTE | 2023-07-16 13:12 | PM.CN ---
Consult Note: HPI Data of Consult Patient: known to practice within the last 3 years Requesting Physician: Maria G Toussaint NP Primary Care Provider: Dilcia Ocasio MD Consult Narrative Reason for consult: f/u Narrative: Sylvia Aragon a pleasant 67 year old female presents for evaluation and management of chronic low back pain. Today pain 3/10, increasing to 8/10. Patient has found benefit to diclofenac, duloxetine, and baclofen without side effects. Pain increased with activity and when lying flat, finds benefit to lying on her abdomen and with forward flexion. Denies loss of bowel or bladder. MRI reviewed, consistent with lumbar stenosis with NC and lx radiculopathy, as well as facet arthropathy. continues to engage in HEP greater than 6 weeks without significant benefit. Patient most recently underwent right L4-5 L5-S1 TFESI with 50% improvement ongoing. cc:: CC: Maria G Toussaint NP [facility] PFS Medical History Rheumatoid arthritis ?M06.9 - Rheumatoid arthritis, unspecified (ICD-10) Neck pain ?M54.2 - Cervicalgia (ICD-10) Back pain ?M54.9 - Dorsalgia, unspecified (ICD-10) Surgical History History of gastric surgery ?Z98.890 - Other specified postprocedural states (ICD-10) H/O abdominoplasty ?Z98.890 - Other specified postprocedural states (ICD-10) H/O bariatric surgery ?Z98.84 - Bariatric surgery status (ICD-10) H/O eye surgery ?Z98.890 - Other specified postprocedural states (ICD-10) H/O breast implant ?Z98.82 - Breast implant status (ICD-10) Hx of cholecystectomy ?Z90.49 - Acquired absence of other specified parts of digestive tract (ICD-10) Meds Home Medications and Allergies Home Medications ?Medication ?Instructions ?Recorded ?Confirmed ?Type baclofen 10 mg tablet 10 mg PO .HS 09/17/22 06/22/23 History calcium carbonate 600 mg-vitamin cap PO .QD 09/17/22 History D3 5 mcg (200 unit) capsule (Calcium 600 + D(3)) copper gluconate 2 mg tablet 2 mg PO DAILY 09/17/22 06/22/23 History diclofenac potassium 50 mg tablet 50 mg PO BID 09/17/22 06/22/23 History levothyroxine 88 mcg tablet 88 mcg PO .QD 09/17/22 06/22/23 History multivitamin 1 tab PO DAILY 09/17/22 06/22/23 History tramadol 50 mg tablet 50 mg PO DAILY PRN pain 09/17/22 06/22/23 History vitamin A .QD 09/17/22 History vitamin B complex (Complex B-100 1 tab PO DAILY 09/17/22 06/22/23 History tablet,extended release) zinc 25 mg tablet 25 mg PO .QD 09/17/22 06/22/23 History diclofenac sodium 100 mg 100 mg PO DAILY #30 tabs 01/21/23 06/22/23 Rx tablet,extended release 24 hr duloxetine 30 mg capsule,delayed 60 mg (2 x 30 mg) PO DAILY #75 caps 01/21/23 06/22/23 Rx release Allergies Allergy/AdvReac Type Severity Reaction Status Date / Time morphine AdvReac Mild Hypotension Verified 06/22/23 11:38 Exam Constitutional Documenting provider has reviewed patient's vital signs: yes Common normals: no apparent distress, oriented x3, healthy appearing, alert and well nourished General appearance: cooperative HENMT Common normals: normocephalic, hearing grossly normal bilaterally and moist oral mucous membranes Head and scalp: normocephalic Eye Common normals: PERRL Pupil: PERRL Neck & C-Spine Common normals: full ROM General: normal visual inspection Chest Common normals: inspection of chest normal Respiratory Common normals: normal respiratory effort, no retractions and no use of accessory muscles Back & Pelvis Lumbar spine/lower back: ROM limited, pain with ROM and straight leg raise negative bilaterally Sacroiliac joints: SI joint(s) abnormal Other: sensation intact BLE strength 5/5 in BLE positive bilateral shane fadir thigh thrust and gaenlsens, tenderness over bilateral PSIS Extremity Common normals: normal to inspection Neuro Common normals: oriented x3, CN's II-XII intact bilaterally, moves all extremities, no focal motor deficits, no sensory deficits noted, deep tendon reflexes 2+ bilaterally and gait normal Sensorium/orientation: alert Motor exam: strength 5/5 throughout and no movement abnormalities noted Psych Common normals: mental status grossly normal, thought process normal, cooperative, affect normal, speech normal and activity/motor behavior normal Speech: normal speech Thought process: normal thought process Assessment and Plan Assessment and Plan (1) Lumbar stenosis with neurogenic claudication: (2) Sacroiliitis: (3) Lumbar radiculopathy: (4) Muscle spasm: (5) Lumbar spondylosis: (6) Chronic pain syndrome: Plan right L4-5 L5-S1 TFESI providing 50% improvement ongoing bilateral nerve block of SIJ under fluoroscopy with Dr Gillis, prior bilateral nerve block of SIJ provided >70% improvement greater than 3 months continue HEP as tolerated continue current medications, tolerating well without side effect f/u 2 weeks after injcection not a vertiflex candidate based on osteoporosis hx
== END 2023-07-16 12:46 | disposition home or self-care (01) ==
LOC: PM 12:45
PROVIDERS: PCP Family Medicine; Visit Provider Nurse Practitioner
DX: M48.062 Spinal stenosis, lumbar region with neurogenic claudication (principal); M46.1 Sacroiliitis, not elsewhere classified; M54.16 Radiculopathy, lumbar region; M62.838 Other muscle spasm; M47.816 Spondylosis without myelopathy or radiculopathy, lumbar region; G89.4 Chronic pain syndrome
CPT/HCPCS: G0463

== ENCOUNTER 2023-07-29 11:53 | Outpatient (OUT) | payer MEDICARE, OTHER, SELFPAY ==
[2023-07-29 09:52] LABS: Basophils Percent Auto 0.6 % (0.2-2.0); Eosinophils Absolute Auto 0.1 10^3/uL (0.0-0.7); Eosinophils Percent Auto 2.4 % (0.9-7.0); Hematocrit 42.1 % (36.0-48.0); Hemoglobin 13.6 g/dL (12.0-16.0); Immature Granulocytes Abs Auto 0.03 10^3/uL (0.00-0.03); Immature Granulocytes Pct Auto 0.6 % (0.0-0.5); Lymphocytes Absolute Auto 0.8 10^3/uL (1.2-3.8); Lymphocytes Percent Auto 17.1 % (20.5-60.0); Mean Corpuscular HGB Conc 32.3 g/dL (29.9-35.2); Mean Corpuscular Hemoglobin 32.1 pg (26.7-34.0); Mean Corpuscular Volume 99.3 fL (81.0-99.0); Mean Platelet Volume 10.8 fL (9.5-13.5); Monocytes Absolute Auto 0.5 10^3/uL (0.3-0.8); Monocytes Percent Auto 10.9 % (1.7-12.0); Neutrophils Absolute Auto 3.2 10^3/uL (1.4-6.5); Neutrophils Percent Auto 68.4 % (43.0-75.0); Platelet Count 214 10^3/uL (150-450); Red Blood Count 4.24 10^6/uL (4.20-5.40); Red Cell Distribution Width 13.2 % (11.0-15.0); White Blood Count 4.7 10^3/uL (4.0-11.0)
--- OUTSIDE RECORDS SUMMARY | 2023-07-31 12:09 | XMS_ITS | CCD ---
Author Organization [facility] Care Team Providers Care Electrochemist Name Role Phone Dilcia Mancilla MD Primary Care Provider FESTUS ., DR KELLI Llamsa Admitting Unavailable LAURENT, DR DILCIA Morales Primary Care Unavailable HENRIQUEZ ., DR KELLI Llamas Attending Unavailable HENRIQUEZ ., DR KELLI Llamas Consulting Unavailable HENRIQUEZ ., DR KELLI Llamas Attending Unavailable LAURENT, DR DILCIA Morales Primary Care Unavailable HENRIQUEZ ., DR KELLI Llamas Consulting Unavailable HENRIQUEZ ., DR KELLI Llamas Admitting Unavailable LAURENT, DR DILCIA Morales Primary Care Unavailable LAKSHMIPATHY ., MELO Attending Joselin vailable LAKSHMIPATHY ., MELO Admitting Joselin vailable HENRIQUEZ ., DR KELLI Llamas Admitting Unavailable LAURENT, DR DILCIA Morales Primary Care Unavailable LAURENT, DR DILCIA Morales Consulting Unavailable HENRIQUEZ ., DR KELLI Llamas Attending Unavailable ALVARADO ., LATRELL Consulting Unavailable LAURENT, DR DILCIA Morales Primary Care Unavailable LAKSHMIPATHY ., NARJIMY Admitting Joselin vailable LAKSHMIPATHY ., NARENDDARÍOATH Attending Joseiln vailable LAKSHMIPATHY ., NARENDRANATH Consulting Joselin vailable LUIS F HAIR Admitting Unavailable LEWIS CERDA Consulting UnavailLUIS F Loyola Attending Unavailable LAURENT, DR DILCIA Morales Primary Care Unavailable SATISH MANDUJANO Consulting Unavailable JUAN SALDIVAR Consulting Unavailable LAURENT, DR DILCIA Morales Primary Care Unavailable USHA .ANGEL Admitting Unavailable USHA .ANGEL Attending Unavailable USHA .ANGEL Consulting Unavailable HENRIQUEZ ., DR KELLI Llamas Admitting Unavailable HENRIQUEZ ., DR KELLI Lalmas Attending Unavailable DR DILCIA MANCILLA Primary Care Unavailable ALVARADO ., LATRELL Consulting Unavailable MARCELO KNIGHT Consulting Unavailable MARCELO KNIGHT Attending Unavailable DILCIA MANCILLA Primary Care Unavailable MARCELO KNIGHT Admitting Unavailable Dilcia Mancilla Unavailable Elis COOK, Gladis Isbell Attending Unavailable Elis COOK, Gladis Isbell Attending Unavailable AYOUBI, MOHAMED Referring Unavailable MANCILLA, DILCIA Primary Care Unavailable AYOUBI, MOHAMED Referring Unavailable MANCILLA, DILCIA Primary Care Unavailable AYOUBI, MOHAMED Referring Unavailable MANCILLA, DILCIA Primary Care Unavailable AYOUBI, MOHAMED Referring Unavailable MANCILLA, DILCIA Primary Care Unavailable AYOUBI, MOHAMED Referring Unavailable MANCILLA, DILCIA Primary Care Unavailable AYOUBI, MOHAMED Referring Unavailable MANCILLA, DILCIA Primary Care Unavailable AYOUBI, MOHAMED Referring Unavailable MANCILLA, DILCIA Primary Care Unavailable AYOUBI, MOHAMED Referring Unavailable MANCILLA, DILCIA Primary Care Unavailable AYOUBI, MOHAMED Referring Unavailable MANCILLA, DILCIA Primary Care Unavailable MANCILLA, DILCIA Primary Care Unavailable AYOUBI, MOHAMED Referring Unavailable MANCILLA, DILCIA Primary Care Unavailable AYOUBI, MOHAMED Referring Unavailable MANCILLA, DILCIA Primary Care Unavailable AYOUBI, MOHAMED Referring Unavailable AYOUBI, MOHAMED Referring Unavailable MANCILLA, DILCIA Primary Care Unavailable AYOUBI, MOHAMED Referring Unavailable MANCILLA, DILCIA Primary Care Unavailable Allergies Allergy Classification Reported Allergen(s) Allergy Type Date of Onset Reaction(s) Facility (1 source) Penicillins Propensity to adverse reactions to drug 7 Hives [facility] (1 source) Morphine And Related Propensity to adverse reactions to drug 7 [facility] (2 sources) Morphine Drug Allergy [facility] (1 source) Morphine Drug Allergy 9 Unknown [id number] Other Medications Current Medications Medication Drug Class(es) [...] Entry Oral for 0 *Pick strength-form from [employer] for eRX* 12 Apr, 2021 Active bisacodyl [...] Active oral daily for 0 *Reorder from [employer] for eRx and Interaction Alerts* Feb, Active [...] Oral, 2 TIMES DAILY, First dose on [facility] 06/12/22 at 0900, Until Discontinued pantoprazole 40 [...] 12-18-2022 Episodic Other aftercare (1 source) 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 4 mg/dL [facility] Chloride [Moles/Vol] 103 mmol/L 98 - 10 7 mmol/L [facility] CO2 [Moles/Vol] 22 mmol/L 20 - 31 mmol/L [facility] Creatinine [Mass/Vol] 0.61 mg/dL 0.50 - 0.90 mg/dL [facility] G[facility]/1.73 sq M.predicted MDRD (S/P/Bld) [Vol rate/Area] - PINF [facility] Comment on above: These results are [...] [Mass/Vol] 81 mg/dL 70 - 99 mg/dL [facility] Interpretation and review of laboratory results Abnormal [facility] Potassium [Moles/Vol] 3.6 mmol/L Low 3.7 - 5.3 mmol/L [facility] Sodium [Moles/Vol] 135 mmol/L 135 - 144 mmol/L [facility] Urea nitrogen [Mass/Vol] 12 mg/dL 8 - 23 mg/dL [facility] Basic Metabolic Profon 06-14 Anion gap [Moles/Vol] 10 mmol/L Normal 9-17 [facility] Comment on above: Performed By: #### C DP, BMP #### [facility] [place] [address] Combination Welder Apprentice: Mariusz Estrada MD Calcium [Mass/Vol] 7.9 mg/dL Low 8.6-10.4 [facility] Comment on above: Performed By: #### C DP, BMP #### [address] [address] Combination Welder Apprentice: Mariusz Estrada MD Chloride [Moles/Vol] 103 mmol/L Normal 98-107 [facility] Comment on above: Performed By: #### C DP, BMP #### [address] [address] [employer] Apprentice: Mariusz Estrada MD CO2 [Moles/Vol] 22 mmol/L Normal 20-31 [facility] Comment on above: Performed By: #### C DP, BMP #### [address] [address] [employer] Apprentice: Mariusz Estrada MD Creatinine [Mass/Vol] 0.61 mg/dL Normal 0.50-0.90 [facility] Comment on above: Performed By: #### C DP, BMP #### [address] [address] [employer]ination Wel[employer] Apprentice: Mariusz Estrada MD GFR/1.73 sq M.predicted among non-blacks MDRD (S/P/Bld) [Vol rate/Area] mL/min/{1.73_m2} Normal >60 [facility] Comment on above: Result Comment: These [...] Performed By: #### C DP, BMP #### [address] [address] Combination Welder Apprentice: Mariusz Estrada MD Glucose [Mass/Vol] 81 mg/dL Normal 70-99 [facility] Comment on above: Performed By: #### C DP, BMP #### [facility] [address] [place] [address] Combination Welder Apprentice: Mariusz Estrada MD Potassium [Moles/Vol] 3.6 mmol/L Low 3.7-5.3 [facility] Comment on above: Performed By: #### C DP, BMP #### [facility] [address] [place] [address] Combination Welder Apprentice: Mariusz Estrada MD Sodium [Moles/Vol] 135 mmol/L Normal 135-144 [facility] Comment on above: Performed By: #### C DP, BMP #### [facility] [address] [place] [address] Combination [employer]der Apprentice: Mariusz Estrada MD Urea nitrogen [Mass/Vol] 12 mg/dL Normal 8-23 [facility] Comment on above: Performed By: #### C DP, BMP #### [facility] [address] [place] [address] [employer]ination Welder Apprentice: Mariusz Estrada MD CBC with Auto Differentialon 06-14-2022 Absolute Eos # 0.33 [facility] Absolute Immature Granulocyte [facility] Absolute Lymph # 0.96 Low [facility] Absolute Garvin # 0.35 [facility] Basophils Absolute [facility] Basophils/100 WBC (Bld) 1 % 0 - 2 % [facility] Eosinophils/100 WBC (Bld) 9 % High 1 - 4 % [facility] Hematocrit (Bld) [Volume fraction] 28.8 % Low 36.3 - 47.1 % [facility] Hemoglobin (Bld) [Mass/Vol] 8.6 g/dL Low 11.9 - 15.1 g/dL [facility] Immature granulocytes/100 WBC (Bld) 0 % 0 [facility] Interpretation and review of laboratory results Abnormal [facility] Lymphocytes/100 WBC (Bld) 26 % 24 - 43 % [facility] MCH (RBC) [Entitic mass] 24.2 pg Low 25.2 - 33.5 pg [facility] MCHC (RBC) [Mass/Vol] 29.9 g/dL 28.4 - 34.8 g/dL [facility] MCV (RBC) [Entitic vol] 80.9 fL Low 82.6 - 102.9 fL [facility] Monocytes/100 WBC (Bld) 10 % 3 - 12 % [facility] NRBC Automated 0.0 0.0 per 100 WBC [facility] Platelet distribution width (Bld) [Ratio] 18.5 % High 11.8 - 14.4 % [facility] Platelet mean volume (Bld) [Entitic vol] 10.7 fL 8.1 - 13.5 fL [facility] Platelets (Bld) [#/Vol] 239 10*3/uL [facility] RBC (Bld) [#/Vol] 3.56 10*6/uL Low 3.95 - 5.1 1 m/uL [facility] RBC (Bld) [#/Vol] ANISOCYTOSIS PRESENT [facility] Comment on above: MICROCYTOSIS PRESENT Segmented neutrophils/100 WBC (Bld) 54 % 36 - 65 % [facility] Segs Absolute 1.98 [facility] WBC (Bld) [#/Vol] 3.7 10*3/uL [facility] CBC with Diffon 06-14-2022 Abs. Basophil <0.03 Normal 0.00-0.20 [facility] Comment on above: Performed By: #### C DP, BMP #### [facility] [address] [place] [address] Combination Welder Apprentice: Mariusz Estrada MD Abs.Imm.Granulocyte <0.03 Normal 0.00-0.30 [facility] Comment on above: Performed By: #### C DP, BMP #### [facility] [address] [place] [address] Combination Welder Apprentice: Mariusz Estrada MD Abs.Neutrophil (Seg) 1.98 k/uL Normal 1.50-8.10 [facility] Comment on above: Performed By: #### C DP, BMP #### [address] [address] Combination Welder Apprentice: Mariusz Estrada MD Basophils/100 WBC (Bld) 1 % Normal 0-2 [facility] Comment on above: Performed By: #### C DP, BMP #### [address] [address] Combination Welder Apprentice: Mariusz Estrada MD Eosinophils (Bld) [#/Vol] 0.33 10*3/uL Normal 0.00-0.44 [facility] Comment on above: Performed By: #### C DP, BMP #### [place] [address] Combination Welder Apprentice: Mariusz Estrada MD Eosinophils/100 WBC (Bld) 9 % High 1-4 [facility] Comment on above: Performed By: #### C DP, BMP #### [address] [address] Combination Welder Apprentice: Mariusz Estrada MD Erythrocyte distribution width (RBC) [Ratio] 18.5 % High 11.8-14.4 [facility] Comment on above: Performed By: #### C DP, BMP #### [address] [address] Combination Welder Apprentice: Mariusz Estrada MD Hematocrit (Bld) [Volume fraction] 28.8 % Low 36.3-47.1 [facility] Comment on above: Performed By: #### C DP, BMP #### [address] [address] Combination Welder Apprentice: Mariusz Estrada MD Hemoglobin (Bld) [Mass/Vol] 8.6 g/dL Low 11.9-15.1 [facility] Comment on above: Performed By: #### C DP, BMP #### [address] [address] Combination Welder Apprentice: Mariusz Estrada MD Immature granulocytes/100 WBC (Bld) 0 % Normal 0 [facility] Comment on above: Performed By: #### C DP, BMP #### [place] [address] Combination Welder Apprentice: Mariusz Estrada MD Lymphocytes (Bld) [#/Vol] 0.96 10*3/uL Low 1.10-3.70 [facility] Comment on above: Performed By: #### C DP, BMP #### [place] [address] Combination Welder Apprentice: Mariusz Estrada MD Lymphocytes/100 WBC (Bld) 26 % Normal 24-43 [facility] Comment on above: Performed By: #### C DP, BMP #### [address] [address] Combination Welder Apprentice: Mariusz Estrada MD MCH (RBC) [Entitic mass] 24.2 pg Low 25.2-33.5 [facility] Comment on above: Performed By: #### C DP, BMP #### [place] [address] Combination Welder Apprentice: Mariusz Estrada MD MCHC (RBC) [Mass/Vol] 29.9 g/dL Normal 28.4-34.8 [facility] Comment on above: Performed By: #### C DP, BMP #### [address] [address] Combination Welder Apprentice: Mariusz Estrada MD MCV (RBC) [Entitic vol] 80.9 fL Low 82.6-102.9 [facility] Comment on above: Performed By: #### C DP, BMP #### [address] [address] Combination Welder Apprentice: Mariusz Estrada MD Monocytes (Bld) [#/Vol] 0.35 10*3/uL Normal 0.10-1.20 [facility] Comment on above: Performed By: #### C DP, BMP #### [address] [address] Combination Welder Apprentice: Mariusz Estrada MD Monocytes/100 WBC (Bld) 10 % Normal 3-12 [facility] Comment on above: Performed By: #### C DP, BMP #### [address] [address] Combination Welder Apprentice: Mariusz Estrada MD Neutrophil (Seg) 54 % Normal 36-65 [facility] Comment on above: Performed By: #### C DP, BMP #### [address] [address] Combination Welder Apprentice: Mariusz Estrada MD NRBC Automated 0.0 per 100 WBC Normal 0.0 [facility] Comment on above: Performed By: #### C DP, BMP #### [address] [address] Combination Welder Apprentice: Mariusz Estrada MD Platelet mean volume (Bld) [Entitic vol] 10.7 fL Normal 8.1-13.5 [facility] Comment on above: Performed By: #### C DP, BMP #### [address] [address] Combination Welder Apprentice: Mariusz Estrada MD Platelets (Bld) [#/Vol] 239 10*3/uL Normal 138-453 [facility] Comment on above: Performed By: #### C DP, BMP #### [address] [address] Combination Welder Apprentice: Mariusz Estrada MD RBC (Bld) [#/Vol] 3.56 10*6/uL Low 3.95-5.11 [facility] Comment on above: Performed By: #### C DP, BMP #### [facility] [address] [place] [address] Combination Welder Apprentice: Mariusz Estrada MD RBC morphology finding Nom (Bld) ANISOCYTOSIS PRESENT Normal [facility] Comment on above: Result Comment: MICR OCYTOSIS PRESENT Performed By: #### C DP, BMP #### [facility] [address] [place] [address] Combination Welder Apprentice: Mariusz Estrada MD WBC (Bld) [#/Vol] 3.7 10*3/uL Normal 3.5-11.3 [facility] Comment on above: Performed By: #### C DP, BMP #### [facility] [address] [place] [address] Combination Welder Apprentice: Mariusz Estrada MD Basic Metabolic Panelon 03- Anion gap [Moles/Vol] 20 mmol/L High 9 - 17 mmol/L [employer] Calcium [Mass/Vol] 7.8 mg/dL Low 8.6 - 10. 4 mg/dL [facility] [employer] Chloride [Moles/Vol] 100 mmol/L 98 - 10 7 mmol/L [facility] [employer] CO2 [Moles/Vol] 13 mmol/L Low 20 - 31 mmol/L [facility] [employer] Creatinine [Mass/Vol] 0.81 mg/dL 0.50 - 0.90 mg/dL [employer] GFR/1.73 sq M.predicted MDRD (S/P/Bld) [Vol rate/Area] [facility] Comment on above: These results are not [...] 61 mg/dL Low 70 - 99 mg/dL [facility] Potassium [Moles/Vol] 3.8 mmol/L 3.7 - 5.3 mmol/L [facility] Sodium [Moles/Vol] 133 mmol/L Low 135 - 144 mmol/L [facility] Urea nitrogen [Mass/Vol] 21 mg/dL 8 - 23 mg/dL [facility] Basic Metabolic Profon 06-13 Anion gap [Moles/Vol] 20 mmol/L High 9-17 [facility] Comment on above: Performed By: #### C DP, BMP #### [facility] [employer] [address] [place] [address] Combination Welder Apprentice: Mariusz Estrada MD Calcium [Mass/Vol] 7.8 mg/dL Low 8.6-10.4 [facility] Comment on above: Performed By: #### C DP, BMP #### [facility] [employer] [address] [place] [address] Combination Welder Apprentice: Mariusz Estrada MD Chloride [Moles/Vol] 100 mmol/L Normal 98-107 [facility] Comment on above: Performed By: #### C DP, BMP #### [facility] [address] [place] [address] Combination Welder Apprentice: Mariusz Estrada MD CO2 [Moles/Vol] 13 mmol/L Low 20-31 [facility] Comment on above: Performed By: #### C DP, BMP #### [facility] [employer] [address] [place] [address] Combination Welder Apprentice: Mariusz Estrada MD Creatinine [Mass/Vol] 0.81 mg/dL Normal 0.50-0.90 [facility] Comment on above: Performed By: #### C DP, BMP #### [facility] [address] [place] [address] Combination Welder Apprentice: Mariusz Estrada MD GFR/1.73 sq M.predicted among non-blacks MDRD (S/P/Bld) [Vol rate/Area] mL/min/{1.73_m2} Normal >60 [facility] Comment on above: Result Comment: These [...] Performed By: #### C DP, BMP #### [facility] [address] [place] [address] Combination Welder Apprentice: Mariusz Estrada MD Glucose [Mass/Vol] 61 mg/dL Low 70-99 [facility] Comment on above: Performed By: #### C DP, BMP #### [facility] [employer] [address] [place] [address] Combination Welder Apprentice: Mariusz Estrada MD Potassium [Moles/Vol] 3.8 mmol/L Normal 3.7-5.3 [facility] Comment on above: Performed By: #### C DP, BMP #### [facility] [address] [place] [address] Combination Welder Apprentice: Mariusz Estrada MD Sodium [Moles/Vol] 133 mmol/L Low 135-144 [facility] Comment on above: Performed By: #### C DP, BMP #### [facility] [address] [place] [address] Combination Welder Apprentice: Mariusz Estrada MD Urea nitrogen [Mass/Vol] 21 mg/dL Normal 8-23 [facility] Comment on above: Performed By: #### C DP, BMP #### [facility] [address] [place] [address] Combination Welder Apprentice: Mariusz Estrada MD CBC with Auto Differentialon 06-13-2022 Absolute Eos # 0.33 [facility] Absolute Immature Granulocyte [facility] Absolute Lymph # 1.14 [facility] Absolute Garvin # 0.39 [facility] Basophils (Bld) [#/Vol] 0.03 10*3/uL [facility] Basophils/100 WBC (Bld) 1 % 0 - 2 % [facility] Eosinophils/100 WBC (Bld) 6 % High 1 - 4 % [facility] Hematocrit (Bld) [Volume fraction] 28.4 % Low 36.3 - 47.1 % [facility] Hemoglobin (Bld) [Mass/Vol] 8.3 g/dL Low 11.9 - 15.1 g/dL [facility] Immature granulocytes/100 WBC (Bld) 0 % 0 [facility] Interpretation and review of laboratory results Abnormal [facility] Lymphocytes/100 WBC (Bld) 20 % Low 24 - 43 % [facility] MCH (RBC) [Entitic mass] 24.1 pg Low 25.2 - 33.5 pg [facility] MCHC (RBC) [Mass/Vol] 29.2 g/dL 28.4 - 34.8 g/dL [facility] MCV (RBC) [Entitic vol] 82.3 fL Low 82.6 - 102.9 fL [facility] Monocytes/100 WBC (Bld) 7 % 3 - 12 % [facility] NRBC Automated 0.0 0.0 per 100 WBC [facility] Platelet distribution width (Bld) [Ratio] 18.0 % High 11.8 - 14.4 % [facility] Platelet mean volume (Bld) [Entitic vol] 11.1 fL 8.1 - 13.5 fL [facility] Platelets (Bld) [#/Vol] 220 10*3/uL [facility] RBC (Bld) [#/Vol] 3.45 10*6/uL Low 3.95 - 5.1 1 m/uL [facility] RBC (Bld) [#/Vol] ANISOCYTOSIS PRESENT [facility] Comment on above: MICROCYTOSIS PRESENT Segmented neutrophils/100 WBC (Bld) 66 % High 36 - 65 % [facility] Segs Absolute 3.83 [facility] WBC (Bld) [#/Vol] 5.7 10*3/uL [facility] CBC with Diffon 06-13-2022 Abs. Basophil 0.03 k/uL Normal 0.00-0.20 [facility] Comment on above: Performed By: #### C DP, BMP #### [facility] [address] [place] [address] Combination Welder Apprentice: Mariusz Estrada MD Abs.Imm.Granulocyte <0.03 Normal 0.00-0.30 [facility] Comment on above: Performed By: #### C DP, BMP #### [facility] [employer] [address] [place] [address] Combination Welder Apprentice: Mariusz Estrada MD Abs.Neutrophil (Seg) 3.83 k/uL Normal 1.50-8.10 [facility] Comment on above: Performed By: #### C DP, BMP #### [facility] [employer] [address] [place] [address] Combination Welder Apprentice: Mariusz Estrada MD Basophils/100 WBC (Bld) 1 % Normal 0-2 [facility] Comment on above: Performed By: #### C DP, BMP #### [facility] [employer] [address] [place] [address] Combination Welder Apprentice: Mariusz Estrada MD Eosinophils (Bld) [#/Vol] 0.33 10*3/uL Normal 0.00-0.44 [facility] Comment on above: Performed By: #### C DP, BMP #### [facility] [address] [place] [address] Combination Welder Apprentice: Mariusz Estrada MD Eosinophils/100 WBC (Bld) 6 % High 1-4 [facility] Comment on above: Performed By: #### C DP, BMP #### [employer] [address] [place] [address] Combination Welder Apprentice: Mariusz Estrada MD Erythrocyte distribution width (RBC) [Ratio] 18.0 % High 11.8-14.4 [facility] Comment on above: Performed By: #### C DP, BMP #### [address] [address] [employer] Apprentice: Mariusz Estrada MD Hematocrit (Bld) [Volume fraction] 28.4 % Low 36.3-47.1 [facility] Comment on above: Performed By: #### C DP, BMP #### [facility] [employer] [address] [place] [address] [employer] Apprentice: Mariusz Estrada MD Hemoglobin (Bld) [Mass/Vol] 8.3 g/dL Low 11.9-15.1 [facility] Comment on above: Performed By: #### C DP, BMP #### [facility] [employer] [address] [place] [address] [employer]der Apprentice: Mariusz Estrada MD Immature granulocytes/100 WBC (Bld) 0 % Normal 0 [facility] Comment on above: Performed By: #### C DP, BMP #### [facility] [employer] [address] [place] [address] [employer] Apprentice: Mariusz Estrada MD Lymphocytes (Bld) [#/Vol] 1.14 10*3/uL Normal 1.10-3.70 [facility] Comment on above: Performed By: #### C DP, BMP #### [facility] [employer] [address] [place] [address] [employer] Apprentice: Mariusz Estrada MD Lymphocytes/100 WBC (Bld) 20 % Low 24-43 [facility] Comment on above: Performed By: #### C DP, BMP #### [facility] [employer] [address] [place] [address] Combination Welder Apprentice: Mariusz Estrada MD MCH (RBC) [Entitic mass] 24.1 pg Low 25.2-33.5 [facility] Comment on above: Performed By: #### C DP, BMP #### [address] [address] Comb[employer] Welder Apprentice: Mariusz Estrada MD MCHC (RBC) [Mass/Vol] 29.2 g/dL Normal 28.4-34.8 [facility] Comment on above: Performed By: #### C DP, BMP #### [address] [address] Comb[employer] Welder Apprentice: Mariusz Estrada MD MCV (RBC) [Entitic vol] 82.3 fL Low 82.6-102.9 [facility] Comment on above: Performed By: #### C DP, BMP #### [address] [address] Comb[employer] Welder Apprentice: Mariusz Estrada MD Monocytes (Bld) [#/Vol] 0.39 10*3/uL Normal 0.10-1.20 [facility] Comment on above: Performed By: #### C DP, BMP #### [address] [address] Comb[employer] Welder Apprentice: Mariusz Estrada MD Monocytes/100 WBC (Bld) 7 % Normal 3-12 [facility] Comment on above: Performed By: #### C DP, BMP #### [address] [address] Combination Welder Apprentice: Mariusz Estrada MD Neutrophil (Seg) 66 % High 36-65 [facility] Comment on above: Performed By: #### C DP, BMP #### [address] [address] Combination Welder Apprentice: Mariusz Estrada MD NRBC Automated 0.0 per 100 WBC Normal 0.0 [facility] Comment on above: Performed By: #### C DP, BMP #### [address] [address] Combination Welder Apprentice: Mariusz Estrada MD Platelet mean volume (Bld) [Entitic vol] 11.1 fL Normal 8.1-13.5 [facility] Comment on above: Performed By: #### C DP, BMP #### [address] [address] Combination Welder Apprentice: Mariusz Estrada MD Platelets (Bld) [#/Vol] 220 10*3/uL Normal 138-453 [facility] Comment on above: Performed By: #### C DP, BMP #### [address] [address] Combination Welder Apprentice: Mariusz Estrada MD RBC (Bld) [#/Vol] 3.45 10*6/uL Low 3.95-5.11 [facility] Comment on above: Performed By: #### C DP, BMP #### [address] [address] Combination Welder Apprentice: Mariusz Estrada MD RBC morphology finding Nom (Bld) ANISOCYTOSIS PRESENT Normal [facility] Comment on above: Result Comment: MICR OCYTOSIS PRESENT Performed By: #### C DP, BMP #### [address] [address] Combination Welder Apprentice: Mariusz Estrada MD WBC (Bld) [#/Vol] 5.7 10*3/uL Normal 3.5-11.3 [facility] Comment on above: Performed By: #### C DP, BMP #### [address] [address] Combination Welder Apprentice: Mariusz Estrada MD Magnesiumon 06-13-2022 Magnesium [Mass/Vol] 2.8 mg/dL High 1.6-2.6 [facility] Comment on above: Performed By: #### C DP, BMP #### [facility] [address] [place] [address] Combination Welder Apprentice: Mariusz Estrada MD Magnesium [Mass/Vol] 2.8 mg/dL High 1.6 - 2 .6 mg/dL [facility] No Panel Informationon 06-13 Interpretation and review of laboratory results Abnormal [facility] XR ABDOMEN (KUB) (SINGLE AP VIEW)on [...] Marvin Crowe MD 06/13/22 Final result Normal [facility] Multiple dilated small bowel loops, ileus versus small-bowel obstruction. Ascending colon is mildly dilated. Contrast is visualized throughout the colon. [facility] EXAMINATION: ONE SUPINE XRAY VIEW(S) OF THE ABDOMEN 06/13/2022 6:48 am COMPARISON: 06/12/2022 HISTORY: ORDERING SYSTEM PROVIDED HISTORY: pSBO TECHNOLOGIST PROVIDED HISTORY: pSBO FINDINGS: Multiple dilated small bowel loops, ileus versus small-bowel obstruction. Ascending colon is mildly dilated. Contrast is visualized throughout the colon. Bony structures are unremarkable. Lower lung harper are clear. No free air. [facility] Marvin Crowe MD - 06/13/2022 [...] dilated. Contrast is visualized throughout the colon. [employer] Work Phone: Radiology Study observation (narrative) [employer] Work Phone: XR ABDOMEN (KUB) (SINGLE AP VIEW)Ordered By: Marvin Crowe on 06-13-2022 [employer] Work Phone: Basic Metabolic Panelon Anion gap [Moles/Vol] 13 mmol/L 9 - 17 mmol/L [employer] Calcium [Mass/Vol] 8.5 mg/dL Low 8.6 - 10. 4 mg/dL [employer] Chloride [Moles/Vol] 96 mmol/L Low 98 - 10 7 mmol/L [employer] CO2 [Moles/Vol] 21 mmol/L 20 - 31 mmol/L [employer] Creatinine [Mass/Vol] 0.55 mg/dL 0.50 - 0.90 mg/dL [employer] GFR/1.73 sq M.predicted MDRD (S/P/Bld) [Vol rate/Area] - PINF [employer] Comment on above: These results are not [...] [Mass/Vol] 96 mg/dL 70 - 99 mg/dL [employer] Interpretation and review of laboratory results Abnormal [employer] Potassium [Moles/Vol] 3.5 mmol/L Low 3.7 - 5.3 mmol/L [employer] Sodium [Moles/Vol] 130 mmol/L Low 135 - 144 mmol/L [employer] Urea nitrogen [Mass/Vol] 8 mg/dL 8 - 23 mg/dL [facility] Basic Metabolic Profon 06-12 Anion gap [Moles/Vol] 13 mmol/L Normal 9-17 [facility] Comment on above: Performed By: #### MICKY Pimentel, CDP #### [facility] [address] [place] [address] Comb[employer] Welder Apprentice: Mariusz Estrada MD Calcium [Mass/Vol] 8.5 mg/dL Low 8.6-10.4 [facility] Comment on above: Performed By: #### MICKY Pimentel, CDP #### [facility] [employer] [address] [place] [address] Comb[employer] Welder Apprentice: Mariusz Estrada MD Chloride [Moles/Vol] 96 mmol/L Low 98-107 [facility] Comment on above: Performed By: #### MICKY Pimentel, CDP #### [facility] [address] [place] [address] Comb[employer] Welder Apprentice: Mariusz Estrada MD CO2 [Moles/Vol] 21 mmol/L Normal 20-31 [facility] Comment on above: Performed By: #### MICKY Pimentel, CDP #### [facility] [address] [place] [address] Comb[employer] Welder Apprentice: Mariusz Estrada MD Creatinine [Mass/Vol] 0.55 mg/dL Normal 0.50-0.90 [facility] Comment on above: Performed By: #### MICKY Pimentel, CDP #### [facility] [address] [place] [address] Comb[employer] Welder Apprentice: Mariusz Estrada MD GFR/1.73 sq M.predicted among non-blacks MDRD (S/P/Bld) [Vol rate/Area] mL/min/{1.73_m2} Normal >60 [facility] Comment on above: Result Comment: These [...] Performed By: #### MICKY Pimentel, CDP #### [facility] [address] [place] [address] Combination Welder Apprentice: Mariusz Estrada MD Glucose [Mass/Vol] 96 mg/dL Normal 70-99 [facility] Comment on above: Performed By: #### MICKY Pimentel, CDP #### [facility] [address] [place] [address] Combination Welder Apprentice: Mariusz Estrada MD Potassium [Moles/Vol] 3.5 mmol/L Low 3.7-5.3 [facility] Comment on above: Performed By: #### MICKY Pimentel, CDP #### [facility] [address] [place] [address] Combination Welder Apprentice: Mariusz Estrada MD Sodium [Moles/Vol] 130 mmol/L Low 135-144 [facility] Comment on above: Performed By: #### MICKY Pimentel, CDP #### [facility] [address] [place] [address] Combination Welder Apprentice: Mairusz Estrada MD Urea nitrogen [Mass/Vol] 8 mg/dL Normal 8-23 [facility] Comment on above: Performed By: #### MICKY Pimentel, CDP #### [facility] [address] [place] [address] Comb[employer] Wel[employer] Apprentice: Mariusz Estrada MD CBC with Auto Differentialon 06-12-2022 Absolute Eos # 0.09 [facility] [employer] [facility] Immature Granulocyte 0.03 [facility] [employer] [facility] Lymph # 0.87 Low [facility] Garvin # 0.66 [facility] Basophils (Bld) [#/Vol] 0.04 10*3/uL [facility] Basophils/100 WBC (Bld) 1 % 0 - 2 % [facility] Eosinophils/100 WBC (Bld) 1 % 1 - 4 % [facility] Hematocrit (Bld) [Volume fraction] 34.0 % Low 36.3 - 47.1 % [facility] Hemoglobin (Bld) [Mass/Vol] 10.0 g/dL Low 11.9 - 15.1 g/dL [facility] Immature granulocytes/100 WBC (Bld) 0 % 0 [facility] Interpretation and review of laboratory results Abnormal [facility] Lymphocytes/100 WBC (Bld) 11 % Low 24 - 43 % [facility] MCH (RBC) [Entitic mass] 23.8 pg Low 25.2 - 33.5 pg [facility] MCHC (RBC) [Mass/Vol] 29.4 g/dL 28.4 - 34.8 g/dL [facility] MCV (RBC) [Entitic vol] 80.8 fL Low 82.6 - 102.9 fL [facility] Monocytes/100 WBC (Bld) 8 % 3 - 12 % [facility] NRBC Automated 0.0 0.0 per 100 WBC [facility] Platelet distribution width (Bld) [Ratio] 18.0 % High 11.8 - 14.4 % [facility] Platelet mean volume (Bld) [Entitic vol] 11.1 fL 8.1 - 13.5 fL [facility] Platelets (Bld) [#/Vol] 245 10*3/uL [facility] RBC (Bld) [#/Vol] 4.21 10*6/uL 3.95 - 5.1 1 m/uL [facility] RBC (Bld) [#/Vol] ANISOCYTOSIS PRESENT [facility] Comment on above: MICROCYTOSIS PRESENT Segmented neutrophils/100 WBC (Bld) 79 % High 36 - 65 % [facility] Segs Absolute 6.27 [facility] WBC (Bld) [#/Vol] 8.0 10*3/uL [facility] CBC with Diffon 06-12-2022 Abs. Basophil 0.04 k/uL Normal 0.00-0.20 [facility] Comment on above: Performed By: #### MICKY Pimentel, CDP #### [address] [address] Combination Welder Apprentice: Mariusz Estrada MD Abs.Imm.Granulocyte 0.03 k/uL Normal 0.00-0.30 [facility] Comment on above: Performed By: #### MICKY Pimentel, CDP #### [facility] [employer] [address] [place] [address] Combination Welder Apprentice: Mariusz Estrada MD Abs.Neutrophil (Seg) 6.27 k/uL Normal 1.50-8.10 [facility] Comment on above: Performed By: #### MICKY Pimentel, CDP #### [address] [address] Combination Welder Apprentice: Mariusz Estrada MD Basophils/100 WBC (Bld) 1 % Normal 0-2 [facility] Comment on above: Performed By: #### MICKY Pimentel, CDP #### [facility] [address] [place] [address] Combination Welder Apprentice: Mariusz Estrada MD Eosinophils (Bld) [#/Vol] 0.09 10*3/uL Normal 0.00-0.44 [facility] Comment on above: Performed By: #### MICKY Pimentel, CDP #### [facility] [address] [place] [address] Combination Welder Apprentice: Mariusz Estrada MD Eosinophils/100 WBC (Bld) 1 % Normal 1-4 [facility] Comment on above: Performed By: #### MICKY Pimentel, CDP #### [facility] [address] [place] [address] Combination Welder Apprentice: Mariusz Estrada MD Erythrocyte distribution width (RBC) [Ratio] 18.0 % High 11.8-14.4 [facility] Comment on above: Performed By: #### MICKY Pimentel, CDP #### [address] [address] Combination Welder Apprentice: Mariusz Estrada MD Hematocrit (Bld) [Volume fraction] 34.0 % Low 36.3-47.1 [facility] Comment on above: Performed By: #### MICKY Pimentel, CDP #### [facility] [address] [place] [address] Combination Welder Apprentice: Mariusz Estrada MD Hemoglobin (Bld) [Mass/Vol] 10.0 g/dL Low 11.9-15.1 [facility] Comment on above: Performed By: #### MICKY Pimentel, CDP #### [facility] [address] [place] [address] Combination Welder Apprentice: Mariusz Estrada MD Immature granulocytes/100 WBC (Bld) 0 % Normal 0 [facility] Comment on above: Performed By: #### MICYK Pimentel, CDP #### [address] [address] Combination Welder Apprentice: Mariusz Estrada MD Lymphocytes (Bld) [#/Vol] 0.87 10*3/uL Low 1.10-3.70 [facility] Comment on above: Performed By: #### MICKY Pimentel, CDP #### [facility] [address] [place] [address] Combination Welder Apprentice: Mariusz Estrada MD Lymphocytes/100 WBC (Bld) 11 % Low 24-43 [facility] Comment on above: Performed By: #### MICKY Pimentel, CDP #### [facility] [address] [place] [address] Combination Welder Apprentice: Mariusz Estrada MD MCH (RBC) [Entitic mass] 23.8 pg Low 25.2-33.5 [facility] Comment on above: Performed By: #### MICKY Pimentel, CDP #### [address] [address] Combination Welder Apprentice: Mariusz Estrada MD MCHC (RBC) [Mass/Vol] 29.4 g/dL Normal 28.4-34.8 [facility] Comment on above: Performed By: #### MICKY Pimentel, CDP #### [address] [address] Combination Welder Apprentice: Mariusz Estrada MD MCV (RBC) [Entitic vol] 80.8 fL Low 82.6-102.9 [facility] Comment on above: Performed By: #### MICKY Pimentel, CDP #### [address] [address] Combination Welder Apprentice: Mariusz Estrada MD Monocytes (Bld) [#/Vol] 0.66 10*3/uL Normal 0.10-1.20 [facility] Comment on above: Performed By: #### MICKY Pimentel, CDP #### [address] [address] Combination Welder Apprentice: Mariusz Estrada MD Monocytes/100 WBC (Bld) 8 % Normal 3-12 [facility] Comment on above: Performed By: #### MICKY Pimentel, CDP #### [address] [address] Combination Welder Apprentice: Mariusz Estrada MD Neutrophil (Seg) 79 % High 36-65 [facility] Comment on above: Performed By: #### MICKY Pimentel, CDP #### [address] [address] Combination Welder Apprentice: Mariusz Estrada MD NRBC Automated 0.0 per 100 WBC Normal 0.0 [facility] Comment on above: Performed By: #### MICKY Pimentel, CDP #### [address] [address] Combination Welder Apprentice: Mariusz Estrada MD Platelet mean volume (Bld) [Entitic vol] 11.1 fL Normal 8.1-13.5 [facility] Comment on above: Performed By: #### MICKY Pimentel, CDP #### [facility] [address] [place] [address] Combination Welder Apprentice: Mariusz Estrada MD Platelets (Bld) [#/Vol] 245 10*3/uL Normal 138-453 [facility] Comment on above: Performed By: #### MICKY Pimentel, CDP #### [address] [address] Combination Welder Apprentice: Mariusz Estrada MD RBC (Bld) [#/Vol] 4.21 10*6/uL Normal 3.95-5.11 [facility] Comment on above: Performed By: #### MICKY Pimentel, CDP #### [facility] [address] [place] [address] Combination Welder Apprentice: Mariusz Estrada MD RBC morphology finding Nom (Bld) ANISOCYTOSIS PRESENT Normal [facility] Comment on above: Result Comment: MICR OCYTOSIS PRESENT Performed By: #### MICKY Pimentel, CDP #### [facility] [address] [place] [address] Combination Welder Apprentice: Mariusz Estrada MD WBC (Bld) [#/Vol] 8.0 10*3/uL Normal 3.5-11.3 [facility] Comment on above: Performed By: #### MICKY Pimentel, CDP #### [facility] [address] [place] [address] Combination Welder Apprentice: Mariusz Estrada MD Lactate, Sepsison 06-12-2022 Lactic Acid,Sep Wbld 1.0 mmol/L Normal 0.5-1.9 [facility] Comment on above: Performed By: #### MICKY Pimentel, CDP #### [facility] [address] [place], [place] [phone] Combination Welder Apprentice: Mariusz Estrada MD Lactic Acid,Sep Wbld 1.2 mmol/L Normal 0.5-1.9 [facility] Comment on above: Performed By: #### MICKY Pimentel, CDP #### [facility] [address] [place], [place] [phone] Combination Welder Apprentice: Mariusz Estrada MD Lactic Acid, Sepsis, Whole Blood 1.0 mmol/L 0.5 - 1.9 mmol/L [facility] Lactic Acid, Sepsis, Whole Blood 1.2 mmol/L 0.5 - 1.9 mmol/L [facility] Magnesiumon 06-12-2022 Magnesium [Mass/Vol] 1.9 mg/dL Normal 1.6-2.6 [facility] Comment on above: Performed By: #### MICKY Pimentel, CDP #### [facility] [address] [place], [place] [phone] Combination Welder Apprentice: Mariusz Estrada MD Magnesium [Mass/Vol] 1.9 mg/dL 1.6 - 2 .6 mg/dL [facility] No Panel Informationon 06-12 [facility] POC Glucose Fingerstickon Glucose [Mass/Vol] 118 mg/dL High 65 - 105 mg/dL [facility] Interpretation and review of laboratory results Abnormal [facility] XR ABDOMEN (KUB) (SINGLE AP VIEW)on [...] Jax Carbajal MD 06/12/22 Final result Normal [facility] XR ABDOMEN (KUB) (SINGLE AP VIEW) [...] increased opacification of the colon. Interpreted by: Maral Serna MD Signed by: Maral Serna MD 06/12/22 Final result Normal [facility] Similar appearance o f a high-grade distal partial small-bowel obstruction. [facility] EXAMINATION: ONE SUPINE XRAY VIEW(S) OF [...] probably distal high-grade partial small bowel obstruction. [facility] Jax Carbajal MD - 06/12/2022 EXAMINATION: [...] of a high-grade distal partial small-bowel obstruction. [employer] Phone: 1. Enteric tube coiled in the distal thoracic esophagus. Recommend repositioning prior to use. 2. Dilated loops of small bowel are again noted, suggestive with high-grade partial obstruction. There is some increased opacification of the colon. [facility] EXAMINATION: ONE SUPINE XRAY VIEW(S) OF [...] is coiled in the distal thoracic esophagus. [facility] Maral Serna MD - 06/12/2022 EXAMINATION: ONE SUPINE [...] is some increased opacification of the colon. [employer] Phone: Radiology Study observation (narrative) [employer] Work Phone: Radiology Study observation (narrative) [employer] Work Phone: XR ABDOMEN (KUB) (SINGLE AP VIEW)Ordered By: Jax Carbajal on 06-12-2022 [employer] Work Phone: XR ABDOMEN (KUB) (SINGLE AP VIEW)Ordered By: Maral Kareem on 06-12-2022 [employer] Work Phone: Basic Metabolic Panelon Anion gap [Moles/Vol] 9 mmol/L 9 - 17 mmol/L [employer] Calcium [Mass/Vol] 8.6 mg/dL 8.6 - 10. 4 mg/dL [employer] Chloride [Moles/Vol] 102 mmol/L 98 - 10 7 mmol/L [employer] CO2 [Moles/Vol] 22 mmol/L 20 - 31 mmol/L [employer] Creatinine [Mass/Vol] 0.64 mg/dL 0.50 - 0.90 mg/dL [employer] GFR/1.73 sq M.predicted MDRD (S/P/Bld) [Vol rate/Area] - PINF [employer] Comment on above: These results are not [...] 119 mg/dL High 70 - 99 mg/dL [employer] Interpretation and review of laboratory results Abnormal [employer] Potassium [Moles/Vol] 4.8 mmol/L 3.7 - 5.3 mmol/L [employer] Sodium [Moles/Vol] 133 mmol/L Low 135 - 144 mmol/L [employer] Urea nitrogen [Mass/Vol] 8 mg/dL 8 - 23 mg/dL [facility] Basic Metabolic Profon 06-11 Anion gap [Moles/Vol] 9 mmol/L Normal 9-17 [facility] Comment on above: Performed By: #### C DP, BMP #### [address] [address] [employer] Apprentice: Mariusz Estrada MD Calcium [Mass/Vol] 8.6 mg/dL Normal 8.6-10.4 [facility] Comment on above: Performed By: #### C DP, BMP #### [address] [address] Comb[employer] Welder Apprentice: Mariusz Estrada MD Chloride [Moles/Vol] 102 mmol/L Normal 98-107 [facility] Comment on above: Performed By: #### C DP, BMP #### [facility] [address] [place] [address] [employer] Apprentice: Mariusz Estrada MD CO2 [Moles/Vol] 22 mmol/L Normal 20-31 [facility] Comment on above: Performed By: #### C DP, BMP #### [address] [address] [employer] Apprentice: Mariusz Estrada MD Creatinine [Mass/Vol] 0.64 mg/dL Normal 0.50-0.90 [facility] Comment on above: Performed By: #### C DP, BMP #### [address] [address] [employer] Apprentice: Mariusz Estrada MD GFR/1.73 sq M.predicted among non-blacks MDRD (S/P/Bld) [Vol rate/Area] mL/min/{1.73_m2} Normal >60 [facility] Comment on above: Result Comment: These [...] Performed By: #### C DP, BMP #### [facility] [address] [place] [address] [employer] Apprentice: Mariusz Estrada MD Glucose [Mass/Vol] 119 mg/dL High 70-99 [facility] Comment on above: Performed By: #### C DP, BMP #### [facility] [address] [place] [address] [employer] Apprentice: Mariusz Estrada MD Potassium [Moles/Vol] 4.8 mmol/L Normal 3.7-5.3 [facility] Comment on above: Performed By: #### C DP, BMP #### [address] [address] [employer] Apprentice: Mariusz Estrada MD Sodium [Moles/Vol] 133 mmol/L Low 135-144 [facility] Comment on above: Performed By: #### C DP, BMP #### [facility] [address] [place] [address] [employer] Apprentice: Mariusz Estrada MD Urea nitrogen [Mass/Vol] 8 mg/dL Normal 8-23 [facility] Comment on above: Performed By: #### C DP, BMP #### [facility] [address] [place] [address] [employer] Apprentice: Mariusz Estrada MD CBC with Auto Differentialon 06-11-2022 Absolute Eos # 0.00 [facility] [employer] [facility] Absolute Immature Granulocyte 0.00 [facility] Absolute Lymph # 0.45 Low [facility] [employer] Absolute Garvin # 0.71 [facility] [employer] Basophils (Bld) [#/Vol] 0.00 10*3/uL [facility] Basophils/100 WBC (Bld) 0 % 0 - 2 % [facility] Eosinophils/100 WBC (Bld) 0 % Low 1 - 4 % [facility] Hematocrit (Bld) [Volume fraction] 30.5 % Low 36.3 - 47.1 % [facility] Hemoglobin (Bld) [Mass/Vol] 9.5 g/dL Low 11.9 - 15.1 g/dL [facility] Immature granulocytes/100 WBC (Bld) 0 % 0 [facility] Interpretation and review of laboratory results Abnormal [facility] Lymphocytes/100 WBC (Bld) 5 % Low 24 - 43 % [facility] MCH (RBC) [Entitic mass] 23.9 pg Low 25.2 - 33.5 pg [facility] MCHC (RBC) [Mass/Vol] 31.1 g/dL 28.4 - 34.8 g/dL [facility] MCV (RBC) [Entitic vol] 76.8 fL Low 82.6 - 102.9 fL [facility] Monocytes/100 WBC (Bld) 8 % 3 - 12 % [facility] Morphology Jamie (Bld) [Interp] ANISOCYTOSIS PRESENT [facility] Morphology Jamie (Bld) [Interp] MICROCYTOSIS PRESENT [facility] NRBC Automated 0.0 0.0 per 100 WBC [facility] Platelet distribution width (Bld) [Ratio] 17.3 % High 11.8 - 14.4 % [facility] Platelet mean volume (Bld) [Entitic vol] 11.0 fL 8.1 - 13.5 fL [facility] Platelets (Bld) [#/Vol] 237 10*3/uL [facility] RBC (Bld) [#/Vol] 3.97 10*6/uL 3.95 - 5.1 1 m/uL [facility] [facility] Segmented neutrophils/100 WBC (Bld) 87 % High 36 - 65 % [facility] Segs Absolute 7.74 [facility] WBC (Bld) [#/Vol] 8.9 10*3/uL [facility] CBC with Diffon 06-11-2022 Abs. Basophil 0.00 k/uL Normal 0.00-0.20 [facility] Comment on above: Performed By: #### C DP, BMP #### [place] [address] [employer] App[employer]ice: Mariusz Estrada MD Abs.Imm.Granulocyte 0.00 k/uL Normal 0.00-0.30 [facility] Comment on above: Performed By: #### C DP, BMP #### [place] [address] [employer] Apprentice: Mariusz Estrada MD Abs.Neutrophil (Seg) 7.74 k/uL Normal 1.50-8.10 [facility] Comment on above: Performed By: #### C DP, BMP #### [place] [address] [employer] Apprentice: Mariusz Estrada MD Basophils/100 WBC (Bld) 0 % Normal 0-2 [facility] Comment on above: Performed By: #### C DP, BMP #### [place] [address] [employer] Apprentice: Mariusz Estrada MD Eosinophils (Bld) [#/Vol] 0.00 10*3/uL Normal 0.00-0.44 [facility] Comment on above: Performed By: #### C DP, BMP #### [place] [address] [employer] Apprentice: Mariusz Estrada MD Eosinophils/100 WBC (Bld) 0 % Low 1-4 [facility] Comment on above: Performed By: #### C DP, BMP #### [place] [address] [employer] Apprentice: Mariusz Estrada MD Immature granulocytes/100 WBC (Bld) 0 % Normal 0 [facility] Comment on above: Performed By: #### C DP, BMP #### [address] [place] [address] [employer] Apprentice: Mariusz Estrada MD Lymphocytes (Bld) [#/Vol] 0.45 10*3/uL Low 1.10-3.70 [facility] Comment on above: Performed By: #### C DP, BMP #### [address] [address] [employer] Apprentice: Mariusz Estrada MD Lymphocytes/100 WBC (Bld) 5 % Low 24-43 [facility] Comment on above: Performed By: #### C DP, BMP #### [address] [address] [employer] Apprentice: Mariusz Estrada MD Monocytes (Bld) [#/Vol] 0.71 10*3/uL Normal 0.10-1.20 [facility] Comment on above: Performed By: #### C DP, BMP #### [address] [address] [employer] Apprentice: Mariusz Estrada MD Monocytes/100 WBC (Bld) 8 % Normal 3-12 [facility] Comment on above: Performed By: #### C DP, BMP #### [address] [address] [employer] Apprentice: Mariusz Estrada MD Morphology Jamie (Bld) [Interp] ANISOCYTOSIS PRESENT Normal [facility] Comment on above: Result Comment: MICR OCYTOSIS PRESENT Performed By: #### C DP, BMP #### [address] [address] [employer] Apprentice: Mariusz Estrada MD Neutrophil (Seg) 87 % High 36-65 [facility] Comment on above: Performed By: #### C DP, BMP #### [facility] [employer] [address] [place] [address] [employer] Apprentice: Mariusz Estrada MD Erythrocyte distribution width (RBC) [Ratio] 17.3 % High 11.8-14.4 [facility] Comment on above: Performed By: #### C DP, BMP #### [address] [address] [employer] Apprentice: Mariusz Estrada MD Hematocrit (Bld) [Volume fraction] 30.5 % Low 36.3-47.1 [facility] Comment on above: Performed By: #### C DP, BMP #### [address] [address] [employer] Apprentice: Mariusz Estrada MD Hemoglobin (Bld) [Mass/Vol] 9.5 g/dL Low 11.9-15.1 [facility] Comment on above: Performed By: #### C DP, BMP #### [address] [address] [employer] Apprentice: Mariusz Estrada MD MCH (RBC) [Entitic mass] 23.9 pg Low 25.2-33.5 [facility] Comment on above: Performed By: #### C DP, BMP #### [address] [address] [employer] Apprentice: Mariusz Estrada MD MCHC (RBC) [Mass/Vol] 31.1 g/dL Normal 28.4-34.8 [facility] Comment on above: Performed By: #### C DP, BMP #### [place] [address] [employer] Apprentice: Mariusz Estrada MD MCV (RBC) [Entitic vol] 76.8 fL Low 82.6-102.9 [facility] Comment on above: Performed By: #### C DP, BMP #### [address] [address] [employer] Apprentice: Mariusz Estrada MD NRBC Automated 0.0 per 100 WBC Normal 0.0 [facility] Comment on above: Performed By: #### C DP, BMP #### [address] [address] [employer] Welder Apprentice: Mariusz Estrada MD Platelet mean volume (Bld) [Entitic vol] 11.0 fL Normal 8.1-13.5 [facility] Comment on above: Performed By: #### C DP, BMP #### [address] [address] [employer] Welder Apprentice: Mariusz Estrada MD Platelets (Bld) [#/Vol] 237 10*3/uL Normal 138-453 [facility] Comment on above: Performed By: #### C DP, BMP #### [address] [address] [employer] Welder Apprentice: Mariusz Estrada MD RBC (Bld) [#/Vol] 3.97 10*6/uL Normal 3.95-5.11 [facility] Comment on above: Performed By: #### C DP, BMP #### [address] [address] [employer] Welder Apprentice: Mariusz Estrada MD WBC (Bld) [#/Vol] 8.9 10*3/uL Normal 3.5-11.3 [facility] Comment on above: Performed By: #### C DP, BMP #### [address] [address] [employer] Welder Apprentice: Mariusz Estrada MD Cult,Urineon 06-11-2022 Cult,Urine Specimen Description .CATHETER NEWLY INSERTED Culture NO GROWTH Report Status FINAL 06/11/2022 Normal [facility] Comment on above: Performed By: #### M GMICKY, CDP #### [address] [address] [employer] Welder Apprentice: Mariusz Estrada MD Culture, Urineon 06-11-2022 Microorganism identified Cx Nom (Unsp spec) NO GROWTH [facility] Specimen Description .CATHETER NEWLY INSERTED [facility] FL SMALL BOWEL FOLLOW KIRAN TODDon 06-11-2022 FL SMALL BOWEL FOLLOW THROUGH ONLY EXAMINATION: SMALL BOWEL FOLLOW THROUGH SERIES 06/11/2022 TECHNIQUE: Small bowel follow through series was performed with overhead images. No spot images were acquired as the last few images where acquired in patient's room and not in the fluoroscopy suite.. FLUOROSCOPY DOSE AND TYPE: Radiation Exposure Index: None, COMPARISON: Outside CT abdomen pelvis from [facility] 06/09/2022 HISTORY: ORDERING SYSTEM PROVIDED HISTORY: [...] Alexander Baird MD 06/11/22 Final result Normal [facility] Findings consistent with partial distal small [...] None, COMPARISON: Outside CT abdomen pelvis from [facility] 06/09/2022 HISTORY: ORDERING SYSTEM PROVIDED HISTORY: [...] consistent with distal partial small bowel obstruction. [facility] RIS Alexander Nevarez MD - 06/11/2022 EXAMINATION: SMALL BOWEL FOLLOW THROUGH SERIES 06/11/2022 TECHNIQUE: Small bowel follow through series was performed with overhead images. No spot images were acquired as the last few images where acquired in patient's room and not in the fluoroscopy suite.. FLUOROSCOPY DOSE AND TYPE: Radiation Exposure Index: None, COMPARISON: Outside CT abdomen pelvis from [facility] 06/09/2022 HISTORY: ORDERING SYSTEM PROVIDED HISTORY: [...] is noted as seen in the cecum. [facility] Work Phone: Radiology Study observation (narrative) [facility] Work Phone: Laboratory - Blood bankon Blood product type Nom (BPU) Leukocyte Reduced Red Cell [facility] [employer] Magnesiumon 06-11-2022 Magnesium [Mass/Vol] 2.4 mg/dL Normal 1.6-2.6 [facility] Comment on above: Performed By: #### C DP, BMP #### [facility] [address] [place] [address] Combination Welder Apprentice: Mariusz Estrada MD Magnesium [Mass/Vol] 2.4 mg/dL 1.6 - 2 .6 mg/dL [facility] No Panel InformationOrdered By: Etienne Rivers on 06-11-2022 [facility] Work Phone: No Panel Informationon 06-11 Crossmatch Result COMPATIBLE [facility] [employer] Dispense Status REL FROM [facility] [employer] Transfusion Status OK TO TRANSFUSE B ON [facility] [employer] Unit Divison 0 [facility] [employer] [facility] SURGICAL PATHOLOGY REPORTon 06-11-2022 Surgical Pathology Report [...] SURGICAL PATHOLOGY CONSULTATION Patient Name: KEVIN PEREA [facility] Rec: [id number] Path Number: [id number] [facility] [employer] [facility] ANATOMIC PATHOLOGY [address] [place] [address]. [place], [place] [address] [facility] [employer] [facility] TYPE AND SCREENon 06-11-2022 ABO/Rh Positive [facility] Arm Band Number BE [id number] [facility] [employer] Blood product unit ID (Dose) [#] [id number] [facility] [employer] Blood product unit ID (Dose) [#] [id number] [facility] [employer] Expiration Date 06/13/2022,2359 [facility] XR CHEST (SINGLE VIEW FRONTA L)on 06-11-2022 [...] Etienne Rivers MD 06/11/22 Final result Normal [facility] Right basilar bandlike opacity could represent [...] opacity could represent subsegmental atelectasis or infection [employer] Phone: Radiology Study observation (narrative) [employer] Phone: APTTon 06-10-2022 aPTT Coag (Bld) [Time] 24.0 s Normal 20.5-30.5 [facility] Comment on above: Result Comment: IV Heparin Therapy Range: 48.6-77.8 Performed By: #### M MICKY Herrera, CDP #### [employer] [address] [place] [address] [employer] Wel[employer] Apprentice: Mariusz Estrada MD aPTT Coag (Bld) [Time] 24.0 s [facility] [employer] Comment on above: IV Heparin Therapy Range: 48.6-77.8 Basic Metab w/rfx MGon 06-10 Anion gap [Moles/Vol] 11 mmol/L Normal 9-17 [facility] Comment on above: Performed By: #### B MPX, CDP #### [facility] [address] [place] [address] [phone] [employer] Apprentice: Mariusz Estrada MD Calcium [Mass/Vol] 8.6 mg/dL Normal 8.6-10.4 [facility] Comment on above: Performed By: #### B MPX, CDP #### [employer] [address] [place] [address] [phone] [employer] Apprentice: Mariusz Estrada MD Chloride [Moles/Vol] 99 mmol/L Normal 98-107 [facility] Comment on above: Performed By: #### B MPX, CDP #### [facility] [address] [place] [address] [employer]der Apprentice: Mariusz Estrada MD CO2 [Moles/Vol] 22 mmol/L Normal 20-31 [facility] Comment on above: Performed By: #### B MPX, CDP #### [facility] [address] [place] [address] Comb[employer] Welder Apprentice: Mariusz Estrada MD Creatinine [Mass/Vol] 0.64 mg/dL Normal 0.50-0.90 [facility] Comment on above: Performed By: #### B MPX, CDP #### [address] [address] [employer] Welder Apprentice: Mariusz Estrada MD GFR/1.73 sq M.predicted among non-blacks MDRD (S/P/Bld) [Vol rate/Area] mL/min/{1.73_m2} Normal >60 [facility] Comment on above: Result Comment: These [...] Performed By: #### B MPX, CDP #### [address] [address] [employer] Apprentice: Mariusz Estrada MD Glucose [Mass/Vol] 94 mg/dL Normal 70-99 [facility] Comment on above: Performed By: #### B MPX, CDP #### [address] [address] [employer] Apprentice: Mariusz Estrada MD Potassium [Moles/Vol] 3.8 mmol/L Normal 3.7-5.3 [facility] Comment on above: Performed By: #### B MPX, CDP #### [facility] [address] [place] [address] Comb[employer] Welder Apprentice: Mariusz Estrada MD Sodium [Moles/Vol] 132 mmol/L Low 135-144 [facility] Comment on above: Performed By: #### B MPX, CDP #### [facility] [address] [place] [address] Combination Welder Apprentice: Mariusz Estrada MD Urea nitrogen [Mass/Vol] 12 mg/dL Normal 8-23 [facility] Comment on above: Performed By: #### B MPX, CDP #### [facility] [address] [place] [address] [phone] [employer] Welder Apprentice: Mariusz Estrada MD Basic Metabolic Panelon 03-0 Anion gap [Moles/Vol] 15 mmol/L 9 - 17 mmol/L [facility] [employer] Calcium [Mass/Vol] 8.1 mg/dL Low 8.6 - 10. 4 mg/dL [facility] [employer] Chloride [Moles/Vol] 95 mmol/L Low 98 - 10 7 mmol/L [facility] [employer] CO2 [Moles/Vol] 20 mmol/L 20 - 31 mmol/L [facility] [employer] Creatinine [Mass/Vol] 0.5 mg/dL 0.50 - 0.90 mg/dL [facility] [employer] GFR/1.73 sq M.predicted MDRD (S/P/Bld) [Vol rate/Area] - PINF [facility] Comment on above: These results are [...] 159 mg/dL High 70 - 99 mg/dL [facility] Potassium [Moles/Vol] 3.3 mmol/L Low 3.7 - 5.3 mmol/L [facility] Sodium [Moles/Vol] 130 mmol/L Low 135 - 144 mmol/L [facility] Urea nitrogen [Mass/Vol] 10 mg/dL 8 - 23 mg/dL [facility] Basic Metabolic Panel w/ Ref isaías to MGon 06-10-2022 Anion gap [Moles/Vol] 11 mmol/L 9 - 17 mmol/L [facility] Calcium [Mass/Vol] 8.6 mg/dL 8.6 - 10. 4 mg/dL [facility] Chloride [Moles/Vol] 99 mmol/L 98 - 10 7 mmol/L [facility] CO2 [Moles/Vol] 22 mmol/L 20 - 31 mmol/L [facility] Creatinine [Mass/Vol] 0.64 mg/dL 0.50 - 0.90 mg/dL [facility] GFR/1.73 sq M.predicted MDRD (S/P/Bld) [Vol rate/Area] - PINF [facility] Comment on above: These results are [...] [Mass/Vol] 94 mg/dL 70 - 99 mg/dL [facility] Interpretation and review of laboratory results Abnormal [facility] Potassium [Moles/Vol] 3.8 mmol/L 3.7 - 5.3 mmol/L [facility] Sodium [Moles/Vol] 132 mmol/L Low 135 - 144 mmol/L [facility] Urea nitrogen [Mass/Vol] 12 mg/dL 8 - 23 mg/dL [facility] Basic Metabolic Profon 06-10 Anion gap [Moles/Vol] 15 mmol/L Normal 9-17 [facility] Comment on above: Performed By: #### JULEE Pimentel, BMP #### [facility] [employer] [address] [place] [address] [employer] Wel[employer] Apprentice: Mariusz Estrada MD Calcium [Mass/Vol] 8.1 mg/dL Low 8.6-10.4 [facility] Comment on above: Performed By: #### JULEE Pimentel, BMP #### [facility] [address] [place] [address] [employer] Welder Apprentice: Mariusz Estrada MD Chloride [Moles/Vol] 95 mmol/L Low 98-107 [facility] Comment on above: Performed By: #### JULEE Pimentel, BMP #### [facility] [employer] [address] [place] [address] Comb[employer]der Apprentice: Mariusz Estrada MD CO2 [Moles/Vol] 20 mmol/L Normal 20-31 [facility] Comment on above: Performed By: #### JULEE Pimentel, BMP #### [facility] [employer] [address] [place] [address] Comb[employer] Apprentice: Mariusz Estrada MD Creatinine [Mass/Vol] 0.50 mg/dL Normal 0.50-0.90 [facility] Comment on above: Performed By: #### JULEE Pimentel, BMP #### [facility] [employer] [address] [place] [address] [employer]der Apprentice: Mariusz Estrada MD GFR/1.73 sq M.predicted among non-blacks MDRD (S/P/Bld) [Vol rate/Area] mL/min/{1.73_m2} Normal >60 [facility] Comment on above: Result Comment: These [...] Performed By: #### JULEE Pimentel, BMP #### [facility] [address] [place] [address] Combination Welder Apprentice: Mariusz Estrada MD Glucose [Mass/Vol] 159 mg/dL High 70-99 [facility] Comment on above: Performed By: #### JULEE Pimentel, BMP #### [facility] [address] [place] [address] Comb[employer]der Apprentice: Mariusz Estrada MD Potassium [Moles/Vol] 3.3 mmol/L Low 3.7-5.3 [facility] Comment on above: Performed By: #### JULEE Pimentel, BMP #### [employer] [address] [place] [address] Combination Welder Apprentice: Mariusz Estrada MD Sodium [Moles/Vol] 130 mmol/L Low 135-144 [facility] Comment on above: Performed By: #### JULEE Pimentel, BMP #### [facility] [address] [place] [address] [employer] Apprentice: Mariusz Estrada MD Urea nitrogen [Mass/Vol] 10 mg/dL Normal 8-23 [facility] Comment on above: Performed By: #### JULEE Pimentel, BMP #### [facility] [address] [place] [address] [employer] Welder Apprentice: Mariusz Estrada MD CBC with Auto Differentialon 06-10-2022 Absolute Eos # 0.00 [facility] [employer] [facility] Absolute Immature Granulocyte 0.00 [facility] Absolute Lymph # 0.29 Low [facility] Garvin # 0.37 [facility] Basophils (Bld) [#/Vol] 0.00 10*3/uL [facility] Basophils/100 WBC (Bld) 0 % 0 - 2 % [facility] Eosinophils/100 WBC (Bld) 0 % Low 1 - 4 % [facility] Hematocrit (Bld) [Volume fraction] 34.0 % Low 36.3 - 47.1 % [facility] Hemoglobin (Bld) [Mass/Vol] 10.3 g/dL Low 11.9 - 15.1 g/dL [facility] Immature granulocytes/100 WBC (Bld) 0 % 0 [facility] Interpretation and review of laboratory results Abnormal [facility] Lymphocytes/100 WBC (Bld) 4 % Low 24 - 44 % [facility] MCH (RBC) [Entitic mass] 24.1 pg Low 25.2 - 33.5 pg [facility] MCHC (RBC) [Mass/Vol] 30.3 g/dL 28.4 - 34.8 g/dL [facility] MCV (RBC) [Entitic vol] 79.4 fL Low 82.6 - 102.9 fL [facility] Monocytes/100 WBC (Bld) 5 % 1 - 7 % [facility] Morphology Jamie (Bld) [Interp] ANISOCYTOSIS PRESENT [facility] Morphology Jamie (Bld) [Interp] MICROCYTOSIS PRESENT [facility] NRBC Automated 0.0 0.0 per 100 WBC [facility] Platelet distribution width (Bld) [Ratio] 17.3 % High 11.8 - 14.4 % [facility] Platelet mean volume (Bld) [Entitic vol] 11.1 fL 8.1 - 13.5 fL [facility] Platelets (Bld) [#/Vol] 200 10*3/uL [facility] RBC (Bld) [#/Vol] 4.28 10*6/uL 3.95 - 5.1 1 m/uL [facility] Segmented neutrophils/100 WBC (Bld) 91 % High 36 - 66 % [facility] Segs Absolute 6.64 [facility] WBC (Bld) [#/Vol] 7.3 10*3/uL [facility] Absolute Eos # 0.08 [facility] Absolute Immature Granulocyte [facility] Absolute Lymph # 1.38 [facility] Absolute Garvin # 0.58 [facility] Basophils (Bld) [#/Vol] 0.04 10*3/uL [facility] Basophils/100 WBC (Bld) 1 % 0 - 2 % [facility] Eosinophils/100 WBC (Bld) 1 % 1 - 4 % [facility] Hematocrit (Bld) [Volume fraction] 34.3 % Low 36.3 - 47.1 % [facility] Hemoglobin (Bld) [Mass/Vol] 10.5 g/dL Low 11.9 - 15.1 g/dL [facility] Immature granulocytes/100 WBC (Bld) 0 % 0 [facility] Interpretation and review of laboratory results Abnormal [facility] Lymphocytes/100 WBC (Bld) 24 % 24 - 43 % [facility] MCH (RBC) [Entitic mass] 24.0 pg Low 25.2 - 33.5 pg [facility] MCHC (RBC) [Mass/Vol] 30.6 g/dL 28.4 - 34.8 g/dL [facility] MCV (RBC) [Entitic vol] 78.3 fL Low 82.6 - 102.9 fL [facility] Monocytes/100 WBC (Bld) 10 % 3 - 12 % [facility] NRBC Automated 0.0 0.0 per 100 WBC [facility] Platelet distribution width (Bld) [Ratio] 17.4 % High 11.8 - 14.4 % [facility] Platelet mean volume (Bld) [Entitic vol] 11.4 fL 8.1 - 13.5 fL [facility] Platelets (Bld) [#/Vol] 245 10*3/uL [facility] RBC (Bld) [#/Vol] 4.38 10*6/uL 3.95 - 5.1 1 m/uL [facility] RBC (Bld) [#/Vol] ANISOCYTOSIS PRESENT [facility] Comment on above: MICROCYTOSIS PRESENT Segmented neutrophils/100 WBC (Bld) 64 % 36 - 65 % [facility] Segs Absolute 3.55 [facility] WBC (Bld) [#/Vol] 5.7 10*3/uL [facility] CBC with Diffon 06-10-2022 Abs. Basophil 0.00 k/uL Normal 0.0-0.2 [facility] Comment on above: Performed By: #### C DP, BMP #### [address] [address] [employer] Apprentice: Mariusz Estrada MD Abs.Imm.Granulocyte 0.00 k/uL Normal 0.00-0.30 [facility] Comment on above: Performed By: #### C DP, BMP #### [address] [address] [employer] Apprentice: Mariusz Estrada MD Abs.Neutrophil (Seg) 6.64 k/uL Normal 1.8-7.7 [facility] Comment on above: Performed By: #### C DP, BMP #### [address] [address] [employer] Apprentice: Mariusz Estrada MD Basophils/100 WBC (Bld) 0 % Normal 0-2 [facility] Comment on above: Performed By: #### C DP, BMP #### [facility] [employer] [address] [place] [phone] Combination Welder Apprentice: Mariusz Estrada MD Eosinophils (Bld) [#/Vol] 0.00 10*3/uL Normal 0.0-0.4 [facility] Comment on above: Performed By: #### C DP, BMP #### [facility] [employer] [address] [place] [address] Comb[employer]der Apprentice: Mariusz Estrada MD Eosinophils/100 WBC (Bld) 0 % Low 1-4 [facility] Comment on above: Performed By: #### C DP, BMP #### [facility] [employer] [address] [place] [address] Comb[employer] Welder Apprentice: Mariusz Estrada MD Immature granulocytes/100 WBC (Bld) 0 % Normal 0 [facility] Comment on above: Performed By: #### C DP, BMP #### [address] [address] [employer] Apprentice: Mariusz Estrada MD Lymphocytes (Bld) [#/Vol] 0.29 10*3/uL Low 1.0-4.8 [facility] Comment on above: Performed By: #### C DP, BMP #### [address] [address] [employer] Apprentice: Mariusz Estrada MD Lymphocytes/100 WBC (Bld) 4 % Low 24-44 [facility] Comment on above: Performed By: #### C DP, BMP #### [address] [address] [employer] Apprentice: Mariusz Estrada MD Monocytes (Bld) [#/Vol] 0.37 10*3/uL Normal 0.1-0.8 [facility] Comment on above: Performed By: #### C DP, BMP #### [address] [address] [employer] Apprentice: Mariusz Estrada MD Monocytes/100 WBC (Bld) 5 % Normal 1-7 [facility] Comment on above: Performed By: #### C DP, BMP #### [address] [address] [employer] Welder Apprentice: Mariusz Estrada MD Morphology Jamie (Bld) [Interp] ANISOCYTOSIS PRESENT Normal [facility] Comment on above: Result Comment: MICR OCYTOSIS PRESENT Performed By: #### C DP, BMP #### [address] [address] [employer] Apprentice: Mariusz Estrada MD Neutrophil (Seg) 91 % High 36-66 [facility] Comment on above: Performed By: #### C DP, BMP #### [address] [address] [employer] Apprentice: Mariusz Estrada MD Erythrocyte distribution width (RBC) [Ratio] 17.3 % High 11.8-14.4 [facility] Comment on above: Performed By: #### C DP, BMP #### [address] [address] [employer]ice: Mariusz Estrada MD Hematocrit (Bld) [Volume fraction] 34.0 % Low 36.3-47.1 [facility] Comment on above: Performed By: #### C DP, BMP #### [address] [address] [employer] Apprentice: Mariusz Estrada MD Hemoglobin (Bld) [Mass/Vol] 10.3 g/dL Low 11.9-15.1 [facility] Comment on above: Performed By: #### C DP, BMP #### [address] [address] [employer] Apprentice: Mariusz Estrada MD MCH (RBC) [Entitic mass] 24.1 pg Low 25.2-33.5 [facility] Comment on above: Performed By: #### C DP, BMP #### [address] [address] [employer] Apprentice: Mariusz Estrada MD MCHC (RBC) [Mass/Vol] 30.3 g/dL Normal 28.4-34.8 [facility] Comment on above: Performed By: #### C DP, BMP #### [place] [address] [employer] Apprentice: Mariusz Estrada MD MCV (RBC) [Entitic vol] 79.4 fL Low 82.6-102.9 [facility] Comment on above: Performed By: #### C DP, BMP #### [address] [place] [address] [employer] Apprentice: Mariusz Estrada MD NRBC Automated 0.0 per 100 WBC Normal 0.0 [facility] Comment on above: Performed By: #### C DP, BMP #### [facility] [employer] [address] [place] [address] [employer] Apprentice: Mariusz Estrada MD Platelet mean volume (Bld) [Entitic vol] 11.1 fL Normal 8.1-13.5 [facility] Comment on above: Performed By: #### C DP, BMP #### [address] [address] [employer] Apprentice: Mariusz Estrada MD Platelets (Bld) [#/Vol] 200 10*3/uL Normal 138-453 [facility] Comment on above: Performed By: #### C DP, BMP #### [address] [address] [employer] Apprentice: Mariusz Estrada MD RBC (Bld) [#/Vol] 4.28 10*6/uL Normal 3.95-5.11 [facility] Comment on above: Performed By: #### C DP, BMP #### [address] [address] [employer] Apprentice: Mariusz Estrada MD WBC (Bld) [#/Vol] 7.3 10*3/uL Normal 3.5-11.3 [facility] Comment on above: Performed By: #### C DP, BMP #### [address] [address] [employer] Apprentice: Mariusz Estrada MD Abs. Basophil 0.04 k/uL Normal 0.00-0.20 [facility] Comment on above: Performed By: #### B MPX, CDP #### [address] [address] [employer] Apprentice: Mariusz Estrada MD Abs.Imm.Granulocyte <0.03 Normal 0.00-0.30 [facility] Comment on above: Performed By: #### B MPX, CDP #### [address] [address] [employer] Apprentice: Mariusz Estrada MD Abs.Neutrophil (Seg) 3.55 k/uL Normal 1.50-8.10 [facility] Comment on above: Performed By: #### B MPX, CDP #### [address] [address] [employer] Apprentice: Mariusz Estrada MD Basophils/100 WBC (Bld) 1 % Normal 0-2 [facility] Comment on above: Performed By: #### B CLIFFORDX, CDP #### [place] [address] [employer] Apprentice: Mariusz Estrada MD Eosinophils (Bld) [#/Vol] 0.08 10*3/uL Normal 0.00-0.44 [facility] Comment on above: Performed By: #### B MPX, CDP #### [address] [address] [employer] Apprentice: Mariusz Estrada MD Eosinophils/100 WBC (Bld) 1 % Normal 1-4 [facility] Comment on above: Performed By: #### B MPX, CDP #### [address] [address] [employer] Apprentice: Mariusz Estrada MD Erythrocyte distribution width (RBC) [Ratio] 17.4 % High 11.8-14.4 [facility] Comment on above: Performed By: #### B MPX, CDP #### [address] [address] [employer] Apprentice: Mariusz Estrada MD Hematocrit (Bld) [Volume fraction] 34.3 % Low 36.3-47.1 [facility] Comment on above: Performed By: #### B MPX, CDP #### [address] [address] [employer] Apprentice: Mariusz Estrada MD Hemoglobin (Bld) [Mass/Vol] 10.5 g/dL Low 11.9-15.1 [facility] Comment on above: Performed By: #### B MPX, CDP #### [address] [address] [employer] Apprentice: Mariusz Estrada MD Immature granulocytes/100 WBC (Bld) 0 % Normal 0 [facility] Comment on above: Performed By: #### B MPX, CDP #### [address] [address] [employer] Apprentice: Mariusz Estrada MD Lymphocytes (Bld) [#/Vol] 1.38 10*3/uL Normal 1.10-3.70 [facility] Comment on above: Performed By: #### B MPX, CDP #### [address] [address] [employer] Apprentice: Mariusz Estrada MD Lymphocytes/100 WBC (Bld) 24 % Normal 24-43 [facility] Comment on above: Performed By: #### B MPX, CDP #### [place] [address] [employer] Apprentice: Mariusz Estrada MD MCH (RBC) [Entitic mass] 24.0 pg Low 25.2-33.5 [facility] Comment on above: Performed By: #### B MPX, CDP #### [address] [address] [employer] Apprentice: Mariusz Estrada MD MCHC (RBC) [Mass/Vol] 30.6 g/dL Normal 28.4-34.8 [facility] Comment on above: Performed By: #### B MPX, CDP #### [address] [address] [employer] Apprentice: Mariusz Estrada MD MCV (RBC) [Entitic vol] 78.3 fL Low 82.6-102.9 [facility] Comment on above: Performed By: #### B MPX, CDP #### [address] [address] [employer] Apprentice: Mariusz Estrada MD Monocytes (Bld) [#/Vol] 0.58 10*3/uL Normal 0.10-1.20 [facility] Comment on above: Performed By: #### B MPX, CDP #### [address] [address] [employer] Apprentice: Mariusz Estrada MD Monocytes/100 WBC (Bld) 10 % Normal 3-12 [facility] Comment on above: Performed By: #### B MPX, CDP #### [address] [address] [employer] Apprentice: Mariusz Estrada MD Neutrophil (Seg) 64 % Normal 36-65 [facility] Comment on above: Performed By: #### B MPX, CDP #### [address] [address] [employer] Apprentice: Mariusz Estrada MD NRBC Automated 0.0 per 100 WBC Normal 0.0 [facility] Comment on above: Performed By: #### B MPX, CDP #### [address] [address] [employer] Apprentice: Mariusz Estrada MD Platelet mean volume (Bld) [Entitic vol] 11.4 fL Normal 8.1-13.5 [facility] Comment on above: Performed By: #### B MPX, CDP #### [address] [address] [employer] Apprentice: Mariusz Estrada MD Platelets (Bld) [#/Vol] 245 10*3/uL Normal 138-453 [facility] Comment on above: Performed By: #### B MPX, CDP #### [facility] [place] [address] [employer]der Apprentice: Mariusz Estrada MD RBC (Bld) [#/Vol] 4.38 10*6/uL Normal 3.95-5.11 [facility] Comment on above: Performed By: #### B MPX, CDP #### [facility] [place] [address] [employer]der Apprentice: Mariusz Estrada MD RBC morphology finding Nom (Bld) ANISOCYTOSIS PRESENT Normal [facility] Comment on above: Result Comment: MICR OCYTOSIS PRESENT Performed By: #### B MPX, CDP #### [facility] [employer] [address] [place] [address] [employer] Apprentice: Mariusz Estrada MD WBC (Bld) [#/Vol] 5.7 10*3/uL Normal 3.5-11.3 [facility] Comment on above: Performed By: #### B MPX, CDP #### [address] [address] [employer]der Apprentice: Mariusz Estrada MD CT ABD/PELV W CONon [...] JUAN SALDIVAR Date: 2022-06-09 22:39 Normal [facility]on SARS-CoV-2 (COVID-19) RNA AMPARO+probe Ql (Unsp spec) Not detected Normal NOT DETECTED [facility] Comment on above: Result Comment: When [...] for this test is supported by the [employer] Specialist of Health and Human Service's declaration [...] used). Performed By: #### C BC #### [facility] [address] [address] [address] Joann Atkins Lactate, Sepsison 06-10-2022 Lactic Acid,Sep Wbld 1.1 mmol/L Normal 0.5-1.9 [facility] Comment on above: Performed By: #### MICKY Pimentel, CDP #### [facility] [address] [place] [address] [employer] Welder Apprentice: Mariusz Estrada MD Lactic Acid, Sepsis, Whole Blood 1.1 mmol/L 0.5 - 1.9 mmol/L [facility] Magnesiumon 06-10-2022 Magnesium [Mass/Vol] 1.5 mg/dL Low 1.6-2.6 [facility] Comment on above: Performed By: #### M JULEE Herrera, BMP #### [facility] [address] [place] [address] [employer]der Apprentice: Mariusz Estrada MD Magnesium [Mass/Vol] 1.5 mg/dL Low 1.6 - 2 .6 mg/dL [facility] No Panel Informationon 06-10 Interpretation and review of laboratory results Abnormal [facility] PTon 06-10-2022 INR Coag (PPP) [Relative time] 0.9 {INR} Normal [facility] Comment on above: Result Comment: Therapeutic Range: Moderate Anticoagulant Intensity: INR = 2.0-3.0 High Anticoagulant Intensity: INR = 2.5-3.5 Performed By: #### MICKY Pimentel, CDP #### [facility] [address] [place], [place] [phone] [employer] Apprentice: Mariusz Estrada MD PT Coag (PPP) [Time] 9.7 s Normal 9.1-12.3 [facility] Comment on above: Performed By: #### IMCKY Pimentel, CDP #### [facility] [address] [place] [phone] [employer] Apprentice: Mariusz Estrada MD Protime-INRon 06-10-2022 INR Coag (PPP) [Relative time] 0.9 {INR} [facility] Comment on above: Therapeutic Range: Moderate Anticoagulant Intensity: INR = 2.0-3.0 High Anticoagulant Intensity: INR = 2.5-3.5 PT Coag (PPP) [Time] 9.7 s [facility] Surgical Pathologyon 023 Surgical Pathology (NOTE) -- Diagnosis -- APPENDIX, LAPAROSCOPIC APPENDECTOMY:-BENIGN APPENDIX WITH SEROSAL CONGESTION, CONSISTENT WITH ADHESIONS. Kandice Ni Electronically Signed Out 06/11/2022 Clinical Information Pre-op Diagnosis: GASTROINTESTINAL PROBLEM Operative [...] SURGICAL PATHOLOGY CONSULTATION Patient Name: KEVIN PEREA [facility] Rec: [id number] Path Number: [id number] [facility] CONSULTING PATHOLOGISTS [facility] ANATOMIC PATHOLOGY [address] [place] [phone] Normal [facility] Comment on above: Performed By: #### C DP, BMP #### [address] [id number] [employer] Apprentice: Mariusz Estrada MD Type + Screenon 06-10-2022 Type + Screen Sample Expiration 06/13/2022,2359 Arm Band Number [id number] ABO/Rh(D) O POSITIVE Antibody Screen NEGATIVE Unit Number [id number] Blood Component Type Leukocyte Reduced Red Cell Unit Division 00 Status of Unit REL FROM ALLOC Transfusion Status OK TO TRANSFUSE Crossmatch Result COMPATIBLE Unit Number [id number] Blood Component Type Leukocyte Reduced Red Cell Unit Division 00 Status of Unit REL FROM ALLOC Transfusion Status OK TO TRANSFUSE Crossmatch Result COMPATIBLE Normal [facility] Comment on above: Performed By: #### T YS #### [address] [phone] [employer] Apprentice: Mariusz Estrada MD CBC AUTO DIFFon 06-09-2022 BASO # 0.0 103/ul Normal 0.0-0.1 [facility] Comment on above: Performed By: #### C BC #### [facility] [address] [place] [address] Dr. Joann Atkins Basophils/100 WBC (Bld) 0.6 % Normal 0.2-2.0 [facility] Comment on above: Performed By: #### C BC #### [facility] [address] [place] [address] Dr. Joann Atkins EO # 0.2 103/ul Normal 0.0-0.7 [facility] Comment on above: Performed By: #### C BC #### [facility] [address] [place] [address] Dr. Joann Atkins Eosinophils/100 WBC (Bld) 3.7 % Normal 0.9-7.0 [facility] Comment on above: Performed By: #### C BC #### [facility] [address] [place] [address] Dr. Joann Atkins Erythrocyte distribution width (RBC) [Ratio] 17.6 % Critically high 11.0-15.0 [facility] Comment on above: Performed By: #### C BC #### [facility] [address] [place] [address] Dr. Joann Atkins Hematocrit (Bld) [Volume fraction] 36.8 % Normal 36.0-48.0 [facility] Comment on above: Performed By: #### C BC #### [facility] [address] [place] [address] Dr. Joann Atkins Hemoglobin (Bld) [Mass/Vol] 11.5 g/dL Critically low 12.0-16.0 [facility] Comment on above: Performed By: #### C BC #### [facility] [address] [place] [address] Dr. Joann Atkins IG # 0.01 10e3/ul Normal 0.00-0.03 [facility] Comment on above: Performed By: #### C BC #### [facility] [address] [place] [address] Dr. Joann Atkins IG % 0.2 % Normal 0.0-0.5 [facility] Comment on above: Performed By: #### C BC #### [facility] [address] [place] [address] Dr. Joann Atkins LYMPH # 1.9 103/ul Normal 1.2-3.8 [facility] Comment on above: Performed By: #### C BC #### [facility] [address] [place] [address] Dr. Joann Atkins Lymphocytes/100 WBC (Bld) 39.2 % Normal 20.5-60.0 [facility] Comment on above: Performed By: #### C BC #### [facility] [address] [place] [address] Dr. Joann Atkins MANUAL DIFF REQ NO Normal [facility] Comment on above: Performed By: #### C BC #### [facility] [address] [place] [address] Dr. Joann Atkins MCH (RBC) [Entitic mass] 24.2 pg Critically low 26.7-34.0 [facility] Comment on above: Performed By: #### C BC #### [facility] [address] [place] [address] Dr. Joann Atkins MCHC (RBC) [Mass/Vol] 31.3 g/dL Normal 29.9-35.2 [facility] Comment on above: Performed By: #### C BC #### [facility] [address] [place] [address] Dr. Joann Atkins MCV (RBC) [Entitic vol] 77.5 fL Critically low 81.0-99.0 [facility] Comment on above: Performed By: #### C BC #### [facility] [address] [place] [address] Dr. Joann Atkins MONO # 0.5 103/ul Normal 0.3-0.8 [facility] Comment on above: Performed By: #### C BC #### [facility] [address] [place] [address] Dr. Joann Atkins Monocytes/100 WBC (Bld) 9.9 % Normal 1.7-12.0 [facility] Comment on above: Performed By: #### C BC #### [facility] [address] [place] [address] Dr. Joann Atikns NEUT # 2.3 103/ul Normal 1.4-6.5 [facility] Comment on above: Performed By: #### C BC #### [facility] [address] [place] [address] Dr. Joann Atkins Neutrophils/100 WBC (Bld) 46.4 % Normal 43.0-75.0 [facility] Comment on above: Performed By: #### C BC #### [facility] [address] [place] [address] Dr. Joann Atkins Platelet mean volume (Bld) [Entitic vol] 10.6 fL Normal 9.5-13.5 [facility] Comment on above: Performed By: #### C BC #### [facility] [address] [place] [address] Dr. Joann Atkins PLT 269 103/ul Normal 150-450 [facility] Comment on above: Performed By: #### C BC #### [facility] [address] [place] [address] Dr. Joann Atkins RBC 4.75 106/ul Normal 4.20-5.40 [facility] Comment on above: Performed By: #### C BC #### [facility] [address] [place] [address] Dr. Joann Atkins WBC 4.9 103/ul Normal 4.0-11.0 [facility] Comment on above: Performed By: #### C BC #### [facility] [address] [place] [address] Dr. Joann Atkins CULTURE URINEon 06-09-2022 CULTURE URINE Culture Observations : MODERATE GROWTH OF MIXED GENITAL RONNI. NO POTENTIAL PATHOGENS SEEN. Normal [facility] Comment on above: Performed By: #### U RCX #### [facility] [address] [place] [address] Dr. Joann Atkins ER URINE PROFILEon 3 Bilirubin Ql (U) Negative Normal NEGATIVE [facility] Comment on above: Performed By: #### CHRISTOPH CAMPOSRO #### [facility] [address] [place] [address] Dr. Joann Atkins Clarity (U) CLEAR Normal CLEAR [facility] Comment on above: Performed By: #### AJ CAMPOSICRO #### [facility] [address] [place] [address] Dr. Joann Atkins Color (U) LT. YELLOW Normal YELLOW [facility] Comment on above: Performed By: #### CHRISTOPH CAMPOSRO #### [facility] [address] [place] [address] Dr. Joann LARSON A micrscopic examination will be performed if indicated. Normal [facility] Comment on above: Performed By: #### CHRISTOPH CAMPOSRO #### [facility] [address] [place] [address] Dr. Joann Atkins Glucose Ql (U) Negative Normal NEGATIVE [facility] Comment on above: Performed By: #### Carmen MOLINA UMICRO #### [facility] [address] [place] [address] Dr. Joann Atkins Hemoglobin Ql (U) TRACE-INTACT Abnormal NEGATIVE [facility] Comment on above: Performed By: #### Carmen MOLINA UMICRO #### [facility] [address] [place] [address] Dr. Joann Atkins Ketones Ql (U) Negative Normal NEGATIVE [facility] Comment on above: Performed By: #### Carmen MOLINA UMICRO #### [facility] [address] [place] [address] Dr. Joann Atkins LEUKOCYTES SMALL Abnormal NEGATIVE [facility] Comment on above: Performed By: #### Carmen MOLINA UMICRO #### [facility] [address] [place] [address] Dr. Joann Atkins Nitrite Ql (U) Negative Normal NEGATIVE [facility] Comment on above: Performed By: #### Carmen MOLINA UMICRO #### [facility] [address] [place] [address] Dr. Joann Atkins pH (U) 5.5 [pH] Normal 5-9 [facility] Comment on above: Performed By: #### Carmen MOLINA UMICRO #### [facility] [address] [place] [address] Dr. Joann Atkins SPEC GRAVITY >=1.030 Abnormal 1.005-<=1.02 5 [facility] Comment on above: Performed By: #### Carmen MOLINA UMICRO #### [facility] [address] [place] [address] Dr. Joann Atkins UA PROTEIN Negative Normal NEGATIVE/ TRACE [facility] Comment on above: Performed By: #### Carmen MOLINA UMICRO #### [facility] [address] [place] [address] Dr. Joann Atkins UR MICRO IND INDICATED Normal [facility] Comment on above: Performed By: #### Carmen ARNOLDR, CHRISTOPHRO #### [facility] [address] [place] [address] Dr. Joann Atkins Urobilinogen Qn (U) 0.2 {Abilio'U}/dL Normal 0.2 - 1. 0 [facility] Comment on above: Performed By: #### E CHRISTOPH MOLINARO #### [facility] [address] [place] [address] Dr. Joann Atkins LACTATE/LACTIC ACIDon 2022 Lactate [Moles/Vol] 1.3 mmol/L Normal 0.4-1.9 [facility] Comment on above: Performed By: #### L ACT #### [facility] [address] [place] [address] Dr. Joann Atkins LIPASEon 06-09-2022 Lipase [Catalytic activity/Vol] 235.0 U/L Normal 73.0-393.0 [facility] Comment on above: Performed By: #### C MP, HSTROPN, LIPA #### [facility] [address] [place] [address] Dr. Joann Atkins PROF 14(COMP METB)on 023 Albumin [Mass/Vol] 4.1 g/dL Normal 3.4-5.0 [facility] Comment on above: Performed By: #### C MP, HSTROPN, LIPA #### [facility] [address] [place] [address] Dr. Joann Atkins Albumin/Globulin [Mass ratio] 1.0 {ratio} Normal [facility] Comment on above: Performed By: #### C MP, HSTROPN, LIPA #### [facility] [address] [place] [address] Dr. Joann Atkins ALP [Catalytic activity/Vol] 124 U/L Critically high 46-116 [facility] Comment on above: Performed By: #### C MP, HSTROPN, LIPA #### [facility] [address] [place] [address] Dr. Joann Atkins ALT [Catalytic activity/Vol] 15 U/L Normal 14-59 [facility] Comment on above: Performed By: #### C MP, HSTROPN, LIPA #### [facility] [address] [address] [address] Jonan Atkins Anion gap [Moles/Vol] 14.0 mmol/L Normal [facility] Comment on above: Performed By: #### C MP, HSTROPN, LIPA #### [facility] [address] [place] [address] Dr. Joann Atkins AST [Catalytic activity/Vol] 14 U/L Critically low 15-37 [facility] Comment on above: Performed By: #### C MP, HSTROPN, LIPA #### [facility] [address] [place] [address] Dr. Joann Atkins Bilirubin [Mass/Vol] 0.2 mg/dL Normal 0.2-1.0 [facility] Comment on above: Performed By: #### C MP, HSTROPN, LIPA #### [facility] [address] [place] [address] Dr. Joann Atkins Calcium [Mass/Vol] 8.8 mg/dL Normal 8.5-10.1 [facility] Comment on above: Performed By: #### C MP, HSTROPN, LIPA #### [facility] [address] [place] [address] Dr. Joann Atkins Chloride [Moles/Vol] 103 mmol/L Normal 98-107 [facility] Comment on above: Performed By: #### C MP, HSTROPN, LIPA #### [facility] [address] [place] [address] Dr. Joann Atkins CO2 [Moles/Vol] 25.6 mmol/L Normal 21.0-32.0 [facility] Comment on above: Performed By: #### C MP, HSTROPN, LIPA #### [facility] [address] [place] [address] Dr. Joann Atkins Creatinine [Mass/Vol] 0.89 mg/dL Normal 0.55-1.02 [facility] Comment on above: Performed By: #### C MP, HSTROPN, LIPA #### [facility] [address] [address] [address] Joann Atkins EGFR-AF ALGERIAN >60 Normal >=60 [facility] Comment on above: Performed By: #### C MP, HSTROPN, LIPA #### [facility] [address] [address] [address] Joann Atkins EGFR-NON AF ALGERIAN >60 Normal >=60 [facility] Comment on above: Performed By: #### C MP, HSTROPN, LIPA #### [facility] [address] [address] [address] Joann Atkins Globulin (S) [Mass/Vol] 4.0 g/dL Normal [facility] Comment on above: Performed By: #### C MP, HSTROPN, LIPA #### [facility] [address] [place] [address] Dr. Joann Atkins Glucose [Mass/Vol] 115 mg/dL Critically high 74-106 [facility] Comment on above: Performed By: #### C MP, HSTROPN, LIPA #### [facility] [address] [address] [address] Joann Atkins Potassium [Moles/Vol] 3.6 mmol/L Normal 3.5-5.1 [facility] Comment on above: Performed By: #### C MP, HSTROPN, LIPA #### [facility] [address] [address] [address] Joann Atkins Protein [Mass/Vol] 8.1 g/dL Normal 6.4-8.2 [facility] Comment on above: Performed By: #### C MP, HSTROPN, LIPA #### [facility] [address] [place] [address] Dr. Joann Atkins Sodium [Moles/Vol] 139 mmol/L Normal 136-145 [facility] Comment on above: Performed By: #### C MP, HSTROPN, LIPA #### [facility] [address] [place] [address] Dr. Joann Atkins Urea nitrogen [Mass/Vol] 17.0 mg/dL Normal 7.0-18.0 [facility] Comment on above: Performed By: #### C CLIFFORD HSTROPN, LIPA #### [facility] [address] [place] [address] Dr. Joann Atkins Urea nitrogen/Creatinine [Mass ratio] 19.1 mg/mg Normal [facility] Comment on above: Performed By: #### C MP, HSTROPN, LIPA #### [facility] [address] [place] [address] Dr. Joann Atkins TROPONIN, HIGH SENSITIVITYon 06-09-2022 HSTROP 20.5 pg/mL Normal 4.0-51.3 [facility] Comment on above: Result Comment: CUT- OFF POINTS HAVE BEEN ESTABLISHED BASED ON THE FOURTH UNIVERSAL DEFINITIONS OF MYOCARDIAL INFARCTION. THE UPPER REFERENCE LIMIT (URL) OF TROPONIN, DEFINED THE 99TH PERCENTILE OF cTnI DISTRIBUTION IN A REFERENCE POPULATION, HAS BEEN CONFIRMED THE DECISION THRESHOLD FOR [place] DIAGNOSIS. Performed By: #### C MP, HSTROPN, LIPA #### [facility] [address] [place] [address] Dr. Joann Atkins URINE MICROSCOPIC ONLYon BACTERIA NONE SEEN Normal NONE SEEN [facility] Comment on above: Performed By: #### C BC #### [facility] [address] [place] [address] Dr. Joann Atkins Bacteria identified Cx Nom (U) INDICATED Normal [facility] Comment on above: Performed By: #### C BC #### [facility] [address] [place] [address] Dr. Joann Atkins CAST NONE SEEN Normal NONE SEEN [facility] Comment on above: Performed By: #### C BC #### [facility] [address] [place] [address] Dr. Joann Atkins Crystals LM Nom (Urine sed) NONE SEEN Normal NONE SEEN [facility] Comment on above: Performed By: #### C BC #### [facility] [address] [place] [address] Dr. Joann Atkins Epithelial cells LM Ql (Urine sed) RARE Normal NONE SEEN /RARE [facility] Comment on above: Performed By: #### C BC #### [facility] [address] [place] [address] Dr. Joann Atkins MUCOUS NONE SEEN Normal NONE SEEN [facility] Comment on above: Performed By: #### C BC #### [facility] [address] [address] [address] Joann Atkins RBC 0-2 Normal 0-2 [facility] Comment on above: Performed By: #### C BC #### [facility] [address] [place] [address] Dr. Joann Atkins WBC 10-20 Abnormal NONE SEEN [facility] Comment on above: Performed By: #### C BC #### [facility] [address] [place] [address] Dr. Joann Atkins Vital Signs Date Time Vital Sign Value Performing Clinician Facility 11-18-2022 15:30-0400 Body height 144.78 cm Dilcia Mancilla Other [id number] Other 11-18-2022 15:30-0400 Body mass index (BMI) [Ratio] 26.83 kg/m2 Dilcia Mancilla Other [id number] Other 11-18-2022 15:30-0400 Body weight 56.25 kg Dilcia Mancilla Other [id number] Other 11-18-2022 15:30-0400 Diastolic blood pressure 77 mm[Hg] Dilcia Mancilla Other [id number] Other 11-18-2022 15:30-0400 Systolic blood pressure 118 mm[Hg] Dilcia Mancilla Other [id number] Other 06-15-2022 09:19-0400 Body temperature 98.01 [degF] Roxana Lopez MD Work Phone: [facility] 06-15-2022 09:19-0400 Diastolic blood pressure 70 mm[Hg] Roxana Lopez MD Work Phone: [facility] [employer] [facility] 06-15-2022 09:19-0400 Heart rate 61 /min Roxana Lopez MD Work Phone: [facility] [employer] [facility] 06-15-2022 09:19-0400 Respiratory rate 16 /min Roxana Lopez MD Work Phone: [facility] [employer] [facility] 06-15-2022 09:19-0400 SaO2% (BldA) [Mass fraction] 91 % Roxana Lopez MD Work Phone: [facility] 06-15-2022 09:19-0400 Systolic blood pressure 136 mm[Hg] Roxana Lopez MD [facility] 06-14-2022 06:00-0500 Body mass index (BMI) [Ratio] 28.23 kg/m2 Roxana Lopez MD Work Phone: [facility] 06-14-2022 06:00-0500 Body weight 63.4 kg Roxana Lopez MD [facility] 06-10-2022 12:45-0500 Body height 149.9 cm Roxana Lopez MD Work Phone: [facility] [employer] [facility] Encounters Encounter Date Encounter Type Care Provider Facility Start: 07-14-2023 End: 07-15-2023 ambulatory DILCIA Cabrera [facility] Start: 06-22-2023 End: 06-23-2023 ambulatory Gladis Gillis MD Facility:[facility] Start: 06-09-2023 End: 06-10-2023 ambulatory DILCIA Cabrera [facility] Start: 05-12-2023 End: 05-13-2023 ambulatory DILCIA Cabrera [facility] Start: 04-14-2023 End: 04-15-2023 [facility] Start: 03-03-2023 End: 03-04-2023 ambulatory MOHAMED AYOUBI [facility] Start: 02-03-2023 End: 02-04-2023 ambulatory MOHAMED AYOUBI [facility] Start: 01-27-2023 End: 01-28-2023 ambulatory MOHAMED AYOUBI [facility] Start: 01-20-2023 End: 01-21-2023 ambulatory MOHAMED AYOUBI [facility] Start: 01-13-2023 End: 01-14-2023 ambulatory MOHAMED AYOUBI [facility] Start: 01-07-2023 End: 01-08-2023 ambulatory MOHAMED AYOUBI [facility] Start: 01-06-2023 End: 01-07-2023 ambulatory MOHAMED AYOUBI [facility] Start: 01-01-2023 End: 01-02-2023 ambulatory MOHAMED AYDEVONTEI Carmeny [facility] Start: 12-31-2022 End: 01-01-2023 ambulatory MOHAMED AYDEVONTEI Carmeny [facility] Start: 12-30-2022 End: 12-31-2022 ambulatory MOHAMED AYDEVONTEI Carmeny [facility] Start: 11-18-2022 End: 11-18-2022 ambulatory Dilcia Mancilla Other [id number] Other Start: 11-18-2022 Patient encounter procedure Dilcia Mancilla [facility] Start: 09-03-2022 Encounter for preprocedural cardiovascular examination MELO BELLA . [facility] Start: 09-02-2022 End: 09-03-[address] DILCIA MANCILLA Facility:[facility] Start: 09-02-2022 End: 09-03-2022 Encounter for preprocedural cardiovascular examination DR DILCIA MANCILLA Facility:[facility] Start: 08-21-2022 End: 08-22-[address] DILCIA MANCILLA Facility:[facility] Start: 06-10-[address] DILCIA MANCILLA Facil ity:[facility] Start: 06-10-2022 End: 06-15-2022 Evaluation and management of inpatient MARCELO Johnson [facility] Start: 06-10-2022 End: 06-15-2022 Evaluation and management of inpatient Roxana Lopez MD Work Phone: [address] Ortho/Med Surg Comment on above: Internal hernia (Rebeca kohli Dx); Gastrointestinal problem; Acute postoperative pain Start: 06-09-2022 End: 06-10-2022 ambulatory LUIS F HAIR Facility: Start: 02-06-[address] KELLI HENRIQUEZ . Faci lity:[facility] Start: 12-17-2021 End: 12-18-[address] KELLI HENRIQUEZ . Facility:[facility] Start: 12-05-2021 End: 12-06-[address] KELLI HENRIQUEZ . Facility:[facility] Start: 09-24-2021 End: 09-25-[address] KELLI HENRIQUEZ . Facility: Procedures Date Procedure Procedure Detail Performing Clinician Start: 06-14-2022 Basic metabolic pane l calcium total Ernestina Deonte DO Work Phone: Start: 06-13-2022 Radiologic exam abdo men 1 view Ernestina Deonte DO Work Phone: Start: 06-13-2022 Basic metabolic pane l calcium total Ernestina Bayport DO Work Phone: Start: 06-12-2022 LACTATE, SEPSIS Marcelo Garciaton DO Work Phone: Start: 06-12-2022 LACTATE, SEPSIS Marcelo Johnson [employer] DO Work Phone: Start: 06-12-2022 Radiologic exam abdo men 1 view Ernestina Bayport DO Work Phone: Start: 06-12-2022 Glucose blood reagen t strip Marcelo Garciaton DO Work Phone: Start: 06-12-2022 Radiologic exam abdo men 1 view Ernestina Deonte DO Work Phone: Start: 06-12-2022 Basic metabolic pane l calcium total Ernestina Deonte DO Work Phone: Start: 06-11-2022 Radiologic exam ches t single view Ernestina Bayport DO Work Phone: Start: 06-11-2022 Radiologic exam smal l int single contrast study Ernestina Bayport DO Work Phone: Start: 06-11-2022 Antibody screen Heather Lopez MD Work Phone: Start: 06-11-2022 Basic metabolic pane l calcium total Ernestina Bayport DO Work Phone: Start: 06-10-2022 SURGICAL PATHOLOGY REPORT Marcelo Johnson Knight DO Work Phone: Start: 06-10-2022 Basic metabolic pane l calcium total Ernestina Deonte DO Work Phone: Start: 06-10-2022 Culture bacterial quanttative colony count urine Marcelo Johnson Eugene DO Work Phone: Start: 06-10-2022 End: 06-10-2022 LAPAROTOMY EXPLORATORY Marcelo johnson DO Work Phone: Start: 06-10-2022 BASIC METABOLIC PANE L W/ REFLEX TO MG FOR LOW K Ernestina Bayport DO Work Phone: Start: 06-10-2022 Blood count complete auto&auto difrntl wbc Ernestina Bayport DO Work Phone: Start: 06-10-2022 Speech and [...] Pneumococcal 65+ years Vaccine (1 - PCV) [facility] Start: 11-16-2020 COVID-19 Vaccine (3 - Booster for Pfizer series) COVID-19 Vaccine (3 - Booster for Pfizer series) [facility] Start: 11-13-2011 Screening for osteoporosis DEXA (modify frequency per FRAX score) [facility] Start: 2006 Screening for malign ant neoplasm of breast Breast cancer screen [facility] Start: 2006 Shingles vaccine (1 of 2) Shingles vaccine (1 of 2) [facility] Start: 2001 Screening for malign ant neoplasm of colon [facility] Start: 1986 Screening for malign ant neoplasm of cervix [facility] Start: 1977 Screening for malign ant neoplasm of cervix Pap smear [facility] Start: 11-13-1975 DTaP/Tdap/Td vaccine (1 - Tdap) DTaP/Tdap/Td vaccine (1 - Tdap) [facility] Start: 1974 Hepatitis C screening Hepatitis C sc reen [facility] Start: 11-13-1971 HIV screening HIV screen [facility] Start: 1968 Depression Screen Depression Screen [facility] Start: 1966 Lipid panel Lipids [facility] Oxygen therapy [Mini mum Data Set] Initiate Oxygen Therapy Protocol Respiratory Care Routine As Needed until discontinued starting 06/10/2022 [facility] [employer] Work Phone: Comment on above: As Needed until disc ontinued starting 06/10/2022 Oxygen therapy [[facility] Data Set] Initiate Oxygen Therapy Protocol Respiratory Care Routine As Needed until discontinued starting 06/10/2022 [facility] [employer] Work Phone: Comment on above: As Needed until disc ontinued starting 06/10/2022 End: 06-10-2022 PREPARE RBC (CROSSMATCH), 2 Units PREPARE RBC (CROSSMATCH), 2 Units Blood Bank Routine Once for 1 Occurrences starting 06/10/2022 until 06/10/2022 [facility] [employer] Phone: Comment on above: Once for 1 Occurrenc es starting 06/10/2022 until 06/10/2022 Surgical Pathology Surgical Path ology Lab Routine Gastrointestinal problem Release Upon Ordering for 1 Occurrences starting 06/10/2022 PACO BLAKE [employer] Work Phone: Comment on above: Release Upon Orderin g for 1 Occurrences starting 06/10/2022 Immunizations Immunization Date Immunization Notes Care Provider Shari naik 09-21-2020 COVID-19 Vaccine Pfi zer - Documentation Purposes Only Dilcia Mancilla Other [id number] Other 12-21-2019 influenza virus vaccine, split virus (incl. purified surface antigen) Dilcia Mancilla Other [id number] Other Payers Date Payer Category Payer [employer] others) 2023 Private Health Insurance 1959 [employer] others[employer] [id number] 1959 [employer] ( and others) [id number] 1958 Medicare [id number] 1959 Medicare [id number] 1955 Unknown [id number] 2.16.840.1.376334.3.579.2.593 1956 Unknown [id number] 2.16.840.1.082735.3.579.2.59 1956 Unknown [id number] 2.16.840.1.496473.3.579.2.593 1956 Unknown [id number] 2.16.840.1.846628.3.579.2.593 1956 Unknown [id number] 2.16.840.1.204457.3.579.2.593 1956 Unknown [id number] 2.16.840.1.159321.3.579.2.593 1956 Unknown [id number] 2.16.840.1.521081.3.579.2.593 1956 Unknown [id number] 2.16.840.1.765429.3.579.2.593 1956 Unknown [id number] 2.16.840.1.478334.3.579.2.175 1956 Unknown [id number] 2.16.840.1.107739.3.579.2.196 1956 Unknown [id number] 2.16.840.1.997495.3.579.2.196 1956 Unknown [id number] 2.16.840.1.047452.3.579.2.173 1956 Unknown [id number] 2.16.840.1.468102.3.579.2.173 1956 Unknown [id number] 2.16.840.1.607063.3.579.2.173 1956 Unknown [id number] 2.16.840.1.068725.3.579.2.173 1956 Unknown [id number] 2.16.840.1.232903.3.579.2.173 1956 Unknown [id number] 2.16.840.1.871271.3.579.2.173 1956 Unknown [id number] 2.16.840.1.903140.3.579.2.173 1956 Unknown [id number] 2.16.840.1.648086.3.579.2.173 1956 Unknown [id number] 2.16.840.1.577605.3.579.2.173 1956 Unknown [id number] 2.16.840.1.445574.3.579.2.173 1956 Unknown [id number] 2.16.840.1.501526.3.579.2.173 1956 Unknown [id number] 2.16.840.1.882971.3.579.2.173 1956 Unknown [id number] 2.16.840.1.995539.3.579.2.173 1956 Unknown [id number] 2.16.840.1.016640.3.579.2.173 Social History Date Type Detail Facility Start: 05-23-2021 Tobacco smoking status NHIS Never smoked tobacco [employer] Start: 05-23-2021 Tobacco use and exposure Smokeless tobacco non-user [employer] Phone: Start: 06-11-2022 Alcohol intake 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 [id number] Other History of Present illness Narrative 06-15-2022 Jennifer Lake, PT - 06/15/2022 10:37 AM EDTAustin Samreen Morocho, DO - 06/15/2022 9:42 AM EDTAustin Samreen Morocho, DO - 06/14/2022 12:48 PM ESTErnestina Clemons, DO - 06/13/2022 9:05 AM EST Note Date & Type Note Facility 06-15-2022 History of Present illness Narrative Physical Therapy Facility/Department: [address] ORTHO/MED SURG Physical Therapy Initial Assessment Name: Kevin Perea : 1955 Date of Service: 06/15/2022 Discharge Recommendations: No therapy recommended at discharge. Chief Complaint Patient presents with GI Problem SBO, transfer from [place] [address] y.o. F s/p ex lap with lysis [...] Decision Making: Low Complexity Barriers to Learning: [place] Requires PT Follow-Up: No Activity Tolerance Activity [...] Ambulation Assistance: Independent Transfer Assistance: Independent Active Recycler: No Patient's Recycler Info: drives Occupation: On disability Leisure & Hobbies: watch [employer] Additional Comments: Pt reports she lives with her , and two sons. She reports that she has 24 hr A available at d/c. Vision/Hearing Vision Vision: Within Functional Limits Hearing Hearing: Exceptions to WFL Hearing Exceptions: Hard of hearing/hearing concerns;No hearing aid Cognition Orientation Overall Orientation Status: Within Functional Limits Cognition Overall Cognitive Status: Exceptions Cognition Comment: Pt with some [place]. Requires repeated cues for tasks. Pt does [...] Time Individual Concurrent Group Co-treatment Time In 0805 Time Out 0822 Minutes 17 Timed Code [...] and laboratory values were reviewed and confirmed. eDanna Suero MD Bariatric Surgery Progress Note PATIENT [...] DO General Surgery PGY-4 Associated attestation - Marcelo Knight DO - 06/13/2022 9:39 AM EST [...] GI prophylaxis with Protonix Associated attestation - Marcelo Kinght, - 06/13/2022 9:38 AM EST I have [...] GI prophylaxis with Protonix Speech Language Pathology [facility] Speech Language Pathology SPEECH/COGNITIVE ASSESSMENT NO LOC,CHI [...] 06/10/2022 7:05 AM documented in this encounter [facility] [employer] Phone: Hospital Discharge instructions 06-13-2022 Discharge Instructions Note Date & Type Note Facility 06-13-2022 Hospital Discharg e instructions Alecia Correa RN - 06/13/2022 10:05 PM EST Follow up with Dr. Knight in approximately 1 week. Please call the office at [phone]. Surgery Patient Discharge Instructions WOUND CARE: Do [...] Fever over 100.5 documented in this encounter [facility] [employer] Phone: Consultation note 12-17-2021 Note Date & [...] be followed up in the office. [facility] Consultation note 12-05-2021 Note Date & [...] this plan and all questions answered. [facility] Consultation note 09-24-2021 Note Date & [...] will be followed up in the office. [facility] Signed and Approved by: DR KELLI HENRIQUEZ . 10/01/2021 09:22:00 [facility] Evaluation note Note Date & Type [...] Unspecified intestinal obstruction documented in this encounter [facility] Work Phone: History general Narrative - Reported Note Date & Type Note Facility History general Narrative - Reported Type Medical History Lumbar back pain Medical History Other fatigue Medical History Bariatric surgery status Surgical History BARIATRIC SURGERY 2014 Surgical History SKIN REMOVAL 2016 Surgical History GASTRIC ULCER REPAIR Surgical History Bowel surgery 07/2022 Hospitalization History SEE SURGICAL HX [id number] Other Advance Directives No Advanced Directives Records FoundDocuments on File Type Date Recorded Patient 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 anation ACP-Advance Directive 09/03/2016 12:47 PM [...] Reason Comments GI Problem SBO, transfer from [facility] Specialty Diagnoses / Procedures Referred By Armen t Referred To Contact Diagnoses SBO (small bowel obstruction) (HCC) Gastrointestinal problem Internal hernia Marcelo Knight, [address] [place] [address] [facility] [id number] [place] [address] Referral ID Status Reason Start Date Expiration Date Visits Re quested Visits Authorized [id number] 1 1 Ordered Prescriptions (unrec ognized section [...] Provider: Alecia Correa RN - Reason: Contraindicated) 07 (Not Given - Provider: Alecia Correa RN - Reason: Patient/family refused) DULoxetine (CYMBALTA) extended [...] Lantigua RN) 1145 (Given - Provider: Alecia Correa, NICHO)1441 (Not Given - Provider: Alecia Correa RN - Reason: Contraindicated)2021 (Given - Provider: Kayleen Lantigua RN) 1001 (Given - Provider: Alecia Correa, NICHO)1400 (Due)2100 (Due) heparin (porcine) injection 5,000 Units [...] Lantigua RN) 1001 (Given - Provider: Alecia Corrae RN)2100 (Due) pantoprazole (PROTONIX) 40 mg in [...] RN) 0523 (New Bag - Provider: Kayleen Lantigua, NICHO) 0538 (New Bag - Provider: Kayleen Lantigua [...]
Care Teams (unrecognized sec tion and content) Electrochemist Relationship Specialty Start Date End Date Dilcia Mancilla MD [address] [place] [address] PCP - General Family Medicine 06/11/22 INFORMATION SOURCE (unrecogn ized section and content) DATE CREATED AUTHOR 09/12/2022 [facility] DATE CREATED AUTHOR AUTHOR'S ORGANIZ ATION 10/03/2022 [facility] DATE CREATED AUTHOR AUTHOR'S ORGANIZ ATION 06/27/2023 [facility] DATE CREATED AUTHOR AUTHOR'S ORGANIZ ATION 07/15/2023 [facility] FOR RECORDS PERTAINING TO PATIENTS WHO [...] BE BASED ON THE PRIMARY CLINICAL RECORDS. [facility]. provides no warranty or guarantee of the accuracy or completeness of information in this document.
== END 2023-07-29 11:54 | disposition home or self-care (01) ==
LOC: LAB 07-31 11:53
PROVIDERS: PCP Family Medicine
DX: D50.0 Iron deficiency anemia secondary to blood loss (chronic) (principal); E53.8 Deficiency of other specified B group vitamins
CPT/HCPCS: 36415; 82607; 82728; 82746; 83540; 83550; 85025

== ENCOUNTER 2023-08-04 06:43 | Day surgery (SDC) | payer MEDICARE, OTHER, SELFPAY ==
--- OUTSIDE RECORDS SUMMARY | 2023-08-04 06:47 | XMS_ITS | CCD ---
Author Organization [facility] Care Team Providers Care Business Strategy Manager Name Role Phone Dilcia Mancilla MD Primary Care Provider [phone] [address] ., DR KELLI Llamas Admitting Unavailable [...] Admitting Joselin vailable LAKSHMIPATHY ., NARENDDARÍOATH Attending Joselin vailable LAKSHMIPATHY ., NARENDRANATH Consulting Joselin vailable [...] HENRIQUEZ ., DR KELLI Llamas Attending Unavailable DR DILCIA MANCILLA Primary Care [...] to adverse reactions to drug 7 Hives [facility] (1 source) Morphine And Related Propensity to adverse reactions to drug 7 [facility] (2 sources) Morphine Drug Allergy [facility] (1 source) Morphine Drug Allergy 9 Unknown [employer] Other Medications Current Medications Medication Drug Class(es) [...] Entry Oral for 0 *Pick strength-form from [employer] for eRX* 12 Apr, 2021 Active bisacodyl [...] Active oral daily for 0 *Reorder from [employer] for eRx and Interaction Alerts* Feb, Active [...] Oral, 2 TIMES DAILY, First dose on 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 4 mg/dL [facility] Chloride [Moles/Vol] 103 mmol/L 98 - 10 7 mmol/L [facility] CO2 [Moles/Vol] 22 mmol/L 20 - 31 mmol/L [facility] Creatinine [Mass/Vol] 0.61 mg/dL 0.50 - 0.90 mg/dL [facility] GFR/1.73 sq M.predicted MDRD (S/P/Bld) [Vol rate/Area] - PINF [facility] Comment on above: These results are not [...] [Mass/Vol] 81 mg/dL 70 - 99 mg/dL [facility] Interpretation and review of laboratory results Abnormal [facility] Potassium [Moles/Vol] 3.6 mmol/L Low 3.7 - 5.3 mmol/L [facility] Sodium [Moles/Vol] 135 mmol/L 135 - 144 mmol/L [facility] Urea nitrogen [Mass/Vol] 12 mg/dL 8 - 23 mg/dL [facility] Basic Metabolic Profon 06-14 Anion gap [Moles/Vol] 10 mmol/L Normal 9-17 [facility] Comment on above: Performed By: #### C DP, BMP #### [facility] [place] [address] Life Care Planner: Mariusz Estrada MD Calcium [Mass/Vol] 7.9 mg/dL Low 8.6-10.4 [facility] Comment on above: Performed By: #### C DP, BMP #### [address] [address] Life Care Planner: Mariusz Estrada MD Chloride [Moles/Vol] 103 mmol/L Normal 98-107 [facility] Comment on above: Performed By: #### C DP, BMP #### [address] [address] Life Care Planner: Mariusz Estrada MD CO2 [Moles/Vol] 22 mmol/L Normal 20-31 [facility] Comment on above: Performed By: #### C DP, BMP #### [address] [address] Life Care Planner: Mariusz Estrada MD Creatinine [Mass/Vol] 0.61 mg/dL Normal 0.50-0.90 [facility] Comment on above: Performed By: #### C DP, BMP #### [address] [address] Life Care Planner: Mariusz Estrada MD GFR/1.73 sq M.predicted among non-blacks MDRD (S/P/Bld) [Vol rate/Area] mL/min/{1.73_m2} Normal >60 [facility] Comment on above: Result Comment: These [...] Performed By: #### C DP, BMP #### [address] [address] Life Care Planner: Mariusz Estrada MD Glucose [Mass/Vol] 81 mg/dL Normal 70-99 [facility] Comment on above: Performed By: #### C DP, BMP #### [facility] [address] [place] [address] Life Care Planner: Mariusz Estrada MD Potassium [Moles/Vol] 3.6 mmol/L Low 3.7-5.3 [facility] Comment on above: Performed By: #### C DP, BMP #### [facility] [address] [place] [address] Life Care Planner: Mariusz Estrada MD Sodium [Moles/Vol] 135 mmol/L Normal 135-144 [facility] Comment on above: Performed By: #### C DP, BMP #### [facility] [address] [place] [address] Life Care Planner: Mariusz Estrada MD Urea nitrogen [Mass/Vol] 12 mg/dL Normal 8-23 [facility] Comment on above: Performed By: #### C DP, BMP #### [facility] [address] [place] [address] Life Care Planner: Mariusz Estrada MD CBC with Auto Differentialon 06-14-2022 Absolute Eos # 0.33 [facility] Absolute Immature Granulocyte [facility] Absolute Lymph # 0.96 Low [facility] Absolute [place] # 0.35 [facility] Basophils Absolute [facility] Basophils/100 WBC (Bld) 1 % 0 - 2 % [facility] Eosinophils/100 WBC (Bld) 9 % High 1 - 4 % [facility] Hematocrit (Bld) [Volume fraction] 28.8 % Low 36.3 - 47.1 % [facility] Hemoglobin (Bld) [Mass/Vol] 8.6 g/dL Low 11.9 - 15.1 g/dL [facility] Immature granulocytes/100 WBC (Bld) 0 % 0 [facility] Interpretation and review of laboratory results Abnormal [facility] Lymphocytes/100 WBC (Bld) 26 % 24 - 43 % [facility] MCH (RBC) [Entitic mass] 24.2 pg Low 25.2 - 33.5 pg [facility] MCHC (RBC) [Mass/Vol] 29.9 g/dL 28.4 - 34.8 g/dL [facility] MCV (RBC) [Entitic vol] 80.9 fL Low 82.6 - 102.9 fL [facility] Monocytes/100 WBC (Bld) 10 % 3 - 12 % [facility] NRBC Automated 0.0 0.0 per 100 WBC [facility] Platelet distribution width (Bld) [Ratio] 18.5 % High 11.8 - 14.4 % [facility] Platelet mean volume (Bld) [Entitic vol] 10.7 fL 8.1 - 13.5 fL [facility] Platelets (Bld) [#/Vol] 239 10*3/uL [facility] RBC (Bld) [#/Vol] 3.56 10*6/uL Low 3.95 - 5.1 1 m/uL [facility] RBC (Bld) [#/Vol] ANISOCYTOSIS PRESENT [facility] Comment on above: MICROCYTOSIS PRESENT Segmented neutrophils/100 WBC (Bld) 54 % 36 - 65 % [facility] Segs Absolute 1.98 [facility] WBC (Bld) [#/Vol] 3.7 10*3/uL [facility] CBC with Diffon 06-14-2022 Abs. Basophil <0.03 Normal 0.00-0.20 [facility] Comment on above: Performed By: #### C DP, BMP #### [facility] [address] [place] [address] Life Care Planner: Mariusz Estrada MD Abs.Imm.Granulocyte <0.03 Normal 0.00-0.30 [facility] Comment on above: Performed By: #### C DP, BMP #### [facility] [address] [place] [address] Life Care Planner: Mariusz Estrada MD Abs.Neutrophil (Seg) 1.98 k/uL Normal 1.50-8.10 [facility] Comment on above: Performed By: #### C DP, BMP #### [address] [address] Life Care Planner: Mariusz Estrada MD Basophils/100 WBC (Bld) 1 % Normal 0-2 [facility] Comment on above: Performed By: #### C DP, BMP #### [address] [address] Life Care Planner: Mariusz Estrada MD Eosinophils (Bld) [#/Vol] 0.33 10*3/uL Normal 0.00-0.44 [facility] Comment on above: Performed By: #### C DP, BMP #### [place] [address] Life Care Planner: Mariusz Estrada MD Eosinophils/100 WBC (Bld) 9 % High 1-4 [facility] Comment on above: Performed By: #### C DP, BMP #### [address] [address] Life Care Planner: Mariusz Estrada MD Erythrocyte distribution width (RBC) [Ratio] 18.5 % High 11.8-14.4 [facility] Comment on above: Performed By: #### C DP, BMP #### [address] [address] Life Care Planner: Mariusz Estrada MD Hematocrit (Bld) [Volume fraction] 28.8 % Low 36.3-47.1 [facility] Comment on above: Performed By: #### C DP, BMP #### [address] [address] Life Care Planner: Maruisz Estrada MD Hemoglobin (Bld) [Mass/Vol] 8.6 g/dL Low 11.9-15.1 [facility] Comment on above: Performed By: #### C DP, BMP #### [address] [address] Life Care Planner: Mariusz Estrada MD Immature granulocytes/100 WBC (Bld) 0 % Normal 0 [facility] Comment on above: Performed By: #### C DP, BMP #### [place] [address] Life Care Planner: Mariusz Estrada MD Lymphocytes (Bld) [#/Vol] 0.96 10*3/uL Low 1.10-3.70 [facility] Comment on above: Performed By: #### C DP, BMP #### [place] [address] Life Care Planner: Mariusz Estrada MD Lymphocytes/100 WBC (Bld) 26 % Normal 24-43 [facility] Comment on above: Performed By: #### C DP, BMP #### [address] [address] Life Care Planner: Mariusz Estrada MD MCH (RBC) [Entitic mass] 24.2 pg Low 25.2-33.5 [facility] Comment on above: Performed By: #### C DP, BMP #### [place] [address] Life Care Planner: Mariusz Estrada MD MCHC (RBC) [Mass/Vol] 29.9 g/dL Normal 28.4-34.8 [facility] Comment on above: Performed By: #### C DP, BMP #### [address] [address] Life Care Planner: Mariusz Estrada MD MCV (RBC) [Entitic vol] 80.9 fL Low 82.6-102.9 [facility] Comment on above: Performed By: #### C DP, BMP #### [address] [address] Life Care Planner: Mariusz Estrada MD Monocytes (Bld) [#/Vol] 0.35 10*3/uL Normal 0.10-1.20 [facility] Comment on above: Performed By: #### C DP, BMP #### [address] [address] Life Care Planner: Mariusz Estrada MD Monocytes/100 WBC (Bld) 10 % Normal 3-12 [facility] Comment on above: Performed By: #### C DP, BMP #### [address] [address] Life Care Planner: Mariusz Estrada MD Neutrophil (Seg) 54 % Normal 36-65 [facility] Comment on above: Performed By: #### C DP, BMP #### [address] [address] Life Care Planner: Mariusz Estrada MD NRBC Automated 0.0 per 100 WBC Normal 0.0 [facility] Comment on above: Performed By: #### C DP, BMP #### [address] [address] Life Care Planner: Mariusz Estrada MD Platelet mean volume (Bld) [Entitic vol] 10.7 fL Normal 8.1-13.5 [facility] Comment on above: Performed By: #### C DP, BMP #### [address] [address] Life Care Planner: Mariusz Estrada MD Platelets (Bld) [#/Vol] 239 10*3/uL Normal 138-453 [facility] Comment on above: Performed By: #### C DP, BMP #### [address] [address] Life Care Planner: Mariusz Estrada MD RBC (Bld) [#/Vol] 3.56 10*6/uL Low 3.95-5.11 [facility] Comment on above: Performed By: #### C DP, BMP #### [facility] [address] [place] [address] Life Care Planner: Mariusz Etsrada MD RBC morphology finding Nom (Bld) ANISOCYTOSIS PRESENT Normal [facility] Comment on above: Result Comment: MICR OCYTOSIS PRESENT Performed By: #### C DP, BMP #### [facility] [address] [place] [address] Life Care Planner: Mariusz Estrada MD WBC (Bld) [#/Vol] 3.7 10*3/uL Normal 3.5-11.3 [facility] Comment on above: Performed By: #### C DP, BMP #### [facility] [address] [place] [address] Life Care Planner: Mariusz Estrada MD Basic Metabolic Panelon 03- Anion gap [Moles/Vol] 20 mmol/L High 9 - 17 mmol/L [employer] Calcium [Mass/Vol] 7.8 mg/dL Low 8.6 - 10. 4 mg/dL [facility] [place] Chloride [Moles/Vol] 100 mmol/L 98 - 10 7 mmol/L [facility] [place] CO2 [Moles/Vol] 13 mmol/L Low 20 - 31 mmol/L [facility] [place] Creatinine [Mass/Vol] 0.81 mg/dL 0.50 - 0.90 mg/dL [facility] GFR/1.73 sq M.predicted MDRD (S/P/Bld) [Vol rate/Area] - PINF [facility] Comment on above: These results are not [...] 61 mg/dL Low 70 - 99 mg/dL [facility] Potassium [Moles/Vol] 3.8 mmol/L 3.7 - 5.3 mmol/L [facility] Sodium [Moles/Vol] 133 mmol/L Low 135 - 144 mmol/L [facility] Urea nitrogen [Mass/Vol] 21 mg/dL 8 - 23 mg/dL [facility] Basic Metabolic Profon 06-13 Anion gap [Moles/Vol] 20 mmol/L High 9-17 [facility] Comment on above: Performed By: #### C DP, BMP #### [facility] [employer] [address] [place] [address] Life Care Planner: Mariusz Estrada MD Calcium [Mass/Vol] 7.8 mg/dL Low 8.6-10.4 [facility] Comment on above: Performed By: #### C DP, BMP #### [facility] [employer] [address] [place] [address] Life Care Planner: Mariusz Estrada MD Chloride [Moles/Vol] 100 mmol/L Normal 98-107 [facility] Comment on above: Performed By: #### C DP, BMP #### [facility] [address] [place] [address] Life Care Planner: Mariusz Estrada MD CO2 [Moles/Vol] 13 mmol/L Low 20-31 [facility] Comment on above: Performed By: #### C DP, BMP #### [facility] [employer] [address] [place] [address] Life Care Planner: Mariusz Estrada MD Creatinine [Mass/Vol] 0.81 mg/dL Normal 0.50-0.90 [facility] Comment on above: Performed By: #### C DP, BMP #### [facility] [address] [place] [address] Life Care Planner: Mariusz Estrada MD GFR/1.73 sq M.predicted among non-blacks MDRD (S/P/Bld) [Vol rate/Area] mL/min/{1.73_m2} Normal >60 [facility] Comment on above: Result Comment: These [...] By: #### C DP, BMP #### [facility] [address] [place] [address] Life Care Planner: Mariusz Estrada MD Glucose [Mass/Vol] 61 mg/dL Low 70-99 [facility] Comment on above: Performed By: #### C DP, BMP #### [facility] [employer] [address] [place] [address] Life Care Planner: Mariusz Estrada MD Potassium [Moles/Vol] 3.8 mmol/L Normal 3.7-5.3 [facility] Comment on above: Performed By: #### C DP, BMP #### [facility] [address] [place] [address] Life Care Planner: Mariusz Estrada MD Sodium [Moles/Vol] 133 mmol/L Low 135-144 [facility] Comment on above: Performed By: #### C DP, BMP #### [facility] [address] [place] [address] Life Care Planner: Mariusz Estrada MD Urea nitrogen [Mass/Vol] 21 mg/dL Normal 8-23 [facility] Comment on above: Performed By: #### C DP, BMP #### [facility] [address] [place] [address] Life Care Planner: Mariusz Estrada MD CBC with Auto Differentialon 06-13-2022 Absolute Eos # 0.33 [facility] Absolute Immature Granulocyte [facility] Absolute Lymph # 1.14 [facility] Absolute [place] # 0.39 [facility] Basophils (Bld) [#/Vol] 0.03 10*3/uL [facility] Basophils/100 WBC (Bld) 1 % 0 - 2 % [facility] Eosinophils/100 WBC (Bld) 6 % High 1 - 4 % [facility] Hematocrit (Bld) [Volume fraction] 28.4 % Low 36.3 - 47.1 % [facility] Hemoglobin (Bld) [Mass/Vol] 8.3 g/dL Low 11.9 - 15.1 g/dL [facility] Immature granulocytes/100 WBC (Bld) 0 % 0 [facility] Interpretation and review of laboratory results Abnormal [facility] Lymphocytes/100 WBC (Bld) 20 % Low 24 - 43 % [facility] MCH (RBC) [Entitic mass] 24.1 pg Low 25.2 - 33.5 pg [facility] MCHC (RBC) [Mass/Vol] 29.2 g/dL 28.4 - 34.8 g/dL [facility] MCV (RBC) [Entitic vol] 82.3 fL Low 82.6 - 102.9 fL [facility] Monocytes/100 WBC (Bld) 7 % 3 - 12 % [facility] NRBC Automated 0.0 0.0 per 100 WBC [facility] Platelet distribution width (Bld) [Ratio] 18.0 % High 11.8 - 14.4 % [facility] Platelet mean volume (Bld) [Entitic vol] 11.1 fL 8.1 - 13.5 fL [facility] Platelets (Bld) [#/Vol] 220 10*3/uL [facility] RBC (Bld) [#/Vol] 3.45 10*6/uL Low 3.95 - 5.1 1 m/uL [facility] RBC (Bld) [#/Vol] ANISOCYTOSIS PRESENT [facility] Comment on above: MICROCYTOSIS PRESENT Segmented neutrophils/100 WBC (Bld) 66 % High 36 - 65 % [facility] Segs Absolute 3.83 [facility] WBC (Bld) [#/Vol] 5.7 10*3/uL [facility] CBC with Diffon 06-13-2022 Abs. Basophil 0.03 k/uL Normal 0.00-0.20 [facility] Comment on above: Performed By: #### C DP, BMP #### [facility] [address] [place] [address] Life Care Planner: Mariusz Estrada MD Abs.Imm.Granulocyte <0.03 Normal 0.00-0.30 [facility] Comment on above: Performed By: #### C DP, BMP #### [facility] [employer] [address] [place] [address] Life Care Planner: Mariusz Estrada MD Abs.Neutrophil (Seg) 3.83 k/uL Normal 1.50-8.10 [facility] Comment on above: Performed By: #### C DP, BMP #### [facility] [employer] [address] [place] [address] Life Care Planner: Mariusz Estrada MD Basophils/100 WBC (Bld) 1 % Normal 0-2 [facility] Comment on above: Performed By: #### C DP, BMP #### [facility] [employer] [address] [place] [address] Life Care Planner: Mariusz Estrada MD Eosinophils (Bld) [#/Vol] 0.33 10*3/uL Normal 0.00-0.44 [facility] Comment on above: Performed By: #### C DP, BMP #### [facility] [address] [place] [address] Life Care Planner: Mariusz Estrada MD Eosinophils/100 WBC (Bld) 6 % High 1-4 [facility] Comment on above: Performed By: #### C DP, BMP #### [facility] [address] [place] [address] Life Care Planner: Mariusz Estrada MD Erythrocyte distribution width (RBC) [Ratio] 18.0 % High 11.8-14.4 [facility] Comment on above: Performed By: #### C DP, BMP #### [address] [address] Life Care Planner: Mariusz Estrada MD Hematocrit (Bld) [Volume fraction] 28.4 % Low 36.3-47.1 [facility] Comment on above: Performed By: #### C DP, BMP #### [facility] [employer] [address] [place] [address] Life Care Planner: Mariusz Estrada MD Hemoglobin (Bld) [Mass/Vol] 8.3 g/dL Low 11.9-15.1 [facility] Comment on above: Performed By: #### C DP, BMP #### [facility] [employer] [address] [place] [address] Life Care Planner: Mariusz Estrada MD Immature granulocytes/100 WBC (Bld) 0 % Normal 0 [facility] Comment on above: Performed By: #### C DP, BMP #### [facility] [employer] [address] [place] [address] Life Care Planner: Mariusz Estrada MD Lymphocytes (Bld) [#/Vol] 1.14 10*3/uL Normal 1.10-3.70 [facility] Comment on above: Performed By: #### C DP, BMP #### [facility] [employer] [address] [place] [address] Life Care Planner: Mariusz Estrada MD Lymphocytes/100 WBC (Bld) 20 % Low 24-43 [facility] Comment on above: Performed By: #### C DP, BMP #### [facility] [employer] [address] [place] [address] Life Care Planner: Mariusz Estrada MD MCH (RBC) [Entitic mass] 24.1 pg Low 25.2-33.5 [facility] Comment on above: Performed By: #### C DP, BMP #### [address] [address] Life Care Planner: Mariusz Estrada MD MCHC (RBC) [Mass/Vol] 29.2 g/dL Normal 28.4-34.8 [facility] Comment on above: Performed By: #### C DP, BMP #### [address] [address] Life Care Planner: Mariusz Estrada MD MCV (RBC) [Entitic vol] 82.3 fL Low 82.6-102.9 [facility] Comment on above: Performed By: #### C DP, BMP #### [address] [address] Life Care Planner: Mariusz Estrada MD Monocytes (Bld) [#/Vol] 0.39 10*3/uL Normal 0.10-1.20 [facility] Comment on above: Performed By: #### C DP, BMP #### [address] [address] Life Care Planner: Mariusz Estrada MD Monocytes/100 WBC (Bld) 7 % Normal 3-12 [facility] Comment on above: Performed By: #### C DP, BMP #### [address] [address] Life Care Planner: Mariusz Estrada MD Neutrophil (Seg) 66 % High 36-65 [facility] Comment on above: Performed By: #### C DP, BMP #### [address] [address] Life Care Planner: Mariusz Estrada MD NRBC Automated 0.0 per 100 WBC Normal 0.0 [facility] Comment on above: Performed By: #### C DP, BMP #### [address] [address] Life Care Planner: Mariusz Estrada MD Platelet mean volume (Bld) [Entitic vol] 11.1 fL Normal 8.1-13.5 [facility] Comment on above: Performed By: #### C DP, BMP #### [address] [address] Life Care Planner: Mariusz Estrada MD Platelets (Bld) [#/Vol] 220 10*3/uL Normal 138-453 [facility] Comment on above: Performed By: #### C DP, BMP #### [address] [address] Life Care Planner: Mariusz Estrada MD RBC (Bld) [#/Vol] 3.45 10*6/uL Low 3.95-5.11 [facility] Comment on above: Performed By: #### C DP, BMP #### [address] [address] Life Care Planner: Mariusz Estrada MD RBC morphology finding Nom (Bld) ANISOCYTOSIS PRESENT Normal [facility] Comment on above: Result Comment: MICR OCYTOSIS PRESENT Performed By: #### C DP, BMP #### [address] [address] Life Care Planner: Mariusz Estrada MD WBC (Bld) [#/Vol] 5.7 10*3/uL Normal 3.5-11.3 [facility] Comment on above: Performed By: #### C DP, BMP #### [address] [address] Life Care Planner: Mariusz Estrada MD Magnesiumon 06-13-2022 Magnesium [Mass/Vol] 2.8 mg/dL High 1.6-2.6 [facility] Comment on above: Performed By: #### C DP, BMP #### [facility] [address] [place] [address] Life Care Planner: Mariusz Estrada MD Magnesium [Mass/Vol] 2.8 mg/dL High 1.6 - 2 .6 mg/dL [facility] No Panel Informationon 06-13 Interpretation and review [...] Marvin Crowe MD 06/13/22 Final result Normal [facility] Multiple dilated small bowel loops, ileus versus small-bowel obstruction. Ascending colon is mildly dilated. Contrast is visualized throughout the colon. [facility] RIS CONSOLIDATED EXAMINATION: ONE SUPINE XRAY VIEW(S) OF THE ABDOMEN 06/13/2022 6:48 am COMPARISON: 06/12/2022 HISTORY: ORDERING SYSTEM PROVIDED HISTORY: pSBO TECHNOLOGIST PROVIDED HISTORY: pSBO FINDINGS: Multiple dilated small bowel loops, ileus versus small-bowel obstruction. Ascending colon is mildly dilated. Contrast is visualized throughout the colon. Bony structures are unremarkable. Lower lung harper are clear. No free air. [facility] RIS CONSOLIDATED Marvin Crowe MD - [...] dilated. Contrast is visualized throughout the colon. [employer] Work Phone: Radiology Study observation (narrative) [employer] Work Phone: XR ABDOMEN (KUB) (SINGLE AP VIEW)Ordered By: Marvin Crowe on 06-13-2022 [employer] Work Phone: Basic Metabolic Panelon Anion gap [Moles/Vol] 13 mmol/L 9 - 17 mmol/L [facility] Calcium [Mass/Vol] 8.5 mg/dL Low 8.6 - 10. 4 mg/dL [facility] Chloride [Moles/Vol] 96 mmol/L Low 98 - 10 7 mmol/L [facility] CO2 [Moles/Vol] 21 mmol/L 20 - 31 mmol/L [facility] Creatinine [Mass/Vol] 0.55 mg/dL 0.50 - 0.90 mg/dL [facility] GFR/1.73 sq M.predicted MDRD (S/P/Bld) [Vol rate/Area] - PINF [facility] Comment on above: These results are not [...] [Mass/Vol] 96 mg/dL 70 - 99 mg/dL [facility] Interpretation and review of laboratory results Abnormal [facility] Potassium [Moles/Vol] 3.5 mmol/L Low 3.7 - 5.3 mmol/L [facility] Sodium [Moles/Vol] 130 mmol/L Low 135 - 144 mmol/L [facility] Urea nitrogen [Mass/Vol] 8 mg/dL 8 - 23 mg/dL [facility] Basic Metabolic Profon 06-12 Anion gap [Moles/Vol] 13 mmol/L Normal 9-17 [facility] Comment on above: Performed By: #### MICKY Pimentel, CDP #### [facility] [address] [place] [address] Life Care Planner: Mariusz Estrada MD Calcium [Mass/Vol] 8.5 mg/dL Low 8.6-10.4 [facility] Comment on above: Performed By: #### MICKY Pimentel, CDP #### [facility] [address] [place] [address] Life Care Planner: Mariusz Estrada MD Chloride [Moles/Vol] 96 mmol/L Low 98-107 [facility] Comment on above: Performed By: #### MICKY Pimentel, CDP #### [facility] [address] [place] [address] Life Care Planner: Mariusz Estrada MD CO2 [Moles/Vol] 21 mmol/L Normal 20-31 [facility] Comment on above: Performed By: #### MICKY Pimentel, CDP #### [facility] [address] [place] [address] Life Care Planner: Mariusz Estrada MD Creatinine [Mass/Vol] 0.55 mg/dL Normal 0.50-0.90 [facility] Comment on above: Performed By: #### MCIKY Pimentel, CDP #### [facility] [address] [place] [address] Life Care Planner: Mariusz Estrada MD GFR/1.73 sq M.predicted among non-blacks MDRD (S/P/Bld) [Vol rate/Area] mL/min/{1.73_m2} Normal >60 [facility] Comment on above: Result Comment: These [...] Performed By: #### MICKY Pimentel, CDP #### [facility] [address] [place] [address] Life Care Planner: Mariusz Estrada MD Glucose [Mass/Vol] 96 mg/dL Normal 70-99 [facility] Comment on above: Performed By: #### MICKY Pimentel, CDP #### [facility] [address] [place] [address] Life Care Planner: Maruisz Estrada MD Potassium [Moles/Vol] 3.5 mmol/L Low 3.7-5.3 [facility] Comment on above: Performed By: #### MICKY Pimentel, CDP #### [facility] [address] [place] [address] Life Care Planner: Mariusz Estrada MD Sodium [Moles/Vol] 130 mmol/L Low 135-144 [facility] Comment on above: Performed By: #### MICKY Pimentel, CDP #### [facility] [address] [place] [address] Life Care Planner: Mariusz Estrada MD Urea nitrogen [Mass/Vol] 8 mg/dL Normal 8-23 [facility] Comment on above: Performed By: #### MICKY Pimentel, CDP #### [facility] [address] [place] [address] Life Care Planner: Mariusz Estrada MD CBC with Auto Differentialon 06-12-2022 Absolute Eos # 0.09 [facility] Immature Granulocyte 0.03 [facility] Absolute Lymph # 0.87 Low [facility] [place] # 0.66 [facility] Basophils (Bld) [#/Vol] 0.04 10*3/uL [facility] Basophils/100 WBC (Bld) 1 % 0 - 2 % [facility] Eosinophils/100 WBC (Bld) 1 % 1 - 4 % [facility] Hematocrit (Bld) [Volume fraction] 34.0 % Low 36.3 - 47.1 % [facility] Hemoglobin (Bld) [Mass/Vol] 10.0 g/dL Low 11.9 - 15.1 g/dL [facility] Immature granulocytes/100 WBC (Bld) 0 % 0 [facility] Interpretation and review of laboratory results Abnormal [facility] Lymphocytes/100 WBC (Bld) 11 % Low 24 - 43 % [facility] MCH (RBC) [Entitic mass] 23.8 pg Low 25.2 - 33.5 pg [facility] MCHC (RBC) [Mass/Vol] 29.4 g/dL 28.4 - 34.8 g/dL [facility] MCV (RBC) [Entitic vol] 80.8 fL Low 82.6 - 102.9 fL [facility] Monocytes/100 WBC (Bld) 8 % 3 - 12 % [facility] NRBC Automated 0.0 0.0 per 100 WBC [facility] Platelet distribution width (Bld) [Ratio] 18.0 % High 11.8 - 14.4 % [facility] Platelet mean volume (Bld) [Entitic vol] 11.1 fL 8.1 - 13.5 fL [facility] Platelets (Bld) [#/Vol] 245 10*3/uL [facility] RBC (Bld) [#/Vol] 4.21 10*6/uL 3.95 - 5.1 1 m/uL [facility] RBC (Bld) [#/Vol] ANISOCYTOSIS PRESENT [facility] Comment on above: MICROCYTOSIS PRESENT Segmented neutrophils/100 WBC (Bld) 79 % High 36 - 65 % [facility] Segs Absolute 6.27 [facility] WBC (Bld) [#/Vol] 8.0 10*3/uL [facility] CBC with Diffon 06-12-2022 Abs. Basophil 0.04 k/uL Normal 0.00-0.20 [facility] Comment on above: Performed By: #### MICKY Pimentel, CDP #### [address] [address] Life Care Planner: Mariusz Estrada MD Abs.Imm.Granulocyte 0.03 k/uL Normal 0.00-0.30 [facility] Comment on above: Performed By: #### MICKY Pimentel, CDP #### [facility] [address] [place] [address] Life Care Planner: Mariusz Estrada MD Abs.Neutrophil (Seg) 6.27 k/uL Normal 1.50-8.10 [facility] Comment on above: Performed By: #### MICKY Pimentel, CDP #### [address] [address] Life Care Planner: Mariusz Estrada MD Basophils/100 WBC (Bld) 1 % Normal 0-2 [facility] Comment on above: Performed By: #### MICKY Pimentel, CDP #### [facility] [address] [place] [address] Life Care Planner: Mariusz Estrada MD Eosinophils (Bld) [#/Vol] 0.09 10*3/uL Normal 0.00-0.44 [facility] Comment on above: Performed By: #### MICKY Pimentel, CDP #### [facility] [address] [place] [address] Life Care Planner: Mariusz Estrada MD Eosinophils/100 WBC (Bld) 1 % Normal 1-4 [facility] Comment on above: Performed By: #### MICKY Pimentel, CDP #### [facility] [address] [place] [address] Life Care Planner: Mariusz Estrada MD Erythrocyte distribution width (RBC) [Ratio] 18.0 % High 11.8-14.4 [facility] Comment on above: Performed By: #### MICKY Pimentel, CDP #### [address] [address] Life Care Planner: Mariusz Estrada MD Hematocrit (Bld) [Volume fraction] 34.0 % Low 36.3-47.1 [facility] Comment on above: Performed By: #### MICKY Pimentel, CDP #### [facility] [address] [place] [address] Life Care Planner: Mariusz Estrada MD Hemoglobin (Bld) [Mass/Vol] 10.0 g/dL Low 11.9-15.1 [facility] Comment on above: Performed By: #### MICKY Pimentel, CDP #### [facility] [address] [place] [address] Life Care Planner: Mariusz Estrada MD Immature granulocytes/100 WBC (Bld) 0 % Normal 0 [facility] Comment on above: Performed By: #### MICKY Pimentel, CDP #### [address] [address] Life Care Planner: Mariusz Estrada MD Lymphocytes (Bld) [#/Vol] 0.87 10*3/uL Low 1.10-3.70 [facility] Comment on above: Performed By: #### MICKY Pimentel, CDP #### [facility] [address] [place] [address] Life Care Planner: Mariusz Estrada MD Lymphocytes/100 WBC (Bld) 11 % Low 24-43 [facility] Comment on above: Performed By: #### MICKY Pimentel, CDP #### [facility] [address] [place] [address] Life Care Planner: Mariusz Estrada MD MCH (RBC) [Entitic mass] 23.8 pg Low 25.2-33.5 [facility] Comment on above: Performed By: #### MICKY Pimentel, CDP #### [address] [address] Life Care Planner: Mariusz Estrada MD MCHC (RBC) [Mass/Vol] 29.4 g/dL Normal 28.4-34.8 [facility] Comment on above: Performed By: #### MICKY Pimentel, CDP #### [address] [address] Life Care Planner: Mariusz Estrada MD MCV (RBC) [Entitic vol] 80.8 fL Low 82.6-102.9 [facility] Comment on above: Performed By: #### MICKY Pimentel, CDP #### [address] [address] Life Care Planner: Mariusz Estrada MD Monocytes (Bld) [#/Vol] 0.66 10*3/uL Normal 0.10-1.20 [facility] Comment on above: Performed By: #### MICKY Pimentel, CDP #### [address] [address] Life Care Planner: Mariusz Estrada MD Monocytes/100 WBC (Bld) 8 % Normal 3-12 [facility] Comment on above: Performed By: #### MICKY Pimentel, CDP #### [address] [address] Life Care Planner: Mariusz Estrada MD Neutrophil (Seg) 79 % High 36-65 [facility] Comment on above: Performed By: #### MICKY Pimentel, CDP #### [address] [address] Life Care Planner: Mariusz Estrada MD NRBC Automated 0.0 per 100 WBC Normal 0.0 [facility] Comment on above: Performed By: #### MICKY Pimentel, CDP #### [address] [address] Life Care Planner: Mariusz Estrada MD Platelet mean volume (Bld) [Entitic vol] 11.1 fL Normal 8.1-13.5 [facility] Comment on above: Performed By: #### MICKY Pimentel, CDP #### [facility] [address] [place] [address] Life Care Planner: Mariusz Estrada MD Platelets (Bld) [#/Vol] 245 10*3/uL Normal 138-453 [facility] Comment on above: Performed By: #### MICKY Pimentel, CDP #### [address] [address] Life Care Planner: Mariusz Estrada MD RBC (Bld) [#/Vol] 4.21 10*6/uL Normal 3.95-5.11 [facility] Comment on above: Performed By: #### MICKY Pimentel, CDP #### [facility] [address] [place] [address] Life Care Planner: Mariusz Estrada MD RBC morphology finding Nom (Bld) ANISOCYTOSIS PRESENT Normal [facility] Comment on above: Result Comment: MICR OCYTOSIS PRESENT Performed By: #### MICKY Pimentel, CDP #### [facility] [address] [place] [address] Life Care Planner: Mariusz Estrada MD WBC (Bld) [#/Vol] 8.0 10*3/uL Normal 3.5-11.3 [facility] Comment on above: Performed By: #### MICKY Pimentel, CDP #### [facility] [address] [place] [address] Life Care Planner: Mariusz Estrada MD Lactate, Sepsison 06-12-2022 Lactic Acid,Sep Wbld 1.0 mmol/L Normal 0.5-1.9 [facility] Comment on above: Performed By: #### MICKY Pimentel, CDP #### [facility] [address] [place], [place] [phone] Life Care Planner: Mariusz Estrada MD Lactic Acid,Sep Wbld 1.2 mmol/L Normal 0.5-1.9 [facility] Comment on above: Performed By: #### MICKY Pimentel, CDP #### [facility] [address] [place], [place] [phone] Life Care Planner: Mariusz Estrada MD Lactic Acid, Sepsis, Whole Blood 1.0 mmol/L 0.5 - 1.9 mmol/L [facility] Lactic Acid, Sepsis, Whole Blood 1.2 mmol/L 0.5 - 1.9 mmol/L [facility] Magnesiumon 06-12-2022 Magnesium [Mass/Vol] 1.9 mg/dL Normal 1.6-2.6 [facility] Comment on above: Performed By: #### MICKY Pimentel, CDP #### [facility] [address] [place], [place] [id number] Life Care Planner: Mariusz Estrada MD Magnesium [Mass/Vol] 1.9 mg/dL 1.6 - 2 .6 mg/dL [facility] No Panel Informationon 06-12 [facility] POC Glucose Fingerstickon Glucose [Mass/Vol] 118 mg/dL High 65 - 105 mg/dL [facility] Interpretation and review of laboratory results Abnormal [...] Jax Carbajal MD 06/12/22 Final result Normal [facility] XR ABDOMEN (KUB) (SINGLE AP VIEW) [...] Maral Serna MD 06/12/22 Final result Normal [facility] Similar appearance o f a high-grade distal partial small-bowel obstruction. [facility] EXAMINATION: ONE SUPINE XRAY VIEW(S) [...] probably distal high-grade partial small bowel obstruction. [facility] Jax Carbajal MD - 06/12/2022 [...] of a high-grade distal partial small-bowel obstruction. [facility] Phone: 1. Enteric tube coiled in the distal thoracic esophagus. Recommend repositioning prior to use. 2. Dilated loops of small bowel are again noted, suggestive with high-grade partial obstruction. There is some increased opacification of the colon. [facility] EXAM[facility]ATION: ONE SUPINE XRAY VIEW(S) [...] is coiled in the distal thoracic esophagus. [facility] Maral Serna MD - 06/12/2022 [...] is some increased opacification of the colon. [employer] [employer]: Radiology Study observation (narrative) [facility] Work Phone: Radiology Study observation (narrative) [facility] Work Phone: XR ABDOMEN (KUB) (SINGLE AP VIEW)Ordered By: Jax Carbajal on 06-12-2022 [facility] Work Phone: XR ABDOMEN (KUB) (SINGLE AP VIEW)Ordered By: Maral Kareem on 06-12-2022 [facility] Work Phone: Basic Metabolic Panelon Anion gap [Moles/Vol] 9 mmol/L 9 - 17 mmol/L [facility] Calcium [Mass/Vol] 8.6 mg/dL 8.6 - 10. 4 mg/dL [facility] Chloride [Moles/Vol] 102 mmol/L 98 - 10 7 mmol/L [facility] CO2 [Moles/Vol] 22 mmol/L 20 - 31 mmol/L [facility] Creatinine [Mass/Vol] 0.64 mg/dL 0.50 - 0.90 mg/dL [facility] GFR/1.73 sq M.predicted MDRD (S/P/Bld) [Vol rate/Area] - PINF [facility] Comment on above: These results are not [...] 119 mg/dL High 70 - 99 mg/dL [facility] Interpretation and review of laboratory results Abnormal [facility] Potassium [Moles/Vol] 4.8 mmol/L 3.7 - 5.3 mmol/L [facility] Sodium [Moles/Vol] 133 mmol/L Low 135 - 144 mmol/L [facility] Urea nitrogen [Mass/Vol] 8 mg/dL 8 - 23 mg/dL [facility] Basic Metabolic Profon 06-11 Anion gap [Moles/Vol] 9 mmol/L Normal 9-17 [facility] Comment on above: Performed By: #### C DP, BMP #### [address] [address] Life Care Planner: Mariusz Estrada MD Calcium [Mass/Vol] 8.6 mg/dL Normal 8.6-10.4 [facility] Comment on above: Performed By: #### C DP, BMP #### [address] [address] Life Care Planner: Mariusz Estrada MD Chloride [Moles/Vol] 102 mmol/L Normal 98-107 [facility] Comment on above: Performed By: #### C DP, BMP #### [facility] [address] [place] [address] Life Care Planner: Mariusz Estrada MD CO2 [Moles/Vol] 22 mmol/L Normal 20-31 [facility] Comment on above: Performed By: #### C DP, BMP #### [address] [address] Life Care Planner: Mariusz Estrada MD Creatinine [Mass/Vol] 0.64 mg/dL Normal 0.50-0.90 [facility] Comment on above: Performed By: #### C DP, BMP #### [address] [address] Life Care Planner: Mariusz Estrada MD GFR/1.73 sq M.predicted among non-blacks MDRD (S/P/Bld) [Vol rate/Area] mL/min/{1.73_m2} Normal >60 [facility] Comment on above: Result Comment: These [...] By: #### C DP, BMP #### [facility] [address] [place] [address] Life Care Planner: Mariusz Estrada MD Glucose [Mass/Vol] 119 mg/dL High 70-99 [facility] Comment on above: Performed By: #### C DP, BMP #### [facility] [address] [place] [address] Life Care Planner: Mariusz Estrada MD Potassium [Moles/Vol] 4.8 mmol/L Normal 3.7-5.3 [facility] Comment on above: Performed By: #### C DP, BMP #### [address] [address] Life Care Planner: Mariusz Estrada MD Sodium [Moles/Vol] 133 mmol/L Low 135-144 [facility] Comment on above: Performed By: #### C DP, BMP #### [facility] [address] [place] [address] Life Care Planner: Mariusz Estrada MD Urea nitrogen [Mass/Vol] 8 mg/dL Normal 8-23 [facility] Comment on above: Performed By: #### C DP, BMP #### [facility] [address] [place] [address] Life Care Planner: Mariusz Estrada MD CBC with Auto Differentialon 06-11-2022 Absolute Eos # 0.00 [facility] Absolute Immature Granulocyte 0.00 [facility] Absolute Lymph # 0.45 Low [facility] [employer] [place] # 0.71 [facility] Basophils (Bld) [#/Vol] 0.00 10*3/uL [facility] Basophils/100 WBC (Bld) 0 % 0 - 2 % [facility]ALTH Eosinophils/100 WBC (Bld) 0 % Low 1 - 4 % [facility] Hematocrit (Bld) [Volume fraction] 30.5 % Low 36.3 - 47.1 % [facility] Hemoglobin (Bld) [Mass/Vol] 9.5 g/dL Low 11.9 - 15.1 g/dL [facility] Immature granulocytes/100 WBC (Bld) 0 % 0 [facility] Interpretation and review of laboratory results Abnormal [facility] Lymphocytes/100 WBC (Bld) 5 % Low 24 - 43 % [facility] MCH (RBC) [Entitic mass] 23.9 pg Low 25.2 - 33.5 pg [facility] MCHC (RBC) [Mass/Vol] 31.1 g/dL 28.4 - 34.8 g/dL [facility] MCV (RBC) [Entitic vol] 76.8 fL Low 82.6 - 102.9 fL [facility] Monocytes/100 WBC (Bld) 8 % 3 - 12 % [facility] Morphology Jamie (Bld) [Interp] ANISOCYTOSIS PRESENT [facility] Morphology Jamie (Bld) [Interp] MICROCYTOSIS PRESENT [facility] NRBC Automated 0.0 0.0 per 100 WBC [facility] Platelet distribution width (Bld) [Ratio] 17.3 % High 11.8 - 14.4 % [facility] Platelet mean volume (Bld) [Entitic vol] 11.0 fL 8.1 - 13.5 fL [facility] Platelets (Bld) [#/Vol] 237 10*3/uL [facility] RBC (Bld) [#/Vol] 3.97 10*6/uL 3.95 - 5.1 1 m/uL [facility] Segmented neutrophils/100 WBC (Bld) 87 % High 36 - 65 % [facility] Segs Absolute 7.74 [facility] WBC (Bld) [#/Vol] 8.9 10*3/uL [facility] CBC with Diffon 06-11-2022 Abs. Basophil 0.00 k/uL Normal 0.00-0.20 [facility] Comment on above: Performed By: #### C DP, BMP #### [place] [address] Life Care Planner: Mariusz Estrada MD Abs.Imm.Granulocyte 0.00 k/uL Normal 0.00-0.30 [facility] Comment on above: Performed By: #### C DP, BMP #### [place] [address] Life Care Planner: Mariusz Estrada MD Abs.Neutrophil (Seg) 7.74 k/uL Normal 1.50-8.10 [facility] Comment on above: Performed By: #### C DP, BMP #### [place] [address] Life Care Planner: Mariusz Estrada MD Basophils/100 WBC (Bld) 0 % Normal 0-2 [facility] Comment on above: Performed By: #### C DP, BMP #### [place] [address] Life Care Planner: Mariusz Estrada MD Eosinophils (Bld) [#/Vol] 0.00 10*3/uL Normal 0.00-0.44 [facility] Comment on above: Performed By: #### C DP, BMP #### [place] [address] Life Care Planner: Mariusz Estrada MD Eosinophils/100 WBC (Bld) 0 % Low 1-4 [facility] Comment on above: Performed By: #### C DP, BMP #### [place] [address] Life Care Planner: Mariusz Estrada MD Immature granulocytes/100 WBC (Bld) 0 % Normal 0 [facility] Comment on above: Performed By: #### C DP, BMP #### [address] [place] [address] Life Care Planner: Mariusz Estrada MD Lymphocytes (Bld) [#/Vol] 0.45 10*3/uL Low 1.10-3.70 [facility] Comment on above: Performed By: #### C DP, BMP #### [address] [address] Life Care Planner: Mariusz Estrada MD Lymphocytes/100 WBC (Bld) 5 % Low 24-43 [facility] Comment on above: Performed By: #### C DP, BMP #### [address] [address] Life Care Planner: Mariusz Estrada MD Monocytes (Bld) [#/Vol] 0.71 10*3/uL Normal 0.10-1.20 [facility] Comment on above: Performed By: #### C DP, BMP #### [address] [address] Life Care Planner: Mariusz Estrada MD Monocytes/100 WBC (Bld) 8 % Normal 3-12 [facility] Comment on above: Performed By: #### C DP, BMP #### [address] [address] Life Care Planner: Mariusz Estrada MD Morphology Jamie (Bld) [Interp] ANISOCYTOSIS PRESENT Normal [facility] Comment on above: Result Comment: MICR OCYTOSIS PRESENT Performed By: #### C DP, BMP #### [address] [address] Life Care Planner: Mariusz Estrada MD Neutrophil (Seg) 87 % High 36-65 [facility] Comment on above: Performed By: #### C DP, BMP #### [facility] [address] [place] [address] Life Care Planner: Mariusz Estrada MD Erythrocyte distribution width (RBC) [Ratio] 17.3 % High 11.8-14.4 [facility] Comment on above: Performed By: #### C DP, BMP #### [address] [address] Life Care Planner: Mariusz Estrada MD Hematocrit (Bld) [Volume fraction] 30.5 % Low 36.3-47.1 [facility] Comment on above: Performed By: #### C DP, BMP #### [address] [address] Life Care Planner: Mariusz Estrada MD Hemoglobin (Bld) [Mass/Vol] 9.5 g/dL Low 11.9-15.1 [facility] Comment on above: Performed By: #### C DP, BMP #### [address] [address] Life Care Planner: Mariusz Estrada MD MCH (RBC) [Entitic mass] 23.9 pg Low 25.2-33.5 [facility] Comment on above: Performed By: #### C DP, BMP #### [address] [address] Life Care Planner: Mariusz Estrada MD MCHC (RBC) [Mass/Vol] 31.1 g/dL Normal 28.4-34.8 [facility] Comment on above: Performed By: #### C DP, BMP #### [place] [address] Life Care Planner: Mariusz Estrada MD MCV (RBC) [Entitic vol] 76.8 fL Low 82.6-102.9 [facility] Comment on above: Performed By: #### C DP, BMP #### [address] [address] Life Care Planner: Mariusz Estrada MD NRBC Automated 0.0 per 100 WBC Normal 0.0 [facility] Comment on above: Performed By: #### C DP, BMP #### [address] [address] Life Care Planner: Mariusz Estrada MD Platelet mean volume (Bld) [Entitic vol] 11.0 fL Normal 8.1-13.5 [facility] Comment on above: Performed By: #### C DP, BMP #### [address] [address] Life Care Planner: Mariusz Estrada MD Platelets (Bld) [#/Vol] 237 10*3/uL Normal 138-453 [facility] Comment on above: Performed By: #### C DP, BMP #### [address] [address] Life Care Planner: Mariusz Estrada MD RBC (Bld) [#/Vol] 3.97 10*6/uL Normal 3.95-5.11 [facility] Comment on above: Performed By: #### C DP, BMP #### [address] [address] Life Care Planner: Mariusz Estrada MD WBC (Bld) [#/Vol] 8.9 10*3/uL Normal 3.5-11.3 [facility] Comment on above: Performed By: #### C DP, BMP #### [address] [address] Life Care Planner: Mariusz Estrada MD Cult,Urineon 06-11-2022 Cult,Urine Specimen Description .CATHETER NEWLY INSERTED Culture NO GROWTH Report Status FINAL 06/11/2022 Normal [facility] Comment on above: Performed By: #### M GMICKY, CDP #### [address] [address] Life Care Planner: Mariusz Estrada MD Culture, Urineon 06-11-2022 Microorganism identified Cx Nom (Unsp spec) NO GROWTH [facility] Specimen Description .CATHETER NEWLY INSERTED [facility] [place] SMALL BOWEL FOLLOW KIRAN TODDon 06-11-2022 [...] None, COMPARISON: Outside CT abdomen pelvis from [facility] 06/09/2022 HISTORY: ORDERING SYSTEM PROVIDED HISTORY: [...] Alexander Baird MD 06/11/22 Final result Normal [facility] Findings consistent with partial distal small [...] None, COMPARISON: Outside CT abdomen pelvis from [facility] 06/09/2022 HISTORY: ORDERING SYSTEM PROVIDED HISTORY: [...] consistent with distal partial small bowel obstruction. [facility] RIS Alexander Nevarez MD - 06/11/2022 EXAMINATION: SMALL BOWEL FOLLOW THROUGH SERIES 06/11/2022 TECHNIQUE: Small bowel follow through series was performed with overhead images. No spot images were acquired as the last few images where acquired in patient's room and not in the fluoroscopy suite.. FLUOROSCOPY DOSE AND TYPE: Radiation Exposure Index: None, COMPARISON: Outside CT abdomen pelvis from [facility] 06/09/2022 HISTORY: ORDERING SYSTEM PROVIDED HISTORY: [...] is noted as seen in the cecum. [facility]PITALHel[facility] Energy Work Phone: Radiology Study observation (narrative) [facility]ITAL[facility] Work Phone: Laboratory - Blood bankon Blood product type Nom (BPU) Leukocyte Reduced Red Cell [facility] [employer] Magnesiumon 06-11-2022 Magnesium [Mass/Vol] 2.4 mg/dL Normal 1.6-2.6 [facility] Comment on above: Performed By: #### C DP, BMP #### [facility] [address] [place] [address] Life Care Planner: Mariusz Estrada MD Magnesium [Mass/Vol] 2.4 mg/dL 1.6 - 2 .6 mg/dL [facility]ITAL[facility] No Panel InformationOrdered By: Etienne Rivers on 06-11-2022 [facility]PITALHel[facility] Energy Work Phone: No Panel Informationon 06-11 Crossmatch Result COMPATIBLE [facility] [employer] AkaRx Dispense Status REL FROM [facility]OC [facility] [employer] AkaRx Transfusion Status OK TO TRANSFUSE B ON [facility] AkaRx Unit Divison 0 [facility] iSoccer [facility] SURGICAL PATHOLOGY REPORTon 06-11-2022 Surgical Pathology [...] SURGICAL PATHOLOGY CONSULTATION Patient Name: [facility]EVIN [facility] Rec: [id number] Path Number: [id number] [facility] [employer] [facility] ANATOMIC PATHOLOGY [address] [place] [address]. [place], [place] [address] [facility] AkaRx [facility]ITALHel[facility] Energy TYPE AND SCREENon 06-11-2022 ABO/Rh Positive [facility] HOSPITALWeGreek Arm [place] [id number] [facility]OSPITALSiRF Technology Holdings [facility] AkaRx Blood product unit ID (Dose) [#] [id number] [facility] [employer] Blood product unit ID (Dose) [#] [id number] [facility] [employer] Expiration Date 06/13/2022,2359 [facility]OSPITALHelion Energy [facility]ITALHel[facility] Energy XR CHEST (SINGLE VIEW FRONTA L)on 06-11-2022 [...] Etienne Rivers MD 06/11/22 Final result Normal [facility] Right basilar bandlike opacity could represent [...] opacity could represent subsegmental atelectasis or infection [employer] Phone: Radiology Study observation (narrative) [employer] Phone: APTTon 06-10-2022 aPTT Coag (Bld) [Time] 24.0 s Normal 20.5-30.5 [facility] Comment on above: Result Comment: IV Heparin Therapy Range: 48.6-77.8 Performed By: #### M MICKY Herrera, CDP #### [facility] [address] [place] [address] Life Care Planner: Mariusz Estrada MD aPTT Coag (Bld) [Time] 24.0 s [facility] [employer] Comment on above: IV Heparin Therapy Range: 48.6-77.8 Basic Metab w/rfx MGon 06-10 Anion gap [Moles/Vol] 11 mmol/L Normal 9-17 [facility] Comment on above: Performed By: #### B MPX, CDP #### [facility] [address] [place] [address] [phone] Life Care Planner: Mariusz Estrada MD Calcium [Mass/Vol] 8.6 mg/dL Normal 8.6-10.4 [facility] Comment on above: Performed By: #### B MPX, CDP #### [facility] [address] [place] [address] [phone] Life Care Planner: Mariusz Estrada MD Chloride [Moles/Vol] 99 mmol/L Normal 98-107 [facility] Comment on above: Performed By: #### B MPX, CDP #### [facility] [address] [place] [address] Life Care Planner: Mariusz Estrada MD CO2 [Moles/Vol] 22 mmol/L Normal 20-31 [facility] Comment on above: Performed By: #### B MPX, CDP #### [facility] [address] [place] [address] Life Care Planner: Mariusz Estrada MD Creatinine [Mass/Vol] 0.64 mg/dL Normal 0.50-0.90 [facility] Comment on above: Performed By: #### B MPX, CDP #### [address] [address] Life Care Planner: Mariusz Estrada MD GFR/1.73 sq M.predicted among non-blacks MDRD (S/P/Bld) [Vol rate/Area] mL/min/{1.73_m2} Normal >60 [facility] Comment on above: Result Comment: These [...] Performed By: #### B MPX, CDP #### [address] [address] Life Care Planner: Mariusz Estrada MD Glucose [Mass/Vol] 94 mg/dL Normal 70-99 [facility] Comment on above: Performed By: #### B MPX, CDP #### [address] [address] Life Care Planner: Mariusz Estrada MD Potassium [Moles/Vol] 3.8 mmol/L Normal 3.7-5.3 [facility] Comment on above: Performed By: #### B MPX, CDP #### [facility] [address] [place] [address] Life Care Planner: Mariusz Estrada MD Sodium [Moles/Vol] 132 mmol/L Low 135-144 [facility] Comment on above: Performed By: #### B MPX, CDP #### [facility] [address] [place] [address] Life Care Planner: Mariusz Estrada MD Urea nitrogen [Mass/Vol] 12 mg/dL Normal 8-23 [facility] Comment on above: Performed By: #### B MPX, CDP #### [facility] [address] [place] [address] [phone] Life Care Planner: Mariusz Estrada MD Basic Metabolic Panelon 03-0 Anion gap [Moles/Vol] 15 mmol/L 9 - 17 mmol/L [facility]OSPITALGreenline Industries AkaRx Calcium [Mass/Vol] 8.1 mg/dL Low 8.6 - 10. 4 mg/dL [facility]OSPITALTagboard [facility] [employer]Rx Chloride [Moles/Vol] 95 mmol/L Low 98 - 10 7 mmol/L [facility] [employer] CO2 [Moles/Vol] 20 mmol/L 20 - 31 mmol/L [facility] [employer] Creatinine [Mass/Vol] 0.5 mg/dL 0.50 - 0.90 mg/dL [facility] HOSPITALGreenline Industries AkaRx GFR/1.73 sq M.predicted MDRD (S/P/Bld) [Vol rate/Area] - PINF [facility] Comment on above: These results are not [...] 159 mg/dL High 70 - 99 mg/dL [facility] Potassium [Moles/Vol] 3.3 mmol/L Low 3.7 - 5.3 mmol/L [facility] Sodium [Moles/Vol] 130 mmol/L Low 135 - 144 mmol/L [facility] Urea nitrogen [Mass/Vol] 10 mg/dL 8 - 23 mg/dL [facility] Basic Metabolic Panel w/ Ref isaías to MGon 06-10-2022 Anion gap [Moles/Vol] 11 mmol/L 9 - 17 mmol/L [facility] Calcium [Mass/Vol] 8.6 mg/dL 8.6 - 10. 4 mg/dL [facility] Chloride [Moles/Vol] 99 mmol/L 98 - 10 7 mmol/L [facility] CO2 [Moles/Vol] 22 mmol/L 20 - 31 mmol/L [facility] Creatinine [Mass/Vol] 0.64 mg/dL 0.50 - 0.90 mg/dL [facility] GFR/1.73 sq M.predicted MDRD (S/P/Bld) [Vol rate/Area] - PINF [facility] Comment on above: These results are not [...] [Mass/Vol] 94 mg/dL 70 - 99 mg/dL [facility] Interpretation and review of laboratory results Abnormal [facility] Potassium [Moles/Vol] 3.8 mmol/L 3.7 - 5.3 mmol/L [facility] Sodium [Moles/Vol] 132 mmol/L Low 135 - 144 mmol/L [facility] Urea nitrogen [Mass/Vol] 12 mg/dL 8 - 23 mg/dL [facility] Basic Metabolic Profon 06-10 Anion gap [Moles/Vol] 15 mmol/L Normal 9-17 [facility] Comment on above: Performed By: #### JULEE Pimentel, BMP #### [facility] [employer] [address] [place] [phone] Life Care Planner: Mariusz Estrada MD Calcium [Mass/Vol] 8.1 mg/dL Low 8.6-10.4 [facility] Comment on above: Performed By: #### JULEE Pimentel, BMP #### [facility] [address] [place] [address] Life Care Planner: Mariusz Estrada MD Chloride [Moles/Vol] 95 mmol/L Low 98-107 [facility] Comment on above: Performed By: #### JULEE Pimentel, BMP #### [facility] [employer] [address] [place] [address] Life Care Planner: Mariusz Estrada MD CO2 [Moles/Vol] 20 mmol/L Normal 20-31 [facility] Comment on above: Performed By: #### JULEE Pimentel, BMP #### [facility] [employer] [address] [place] [phone] Life Care Planner: Mariusz Estrada MD Creatinine [Mass/Vol] 0.50 mg/dL Normal 0.50-0.90 [facility] Comment on above: Performed By: #### JULEE Pimentel, BMP #### [facility] [employer] [address] [place] [phone] Life Care Planner: Mariusz Estrada MD GFR/1.73 sq M.predicted among non-blacks MDRD (S/P/Bld) [Vol rate/Area] mL/min/{1.73_m2} Normal >60 [facility] Comment on above: Result Comment: These [...] Performed By: #### JULEE Pimentel, BMP #### [facility] [address] [place] [address] Life Care Planner: Mariusz Estrada MD Glucose [Mass/Vol] 159 mg/dL High 70-99 [facility] Comment on above: Performed By: #### JULEE Pimentel, BMP #### [facility] [address] [place] [address] Life Care Planner: Mariusz Estrada MD Potassium [Moles/Vol] 3.3 mmol/L Low 3.7-5.3 [facility] Comment on above: Performed By: #### JULEE Pimentel, BMP #### [employer] [address] [place] [phone] Life Care Planner: Mariusz Estrada MD Sodium [Moles/Vol] 130 mmol/L Low 135-144 [facility] Comment on above: Performed By: #### JULEE Pimentel, BMP #### [facility] [address] [place] [address] Life Care Planner: Mariusz Estrada MD Urea nitrogen [Mass/Vol] 10 mg/dL Normal 8-23 [facility] Comment on above: Performed By: #### JULEE Pimentel, BMP #### [facility] [address] [place] [address] Life Care Planner: Mariusz Estrada MD CBC with Auto Differentialon 06-10-2022 Absolute Eos # 0.00 [facility] Absolute Immature Granulocyte 0.00 [facility] Absolute Lymph # 0.29 Low [facility] Absolute [place] # 0.37 [facility] Basophils (Bld) [#/Vol] 0.00 10*3/uL [facility] Basophils/100 WBC (Bld) 0 % 0 - 2 % [facility] Eosinophils/100 WBC (Bld) 0 % Low 1 - 4 % [facility] Hematocrit (Bld) [Volume fraction] 34.0 % Low 36.3 - 47.1 % [facility] Hemoglobin (Bld) [Mass/Vol] 10.3 g/dL Low 11.9 - 15.1 g/dL [facility] Immature granulocytes/100 WBC (Bld) 0 % 0 [facility] Interpretation and review of laboratory results Abnormal [facility] Lymphocytes/100 WBC (Bld) 4 % Low 24 - 44 % [facility] MCH (RBC) [Entitic mass] 24.1 pg Low 25.2 - 33.5 pg [facility] MCHC (RBC) [Mass/Vol] 30.3 g/dL 28.4 - 34.8 g/dL [facility] MCV (RBC) [Entitic vol] 79.4 fL Low 82.6 - 102.9 fL [facility] Monocytes/100 WBC (Bld) 5 % 1 - 7 % [facility] Morphology Jamie (Bld) [Interp] ANISOCYTOSIS PRESENT [facility] Morphology Jamie (Bld) [Interp] MICROCYTOSIS PRESENT [facility] NRBC Automated 0.0 0.0 per 100 WBC [facility] Platelet distribution width (Bld) [Ratio] 17.3 % High 11.8 - 14.4 % [facility] Platelet mean volume (Bld) [Entitic vol] 11.1 fL 8.1 - 13.5 fL [facility] Platelets (Bld) [#/Vol] 200 10*3/uL [facility] RBC (Bld) [#/Vol] 4.28 10*6/uL 3.95 - 5.1 1 m/uL [facility] Segmented neutrophils/100 WBC (Bld) 91 % High 36 - 66 % [facility] Segs Absolute 6.64 [facility] WBC (Bld) [#/Vol] 7.3 10*3/uL [facility] Absolute Eos # 0.08 [facility] Absolute Immature Granulocyte [facility] Absolute Lymph # 1.38 [facility] Absolute [place] # 0.58 [facility] Basophils (Bld) [#/Vol] 0.04 10*3/uL [facility] Basophils/100 WBC (Bld) 1 % 0 - 2 % [facility] Eosinophils/100 WBC (Bld) 1 % 1 - 4 % [facility] Hematocrit (Bld) [Volume fraction] 34.3 % Low 36.3 - 47.1 % [facility] Hemoglobin (Bld) [Mass/Vol] 10.5 g/dL Low 11.9 - 15.1 g/dL [facility] Immature granulocytes/100 WBC (Bld) 0 % 0 [facility] Interpretation and review of laboratory results Abnormal [facility] Lymphocytes/100 WBC (Bld) 24 % 24 - 43 % [facility] MCH (RBC) [Entitic mass] 24.0 pg Low 25.2 - 33.5 pg [facility] MCHC (RBC) [Mass/Vol] 30.6 g/dL 28.4 - 34.8 g/dL [facility] MCV (RBC) [Entitic vol] 78.3 fL Low 82.6 - 102.9 fL [facility] Monocytes/100 WBC (Bld) 10 % 3 - 12 % [facility] NRBC Automated 0.0 0.0 per 100 WBC [facility] Platelet distribution width (Bld) [Ratio] 17.4 % High 11.8 - 14.4 % [facility] Platelet mean volume (Bld) [Entitic vol] 11.4 fL 8.1 - 13.5 fL [facility] Platelets (Bld) [#/Vol] 245 10*3/uL [facility] RBC (Bld) [#/Vol] 4.38 10*6/uL 3.95 - 5.1 1 m/uL [facility] RBC (Bld) [#/Vol] ANISOCYTOSIS PRESENT [facility] Comment on above: MICROCYTOSIS PRESENT Segmented neutrophils/100 WBC (Bld) 64 % 36 - 65 % [facility] Segs Absolute 3.55 [facility] WBC (Bld) [#/Vol] 5.7 10*3/uL [facility] CBC with Diffon 06-10-2022 Abs. Basophil 0.00 k/uL Normal 0.0-0.2 [facility] Comment on above: Performed By: #### C DP, BMP #### [address] [address] Life Care Planner: Mariusz Estrada MD Abs.Imm.Granulocyte 0.00 k/uL Normal 0.00-0.30 [facility] Comment on above: Performed By: #### C DP, BMP #### [address] [address] Life Care Planner: Mariusz Estrada MD Abs.Neutrophil (Seg) 6.64 k/uL Normal 1.8-7.7 [facility] Comment on above: Performed By: #### C DP, BMP #### [address] [address] Life Care Planner: Mariusz Estrada MD Basophils/100 WBC (Bld) 0 % Normal 0-2 [facility] Comment on above: Performed By: #### C DP, BMP #### [facility] [employer] [address] [place] [address] Life Care Planner: Mariusz Estrada MD Eosinophils (Bld) [#/Vol] 0.00 10*3/uL Normal 0.0-0.4 [facility] Comment on above: Performed By: #### C DP, BMP #### [facility] [employer] [address] [place] [address] Life Care Planner: Mariusz Estrada MD Eosinophils/100 WBC (Bld) 0 % Low 1-4 [facility] Comment on above: Performed By: #### C DP, BMP #### [facility] [employer] [address] [place] [address] Life Care Planner: Mariusz Estrada MD Immature granulocytes/100 WBC (Bld) 0 % Normal 0 [facility] Comment on above: Performed By: #### C DP, BMP #### [address] [address] Life Care Planner: Mariusz Estrada MD Lymphocytes (Bld) [#/Vol] 0.29 10*3/uL Low 1.0-4.8 [facility] Comment on above: Performed By: #### C DP, BMP #### [address] [address] Life Care Planner: Mariusz Estrada MD Lymphocytes/100 WBC (Bld) 4 % Low 24-44 [facility] Comment on above: Performed By: #### C DP, BMP #### [address] [address] Life Care Planner: Mariusz Estrada MD Monocytes (Bld) [#/Vol] 0.37 10*3/uL Normal 0.1-0.8 [facility] Comment on above: Performed By: #### C DP, BMP #### [address] [address] Life Care Planner: Mariusz Estrada MD Monocytes/100 WBC (Bld) 5 % Normal 1-7 [facility] Comment on above: Performed By: #### C DP, BMP #### [address] [address] Life Care Planner: Mariusz Estrada MD Morphology Jamie (Bld) [Interp] ANISOCYTOSIS PRESENT Normal [facility] Comment on above: Result Comment: MICR OCYTOSIS PRESENT Performed By: #### C DP, BMP #### [address] [address] Life Care Planner: Mariusz Estrada MD Neutrophil (Seg) 91 % High 36-66 [facility] Comment on above: Performed By: #### C DP, BMP #### [address] [address] Life Care Planner: Mariusz Estrada MD Erythrocyte distribution width (RBC) [Ratio] 17.3 % High 11.8-14.4 [facility] Comment on above: Performed By: #### C DP, BMP #### [address] [address] Life Care Planner: Mariusz Estrada MD Hematocrit (Bld) [Volume fraction] 34.0 % Low 36.3-47.1 [facility] Comment on above: Performed By: #### C DP, BMP #### [address] [address] Life Care Planner: Mariusz Estrada MD Hemoglobin (Bld) [Mass/Vol] 10.3 g/dL Low 11.9-15.1 [facility] Comment on above: Performed By: #### C DP, BMP #### [address] [address] Life Care Planner: Mariusz Estrada MD MCH (RBC) [Entitic mass] 24.1 pg Low 25.2-33.5 [facility] Comment on above: Performed By: #### C DP, BMP #### [address] [address] Life Care Planner: Mariusz Estrada MD MCHC (RBC) [Mass/Vol] 30.3 g/dL Normal 28.4-34.8 [facility] Comment on above: Performed By: #### C DP, BMP #### [place] [address] Life Care Planner: Mariusz Estrada MD MCV (RBC) [Entitic vol] 79.4 fL Low 82.6-102.9 [facility] Comment on above: Performed By: #### C DP, BMP #### [address] [place] [address] Life Care Planner: Mariusz Estrada MD NRBC Automated 0.0 per 100 WBC Normal 0.0 [facility] Comment on above: Performed By: #### C DP, BMP #### [facility] [employer] [address] [place] [address] Life Care Planner: Mariusz sEtrada MD Platelet mean volume (Bld) [Entitic vol] 11.1 fL Normal 8.1-13.5 [facility] Comment on above: Performed By: #### C DP, BMP #### [address] [address] Life Care Planner: Mariusz Estrada MD Platelets (Bld) [#/Vol] 200 10*3/uL Normal 138-453 [facility] Comment on above: Performed By: #### C DP, BMP #### [address] [address] Life Care Planner: Mariusz Estrada MD RBC (Bld) [#/Vol] 4.28 10*6/uL Normal 3.95-5.11 [facility] Comment on above: Performed By: #### C DP, BMP #### [address] [address] Life Care Planner: Mariusz Estrada MD WBC (Bld) [#/Vol] 7.3 10*3/uL Normal 3.5-11.3 [facility] Comment on above: Performed By: #### C DP, BMP #### [address] [address] Life Care Planner: Mariusz Estrada MD Abs. Basophil 0.04 k/uL Normal 0.00-0.20 [facility] Comment on above: Performed By: #### B MPX, CDP #### [address] [address] Life Care Planner: Mariusz Estrada MD Abs.Imm.Granulocyte <0.03 Normal 0.00-0.30 [facility] Comment on above: Performed By: #### B MPX, CDP #### [address] [address] Life Care Planner: Mariusz Estrada MD Abs.Neutrophil (Seg) 3.55 k/uL Normal 1.50-8.10 [facility] Comment on above: Performed By: #### B MPX, CDP #### [address] [address] Life Care Planner: Mariusz Estrada MD Basophils/100 WBC (Bld) 1 % Normal 0-2 [facility] Comment on above: Performed By: #### B CLIFFORDX, CDP #### [place] [address] Life Care Planner: Mariusz Estrada MD Eosinophils (Bld) [#/Vol] 0.08 10*3/uL Normal 0.00-0.44 [facility] Comment on above: Performed By: #### B MPX, CDP #### [address] [address] Life Care Planner: Mariusz Estrada MD Eosinophils/100 WBC (Bld) 1 % Normal 1-4 [facility] Comment on above: Performed By: #### B MPX, CDP #### [address] [address] Life Care Planner: Mariusz Estrada MD Erythrocyte distribution width (RBC) [Ratio] 17.4 % High 11.8-14.4 [facility] Comment on above: Performed By: #### B MPX, CDP #### [address] [address] Life Care Planner: Mariusz Estrada MD Hematocrit (Bld) [Volume fraction] 34.3 % Low 36.3-47.1 [facility] Comment on above: Performed By: #### B MPX, CDP #### [address] [address] Life Care Planner: Mariusz Estrada MD Hemoglobin (Bld) [Mass/Vol] 10.5 g/dL Low 11.9-15.1 [facility] Comment on above: Performed By: #### B MPX, CDP #### [address] [address] Life Care Planner: Mariusz Estrada MD Immature granulocytes/100 WBC (Bld) 0 % Normal 0 [facility] Comment on above: Performed By: #### B MPX, CDP #### [address] [address] Life Care Planner: Mariusz Estrada MD Lymphocytes (Bld) [#/Vol] 1.38 10*3/uL Normal 1.10-3.70 [facility] Comment on above: Performed By: #### B MPX, CDP #### [address] [address] Life Care Planner: Mariusz Estrada MD Lymphocytes/100 WBC (Bld) 24 % Normal 24-43 [facility] Comment on above: Performed By: #### B MPX, CDP #### [place] [address] Life Care Planner: Mariusz Estrada MD MCH (RBC) [Entitic mass] 24.0 pg Low 25.2-33.5 [facility] Comment on above: Performed By: #### B MPX, CDP #### [address] [address] Life Care Planner: Mariusz Estrada MD MCHC (RBC) [Mass/Vol] 30.6 g/dL Normal 28.4-34.8 [facility] Comment on above: Performed By: #### B MPX, CDP #### [address] [address] Life Care Planner: Mariusz Estrada MD MCV (RBC) [Entitic vol] 78.3 fL Low 82.6-102.9 [facility] Comment on above: Performed By: #### B MPX, CDP #### [address] [address] Life Care Planner: Mariusz Estrada MD Monocytes (Bld) [#/Vol] 0.58 10*3/uL Normal 0.10-1.20 [facility] Comment on above: Performed By: #### B MPX, CDP #### [address] [address] Life Care Planner: Mariusz Estrada MD Monocytes/100 WBC (Bld) 10 % Normal 3-12 [facility] Comment on above: Performed By: #### B MPX, CDP #### [address] [address] Life Care Planner: Mariusz Estrada MD Neutrophil (Seg) 64 % Normal 36-65 [facility] Comment on above: Performed By: #### B MPX, CDP #### [address] [address] Life Care Planner: Mariusz Estrada MD NRBC Automated 0.0 per 100 WBC Normal 0.0 [facility] Comment on above: Performed By: #### B MPX, CDP #### [address] [address] Life Care Planner: Mariusz Estrada MD Platelet mean volume (Bld) [Entitic vol] 11.4 fL Normal 8.1-13.5 [facility] Comment on above: Performed By: #### B MPX, CDP #### [address] [address] Life Care Planner: Mariusz Estrada MD Platelets (Bld) [#/Vol] 245 10*3/uL Normal 138-453 [facility] Comment on above: Performed By: #### B MPX, CDP #### [facility] [employer] [facility] [place] [address] Life Care Planner: Mariusz Estrada MD RBC (Bld) [#/Vol] 4.38 10*6/uL Normal 3.95-5.11 [facility] Comment on above: Performed By: #### B MPX, CDP #### [facility] [employer] [facility] [place] [address] Life Care Planner: Mariusz Estrada MD RBC morphology finding Nom (Bld) ANISOCYTOSIS PRESENT Normal [facility] Comment on above: Result Comment: MICR OCYTOSIS PRESENT Performed By: #### B MPX, CDP #### [facility] [employer] [address] [place] [id number] Life Care Planner: Mariusz Estrada MD WBC (Bld) [#/Vol] 5.7 10*3/uL Normal 3.5-11.3 [facility] Comment on above: Performed By: #### B MPX, CDP #### [address] [address] Life Care Planner: Mariusz Estrada MD CT ABD/PELV W CONon [...] JUAN SALDIVAR Date: 2022-06-09 22:39 Normal [facility]on SARS-CoV-2 (COVID-19) RNA AMPARO+probe Ql (Unsp spec) Not detected Normal NOT DETECTED [facility] Comment on above: Result Comment: When [...] for this test is supported by the Soda Dispenser of Health and Human Service's declaration that [...] used). Performed By: #### C BC #### [facility] [address] [address] [address] Joann Atkins Lactate, Sepsison 06-10-2022 Lactic Acid,Sep Wbld 1.1 mmol/L Normal 0.5-1.9 [facility] Comment on above: Performed By: #### MICKY Pimentel, CDP #### [employer] [address] [place] [id number] Life Care Planner: Mariusz Estrada MD Lactic Acid, Sepsis, Whole Blood 1.1 mmol/L 0.5 - 1.9 mmol/L [facility] Magnesiumon 06-10-2022 Magnesium [Mass/Vol] 1.5 mg/dL Low 1.6-2.6 [facility] Comment on above: Performed By: #### M JULEE Herrera, BMP #### [employer] [address] [place] [id number] Life Care Planner: Mariusz Estrada MD Magnesium [Mass/Vol] 1.5 mg/dL Low 1.6 - 2 .6 mg/dL [facility] No Panel Informationon 06-10 Interpretation and review of laboratory results Abnormal [facility] PTon 06-10-2022 INR Coag (PPP) [Relative time] 0.9 {INR} Normal [facility] Comment on above: Result Comment: Therapeutic Range: Moderate Anticoagulant Intensity: INR = 2.0-3.0 High Anticoagulant Intensity: INR = 2.5-3.5 Performed By: #### MICKY Pimentel, CDP #### [employer] [address] [place], [place] [phone] Life Care Planner: Mariusz Estrada MD PT Coag (PPP) [Time] 9.7 s Normal 9.1-12.3 [facility] Comment on above: Performed By: #### MICKY Pimentel, CDP #### [employer] [address] [place] [address] [id number] Life Care Planner: Mariusz Estrada MD Protime-INRon 06-10-2022 INR Coag (PPP) [Relative time] 0.9 {INR} [facility] Comment on above: Therapeutic Range: Moderate Anticoagulant Intensity: INR = 2.0-3.0 High Anticoagulant Intensity: INR = 2.5-3.5 PT Coag (PPP) [Time] 9.7 s [facility] Surgical Pathologyon 023 Surgical Pathology (NOTE) -- [...] SURGICAL PATHOLOGY CONSULTATION Patient Name: [facility] Rec: [id number] Path Number: [id number] [facility] CONSULTING PATHOLOGISTS [facility] EMERGENCY DEPARTMENT ANATOMIC PATHOLOGY [address] [place] [phone] Normal [facility] Comment on above: Performed By: #### C DP, BMP #### [address] [id number] Life Care Planner: Mariusz Estrada MD Type + Screenon 06-10-2022 Type + Screen Sample Expiration 06/13/2022,2359 Arm Band Number [id number] ABO/Rh(D) O POSITIVE Antibody Screen NEGATIVE Unit Number [id number] Blood Component Type Leukocyte Reduced Red Cell Unit Division 00 Status of Unit REL FROM ALLOC Transfusion Status OK TO TRANSFUSE Crossmatch Result COMPATIBLE Unit Number [id number] Blood Component Type Leukocyte Reduced Red Cell Unit Division 00 Status of Unit REL FROM ALLOC Transfusion Status OK TO TRANSFUSE Crossmatch Result COMPATIBLE Normal [facility] Comment on above: Performed By: #### T YS #### [address] [id number] Life Care Planner: Mariusz Estrada MD CBC AUTO DIFFon 06-09-2022 BASO # 0.0 103/ul Normal 0.0-0.1 [facility] Comment on above: Performed By: #### C BC #### [facility] [address] [place] [address] Dr. Joann Atkins Basophils/100 WBC (Bld) 0.6 % Normal 0.2-2.0 [facility] Comment on above: Performed By: #### C BC #### [facility] [address] [place] [address] Dr. Joann Atkins EO # 0.2 103/ul Normal 0.0-0.7 [facility] Comment on above: Performed By: #### C BC #### [facility] [address] [place] [address] Dr. Joann Atkins Eosinophils/100 WBC (Bld) 3.7 % Normal 0.9-7.0 [facility] Comment on above: Performed By: #### C BC #### [facility] [address] [place] [address] Dr. Joann Atkins Erythrocyte distribution width (RBC) [Ratio] 17.6 % Critically high 11.0-15.0 [facility] Comment on above: Performed By: #### C BC #### [facility] [address] [place] [address] Dr. Joann Atkins Hematocrit (Bld) [Volume fraction] 36.8 % Normal 36.0-48.0 [facility] Comment on above: Performed By: #### C BC #### [facility] [address] [place] [address] Dr. Joann Atkins Hemoglobin (Bld) [Mass/Vol] 11.5 g/dL Critically low 12.0-16.0 [facility] Comment on above: Performed By: #### C BC #### [facility] [address] [place] [address] Dr. Joann Atkins IG # 0.01 10e3/ul Normal 0.00-0.03 [facility] Comment on above: Performed By: #### C BC #### [facility] [address] [place] [address] Dr. Joann Atkins IG % 0.2 % Normal 0.0-0.5 [facility] Comment on above: Performed By: #### C BC #### [facility] [address] [place] [address] Dr. Joann Atkins LYMPH # 1.9 103/ul Normal 1.2-3.8 [facility] Comment on above: Performed By: #### C BC #### [facility] [address] [place] [address] Dr. Joann Atkins Lymphocytes/100 WBC (Bld) 39.2 % Normal 20.5-60.0 [facility] Comment on above: Performed By: #### C BC #### [facility] [address] [place] [address] Dr. Joann Atkins MANUAL DIFF REQ NO Normal [facility] Comment on above: Performed By: #### C BC #### [facility] [address] [place] [address] Dr. Joann Atkins MCH (RBC) [Entitic mass] 24.2 pg Critically low 26.7-34.0 [facility] Comment on above: Performed By: #### C BC #### [facility] [address] [place] [address] Dr. Joann Atkins MCHC (RBC) [Mass/Vol] 31.3 g/dL Normal 29.9-35.2 [facility] Comment on above: Performed By: #### C BC #### [facility] [address] [place] [address] Dr. Joann Atkins MCV (RBC) [Entitic vol] 77.5 fL Critically low 81.0-99.0 [facility] Comment on above: Performed By: #### C BC #### [facility] [address] [place] [address] Dr. Joann Atkins MONO # 0.5 103/ul Normal 0.3-0.8 [facility] Comment on above: Performed By: #### C BC #### [facility] [address] [place] [address] Dr. Joann Atkins Monocytes/100 WBC (Bld) 9.9 % Normal 1.7-12.0 [facility] Comment on above: Performed By: #### C BC #### [facility] [address] [place] [address] Dr. Joann Atkins NEUT # 2.3 103/ul Normal 1.4-6.5 [facility] Comment on above: Performed By: #### C BC #### [facility] [address] [place] [address] Dr. Joann Atkins Neutrophils/100 WBC (Bld) 46.4 % Normal 43.0-75.0 [facility] Comment on above: Performed By: #### C BC #### [facility] [address] [place] [address] Dr. Joann Atkins Platelet mean volume (Bld) [Entitic vol] 10.6 fL Normal 9.5-13.5 [facility] Comment on above: Performed By: #### C BC #### [facility] [address] [place] [address] Dr. Joann Atkins PLT 269 103/ul Normal 150-450 [facility] Comment on above: Performed By: #### C BC #### [facility] [address] [place] [address] Dr. Joann Atkins RBC 4.75 106/ul Normal 4.20-5.40 [facility] Comment on above: Performed By: #### C BC #### [facility] [address] [place] [address] Dr. Joann Atkins WBC 4.9 103/ul Normal 4.0-11.0 [facility] Comment on above: Performed By: #### C BC #### [facility] [address] [place] [address] Dr. Joann Atkins CULTURE URINEon 06-09-2022 CULTURE URINE Culture Observations : MODERATE GROWTH OF MIXED GENITAL RONNI. NO POTENTIAL PATHOGENS SEEN. Normal [facility] Comment on above: Performed By: #### U RCX #### [facility] [address] [place] [address] Dr. Joann Atkins ER URINE PROFILEon 3 Bilirubin Ql (U) Negative Normal NEGATIVE [facility] Comment on above: Performed By: #### CHRISTOPH CAMPOSRO #### [facility] [address] [place] [address] Dr. Joann Atkins Clarity (U) CLEAR Normal CLEAR [facility] Comment on above: Performed By: #### AJ CAMPOSICRO #### [facility] [address] [place] [address] Dr. Joann Atkins Color (U) LT. YELLOW Normal YELLOW [facility] Comment on above: Performed By: #### CHRISTOPH CAMPOSRO #### [facility] [address] [place] [address] Dr. Joann LARSON A micrscopic examination will be performed if indicated. Normal [facility] Comment on above: Performed By: #### CHRISTOPH CAMPOSRO #### [facility] [address] [place] [address] Dr. Joann Atkins Glucose Ql (U) Negative Normal NEGATIVE [facility] Comment on above: Performed By: #### Carmen MOLINA UMICRO #### [facility] [address] [place] [address] Dr. Joann Atkins Hemoglobin Ql (U) TRACE-INTACT Abnormal NEGATIVE [facility] Comment on above: Performed By: #### Carmen MOLINA UMICRO #### [facility] [address] [place] [address] Dr. Joann Atkins Ketones Ql (U) Negative Normal NEGATIVE [facility] Comment on above: Performed By: #### Carmen MOLINA UMICRO #### [facility] [address] [place] [address] Dr. Joann Atkins LEUKOCYTES SMALL Abnormal NEGATIVE [facility] Comment on above: Performed By: #### Carmen MOLINA UMICRO #### [facility] [address] [place] [address] Dr. Joann Atkins Nitrite Ql (U) Negative Normal NEGATIVE [facility] Comment on above: Performed By: #### Carmen MOLINA UMICRO #### [facility] [address] [place] [address] Dr. Joann Atkins pH (U) 5.5 [pH] Normal 5-9 [facility] Comment on above: Performed By: #### Carmen MOLINA UMICRO #### [facility] [address] [place] [address] Dr. Joann Atkins SPEC GRAVITY >=1.030 Abnormal 1.005-<=1.02 5 [facility] Comment on above: Performed By: #### Carmen MOLINA UMICRO #### [facility] [address] [place] [address] Dr. Joann Atkins UA PROTEIN Negative Normal NEGATIVE/ TRACE [facility] Comment on above: Performed By: #### Carmen MOLINA UMICRO #### [facility] [address] [place] [address] Dr. Joann Atkins UR MICRO IND INDICATED Normal [facility] Comment on above: Performed By: #### Carmen ARNOLDR, CHRISTOPHRO #### [facility] [address] [place] [address] Dr. Joann Atkins Urobilinogen Qn (U) 0.2 {Abilio'U}/dL Normal 0.2 - 1. 0 [facility] Comment on above: Performed By: #### E CHRISTOPH MOLINARO #### [facility] [address] [place] [address] Dr. Joann Atkins LACTATE/LACTIC ACIDon 2022 Lactate [Moles/Vol] 1.3 mmol/L Normal 0.4-1.9 [facility] Comment on above: Performed By: #### L ACT #### [facility] [address] [place] [address] Dr. Joann Atkins LIPASEon 06-09-2022 Lipase [Catalytic activity/Vol] 235.0 U/L Normal 73.0-393.0 [facility] Comment on above: Performed By: #### C MP, HSTROPN, LIPA #### [facility] [address] [place] [address] Dr. Joann Atkins PROF 14(COMP METB)on 023 Albumin [Mass/Vol] 4.1 g/dL Normal 3.4-5.0 [facility] Comment on above: Performed By: #### C MP, HSTROPN, LIPA #### [facility] [address] [place] [address] Dr. Joann Atkins Albumin/Globulin [Mass ratio] 1.0 {ratio} Normal [facility] Comment on above: Performed By: #### C MP, HSTROPN, LIPA #### [facility] [address] [place] [address] Dr. Joann Atkins ALP [Catalytic activity/Vol] 124 U/L Critically high 46-116 [facility] Comment on above: Performed By: #### C MP, HSTROPN, LIPA #### [facility] [address] [place] [address] Dr. Joann Atkins ALT [Catalytic activity/Vol] 15 U/L Normal 14-59 [facility] Comment on above: Performed By: #### C MP, HSTROPN, LIPA #### [facility] [address] [address] [address] Joann Atkins Anion gap [Moles/Vol] 14.0 mmol/L Normal Th e [facility] Comment on above: Performed By: #### C MP, HSTROPN, LIPA #### [facility] [address] [place] [address] Dr. Joann Atkins AST [Catalytic activity/Vol] 14 U/L Critically low 15-37 [facility] Comment on above: Performed By: #### C MP, HSTROPN, LIPA #### [facility] [address] [place] [address] Dr. Joann Atkins Bilirubin [Mass/Vol] 0.2 mg/dL Normal 0.2-1.0 [facility] Comment on above: Performed By: #### C MP, HSTROPN, LIPA #### [facility] [address] [place] [address] Dr. Joann Atkins Calcium [Mass/Vol] 8.8 mg/dL Normal 8.5-10.1 [facility] Comment on above: Performed By: #### C MP, HSTROPN, LIPA #### [facility] [address] [place] [address] Dr. Joann Atkins Chloride [Moles/Vol] 103 mmol/L Normal 98-107 [facility] Comment on above: Performed By: #### C MP, HSTROPN, LIPA #### [facility] [address] [place] [address] Dr. Joann Atkins CO2 [Moles/Vol] 25.6 mmol/L Normal 21.0-32.0 [facility] Comment on above: Performed By: #### C MP, HSTROPN, LIPA #### [facility] [address] [place] [address] Dr. Joann Atkins Creatinine [Mass/Vol] 0.89 mg/dL Normal 0.55-1.02 [facility] Comment on above: Performed By: #### C MP, HSTROPN, LIPA #### [facility] [address] [address] [address] Joann Atkins EGFR-AF SWAZI >60 Normal >=60 [facility] Comment on above: Performed By: #### C MP, HSTROPN, LIPA #### [facility] [address] [address] [address] Joann Atkins EGFR-NON AF SWAZI >60 Normal >=60 [facility] Comment on above: Performed By: #### C MP, HSTROPN, LIPA #### [facility] [address] [address] [address] Joann Atkins Globulin (S) [Mass/Vol] 4.0 g/dL Normal [facility] Comment on above: Performed By: #### C MP, HSTROPN, LIPA #### [facility] [address] [place] [address] Dr. Joann Atkins Glucose [Mass/Vol] 115 mg/dL Critically high 74-106 [facility] Comment on above: Performed By: #### C MP, HSTROPN, LIPA #### [facility] [address] [address] [address] Joann Atkins Potassium [Moles/Vol] 3.6 mmol/L Normal 3.5-5.1 [facility] Comment on above: Performed By: #### C MP, HSTROPN, LIPA #### [facility] [address] [address] [address] Joann Atkins Protein [Mass/Vol] 8.1 g/dL Normal 6.4-8.2 [facility] Comment on above: Performed By: #### C MP, HSTROPN, LIPA #### [facility] [address] [place] [address] Dr. Joann Atkins Sodium [Moles/Vol] 139 mmol/L Normal 136-145 [facility] Comment on above: Performed By: #### C MP, HSTROPN, LIPA #### [facility] [address] [place] [address] Dr. Joann Atkins Urea nitrogen [Mass/Vol] 17.0 mg/dL Normal 7.0-18.0 [facility] Comment on above: Performed By: #### C CLIFFORD HSTROPN, LIPA #### [facility] [address] [place] [address] Dr. Joann Atkins Urea nitrogen/Creatinine [Mass ratio] 19.1 mg/mg Normal [facility] Comment on above: Performed By: #### C MP, HSTROPN, LIPA #### [facility] [address] [place] [address] Dr. Joann Atkins TROPONIN, HIGH SENSITIVITYon 06-09-2022 HSTROP 20.5 pg/mL Normal 4.0-51.3 [facility] Comment on above: Result Comment: CUT- OFF POINTS HAVE BEEN ESTABLISHED BASED ON THE FOURTH UNIVERSAL DEFINITIONS OF MYOCARDIAL INFARCTION. THE UPPER REFERENCE LIMIT (URL) OF TROPONIN, DEFINED THE 99TH PERCENTILE OF cTnI DISTRIBUTION IN A REFERENCE POPULATION, HAS BEEN CONFIRMED THE DECISION THRESHOLD FOR DC DIAGNOSIS. Performed By: #### C MP, HSTROPN, LIPA #### [facility] [address] [place] [address] Dr. Joann Atkins URINE MICROSCOPIC ONLYon BACTERIA NONE SEEN Normal NONE SEEN [facility] Comment on above: Performed By: #### C BC #### [facility] [address] [place] [address] Dr. Joann Atkins Bacteria identified Cx Nom (U) INDICATED Normal [facility] Comment on above: Performed By: #### C BC #### [facility] [address] [place] [address] Dr. Joann Atkins CAST NONE SEEN Normal NONE SEEN [facility] Comment on above: Performed By: #### C BC #### [facility] [address] [place] [address] Dr. Joann Atkins Crystals LM Nom (Urine sed) NONE SEEN Normal NONE SEEN [facility] Comment on above: Performed By: #### C BC #### [facility] [address] [place] [address] Dr. Joann Atkins Epithelial cells LM Ql (Urine sed) RARE Normal NONE SEEN /RARE [facility] Comment on above: Performed By: #### C BC #### [facility] [address] [place] [address] Dr. Joann Atkins MUCOUS NONE SEEN Normal NONE SEEN [facility] Comment on above: Performed By: #### C BC #### [facility] [address] [address] [address] Joann Atkins RBC 0-2 Normal 0-2 [facility] Comment on above: Performed By: #### C BC #### [facility] [address] [place] [address] Dr. Joann Atkins WBC 10-20 Abnormal NONE SEEN [facility] Comment on above: Performed By: #### C BC #### [facility] [address] [place] [address] Dr. Joann Atkins Vital Signs Date Time Vital Sign Value Performing Clinician Facility 11-18-2022 15:30-0400 Body height 144.78 cm Dilcia Mancilla Other [employer] Other 11-18-2022 15:30-0400 Body mass index (BMI) [Ratio] 26.83 kg/m2 Dilcia Mancilla Other [employer] Other 11-18-2022 15:30-0400 Body weight 56.25 kg Dilcia Mancilla Other [employer] Other 11-18-2022 15:30-0400 Diastolic blood pressure 77 mm[Hg] Dilcia Mancilla Other [employer] Other 11-18-2022 15:30-0400 Systolic blood pressure 118 mm[Hg] Dilcia Mancilla Other [employer] Other 06-15-2022 09:19-0400 Body temperature 98.01 [degF] Roxana Lopez MD Work Phone: [facility] 06-15-2022 09:19-0400 Diastolic blood pressure 70 mm[Hg] Roxana Lopez MD Work Phone: [facility] [employer] [facility] 06-15-2022 09:19-0400 Heart rate 61 /min Roxana Lopez MD Work Phone: [facility] [employer] [facility] 06-15-2022 09:19-0400 Respiratory rate 16 /min Roxana Lopez MD Work Phone: [facility] [employer] [facility] 06-15-2022 09:19-0400 SaO2% (BldA) [Mass fraction] 91 % Roxana Lopez MD Work Phone: [facility] [employer] [facility] 06-15-2022 09:19-0400 Systolic blood pressure 136 mm[Hg] Roxana Lopez MD Work Phone: [facility] 06-14-2022 06:00-0500 Body mass index (BMI) [Ratio] 28.23 kg/m2 Roxana Lopez MD Work Phone: [facility] [employer] [facility] 06-14-2022 06:00-0500 Body weight 63.4 kg Roxana Lopez MD Work Phone: [facility]PITALGreenline IndustriesOHIOHEALTH [facility]ER[facility] 06-10-2022 12:45-0500 Body height 149.9 cm Roxana Lopez MD Work Phone: [facility] [employer] [facility] Encounters Encounter Date Encounter Type Care Provider Facility Start: 07-14-2023 End: 07-15-2023 ambulatory DILCIA Cabrera [facility] Start: 06-22-2023 End: 06-23-2023 ambulatory Gladis Gillis MD Facility:[facility] Start: 06-09-2023 End: 06-10-2023 ambulatory DILCIA Cabrera [facility] Start: 05-12-2023 End: 05-13-2023 ambulatory DILCIA Cabrera [facility] Start: 04-14-2023 End: 04-15-2023 [facility]ulatory [facility] Start: 03-03-2023 End: 03-04-2023 ambulatory MOHAMED AYOUBI [facility] Start: 02-03-2023 End: 02-04-2023 ambulatory MOHAMED AYOUBI [facility] Start: 01-27-2023 End: 01-28-2023 ambulatory MOHAMED AYOUBI [facility] Start: 01-20-2023 End: 01-21-2023 ambulatory MOHAMED AYOUBI [facility] Start: 01-13-2023 End: 01-14-2023 ambulatory MOHAMED AYOUBI [facility] Start: 01-07-2023 End: 01-08-2023 ambulatory MOHAMED AYOUBI [facility] Start: 01-06-2023 End: 01-07-2023 ambulatory MOHAMED AYOUBI [facility] Start: 01-01-2023 End: 01-02-2023 ambulatory MOHAMED AYDEVONTEI Carmeny [facility] Start: 12-31-2022 End: 01-01-2023 ambulatory MOHAMED AYDEVONTEI Carmeny [facility] Start: 12-30-2022 End: 12-31-2022 ambulatory MOHAMED AYDEVONTEI Carmeny [facility] Start: 11-18-2022 End: 11-18-2022 ambulatory Dilcia Mancilla Other [employer] Other Start: 11-18-2022 Patient encounter procedure Dilcia Mancilla [facility] Start: 09-03-2022 Encounter for preprocedural cardiovascular examination MELO BELLA . [facility] Start: 09-02-2022 End: 09-03-[address] DILCIA MANCILLA Facility:[facility] Start: 09-02-2022 End: 09-03-2022 Encounter for preprocedural cardiovascular examination DR DILCIA MANCILLA Facility:[facility] Start: 08-21-2022 End: 08-22-[address] DILCIA MANCILLA Facility:[facility] Start: 06-10-[address] DILCIA MANCILLA Facil ity:[facility] Start: 06-10-2022 End: 06-15-2022 Evaluation and management of inpatient MARCELO Johnson [facility] Start: 06-10-2022 End: 06-15-2022 Evaluation and management of inpatient Roxana Lopez MD Work Phone: [address] Ortho/Med Surg Comment on above: Internal [...] Basic metabolic pane l calcium total Ernestina Melvina DO Work Phone: Start: 06-12-2022 LACTATE, SEPSIS Marcelo Garciaton DO Work Phone: Start: 06-12-2022 LACTATE, SEPSIS Marcelo [facility] DO Work Phone: Start: 06-12-2022 Radiologic exam abdo men 1 view Ernestina Melvina DO Work Phone: Start: 06-12-2022 Glucose blood reagen t strip Marcelo Garciaton DO Work Phone: Start: 06-12-2022 Radiologic exam abdo men 1 view Ernestina Deonte DO Work Phone: Start: 06-12-2022 Basic metabolic pane l calcium total Ernestina Deonte DO Work Phone: Start: 06-11-2022 Radiologic exam ches t single view Ernestina Melvina DO Work Phone: Start: 06-11-2022 Radiologic exam smal l int single contrast study Ernestina Melvina DO Work Phone: Start: 06-11-2022 Antibody screen Heather Lopez MD Work Phone: Start: 06-11-2022 Basic metabolic pane l calcium total Ernestina Melvina DO Work Phone: Start: 06-10-2022 SURGICAL PATHOLOGY [...] REFLEX TO MG FOR LOW K Ernestina Melvina DO Work Phone: Start: 06-10-2022 Blood count complete auto&auto difrntl wbc Ernestina Melvina DO Work Phone: Start: 06-10-2022 Speech and [...] Pneumococcal 65+ years Vaccine (1 - PCV) [facility] Start: 11-16-2020 COVID-19 Vaccine (3 - Booster for Pfizer series) COVID-19 Vaccine (3 - Booster for Pfizer series) [facility] Start: 11-13-2011 Screening for osteoporosis DEXA (modify frequency per FRAX score) [facility] Start: 2006 Screening for malign ant neoplasm of breast Breast cancer screen [facility] Start: 2006 Shingles vaccine (1 of 2) Shingles vaccine (1 of 2) [facility] Start: 2001 Screening for malign ant neoplasm of colon [facility] Start: 1986 Screening for malign ant neoplasm of cervix [facility] Start: 1977 Screening for malign ant neoplasm of cervix Pap smear [facility] Start: 11-13-1975 DTaP/Tdap/Td vaccine (1 - Tdap) DTaP/Tdap/Td vaccine (1 - Tdap) [facility] Start: 1974 Hepatitis C screening Hepatitis C sc reen [facility] Start: 11-13-1971 HIV screening HIV screen [facility] Start: 1968 Depression Screen Depression Screen [facility] Start: 1966 Lipid panel Lipids [facility] Oxygen therapy [Mini mum Data Set] Initiate Oxygen Therapy Protocol Respiratory Care Routine As Needed until discontinued starting 06/10/2022 [facility] [employer] Work Phone: Comment on above: As Needed until disc ontinued starting 06/10/2022 Oxygen therapy [[facility] Data Set] Initiate Oxygen Therapy Protocol Respiratory Care Routine As Needed until discontinued starting 06/10/2022 [facility] [employer] Work Phone: Comment on above: As Needed until disc ontinued starting 06/10/2022 End: 06-10-2022 PREPARE RBC (CROSSMATCH), 2 Units PREPARE RBC (CROSSMATCH), 2 Units Blood Bank Routine Once for 1 Occurrences starting 06/10/2022 until 06/10/2022 [facility] [employer] Phone: Comment on above: Once for 1 Occurrenc es starting 06/10/2022 until 06/10/2022 Surgical Pathology Surgical Path ology Lab Routine Gastrointestinal problem Release Upon Ordering for 1 Occurrences starting 06/10/2022 PACO BLAKE [employer] Work Phone: Comment on above: Release Upon Orderin g for 1 Occurrences starting 06/10/2022 Immunizations Immunization Date Immunization Notes Care Provider Shari naik 09-21-2020 COVID-19 Vaccine Pfi zer - Documentation Purposes Only Dilcia Mancilla Other [employer] Other 12-21-2019 influenza virus vaccine, split virus (incl. purified surface antigen) Dilcia Mancilla Other [employer] Other Payers Date Payer Category Payer [employer] ( [employer] others) 2023 Private Health Insurance 1959 [employer] ( [employer] others) [id number] 1959 [employer] ( and others) [id number] 1958 Medicare [id number] 1959 Medicare [id number] 1955 Unknown [id number] 2.16.840.1.582092.3.579.2.593 1955 Unknown [id number] 2.16.840.1.416359.3.579.2.59 1956 Unknown [id number] 2.16.840.1.573084.3.579.2.593 1956 Unknown [id number] 2.16.840.1.323521.3.579.2.593 1956 Unknown [id number] 2.16.840.1.357351.3.579.2.593 1956 Unknown [id number] 2.16.840.1.925427.3.579.2.593 1956 Unknown [id number] 2.16.840.1.783925.3.579.2.593 1955 Unknown [id number] 2.16.840.1.598663.3.579.2.593 1956 Unknown [id number] 2.16.840.1.124383.3.579.2.175 1956 Unknown [id number] 2.16.840.1.822022.3.579.2.196 1956 Unknown [id number] 2.16.840.1.961255.3.579.2.196 1956 Unknown [id number] 2.16.840.1.892812.3.579.2.173 1956 Unknown [id number] 2.16.840.1.547542.3.579.2.173 1956 Unknown [id number] 2.16.840.1.595346.3.579.2.173 1956 Unknown [id number] 2.16.840.1.918983.3.579.2.173 1956 Unknown [id number] 2.16.840.1.053009.3.579.2.173 1956 Unknown [id number] 2.16.840.1.672842.3.579.2.173 1956 Unknown [id number] 2.16.840.1.775619.3.579.2.173 1956 Unknown [id number] 2.16.840.1.077876.3.579.2.173 1956 Unknown [id number] 2.16.840.1.538831.3.579.2.173 1956 Unknown [id number] 2.16.840.1.660654.3.579.2.173 1956 Unknown [id number] 2.16.840.1.633780.3.579.2.173 1956 Unknown [id number] 2.16.840.1.847691.3.579.2.173 1956 Unknown [id number] 2.16.840.1.821008.3.579.2.173 1956 Unknown [id number] 2.16.840.1.491222.3.579.2.173 Social History Date Type Detail Facility Start: 05-23-2021 Tobacco smoking status NHIS Never smoked tobacco [employer] Start: 05-23-2021 Tobacco use and exposure Smokeless tobacco non-user [employer] Phone: Start: 06-11-2022 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 [employer] Other History of Present illness Narrative 06-15-2022 Jennifer Lake, PT - 06/15/2022 10:37 AM EDTAustin Samreen Morocho, DO - 06/15/2022 9:42 AM EDTAustin Samreen Morocho, DO - 06/14/2022 12:48 PM ESTErnestina Clemons, DO - 06/13/2022 9:05 AM EST Note Date & Type Note Facility 06-15-2022 History of Present illness Narrative Physical Therapy Facility/Department: [address] ORTHO/MED SURG Physical Therapy Initial Assessment Name: Kevin Perea : 1955 Date of Service: 06/15/2022 Discharge Recommendations: No therapy recommended at discharge. Chief Complaint Patient presents with GI Problem SBO, transfer from [place] [address] y.o. F s/p ex lap with lysis [...] Decision Making: Low Complexity Barriers to Learning: GRAND TRAVERSE Requires PT Follow-Up: No Activity Tolerance Activity [...] Ambulation Assistance: Independent Transfer Assistance: Independent Active Fishing Hand: No Patient's Fishing Hand Info: drives Occupation: On disability Leisure & Hobbies: watch [employer] Additional Comments: Pt reports she lives with her , and two sons. She reports that she has 24 hr A available at d/c. Vision/Hearing Vision Vision: Within Functional Limits Hearing Hearing: Exceptions to WFL Hearing Exceptions: Hard of hearing/hearing concerns;No hearing aid Cognition Orientation Overall Orientation Status: Within Functional Limits Cognition Overall Cognitive Status: Exceptions Cognition Comment: Pt with some GRAND TRAVERSE. Requires repeated cues for tasks. Pt does [...] prophylaxis with Protonix Associated attestation - Marcelo Knight, - 06/13/2022 9:38 AM EST I [...] GI prophylaxis with Protonix Speech Language Pathology [facility] Speech Language Pathology SPEECH/COGNITIVE ASSESSMENT NO [...] 06/10/2022 7:05 AM documented in this encounter [facility] [employer] Phone: Hospital Discharge instructions 06-13-2022 Discharge Instructions Note Date & Type Note Facility 06-13-2022 Hospital Discharg e instructions Alecia Correa RN - 06/13/2022 10:05 PM EST Follow up with Dr. Knight in approximately 1 week. Please call the office at [phone]. Surgery Patient Discharge Instructions WOUND CARE: Do [...] Fever over 100.5 documented in this encounter [facility] [employer] Phone: Consultation note 12-17-2021 Note Date & [...] be followed up in the office. [facility] Consultation note 12-05-2021 Note Date & [...] this plan and all questions answered. [facility] Consultation note 09-24-2021 Note Date & [...] will be followed up in the office. [facility] Signed and Approved by: DR KELLI HENRIQUEZ . 10/01/2021 09:22:00 [facility] Evaluation note Note Date & Type [...] Unspecified intestinal obstruction documented in this encounter 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
Care Teams (unrecognized sec tion and content) Business Strategy Manager Relationship Specialty Start Date End Date Dilcia Mancilla MD [address] [place] [address] PCP - General Family Medicine 06/11/22 INFORMATION SOURCE (unrecogn ized section and content) DATE CREATED AUTHOR 09/12/2022 [facility] DATE CREATED AUTHOR AUTHOR'S ORGANIZ ATION 10/03/2022 [facility] DATE CREATED AUTHOR AUTHOR'S ORGANIZ ATION 06/27/2023 [facility] DATE CREATED AUTHOR AUTHOR'S ORGANIZ ATION 07/15/2023 [facility] FOR RECORDS PERTAINING TO PATIENTS [...] BE BASED ON THE PRIMARY CLINICAL RECORDS. [employer] [facility]. provides no warranty or guarantee of the accuracy or completeness of information in this document.
[2023-08-04 07:08] VITALS: BP 140/83; PULSE 60; TEMP 36.4; O2SAT 98
[2023-08-04 07:57] VITALS: BP 131/81; PULSE 64; O2SAT 96
[2023-08-04] MEDS: BUPIVACAINE HCL 0.25% PF 25 MG/10 ML VIAL 8 ML INJ (08:01)
[2023-08-04] MEDS: METHYLPREDNISOLONE ACETATE 40 MG/ML VIAL INJ (08:01)
[2023-08-04 08:03] VITALS: BP 131/81; PULSE 56; O2SAT 95
--- NOTE | 2023-08-04 09:05 | P.ON_ITS ---
Date of procedure: 08/04/23 Pre-op diagnosis: sacroilitis Post-op diagnosis: same as pre-op Procedure: Bilateral sacroiliac joint injection Preop diagnosis includes pain secondary to Sacroiliitis and sacroiliac dysfunction, Postop diagnosis same Performed under fluoroscopic guidance Immediate complications none Anesthesia:none Solution used for injection: In each syringe, 2 milliliters 0.25% Marcaine 40 mg Depo-Medrol 2.5 mL is used for injection for each side Time out process compliant After informed consent obtained patient was brought to the procedure room placed in the prone position skin overlying the area was prepped and draped in a sterile fashion using betadine. 25 gauge spinal needle Insert over each of the target areas identified in fluoroscopy corresponding needles were advanced Under fluoroscopic guidance until the target/targets encountered , no indication of i ntravascular or Intraneuronal needle tip placement. Solution injected .needles removed post procedurally. patient transferred to recovery room in stable condition to be discharged home after meeting criteria Anesthesia: Local Surgeon: Fletcher Rodríguez Condition: stable
== END 2023-08-04 08:09 | disposition home or self-care (01) ==
LOC: SURGOUT 06:43
PROVIDERS: PCP Family Medicine; Visit Provider Anesthesiology Pain Medicine
DX: M46.1 Sacroiliitis, not elsewhere classified (principal)
CPT/HCPCS: 27096; J1010

== ENCOUNTER 2023-08-12 08:28 | Outpatient (OUT) | payer MEDICARE, OTHER, SELFPAY ==
--- NOTE | 2023-08-12 08:48 | P.CN_ITS ---
Consult Note: HPI Data of Consult Patient: known to practice within the last 3 years Requesting Physician: Maria G Toussaint NP Primary Care Provider: Dilcia Ocasio MD Consult Narrative Reason for consult: f/u Narrative: Sylvia Aragon a pleasant 67 year old female presents for evaluation and management of chronic low back and bilateral SIJ pain. Today pain 3/10, increasing to 5/10. Patient has found benefit to diclofenac, duloxetine, and baclofen without side effects. Pain increased with activity and when lying flat, finds benefit to lying on her abdomen and with forward flexion. Denies loss of bowel or bladder. MRI reviewed, consistent with lumbar stenosis with NC and lx radiculopathy, as well as facet arthropathy. continues to engage in HEP greater than 6 weeks without significant benefit. Prior right L4-5 L5-S1 TFESI with 50% improvement ongoing, most recent bilateral SIJ injection with significant improvement for 1 week now >50% ongoing improvement. cc:: CC: Maria G Toussaint NP Review of Systems ROS0 Status of ROS 10 or more systems reviewed and unremark able except as noted in history and below Musculoskeletal Reports: back pain and joint pain PFSH PFSH Medical History Rheumatoid arthritis ?M06.9 - Rheumatoid arthritis, unspecified (ICD-10) Neck pain ?M54.2 - Cervicalgia (ICD-10) Back pain ?M54.9 - Dorsalgia, unspecified (ICD-10) Surgical History History of gastric surgery ?Z98.890 - Other specified postprocedural states (ICD-10) H/O abdominoplasty ?Z98.890 - Other specified postprocedural states (ICD-10) H/O bariatric surgery ?Z98.84 - Bariatric surgery status (ICD-10) H/O eye surgery ?Z98.890 - Other specified postprocedural states (ICD-10) H/O breast implant ?Z98.82 - Breast implant status (ICD-10) Hx of cholecystectomy ?Z90.49 - Acquired absence of other specified parts of digestive tract (ICD- 10) Meds Home Medications and Allergies Home Medications ?Medication ?Instructions ?Recorded ?Confirmed ?Type baclofen 10 mg tablet 10 mg PO .HS 09/17/22 08/04/23 History calcium carbonate 600 mg-vitamin cap PO .QD 09/17/22 History D3 5 mcg (200 unit) capsule (Calcium 600 + D(3)) copper gluconate 2 mg tablet 2 mg PO DAILY 09/17/22 08/04/23 History diclofenac potassium 50 mg tablet 50 mg PO BID 09/17/22 08/04/23 History levothyroxine 88 mcg tablet 88 mcg PO .QD 09/17/22 08/04/23 History multivitamin 1 tab PO DAILY 09/17/22 08/04/23 History vitamin A .QD 09/17/22 History vitamin B complex (Complex B-100 1 tab PO DAILY 09/17/22 08/04/23 History tablet,extended release) zinc 25 mg tablet 25 mg PO .QD 09/17/22 08/04/23 History diclofenac sodium 100 mg 100 mg PO DAILY #30 tabs 01/21/23 08/04/23 Rx tablet,extended release 24 hr duloxetine 30 mg capsule,delayed 60 mg (2 x 30 mg) PO DAILY #75 caps 01/21/23 08/04/23 Rx release Allergies Allergy/AdvReac Type Severity Reaction Status Date / Time Penicillins Allergy Mild Verified 08/04/23 07:11 morphine AdvReac Mild Hypotension Verified 08/04/23 07:11 Exam Constitutional Documenting provider has reviewed patient's vital signs: yes Common normals: no apparent distress, oriented x3, healthy appearing, alert and well nourished General appearance: cooperative HENFL Common normals: normocephalic, hearing grossly normal bilaterally and moist oral mucous membranes Head and scalp: normocephalic Eye Common normals: PERRL Pupil: PERRL Neck & C-Spine Common normals: full ROM General: normal visual inspection Chest Common normals: inspection of chest normal Respiratory Common normals: normal respiratory effort, no retractions and no use of accessory muscles Back & Pelvis Lumbar spine/lower back: ROM limited, pain with ROM and straight leg raise negative bilaterally Sacroiliac joints: SI joint(s) abnormal Other: sensation intact BLE strength 5/5 in BLE facet loading positive and tenderness over L1-3 mildly positive left shane fadir thigh thrust and gaenlsens, tenderness over left PSIS negative RIGHT shane fadir thigh thrust and gaenslens Extremity Common normals: normal to inspection Neuro Common normals: oriented x3, CN's II-XII intact bilaterally, moves all extremities, no focal motor deficits, no sensory deficits noted and deep tendon reflexes 2+ bilaterally Sensorium/orientation: alert Motor exam: strength 5/5 throughout and no movement abnormalities noted Psych Common normals: mental status grossly normal, thought process normal, cooperative, affect normal, speech normal and activity/motor behavior normal Speech: normal speech Thought process: normal thought process Results Additional Findings Additional findings: If on a controlled substance or opioids, I have checked an OARRS report on this patient and there are no aberrancies noted in the prescribing history.??If on a controlled substance or opioid a drug screen was completed and reviewed within the last year, and if there has not been a drug screen completed we ordered one today to monitor higher risk, state monitored pain medication use. As part of providing excellent, safe, comprehensive care, the following was completed at our patient's visit: 1. A medication reconciliation and review to ensure accurate knowledge of current/active medications, including asking our patients to inform us about any [id number] medications or herbal remedies/nutritional supplements/alternative remedies. 2. A review to specifically ensure our patients have had annual screening for screening for depression, screening for tobacco use, and screening for unhealthy alcohol use. For concerning screenings had a discussion with the patient, provided patient education, and recommended follow-up with primary care provider when appropriate. If patient noted with a risk of falling, they received education on strength, gait, and balance training to prevent future risk of falling. Assessment and Plan Assessment and Plan (1) Lumbar stenosis with neurogenic claudication: (2) Sacroiliitis: (3) Lumbar radiculopathy: (4) Muscle spasm: (5) Lumbar spondylosis: (6) Chronic pain syndrome: Plan continue HEP as tolerated continue current medications, tolerating well without side effect f/u 3 months for medication management, sooner if needed not a vertiflex candidate based on osteoporosis hx
== END 2023-08-12 08:29 | disposition home or self-care (01) ==
LOC: PM 08:29
PROVIDERS: PCP Family Medicine; Visit Provider Nurse Practitioner
DX: M48.062 Spinal stenosis, lumbar region with neurogenic claudication (principal); M46.1 Sacroiliitis, not elsewhere classified; M54.16 Radiculopathy, lumbar region; M62.838 Other muscle spasm; M47.816 Spondylosis without myelopathy or radiculopathy, lumbar region; G89.4 Chronic pain syndrome
CPT/HCPCS: G0463

== ENCOUNTER 2024-06-01 13:42 | Outpatient (OUT) | payer MEDICARE, OTHER, SELFPAY ==
--- NOTE | 2024-06-01 13:45 | MR_ITS ---
The [address] [address] Patient Name: KEVIN PEREA MRN: [id number] date: 1955 Sex: F Assigned Patient Location: MRI Current Patient Location: MRI Accession/Order Number: [id number] Exam Date: 06/01/2024 18:13 Report Date: 06/01/2024 18:16 At the request of: AMEE MANCILLA MD Procedure: MR head/brain wo con MR head/brain wo con 06/01/2024 2:38 PM SIGN AND SYMPTOMS: Headache, memory loss for 2 months PROTOCOL: Multiplanar multisequence MR images of the brain without IV contrast COMPARISON: None. FINDINGS: Extra axial spaces: There is age-related cortical atrophy. Hemorrhage: None. Ventricular system: Within normal limits. Basal cisterns: Within normal limits and not effaced. Cerebral parenchyma: Mild periventricular and subcortical white matter T2 and FLAIR hyperintense signal is noted consistent with chronic microvascular ischemic change. Midline shift: None.. Cerebellum: Within normal limits. Brainstem: Within normal limits. OTHER: Calvarium: Normal marrow signal. Vascular system: Satisfactory flow voids within the anterior and posterior circulation. Visualized Paranasal sinuses: Within normal limits. Visualized Orbits: Within normal limits. Visualized upper cervical spine: Within normal limits. Sella and skull base: Within normal limits. MR/MR head/brain wo con IMPRESSION: No acute intracranial pathology. Chronic age-related neurodegenerative changes are noted as above. Impression dictated by: Justus Wolff M.D.06/01/2024 6:16 PM Dictation Location: [place] [address] Electronically authenticated by: [id number] Date: 06/01/2024 18:16
== END 2024-06-01 13:43 | disposition home or self-care (01) ==
LOC: MRI 13:42
PROVIDERS: PCP Family Medicine; Visit Provider Family Medicine
DX: R41.3 Other amnesia (principal)
CPT/HCPCS: 70551

== ENCOUNTER 2024-08-01 12:43 | Outpatient (OUT) | payer OTHER, SELFPAY ==
[2024-08-01 13:22] LABS: Basophils Percent Auto 0.5 % (0.2-2.0); Eosinophils Absolute Auto 0.1 10^3/uL (0.0-0.7); Eosinophils Percent Auto 2.5 % (0.9-7.0); Hemoglobin 14.3 g/dL (12.0-16.0); Immature Granulocytes Abs Auto 0.01 10^3/uL (0.00-0.03); Immature Granulocytes Pct Auto 0.2 % (0.0-0.5); Lymphocytes Absolute Auto 1.3 10^3/uL (1.2-3.8); Lymphocytes Percent Auto 32.1 % (20.5-60.0); Mean Corpuscular HGB Conc 33.3 g/dL (29.9-35.2); Mean Corpuscular Hemoglobin 32.6 pg (26.7-34.0); Mean Corpuscular Volume 98.2 fL (81.0-99.0); Mean Platelet Volume 11.5 fL (9.5-13.5); Monocytes Absolute Auto 0.4 10^3/uL (0.3-0.8); Monocytes Percent Auto 8.7 % (1.7-12.0); Neutrophils Absolute Auto 2.3 10^3/uL (1.4-6.5); Platelet Count 204 10^3/uL (150-450); Red Blood Count 4.38 10^6/uL (4.20-5.40); Red Cell Distribution Width 12.3 % (11.0-15.0)
[2024-08-01 15:08] LABS: Alanine Aminotransferase 15 U/L (14-59); Albumin Globulin Ratio 1.1; Albumin Level 3.8 g/dL (3.4-5.0); Alkaline Phosphatase 98 U/L (46-116); Aspartate Amino Transferase 22 U/L (15-37); BUN Creatinine Ratio 16.5; Bilirubin Total 0.5 mg/dL (0.2-1.0); Calcium 8.9 mg/dL (8.5-10.1); Chloride 104 mmol/L (98-107); Estimated GFR (African America >60 (>=60 mL/min/1.73m^2); Estimated GFR (Non-African Ame >60 (>=60 mL/min/1.73m^2); Globulin 3.4 g/dL; Glucose 111 mg/dL (74-106); Sodium 143 mmol/L (136-145); Thyroid Stimulating Hormone 2.065 uIU/mL (0.358-3.740); Total Protein 7.2 g/dL (6.4-8.2)
[2024-08-01 15:09] LABS: Free T4 0.88 ng/dL (0.76-1.46)
== END 2024-08-01 12:44 | disposition home or self-care (01) ==
PROVIDERS: PCP Family Medicine; Visit Provider Family Medicine
DX: E03.9 Hypothyroidism, unspecified (principal); R11.0 Nausea; D50.9 Iron deficiency anemia, unspecified
CPT/HCPCS: 36415; 80053; 82728; 83690; 84439; 84443; 85025